=== PATIENT | female | born 1950 | race Caucasian/White ===

== ENCOUNTER 2023-12-05 10:00 | Outpatient (CLI) | payer MEDICARE, SELFPAY ==
--- NOTE | ~2023-12-05 | CT_ITS ---
CT cervical spine wo/w con Ordering provider: Charity Steven History: . CERVICAL STENOSIS OF SPINE . Comparison: None. Technique: CT of the cervical spine was performed with and without contrast. Sagittal and coronal re formatted images were also obtained and reviewed. Automated exposure control and iterative reconstru ction technique were employed. The dose-length product was 207.71 mGy-cm. 100 mL Omnipaque 350 was gi rosa IV. FINDINGS: VERTEBRAE: No subluxation or acute fracture. The occipital condyles are intact. Postoperative change s seen posteriorly. DISC SPACES: Narrowing of the disc spaces C2-C3, C3-C4, C4-C5, and C5-C6. PARASPINOUS SOFT TISSUES: Soft tissue collection with air is seen posterior to the surgical bed which measures 3.7 x 2.3 x 11 cm extending from the C4 down to T3. IMPRESSION: Collection is seen posteriorly in the surgical bed with air seen in the subcutaneous tissues and the collection. The collection measures 3.7 x 2.3 x 11 cm.. Further evaluation advised. Reviewed, dictated and finalized at location A. IMPRESSION: Collection is seen posteriorly in the surgical bed with air seen in the subcuta neous tissues and the collection. The collection measures 3.7 x 2.3 x 11 cm.. Génesis sanches evaluation advised.
[2023-12-05 10:43] LABS: Estimated Glomerular Filt Rate > 60
== END 2023-12-05 10:01 | disposition home or self-care (01) ==
LOC: CHSIMG 10:04
PROVIDERS: PCP Family Medicine
DX: M48.02 Spinal stenosis, cervical region (principal)
CPT/HCPCS: 72127; Q9967

== ENCOUNTER 2023-12-09 13:43 | Outpatient (CLI) | payer MEDICARE, SELFPAY ==
[2023-12-09 14:33] LABS: Anion Gap 5 mmol/L (4-12); Blood Urea Nitrogen 8 mg/dL (7-18); Calcium 9.3 mg/dL (8.5-10.1); Carbon Dioxide 32 mmol/L (21-32); Chloride 98 mmol/L (98-108); Estimated Glomerular Filt Rate > 60; Glucose 105 mg/dL (70-99); Osmolality Calculated 278 mOsm/kg (285-295); Potassium 3.8 mmol/L (3.5-5.1); Sodium 135 mmol/L (136-145)
== END 2023-12-09 13:44 | disposition home or self-care (01) ==
LOC: CHSLAB 13:46
PROVIDERS: PCP Family Medicine; Visit Provider Family Medicine
DX: E87.5 Hyperkalemia (principal)
CPT/HCPCS: 36415; 80048

== ENCOUNTER 2024-01-15 13:35 | Emergency (ER) | payer MEDICARE, MEDICAID, SELFPAY ==
[2024-01-15 13:39] VITALS: BP 138/74; PULSE 87; RESP 22; TEMP 36.4; O2SAT 98
--- NOTE | 2024-01-15 13:45 | ED.SKABFB ---
HPI - Skin/Abscess/Foreign Bdy General Chief complaint: Skin/Abscess/Foreign Body Stated complaint: RASH Time Seen by Provider: 01/15/24 13:37 Source: patient Mode of arrival: ambulatory Limitations: no limitations History of Present Illness HPI narrative: patient is a 73-year-old female from the nursing facility with generalized rash for the past 5-6 weeks. He has seen a minute clerk in other primary specialists without success of the rash. This rash is distressing due to itching and pain from time to time. MD complaint: rash Onset (ago): week(s) (5-6) Tetanus up to date: unsure Location: generalized Severity: moderate Severity scale (1-10): 5 Quality: sharp and pruritic Pain Consistency: intermittent Relieving factors: none Exacerbating factors: none Context: none Associated symptoms: denies other symptoms Treatments prior to arrival: other ( Multiple treatments from minute clerk and primary doctor unknown at this time.) Related Data Allergies Allergy/AdvReac Type Severity Reaction Status Date / Time potassium Allergy Unknown Verified 01/15/24 13:51 ragweed pollen Allergy Unknown Verified 01/15/24 13:51 Review of Systems Review of Systems: All systems reviewed & are unremarkable except as noted in HPI and below Constitutional: Constitutional: Reports no additional constitutional complaints Eyes: Eyes: Reports no additional eye complaints ENT: Reports system reviewed and no additional complaints, except as documented Cardiovascular: Cardiovascular: Reports no additional cardiovascular complaints Respiratory: Respiratory: Reports no additional respiratory complaints Gastrointestinal: Gastrointestinal: Reports no additional gastrointestinal complaints Genitourinary: Genitourinary: Reports no additional female genitourinary complaints Musculoskeletal: Musculoskeletal: Reports no additional musculoskeletal complaints Integumentary/Breasts: Skin/Breast: Reports system reviewed and no additional complaints, except as docu Neurologic: Reports system reviewed and no additional complaints, except as documented Psychiatric: Psychiatric: Reports no additional psychiatric complaints Endocrine: Endocrine: Reports no additional endocrine complaints Hematologic/Lymphatic: Hematologic/Lymphatic: Reports no additional hematologic/lymphatic complaints Allergic/Immunologic: Allergic/Immunologic: Reports no additional allergic/immunologic complaints Exam Const: General: healthy appearing Nutritional Appearance: well nourished Orientation/consciousness: patient oriented x3 HENMT: Head: normal to inspection Ears: external ears normal Face/Nose/Sinus: Normal external nose present Eyes: Conjunctivae: conjunctivae normal Pupils: Equal, round and reactive pupils present EOM: EOMs intact bilaterally Neck: Neck: normal visual inspection Chest: Chest palpation & inspection: normal inspection of the chest Resp: Effort & Inspection: normal respiratory effort and not labored Auscultation: clear to auscultation bilaterally and no crackles Cardio: Rate: regular rate Rhythm: regular rhythm Heart sounds: no murmurs GI: Inspection: non-distended Auscultation: normal bowel sounds : General: Yes bladder normal to palpation Back/Spine/Pelvis: Back: no CVA tenderness Skin: General skin exam: normal color Rashes: rash noted Wounds: no wounds Other: generalized macular papular rash with erythema on the chest abdomen and legs mostly; areas of excoriation; these may represent an infestation type rash Neuro: General: patient oriented x3, moves all extremities and no meningeal signs Extrem: General: normal to inspection, no clubbing, cyanosis or edema and no pedal edema Psych: Mental Status: mental status grossly normal Affect: normal affect Attitude: cooperative Course Vital Signs Vital signs: Vital Signs Temperature 36.4 C L 01/15/24 13:39 Pulse Rate 87 01/15/24 13:39 Respiratory Rate 22 H
[2024-01-15] MEDS: methylPREDNISolone SOD SUCC 125 MG VIAL IM (14:41)
[2024-01-15 14:57] VITALS: BP 140/70; PULSE 77; RESP 18; TEMP 36.6; O2SAT 100
== END 2024-01-15 15:07 | disposition home or self-care (01) ==
PROVIDERS: Emergency Provider Emergency Medicine; PCP Family Medicine
DX: S20.369A Insect bite (nonvenomous) of unspecified front wall of thorax, initial encounter (principal); S30.861A Insect bite (nonvenomous) of abdominal wall, initial encounter; S80.862A Insect bite (nonvenomous), left lower leg, initial encounter; S80.861A Insect bite (nonvenomous), right lower leg, initial encounter; W57.XXXA Bitten or stung by nonvenomous insect and other nonvenomous arthropods, initial encounter
CPT/HCPCS: 96372; 99283; J2919

== ENCOUNTER 2024-04-06 10:08 | Outpatient (CLI) | payer MEDICARE, MEDICAID, SELFPAY ==
[2024-04-06 11:11] LABS: Hematocrit 34.4 % (35.0-42.0); Hemoglobin 10.8 g/dL (11.7-13.8); Mean Corpuscular HGB Conc 31.4 g/dL (32-36); Mean Corpuscular Hemoglobin 26.3 pg (27.0-31.0); Mean Corpuscular Volume 83.9 fL (78.0-102.0); Mean Platelet Volume 10.1 fl (9.2-11.8); Platelet Count Result 385 K/mm3 (150-420); Red Cell Distribution Width 14.2 % (11.6-14.4); White Blood Count 8.8 K/mm3 (4.8-10.8)
[2024-04-06 11:21] LABS: Hemoglobin A1C 6.7 % (<5.7)
[2024-04-06 12:10] LABS: Alanine Aminotransferase 7 U/L (14-59); Albumin Level 3.1 g/dL (3.4-5.0); Alkaline Phosphatase 126 U/L (46-116); Anion Gap 7 mmol/L (4-12); Aspartate Amino Transferase 12 U/L (15-37); Bilirubin Direct 0.1 mg/dL (0-0.2); Bilirubin,Total 0.3 mg/dL (0.00-1.00); Blood Urea Nitrogen 13 mg/dL (7-18); Calcium 9.7 mg/dL (8.5-10.1); Carbon Dioxide 30 mmol/L (21-32); Chloride 100 mmol/L (98-108); Cholesterol 139 mg/dL (0-200); Estimated Glomerular Filt Rate 60; Glucose 108 mg/dL (70-99); HDL Direct 44 mg/dL (40-60); LDL Cholesterol Calculated 74 mg/dL (<130); Osmolality Calculated 285 mOsm/kg (285-295); Potassium 4.1 mmol/L (3.5-5.1); Sodium 137 mmol/L (136-145); Thyroid Stimulating Hormone 0.74 uIU/mL (0.36-3.74); Total Protein 8.8 g/dL (6.4-8.2); Triglycerides 105 mg/dL (0-150)
[2024-04-12 15:13] LABS: Vitamin D 1,25 (OH)2 Total 65 pg/mL (18-72); Vitamin D2 1,25 (OH)2 10 pg/mL; Vitamin D3 1,25 (OH)2 55 pg/mL
== END 2024-04-06 10:09 | disposition home or self-care (01) ==
PROVIDERS: PCP Family Medicine; Visit Provider Family Medicine
DX: E46 Unspecified protein-calorie malnutrition (principal); M96.1 Postlaminectomy syndrome, not elsewhere classified; D64.9 Anemia, unspecified; E78.5 Hyperlipidemia, unspecified; E11.9 Type 2 diabetes mellitus without complications; Z85.3 Personal history of malignant neoplasm of breast; E55.9 Vitamin D deficiency, unspecified
CPT/HCPCS: 36415; 80053; 80061; 82248; 82652; 83036; 84443; 85027

== ENCOUNTER 2024-04-07 06:51 | Outpatient (NON) | payer MEDICARE, SELFPAY | END 2024-04-07 06:52 | disposition home or self-care (01) | LOC: CHSLAB 06:53 | PROVIDERS: PCP Family Medicine; Visit Provider Family Medicine | DX: L08.9 Local infection of the skin and subcutaneous tissue, unspecified (principal) | CPT/HCPCS: 87070; 87075; 87181; 87205 ==

== ENCOUNTER 2024-05-07 07:15 | Outpatient (NON) | payer MEDICARE, SELFPAY | END 2024-05-07 07:16 | disposition home or self-care (01) | LOC: CHSLAB 07:17 | PROVIDERS: PCP Family Medicine; Visit Provider Family Medicine | DX: A49.02 Methicillin resistant Staphylococcus aureus infection, unspecified site (principal) | CPT/HCPCS: 87070; 87205 ==

== ENCOUNTER 2024-08-06 12:06 | Emergency (ER) | payer OTHER, SELFPAY ==
--- NOTE | ~2024-08-06 | CT_ITS ---
CT cervical spine wo con Ordering provider: Wali Barnett MD History: . osteomylitis? NKI, ?confusion, chronic neck pain, surg X 2yr . Comparison: December 05, 2023 Technique: CT of the cervical spine was performed without contrast. Sagittal and coronal reformatted images were also obtained and reviewed. Automated exposure control and iterative reconstruction benedict hnique were employed. The dose-length product was 108.92 mGy-cm. FINDINGS: VERTEBRAE: Postoperative changes seen posteriorly. Reversal of lordosis. No subluxation or acute frac ture. The occipital condyles are intact. Degenerative changes of the spine. DISC SPACES: Narrowing of the disc C3-C4, C4-C5, C5-C6 and C6-C7 is noted. Narrowing of the intervert ebral foramina at multiple levels PARASPINOUS SOFT TISSUES: Normal. IMPRESSION: No acute osseous abnormality cervical spine. Postoperative changes. Reviewed, dictated and finalized at location A.
[2024-08-06 12:08] VITALS: BP 186/86; PULSE 64; RESP 18; TEMP 36.7; O2SAT 100
[2024-08-06 12:37] LABS: Add Urine Microscopic? NO; Appearance Urine Clear (Clear); Bilirubin Urine Negative (Negative); Blood Urine Negative (Negative); Color Urine Light Yellow (Yellow); Glucose Urine UA Negative (Negative); Ketones Urine Negative (Negative); Leukocyte Esterase Ur Negative LEU/UL (Negative); Nitrate Urine Negative (Negative); Protein Urine Negative (Negative); Urobilinogen Urine 0.2 mg/dL (0.2-1.0)
[2024-08-06 12:51] VITALS: BP 148/66; PULSE 62; RESP 16; O2SAT 100
--- NOTE | 2024-08-06 13:16 | ED_ITS ---
HPI - Wound/Laceration General Chief Complaint: Altered Mental Status Stated Complaint: Neck wound Time Seen by Provider: 08/06/24 12:11 Source: patient Mode of arrival: ambulatory Limitations: no limitations History of Present Illness HPI narrative: Patient is a 74-year-old female with a significant past medical history that presents today for a wound on her neck. She states that the wound has been on her neck for 2 years now however she is a little bit altered and she is A&O x3 but she seems to forget things and tell little bit of a different Stories that did not really match up. But she does have about a 1 cm more alert on her neck that apparently she says she does see wound care for. Is a small 1 cm wound but does have some purulent drainage and does look like it could go pretty deep possibly to the bone. Need to rule out osteomyelitis. Onset (ago): year(s) Location: neck Body four view annotation: 2 1. 1 cm wound/purulent drainage Patient tetanus UTD: Yes Context: other ( does not know how the wound started) Associated symptoms: none Related Data Allergies Allergy/AdvReac Type Severity Reaction Status Date / Time cephalexin (From Keflex) Allergy Unknown Unknown Verified 08/06/24 12:11 potassium Allergy Unknown Verified 08/06/24 12:11 ragweed pollen Allergy Unknown Verified 08/06/24 12:11 Review of Systems 2 Review of Systems: All systems reviewed & are unremarkable except as noted in HPI and below Constitutional: Constitutional: Reports as per HPI Eyes: Eyes: Reports no additional eye complaints ENT: Reports system reviewed and no additional complaints, except as documented Cardiovascular: Cardiovascular: Reports no additional cardiovascular complaints Respiratory: Respiratory: Reports no additional respiratory complaints Gastrointestinal: Gastrointestinal: Reports no additional gastrointestinal complaints Genitourinary: Genitourinary: Reports no additional female genitourinary complaints Musculoskeletal: Musculoskeletal: Reports no additional musculoskeletal complaints Integumentary/Breasts: Skin/Breast: Reports as per HPI and Reports skin ulcer ( 1 cm wound/ ulcer has unable to tell how deep) Neurologic: Reports system reviewed and no additional complaints, except as documented Psychiatric: Psychiatric: Reports as per HPI Endocrine: Endocrine: Reports no additional endocrine complaints Hematologic/Lymphatic: Hematologic/Lymphatic: Reports no additional hematologic/lymphatic complaints Allergic/Immunologic: Allergic/Immunologic: Reports no additional allergic/immunologic complaints Exam 2 Const: General: healthy appearing Nutritional Appearance: well nourished Orientation/consciousness: patient oriented x3 HENMT: Head: normal to inspection Ears: external ears normal F ryan/Nose/Sinus: Normal external nose present Face and sinus: normal facial exam Mouth: Yes Normal oral and palatal mucosa present Eyes: Conjunctivae: conjunctivae normal Pupils: Equal, round and reactive pupils present EOM: EOMs intact bilaterally Direct Ophthalmoscopy: no photophobia Neck: Other: 1 cm wound/ ulcer on her back of her neck unable to tell how deep but looks like it goes a few cm CPAP possibly to the bone Chest: Chest palpation & inspection: normal inspection of the chest Resp: Effort & Inspection: normal respiratory effort Auscultation: clear to auscultation bilaterally Cardio: Rate: regular rate Rhythm: regular rhythm GI: GI Palp: Yes Soft to palpation Auscultation: normal bowel sounds Back/Spine/Pelvis: Back: no CVA tenderness Skin: General skin exam: normal color Rashes: no rashes Wounds: no wounds Neuro: General: patient oriented x3 Cranial nerves: Yes Nystagmus not present Speech: normal speech Gait exam (Neuro): Normal gait present Extrem: General: normal to inspection Psych: Mental Status: mental status grossly normal Affect: normal affect Attitude: cooperative Course Vital Signs Vital signs: Vital Signs Temperature 98.1 F 08/06/24 12:08 Pulse Rate 64 08/06/24 12:08 Respiratory Rate 18 08/06/24 12:08 Blood Pressure 186/86 H 08/06/24 12:08 Pulse Oximetry 100 08/06/24 12:08 Oxygen Delivery Room Air 08/06/24 12:08 Temperature 98.1 F 08/06/24 12:08 Pulse Rate 62 08/06/24 12:51 Respiratory Rate 16 08/06/24 12:51 Blood Pressure 148/66 H 08/06/24 12:51 Pulse Oximetry 100 08/06/24 12:51 Oxygen Delivery Room Air 08/06/24 12:08 MDM - Wound/Laceration MDM Narrative Medical decision making narrative: patient is a 1 cm wound/ulceration to the back of her neck. She says has been there for couple years in her chart it says has been there for about 6 months. Apparently she has been getting antibiotics on and off but she is not on antibiotics right now. She does not know which doctor gives her antibiotics. She apparently says that she does see wound care for it though. Right now she saw him care doctor today with her she is nonadherent gauze on there no other cream or substance has been but on the wound. It is slightly draining a little bit of purulent discharge. Differential Diagnosis Differential diagnosis: Likely other (wound/ulcer) Medical Records Attestation: I reviewed the patient's medical records. Lab Data Labs: Lab Results 08/06/24 Range/Units 12:13 Urine Color Light yellow (Yellow) Urine Appearance Clear (Clear) Urine pH 6.0 (5.0-8.0) Ur Specific [place] 1.020 (1.010-1.020) Urine Protein Negative (Negative) Urine Glucose (UA) Negative (Negative) Urine Ketones Negative (Negative) Ur Blood (Man) Negative (Negative) Urine Nitrate Negative (Negative) Urine Bilirubin Negative (Negative) Urine Urobilinogen 0.2 (0.2-1.0) mg/dL Leukocyte Esterase Rfl Negative (Negative) RADHA/UL Imaging Data Attestation: I personally reviewed and interpreted this imaging study as follows: Discharge Plan Discharge Clinical Impression: Open neck wound Patient Disposition: Home, Self-Care Condition: Stable Instructions: Antibiotic Form, Puncture Wound (ED) Additional Instructions: take doxycycline twice daily for 10 days. Continues see field identification specialist. CT scan did not show any signs of osteomyelitis so doxycycline should suffice for antibiotic her. But continuing wound care to try to take care of this and get this cleared up. Patient Language: Bangladeshi Prescriptions: New doxycycline hyclate 100 mg tablet 100 mg PO BID Qty: 20 0RF No Action permethrin 5 % cream 1 applic topical ONCE Qty: 60 1RF Rx Instructions: leave cream on for 12 hours then shower off; repeat in 1 week if still present rash prednisone 20 mg tablet 40 mg PO DAILY 2 Days Qty: 4 0RF Rx Instructions: start 01-16-24 Follow-up/Referrals: Amanuel Buitrago MD [Primary Care Provider] - Time of Disposition: 13:30
[2024-08-06] MEDS: DOXYCYCLINE HYCLATE 100 MG TABLET PO (13:22)
--- NOTE | 2024-08-06 13:24 | PC.NURSE ---
Report given to Anat at [facility] and rehab, they will send staff member to take patient back to facility.
[2024-08-06 13:35] VITALS: BP 134/74; PULSE 60; RESP 16; TEMP 36.8; O2SAT 100
--- OUTSIDE RECORDS SUMMARY | 2024-08-06 13:57 | XMS_ITS | Clinical Summary ---
Author Organization [facility] Address [address] [place] [address] Care Team Providers Care Alteration Inspector Name Role Phone Vania Lew MD Primary Care Provider Allergies No known active allergies Medications vitamin C 500 MG tablet Take 500 mg by mouth daily. Active aspirin EC (ASPIRIN EC) 81 MG tablet Take 81 mg by mouth daily. Active carbidopa-levodop a 25-100 MG tablet Take 2 tablets by mouth 3 (three) times daily. Active cholecalciferol (VITAMIN D3) 125 MCG (5000 UT) Tab Take 5,000 Units by mouth daily. Active ferrous sulfate, 65 mg elemental, 325 (65 FE) MG tablet Take 325 mg by mouth daily with breakfast. Active fluticasone propionate 50 MCG/ACT nasal spray 2 sprays by Each Nostril route daily. Active GABAPENTIN, ONCE-DAILY, OR Take 300 mg by mouth 3 (three) times daily. Active Glucosamine Sulfate 500 MG Tab Take 1 tablet by mouth 3 (three) times daily. Active lansoprazole 30 MG capsule Take 30 mg by mouth daily. Active Multiple Vitamins-Minerals (WOMENS MULTIVITAMIN PLUS OR) Take 1 tablet by mouth daily. Active simvastatin 20 MG tablet Take 20 mg by mouth nightly at bedtime. Active TURMERIC OR Take 2 capsules by mouth daily. Active Social History Tobacco Use Types Packs/Day Years Used Date Smoking Tobacco: Never Smokeless Tobacco: Never Comments Unknown Sex and Gender Information Value Date Recorded Sex Assigned at Not on file Legal Sex Female 8:00 PM CDT Gender Identity Not on file Sexual Orientation Not on file Plan of Treatment Health Maintenance Due Date Last Done Comments Colorectal Cancer Screening Colonoscopy (10 Years) 1949 Hepatitis C 1968 Annual Medicare Wellness Visit 2014 Pneumococcal Vaccine: 65+ Years (2 of 2 - PPSV23 or PCV20) 02/29/2016 02/28/2015 COVID-19 Vaccine ( - season) 2024 03/02/2022, 08/20/2020, 07/15/2020 Influenza Adult (#1) 2024 02/27/2020, 02/14/2020, 03/05/2019, Additional history exists RSV Immunization or 60+ Years (1 - 1-dose 75+ series) 2024 DTaP, Tdap and Td Vaccines (4 - Td or Tdap) 12/12/2031 12/11/2021, 02/07/2019, 01/20/2017 Dexa Scan (General) Completed 06/11/2019 Zoster Vaccines Completed 04/30/2020, 02/27/2020 Meningococcal B Vaccine Aged Out No l onger eligible based on patient's age to complete this topic Meningococcal Vaccine Aged Out No kenney roxane eligible based on patient's age to complete this topic RSV Immunizations Under 20 Months Aged Out No longer eligible based on patient's age to complete this topic Insurance MEDICAID DEPT OF HUMAN [address] [facility] MEDICAID Care Teams Alteration Inspector Relationship Specialty Start Date End Date Vania Lew MD PCP - General 10/08/10
--- OUTSIDE RECORDS SUMMARY | 2024-08-06 13:58 | XMS_ITS | Clinical Summary ---
Author Organization [employer] [facility] Address [address] [place] [address] Phone Care Team Providers Care Infusion Therapy Nurse Name Role Phone Unavailable Primary Care Provider Unavailabl e Allergies No known active allergies Medications lubiprostone (AMITIZA) 24 mcg Capsule Take 24 mcg by mouth 2 times daily with meals. Active aspirin (ECOTRIN EC) 81 mg Tablet, Delayed Release (E.C.) Take 81 mg by mouth daily. Active CALCIUM CARBONATE/VITAM IN D3 (CALCIUM 500 + D, D3, ORAL) Take by mouth. Activ e carbidopa-levod opa (SINEMET) 25-100 mg tablet Take 1 Tablet by mouth 3 times daily. Active carbidopa-levod opa (SINEMET CR) 50-200 mg Controlled Release tablet Take 1 Tablet by mouth 4 times daily. Active coenzyme Q10 Capsule Take 10 mg by mouth daily. Active cyanocobalamin 1,000 mcg Tablet Take 1,000 mcg by mouth daily. Active DULoxetine (CYMBALTA) 30 mg Capsule, Delayed Release(E.C.) Take 60 mg by mouth daily. Active 0mega-3 fatty acids-vitamin E (FISH OIL) 1,000 mg Capsule Take 1,000 mg by mouth. Active FLUTICASONE PROPIONATE (FLUTICASONE BOTH NOSTRIL) Administer in each nostril. Active mirtazapine (REMERON) 15 mg tablet Take 15 mg by mouth daily at bedtime. Active omeprazole (PRILOSEC) 20 mg Capsule, Delayed Release(E.C.) Take 20 mg by mouth daily. Active olopatadine (PATADAY) 0.2 % solution 1 Drop daily. Active simvastatin (ZOCOR) 10 mg tablet Take 10 mg by mouth Daily LATE. Active traMADol (ULTRAM) 50 mg tablet Take 100 mg by mouth every 6 hours as needed for Pain. Active ascorbic acid (VITAMIN C) 1,000 mg Tablet Take 1,000 mg by mouth daily. Active CA COMB NO.1/D3/B-6/FA/ B12/AV (VITAMIN D-3 WITH ALOE ORAL) Take by mouth. Activ e Wheat Germ Oil Oil Take by mouth. Activ e Active Problems Problem Noted Date Diagnosed Date Cyst of thyroid determined by ultrasound 015 Family History Medical History Relation Name Comments Diabetes Brother Eczema Daughter Thyroid Disease Daughter Eczema Father Stroke Mother Cancer Sister Relation Name Status Comments Brother Daughter Father Mother Sister Social History Tobacco Use Types Packs/Day Years Used Date Smoking Tobacco: Never Alcohol Use Standard Drinks/Week Comments Yes 0 (1 standard drink = 0.6 oz pur e alcohol) seldom Comments Unknown Sex and Gender Information Value Date Recorded Sex Assigned at Not on file Legal Sex Female 1:50 PM INTERLOCKING PAVEMENT INSTALLER Gender Identity Not on file Sexual Orientation Not on file Last Filed Vital Signs Vital Sign Reading Time Taken Comments Blood Pressure 120/68 05/06/2015 3:33 PM INTERLOCKING PAVEMENT INSTALLER Pulse 80 05/06/2015 3:33 PM INTERLOCKING PAVEMENT INSTALLER Temperature - - Respiratory Rate - - Oxygen Saturation 97% 05/06/2015 3:33 PM INTERLOCKING PAVEMENT INSTALLER Inhaled Oxygen Concentration - - Weight 63 kg (139 lb) 05/06/2015 3:33 PM INTERLOCKING PAVEMENT INSTALLER Height 170.2 cm (5' 7 ) 05/06/2015 3:33 PM INTERLOCKING PAVEMENT INSTALLER Body Mass Index 21.77 05/06/2015 3:33 PM INTERLOCKING PAVEMENT INSTALLER Plan of Treatment Health Maintenance Due Date Last Done Comments DTAP/TDAP/TD VACCINES (1 - Tdap) 1968 FIT-DNA Q 3 years 1994 FIT/FOBT Q 1 year 1994 Flex Sig/CT Colonography Q 5 years 1994 PNEUMOCOCCAL VACCINE 50+ YEA RS (1 of 1 - PCV) 1999 ZOSTER VACCINE (1 of 2) 1999 INFLUENZA VACCINE (#1) 2023 RSV VACCINE (60+ or ) (1 - 1-dose 75+ series) 2024 COLORECTAL SCREENING 08/25/2027 08/24/2017 Colorectal Cancer Screening 08/25/2027 OSTEOPOROSIS SCREENING Completed 11/05/2015, 2013 Insurance MEDICARE PART A AND B [place] [id number]
--- OUTSIDE RECORDS SUMMARY | 2024-08-06 13:58 | XMS_ITS ---
Author Organization [facility] Address [address] [place] [id number] Care Team Providers Care Beef Ribber Name Role Phone João Stewart MD Unavailable [phone] Marcell David MD Primary Care Provider [phone] Active Problems Problem Noted Date Diagnosed Date Open displaced fracture of f irst cervical vertebra with delayed healing, unspecified fracture morphology, subsequent encounter 11/04/2023 Weakness of both hands 11/03/2023 Open displaced fracture of f irst cervical vertebra with delayed healing 10/19/2023 Constipation 08/10/2023 Falls frequently 08/10/2023 Overview (08/10/2023): Last Assessment & Plan: Discussed the importance of always using her walker when ambulating inside her apartment. Pt will usually try to go without and then will fall. Will have her check with her facility about her therapy referral to help improve her gait and strength. Osteoarthritis 08/10/2023 Bilateral impacted cerumen 03/11/2023 Vitamin D deficiency, unspecified 11/26/2022 Unspecified psychosis not du e to a substance or known physiological condition 08/30/2022 Difficulty in walking, not elsewhere classified 08/20/2022 Major depressive disorder, single episode, moder ate 07/05/2022 Mild cognitive impairment of uncertain or unknow n etiology 07/05/2022 Closed nondisplaced fracture of first cervical vertebra with routine healing 05/20/2022 Neuropathy 05/13/2022 Colostomy status 05/13/2022 Polyneuropathy, unspecified 05/13/2022 Type 2 diabetes mellitus without complications 1 Diabetes 05/11/2022 Multiple closed fractures of ribs of right side 05/11/2022 Allergic rhinitis 12/31/2021 Overview (08/10/2023): Last Assessment & Plan: flonase ordered for pt. Generalized weakness 12/11/2021 Overview (08/10/2023): Last Assessment & Plan: Pt's condition supports the need for a PMD/Scooter. Meets with supplier on Tuesday for an evaluation. We will place order thereafter. Chronic midline low back pain without sciatica 0 10/13/2021 Fatigue 09/02/2021 Prediabetes 09/02/2021 Vision changes 09/02/2021 Unspecified visual disturbance 09/02/2021 GERD (gastroesophageal reflux disease) Overview (08/10/2023): GERD- chronic, stable. Cont with pepcid Colostomy present 05/12/2021 Adult failure to thrive 01/15/2021 Bilateral sacroiliitis 06/25/2020 Overview (08/10/2023): Added automatically from request for surgery [id number] Sacroiliitis, not elsewhere classified 1 Age-related osteoporosis wit hout current pathological fracture 06/28/2019 Spinal stenosis in cervical region 06/11/2019 Overview (06/11/2019): Added automatically from request for surgery [id number] Cervical stenosis of spine 04/27/2019 Asymmetric SNHL (sensorineural hearing loss) 01/2019 Overview (08/10/2023): Last Assessment & Plan: MRI IACs unremarkable hearing aid medical clearance for right ear given She will go to [place] for insurance assistance Will obtain updated audiological evaluation Insomnia due to other mental disorder 12/08/2018 Numbness of hand 08/28/2018 Fibromyalgia 07/19/2018 B-cell lymphoma 02/28/2018 Carotid artery stenosis 07/18/2017 Hyperlipidemia 12/09/2016 Overview (08/10/2023): Hyperlipidemia- chronic, stable. Cont with statin. Last Assessment & Plan: Chronic, stable. Cont with statin Other mixed anxiety disorders 12/09/2016 Overview (08/10/2023): Last Assessment & Plan: Continue Duloxetine Major depression, recurrent, chronic 12/09/2016 Overview (08/10/2023): Depression- chronic, stable. Cont with antidepressant. Last Assessment & Plan: Chronic, stable. Cont with antidepressant. 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 Past Treatment and Therapy Plans No past plan information found. Lifetime Dose Tracking * Chemical Lifetime Dose Automatic Entry Manual Entr y Fluoro Time 0.91 minutes 0.91 minutes 0 minutes Air kerma at the reference point (Ka,r) 29.51 mGy 2 9.51 mGy 0 mGy DLP 3,282 mGycm 3,282 mGycm 0 mGycm
--- OUTSIDE RECORDS SUMMARY | 2024-08-06 13:58 | XMS_ITS | Clinical Summary ---
Author Organization [facility] Address [address] [place] [id number] Care Team Providers Care Management Tech Name Role Phone João Stewart MD Unavailable [phone] Marcell David MD Primary Care Provider [phone] Allergies Active Allergy Reactions Criticality Noted Date Comments Potassium Itching,Other (See comments) Reaction: ITCHING, Reaction: itching, Ragweed Pollen Unknown 02/21/2023 Medications cholecalciferol (VITAMIN D-3) 25 mcg (1,000 unit) tabletIndication s:Osteoporosis,V itamin D Deficiency Take 1 tablet (1,000 Units total) by mouth every morning Active carbidopa-levodo pa (SINEMET) 25-100 mg per tabletIndication s:Parkinsonism Take 2 tablets by mouth 3 (three) times a day. 540 tablet 11 8 Active FLUTICASONE FUROATE NASLIndications: for allergies Administer 1 spray into affected nostril(s) every morning May repeat in the evening as needed Active ferrous sulfate (iron) 325 mg (65 mg of elemental iron) tabletIndication s:Iron Deficiency Anemia Take 1 tablet (325 mg total) by mouth every other day Even days Active alendronate (FOSAMAX) 70 mg tabletIndication s:Post-Menopausa l Osteoporosis Take 1 tablet (70 mg total) by mouth once a week Fridays Active amantadine HCL 100 mg tabletIndication s:Parkinsonism Take 100 mg by mouth every morning 3 Active lidocaine (ASPERCREME) 4 % adhesive patch,medicatedI ndications:Pain Apply 1 patch topically daily as needed (pain) 2 Active melatonin tabletIndication s:sleep Take 5 mg by mouth nightly as needed for sleep Active metFORMIN (GLUCOPHAGE) 500 mg tabletIndication s:type 2 diabetes mellitus Take 2 tablets (1,000 mg total) by mouth daily with breakfast 3 Active Myrbetriq 25 mg tablet extended release 24 hrIndications:In creased Urinary Frequency,Urinar y Urge Incontinence Take 0.5 tablets (12.5 mg total) by mouth every morning 3 Active ondansetron (ZOFRAN) 4 mg tabletIndication s:n/v Take 1 tablet (4 mg total) by mouth every 6 (six) hours as needed for nausea or vomiting 3 Active rosuvastatin (CRESTOR) 10 mg tabletIndication s:hyperlipidemia Take 1 tablet (10 mg total) by mouth nightly [address] (CYMBALTA) 60 mg capsule Take 1 capsule (60 mg total) by mouth 2 (two) times a day 4 Active cyanocobalamin (Vitamin B-12) 500 mcg tabletIndication s:Prevention of Vitamin B12 Deficiency Take 1 tablet (500 mcg total) by mouth every morning Active ergocalciferol (VITAMIN D) 50,000 unit capsuleIndicatio ns:Osteoporosis, Vitamin D Deficiency Take 1 capsule (50,000 Units total) by mouth every 30 (thirty) days Active senna-docusate (PERICOLACE) 8.6-50 mgIndications:co nstipation Take 1 tablet by mouth daily as needed for constipation Active polyethylene glycol (MIRALAX) 17 gram packetIndication s:constipation Take 1 packet (17 g total) by mouth 2 (two) times a day Active lidocaine (ASPERCREME) 4 % adhesive patch,medicated Place 1 patch on the skin daily 2 Active traMADoL (ULTRAM) 50 mg tabletIndication s:Fibromyalgia,N europathic Pain Take 1 tablet (50 mg total) by mouth every 8 (eight) hours as needed for pain 42 tablet 4 Active oxyCODONE (ROXICODONE) 5 mg immediate release tabletIndication s:Pain Take 0.5 tablets (2.5 mg total) by mouth every 4 (four) hours as needed for pain 42 tablet 4 Active acetaminophen 500 mg capsule Take 2 capsules (1,000 mg total) by mouth every 6 (six) hours 4 Active aspirin 81 mg enteric coated tabletIndication s:prevention of thrombosis RESTART TAKING THIS MEDICATION ON 11/19/23. Take 1 tablet (81 mg total) by mouth every morning 4 Active baclofen (LIORESAL) 5 mg tablet Take 1 tablet (5 mg total) by mouth every 8 (eight) hours 4 Active enoxaparin (LOVENOX) 30 mg/0.3 mL syringeIndicatio ns:Deep Vein Thrombosis Prevention Inject 0.3 mL (30 mg total) under the skin every 12 (twelve) hours Until discontinued by the facility provider or PCP. 4 Active thiamine (VITAMIN B1) 100 mg tablet Take 1 tablet (100 mg total) by mouth daily 4 025 Active triamcinolone (KENALOG) 0.1 % cream Apply topically 4 (four) times a day 4 Active polyvinyl alcohol-povidone (REFRESH CLASSIC) 1.4-0.6 % dropperette Administer 1 drop into both eyes 3 (three) times a day 4 Active cephalexin (KEFLEX) 500 mg capsule 4 Active fluticasone propionate (FLONASE) 50 mcg/actuation nasal spray 4 Active doxycycline 100 mg tablet 4 Active fluconazole (DIFLUCAN) 100 mg tablet 4 Active permethrin (ELIMITE) 5 % cream 4 Active Active Problems Problem Noted Date Diagnosed Date [...] (08/10/2023): Added automatically from request for surgery [id number] Sacroiliitis, not elsewhere classified 1 Age-related osteoporosis wit hout current pathological fracture 06/28/2019 Spinal stenosis in cervical region 06/11/2019 Overview (06/11/2019): Added automatically from request for surgery [id number] Cervical stenosis of spine 04/27/2019 Asymmetric SNHL (sensorineural hearing loss) 01/2019 Overview (08/10/2023): Last Assessment & Plan: MRI IACs unremarkable hearing aid medical clearance for right ear given She will go to [place] for insurance assistance Will obtain updated audiological [...] 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 Parkinson disease 09/21/2016 Encounters Date Type Department Care Team Description 06/05/2024 Telephone [facility] Scheduling [address] [place] [address] Jade Sheppard from Last 3 Months Immunizations Immunization Administration Dates Next Due Influenza LAIV (Nasal) 02/27/2020 Influenza, Quadrivalent, Spl it, Intramuscular 03/16/2016,02/19/2015 Influenza, Trivalent, High D ose, Split, Preservative Free, Intramuscular 02/23/2019,03/13/2018,01/20/2017 Influenza, Trivalent, IM (MDV) 02/14/2020 Influenza, Trivalent, Preser vative Free, Intramuscular 03/01/2014 Influenza, Unspecified 03/05/2019 PPD TEST 03/28/2023 Pneumococcal Conjugate PCV 13 02/28/2015 Pneumococcal Polysaccharide PPV23 06/13/2023 Pneumococcal, Unspecified 03/16/2016,02/24/2012 Td, Unspecified 12/11/2020 Tdap 12/11/2021,02/07/2019,01/20/2017 ZOSTER Recombinant 04/30/2020,02/27/2020 Surgical History Surgery Date Site/Laterality Comments DILATION AND CURETTAGE OF UTERUS Medical History Medical History Date Comments Cancer (HCC) last [id number] Anxiety Depression Type 2 diabetes mellitus (HCC) Gastric reflux Family History Medical History Relation Name Comments Coronary artery disease Father Fami ly history of coronary artery disease - (Added by TW Conv) Relation Name Status Comments Father Social History Tobacco Use Types Packs/Day Years Used Date Smoking Tobacco: Never Passive Smoke Exposure: Past Smokeless Tobacco: Never Tobacco Cessation:Counseling Given: No Alcohol Use Standard Drinks/Week Comments Not Currently 0 (1 standard drink = 0.6 oz pur e alcohol) AUDIT-C Answer Date Recorded Q1: How often do you have a drink containing alcohol? Never 12/07/2023 Q2: How many drinks containi ng alcohol do you have on a typical day when you are drinking? Patient does not drink Q3: How often do you have si x or more drinks on one occasion? Never 12/07/2023 Personal Safety Answer Date Recorded Have you ever been in or are you currently in a harmful physical or emotional relationship or is someone making you feel afraid or unsafe? Denies 11/04/2023 Comments Unknown Sex and Gender Information Value Date Recorded Sex Assigned at Not on file Legal Sex Female 8:24 AM ASSOCIATE CHEMIST Gender Identity Not on file Sexual Orientation Not on file Obstetrics History Last Filed Vital Signs Vital Sign Reading Time Taken Comments Blood Pressure 91/77 11/14/2023 11:05 AM CDT Pulse 70 11/14/2023 11:00 AM CDT Temperature 36.4 C (97.5 F) 11/14/2023 11:00 AM CDT Respiratory Rate 16 11/14/2023 11:00 AM CDT Oxygen Saturation 100% 11/14/2023 11:00 AM CDT Inhaled Oxygen Concentration - - Weight 86.2 kg (190 lb) 11/23/2023 3:25 PM CDT Height 170.2 cm (5' 7 ) 11/03/2023 2:20 PM CDT Body Mass Index 29.76 11/03/2023 2:20 PM CDT Plan of Treatment Health Maintenance Due Date Last Done Comments Albumin Creatinine Ratio, Urine 1950 Colon Cancer Screening-Colonoscopy 1950 Depression Screening 1950 Dilated Eye Exam 1950 Foot Exam 1950 Lipid Panel 1950 Hepatitis B Screening 1967 Well Visit 65+ 2014 Covid-19 Vaccine (2023-2 5 season) 2024 03/02/2022, 08/20/2020, 07/15/2020 Influenza Vaccine (#1) 2024 , 02/14/2020, 03/05/2019, Additional history exists Hemoglobin A1C 05/02/2024 11/01/2023 eGFR 11/12/2024 11/13/2023, 10/15, 11/09/2023, Additional history exists Fall Risk Assessment 11/13/2024 11/14/2023 Osteoporosis Screening-Bone Density Scan 09/06/2025 09/07/2023 DTaP/Tdap/Td Vaccine (5 - Td or Tdap) 12/12/2031 12/11/2021, 12/11/2020, 02/07/2019, Additional history exists Hepatitis C Screening Completed 07/10/2019 Zoster Vaccine Completed 04/30/2020, 02/27/2020 Pneumococcal vaccine 65+ Completed 024, 03/16/2016, 02/28/2015, Additional history exists Medical Devices Implanted Type Area Hydrotherapist Device Identifier Shelf Expiration Date Model / Serial / Lot Norwalk Spine Allograft Gel Graft 5cc Bone Demineralized Bone Matrix [id number] - [id number] Implanted:Qty: 1 on 11/04/2023 by Kenny Flores MD at [facility] N/A: Spine Cervical [employer] Spine [id number] 03/30/2026 [id number] / / [id number] Nuvasive Inc Screw Spine Reline C Lock Open Non-Sterile Latex Free [id number] - [id number] Implanted:Qty: 11 on 11/04/2023 by Kenny Flores MD at [facility] N/A: Spine Cervical Nuvasive Inc [id number] / / Nuvasive Inc Navneet Spinal Posterior Cervical Prebent Reline 3.5x250/100mm Titanium [id number] - [id number] Implanted:Qty: 2 on 11/04/2023 by Kenny Flores MD at [facility] N/A: Spine Cervical Nuvasive Inc [id number] / / Nuvasive Inc Plate Spine Posterior Cervical Occipital Adjustable Small Reline [id number] - [id number] Implanted:Qty: 1 on 11/04/2023 by Kenny Flores MD at [facility] N/A: Spine Cervical Nuvasive Inc [id number] / / Nuvasive Inc Connector Spinal Posterior Cervical Rotating Top Side Reline 3.5-4/3.5-4mm [id number] - [id number] Implanted:Qty: 4 on 11/04/2023 by Kenny Flores MD at [facility] N/A: Spine Cervical Nuvasive Inc [id number] / / [place] Spine Graft Bone Filler Gel Bio Dbm 10cc [id number] - [id number] Implanted:Qty: 1 on 11/04/2023 by Kenny Flores MD at [facility] N/A: Spine Cervical [place] Spine [id number] 04/13/2026 [id number] / / [id number] New Age Medical Graft Bone Magnetos 10cc 1-2mm Granules In Moldable Putty 703-038-[id number] - [id number] Implanted:Qty: 1 on 11/04/2023 by Kenny Flores MD at [facility] N/A: Spine Cervical [employer] [id number] 10/15/2027 [id number] / / [id number] Medtronic Inc Infuse 20ga 2x1in Vial Absorbable Syringe Needle Medium Graft 5.6 [id number] - [id number] Implanted:Qty: 1 on 11/04/2023 by Kenny Flores MD at [facility] N/A: Spine Cervical Medtronic Inc [id number] / / Allosource Crushed Chip Frozen Graft 30ml Bone Cancellous [id number] - [id number] Implanted:Qty: 1 on 11/04/2023 by Kenny Flores MD at [facility] N/A: Spine Cervical Allosource 11/07/2027 [id number] / / [id number] Allosource Canpac Allograft Frozen Nonpurge Graft 10cc Bone Cancellous [id number] - [id number] Implanted:Qty: 1 on 11/04/2023 by Kenny Flores MD at [facility] N/A: Spine Cervical Allosource 09/13/2028 [id number] / / [id number] Nuvasive Inc Reline C Screw 4.5x10mm Occipital [id number] - [id number] Implanted:Qty: 2 on 11/04/2023 by Kenny Flores MD at [facility] N/A: Spine Cervical Nuvasive Inc [id number] / / Nuvasive Inc Reline C Screw 4.5x12mm Occipital [id number] - [id number] Implanted:Qty: 2 on 11/04/2023 by Kenny Flores MD at [facility] N/A: Spine Cervical Nuvasive Inc [id number] / / Nuvasive Inc Reline C Screw 4.0x24mm Reduction Fa [id number] - [id number] Implanted:Qty: 1 on 11/04/2023 by Kenny Flores MD at [facility] N/A: Spine Cervical Nuv[employer] Inc [id number] / / Procedures Procedure Name Priority Date/Time Associated Diagnosis Comments EGFR Routine 11/13/2023 8:30 PM CDT POCT HEMOGLOBIN A1C Routine 11/01/2023 4:36 PM CDT DEXA AXIAL SKELETON BONE DENSITY 1 OR MORE SITES Schedule Routine, Read Routine (OP Routine) 09/07/2023 9:16 AM CDT 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 73 m2 Comment: Interpretive Data Reference Interval Normal >/= 90 mL/min/1.73m2 Mildly decreased* 60 - 89 mL/min/1.73m2 Mildly to moderately decreased 45 - 59 mL/min/1.73m2 Moderately to severely decreased 30 - 44 mL/min/1.73m2 Severely decreased 15 - 29 mL/min/1.73m2 Kidney Failure < 15 mL/min/1.73m2 *Relative to young adult level Estimated glomerular filtration rate is determined by the 2020 CKD-EPI equation recommended by the National Kidney Foundation (A Unifying Approach to GFR Estimation: Recommendations of the NKF-ASK Task Force on Reassessing the Inclusion of Race in Diagnosing Kidney Disease, JASN 2020). The CKD-EPI equation should not be used for patients with unstable renal function and has not been validated in children and those over 70. Current interpretive data was last reviewed 2021. Blood 11/13/2023 8:30 PM CDT 11/14/2023 12:01 AM CDT Kenny Flores MD LAB BLOOD ORDERABLES Final Resu lt Performing Organization Address [facility] de Phone Number [facility] [place] [address] * (ABNORMAL) POCT hemoglobin A1c (11/01/2023 4:36 PM CDT) Hgb A1C, POC 6.1(H) 4.0 - 5.6 % Est Average Gluc POC 128 mg/dL [facility] Comment: The ADA recommends reporting an estimated Average Glucose (eAG) with all Hemoglobin A1c results using the equation derived from a study of 507 normal and diabetic adults. Minority populations were underrepresented and children were not included. (Diabetes Care 31:7562-6290, 2008). The eAG is not equivalent to a fasting glucose. Blood 11/01/2023 4:36 PM CDT 11/01/2023 4:36 PM CDT Kenny Flores MD POINT OF CARE TEST ORDERABLES F inal Result Performing Organization Address [facility] de Phone Number [facility] [place] [address] * DEXA Axial Skeleton Bone Density Multi Site (09/07/2023 9:16 AM CDT) Anatomical Region Laterality Modality Body N/A Radiographic Kika ging Narrative 09/08/2023 9:57 AM CDT Patient Name: sE Wolff Date of : 1950 Date of scan: 09/07/2023 Bone mineral density was performed on a [facility] Discovery Densitometer. Based on machine cross-calibration and precision studies the least significant changes of this densitometer is 0.024 g/cm2 at the spine, 0.020 g/cm2 at the total proximal femur, and 0.014g/cm2 at the forearm. HISTORY: This is a 73 y.o. postmenopausal female with a history of osteoporosis. She reports that she has never smoked. She has never used smokeless tobacco. Currently on treatment with calcium, vitamin D, and alendronate (Fosamax). INDICATIONS: Menopause status, treatment monitoring, history of prior vertebral fracture, and history of osteoporosis. FINDINGS: BONE MINERAL DENSITY OF THE LUMBAR SPINE Bone Mineral Density (BMD) of the lumbar spine was measured from L1 and L2 and the average density was calculated to be 0.892 gm/cm2. This corresponds to a T-score (standard deviations from the mean of young adults) of -0.8. There is no previous study available for comparison. BONE MINERAL DENSITY OF THE PROXIMAL FEMUR Bone Mineral Density (BMD) of the left hip total was found to be 0.654 gm/cm2. This corresponds to a T-score standard deviations from the mean of young adults of -2.4. Femoral neck is 0.563 gm/cm2 with a T-score (standard deviations from the mean of young adults) of -2.6. There is no previous study available for comparison. BONE MINERAL DENSITY OF THE FOREARM Bone Mineral density (BMD) of the right proximal 1/3 of the radius measures 0.574 gm/cm2. This corresponds to a T-score (standard deviations from the mean of young adults) of -2.0. There is no previous study available for comparison. A forearm bone density study was performed in addition to the routine study because of history of spinal surgery. SUMMARY: Bone mineral density shows evidence of osteoporosis and marked increase risk of fracture. L3 & L4 excluded from bone mineral density analysis of the lumbar spine because of the presence of surgical hardware. ADDITIONAL COMMENTS: Postmenopausal Women and Men Over 50: Diagnostic criteria: Osteoporosis: BMD at or below -2.5 T-score; Osteopenia (low bone mass): BMD between -1.0 and -2.5 T-score. If the patient has a history of a fragility fracture, a fracture that occurred with trauma equivalent to a fall from a standing position or less, then the diagnosis is osteoporosis regardless of bone density. The history and data sections of the bone mineral density scan were prepared by Pat Paulino (R)([facility]) who is accredited by the International Society of Clinical Densitometry. The overall patient assessment and scan interpretation were performed by Brenda Lazo M.D. who is certified by the International Society of Clinical Densitometry. [id number] us Remy MCKEON IMG DXA PROCEDURES Final Result * Hepatitis panel, acute (07/10/2019 2:18 PM ASSOCIATE CHEMIST) Hep A IgM Nonreactive Nonreactive [facility] Comment: Interpretive Data If test is reported as GRAYZONE, new sample should be drawn in two weeks for testing. Current interpretive data was last revised on 2016. Hep B core IgM Nonreactive Nonreactive [facility] Comment: Interpretive Data If test is reported as GRAYZONE, new sample should be drawn for testing. Current interpretive data was last revised on 2016. Hep C Ab Nonreactive Nonreactive [facility] Comment: Interpretive Data Positive results should be confirmed by a molecular method. If positive, a second separately collected sample should be submitted for Hepatitis C Virus (HCV) RNA Detection and Quantitation by Real-Time Reverse Molder Labels-PCR (RT-PCR). Current interpretive data was last revised on 2016. HepBsAg Nonreactive Nonreactive [facility] Blood specimen (specimen) 07/10/2019 2:18 PM ASSOCIATE CHEMIST 07/10/2019 5:19 PM ASSOCIATE CHEMIST us Yassine lPatt MD LAB MICROBIOLOGY - [place] ORDERABLES Final Result [facility] [place] [address] from Last 3 Months or Most Recently Relevant to Health [place] [id number] [facility] MEDICARE ADVANTAGE [facility] Address: [address] [address] [place] [id number] [employer] [place] [address] Advance Directives For more information, please contact: [phone] Documents on File Type Date Recorded Patient Classics Professor Expl anation ADVANCE DIRECTIVE 11/16/2023 10:49 PM POWER OF TAIL BOARD MAN-MEDICAL ADVANCE DIRECTIVE 11/07/2023 11:02 AM LEA R OF TAIL BOARD MAN-MEDICAL ADVANCE DIRECTIVE 11/04/2023 2:20 PM Power of Profile Saw Operator-Medical Advance Directives and Living Will 11/04/2023 8:45 AM * Full Code (Latest Code Status on File) Date Activated Date Inactivated Comments 11/04/2023 10:15 PM 11/14/2023 9:14 PM * Full Code Date Activated Date Inactivated Comments 11/03/2023 3:49 PM 11/04/2023 10:15 PM Healthcare Agents on File Name Relationship Healthcare Agent Relationship Communication Gio [facility] Care Agent tri Wolff [facility] Health Care Agent Care Teams Management Tech Relationship Specialty Start Date End Date Marcell David MD [address] [place] [address] PCP - General Internal Medicine 10/28/23 João Stewart MD [address] [address] Neurosurgery 02/28/23
--- OUTSIDE RECORDS SUMMARY | 2024-08-06 13:58 | XMS_ITS | Referral Summary ---
Author Organization [facility] Address [address] [place] [address] Care Team Providers Care Seo Engineer Name Role Phone João Stewart MD Unavailable Marcell David MD Primary Care Provider [phone] Encounters Date Type Department Care Team Description 06/05/2024 Telephone [facility] Scheduling [address] [place] [address] Jade Sheppard from Last 3 Months Allergies Active Allergy Reactions Criticality Noted Date [...] (08/10/2023): Added automatically from request for surgery [id number] Sacroiliitis, not elsewhere classified 1 Age-related osteoporosis wit hout current pathological fracture 06/28/2019 Spinal stenosis in cervical region 06/11/2019 Overview (06/11/2019): Added automatically from request for surgery [id number] Cervical stenosis of spine 04/27/2019 Asymmetric SNHL (sensorineural hearing loss) 01/2019 Overview (08/10/2023): Last Assessment & Plan: MRI IACs unremarkable hearing aid medical clearance for right ear given She will go to [employer] for insurance assistance Will obtain updated audiological [...] 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 Parkinson disease 09/21/2016 Immunizations Immunization Administration Dates Next Due Influenza [...] Unspecified 12/11/2020 Tdap 12/11/2021,02/07/2019,01/20/2017 ZOSTER Recombinant 04/30/2020,02/27/2020 Social History Tobacco Use Types Packs/Day Years [...] on file Legal Sex Female 8:24 AM PASSENGER SERVICE REPRESENTATIVE Gender Identity Not on file Sexual Orientation [...] 11/03/2023 2:20 PM CDT Plan of Treatment Not on file Medical Devices Implanted Type Area Repairing Calibrator Device Identifier Shelf Expiration Date Model / Serial / Lot Bonny Spine Allograft Gel Graft 5cc Bone Demineralized Bone Matrix [id number] - [id number] Implanted:Qty: 1 on 11/04/2023 by Kenny Flores MD at [facility] N/A: Spine Cervical Bonny Spine [id number] 03/30/2026 [id number] / / [id number] Nuvasive Inc Screw Spine Reline C Lock Open Non-Sterile Latex Free [id number] - [id number] Implanted:Qty: 11 on 11/04/2023 by Kenny Flores MD at [facility] N/A: Spine Cervical Nuvasive Inc [id number] / / Nuvasive Inc Navneet Spinal Posterior Cervical Prebent Reline 3.5x250/100mm Titanium [id number] - [id number] Implanted:Qty: 2 on 11/04/2023 by Kenny Flores MD at [facility] N/A: Spine Cervical Nuvasive Inc [id number] / / Nuvasive Inc Plate Spine Posterior Cervical Occipital Adjustable Small Reline [id number] - [id number] Implanted:Qty: 1 on 11/04/2023 by Kenny Flores MD at [facility] N/A: Spine Cervical Nuvasive Inc [id number] / / Nuvasive Inc Connector Spinal Posterior Cervical Rotating Top Side Reline 3.5-4/3.5-4mm [id number] - [id number] Implanted:Qty: 4 on 11/04/2023 by Kenny Flores MD at [facility] N/A: Spine Cervical Nuvasive Inc [id number] / / Bonny Spine Graft Bone Filler Gel Bio Dbm 10cc [id number] - [id number] Implanted:Qty: 1 on 11/04/2023 by Kenny Flores MD at [facility] N/A: Spine Cervical [place] Spine [id number] 04/13/2026 [id number] / / [id number] New Age Medical Graft Bone Magnetos 10cc 1-2mm Granules In Moldable Putty 703-038-Us - [id number] Implanted:Qty: 1 on 11/04/2023 by Kenny Flores MD at [facility] N/A: Spine Cervical [employer] [id number] 10/15/2027 [id number] / / [id number] Medtronic Inc Infuse 20ga 2x1in Vial Absorbable Syringe Needle Medium Graft 5.6 [id number] - [id number] Implanted:Qty: 1 on 11/04/2023 by Kenny Flores MD at [facility] N/A: Spine Cervical Medtronic Inc [id number] / / Allosource Crushed Chip Frozen Graft 30ml Bone Cancellous [id number] - [id number] Implanted:Qty: 1 on 11/04/2023 by Kenny Flores MD at [facility] N/A: Spine Cervical Allosource 11/07/2027 [id number] / / [id number] Allosource Canpac Allograft Frozen Nonpurge Graft 10cc Bone Cancellous [id number] - [id number] Implanted:Qty: 1 on 11/04/2023 by Kenny Flores MD at [facility] N/A: Spine Cervical Allosource 09/13/2028 [id number] / / [id number] Nuvasive Inc Reline C Screw 4.5x10mm Occipital [id number] - [id number] Implanted:Qty: 2 on 11/04/2023 by Kenny Flores MD at [facility] N/A: Spine Cervical Nuvasive Inc [id number] / / Nuvasive Inc Reline C Screw 4.5x12mm Occipital [id number] - [id number] Implanted:Qty: 2 on 11/04/2023 by Kenny Flores MD at [facility] N/A: Spine Cervical Nuvasive Inc [id number] / / Nuvasive Inc Reline C Screw 4.0x24mm Reduction Fa [id number] - [id number] Implanted:Qty: 1 on 11/04/2023 by Kenny Flores MD at [facility] N/A: Spine Cervical Nuvasive Inc [id number] / / Procedures Procedure Name Priority Date/Time [...] HEPATITIS PANEL, ACUTE Routine 07/10/2019 2:18 PM PASSENGER SERVICE REPRESENTATIVE Spinal stenosis in cervical region from Last [...] ORDERABLES Final Resu lt Performing Organization Address [facility] de Phone Number [facility] [place] [address] * (ABNORMAL) POCT hemoglobin A1c (11/01/2023 4:36 PM CDT) Hgb A1C, POC 6.1(H) 4.0 - 5.6 % Est Average Gluc POC 128 mg/dL [facility] Comment: The ADA recommends reporting an estimated Average Glucose (eAG) with all Hemoglobin A1c results using the equation derived from a study of 507 normal and diabetic adults. Minority populations were underrepresented and children were not included. (Diabetes Care 31:8525-9288, 2008). The eAG is not equivalent to a fasting glucose. Blood 11/01/2023 4:36 PM CDT 11/01/2023 4:36 PM CDT Kenny Flores MD POINT OF CARE TEST ORDERABLES F inal Result Performing Organization Address [facility] Co de Phone Number [facility] [place] [address] * DEXA Axial Skeleton Bone Density Multi Site (09/07/2023 9:16 AM CDT) Anatomical Region Laterality Modality Body N/A Radiographic Kika ging Narrative 09/08/2023 9:57 AM CDT Patient Name: Es Wolff Date of : 1950 Date of scan: 09/07/2023 Bone mineral density was performed on a [employer] Discovery Densitometer. Based on machine cross-calibration and [...] mineral density scan were prepared by Pat Mantilla)(CBDT) who is accredited by the International Society of Clinical Densitometry. The overall patient assessment and scan interpretation were performed by Brenda Lazo M.D. who is certified by the International Society of Clinical Densitometry. [id number] us Remy MCKEON IMG DXA PROCEDURES Final Result * Hepatitis panel, acute (07/10/2019 2:18 PM PASSENGER SERVICE REPRESENTATIVE) Hep A IgM Nonreactive Nonreactive [facility] Comment: Interpretive Data If test is reported as GRAYZONE, new sample should be drawn in two weeks for testing. Current interpretive data was last revised on 2016. Hep B core IgM Nonreactive Nonreactive [facility] Comment: Interpretive Data If test is reported as GRAYZONE, new sample should be drawn for testing. Current interpretive data was last revised on 2016. Hep C Ab Nonreactive Nonreactive [facility] Comment: Interpretive Data Positive results should be confirmed by a molecular method. If positive, a second separately collected sample should be submitted for Hepatitis C Virus (HCV) RNA Detection and Quantitation by Real-Time Reverse Syruper-PCR (RT-PCR). Current interpretive data was last revised on 2016. HepBsAg Nonreactive Nonreactive [facility] Blood specimen (specimen) 07/10/2019 2:18 PM PASSENGER SERVICE REPRESENTATIVE 07/10/2019 5:19 PM PASSENGER SERVICE REPRESENTATIVE Yassine Platt MD LAB MICROBIOLOGY - GENER AL ORDERABLES Final Result [facility] Department [place] [address] from Last 3 Months or Most Recently Relevant to Health Maintenance Insurance IDPA MEDICARE [facility] Address: [address] [address] [place] [address] Advance Directives For more information, please contact: [phone] Documents on File Type Date Recorded Patient Cardiac Exercise Specialist Expl anation ADVANCE DIRECTIVE 11/16/2023 10:49 PM POWER OF HEAD INSULATION BOARD SAW OPERATOR-MEDICAL ADVANCE DIRECTIVE 11/07/2023 11:02 AM LEA R OF HEAD INSULATION BOARD SAW OPERATOR-MEDICAL ADVANCE DIRECTIVE 11/04/2023 2:20 PM Power of Certified Nursing Attendant-Medical Advance Directives and Living Will 11/04/2023 8:45 AM * Full Code (Latest Code Status on File) Date Activated Date Inactivated Comments 11/04/2023 10:15 PM 11/14/2023 9:14 PM * Full Code Date Activated Date Inactivated Comments 11/03/2023 3:49 PM 11/04/2023 10:15 PM Healthcare Agents on File Name Relationship Healthcare Agent Relationship Communication Gio Wolff [facility] Care Agent tri Wolff [facility] Health Care Agent Care Teams Seo Engineer Relationship Specialty Start Date End Date Marcell David MD [address] [place] [address] PCP - General Internal Medicine 10/28/23 João Stewart MD [address] [address] Neurosurgery 02/28/23
--- OUTSIDE RECORDS SUMMARY | 2024-08-06 13:58 | XMS_ITS | Continuity of Care Document ---
Author Organization [facility] Address [address] [place] [address] Phone Care Team Providers Care Assistant Men'S Lacrosse Coach Name Role Phone eCly Shields APRN Unavailable Unavailable Medications Medication Instructions [...] Date Provider Providers Copied on Encounter [facility], [address], [id number], [place] tel:[phone] [facility] No Information 0 6 Aden Ta. [address] [facility], [facility] [address], [place], [place], [id number] , [place]. tel: [phone] [facility], [address], [id number], [place] tel:[phone] [facility] No Information [address] Yoana Little. [address] [facility], [place] [address], [place], [place], [id number] , [place]. tel: [phone] [facility], [address], [id number], [place] tel:[phone] [facility] No Information 6 Yoana Little. [address] [facility], [address], [place], [place], [id number] , [place]. tel: [phone] [facility], [address], [id number], [place] tel:[phone] [facility] Spinal stenosis, lumbar region 6 Yoana Sidney. [address] [facility], [place] [address], [place], [place], [id number] , [place]. tel: [phone] [facility], [address], [id number], [place] tel:[phone] [facility] No Information 6 Yoana Little. [address] [facility], [place] [address], [place], [place], [id number] , [place]. tel:[phone] Office/outpa tient visit,est, mod [facility], [address], [id number], [place] tel:[phone] [facility] lumbar spine (chief complaint) Spinal stenosis, lumbar regionSpondylolis thesis of cervical regionLumbago 6 Abeln Cely. [address] [facility], [address], [id number] , [place]. tel:[phone] Family History Family Member Type Diagnosis Age [...] Provider Payers Payer name Insurance type Covered libertarian ID Izzy zaldivar(s) No Information Social History [...]
--- OUTSIDE RECORDS SUMMARY | 2024-08-06 13:58 | XMS_ITS | Continuity of Care Document ---
Author Organization [facility] Address [address] [place] [address] Phone Care Team Providers Care Dietetics Teacher Name Role Phone Luis Barbosa PA-C Unavailable Unavailable Allergies, Adverse Reactions, Alerts Substance Reaction Status Criticality No Known Allergies Active No Inform ation Medications Medication Instructions Dosage Effective Dates (start - stop) Status Comments ZANAFLEX (unknown strength) take 1 capsule by oral route every 6 - 8 hours as needed not to exceed 3 doses in 24 hours Not Available - Active IBUPROFEN (unknown strength) take 1 capsule by oral route every 6 hours as needed Not Available - Active gabapentin 400 mg capsule take 1 capsule by oral route 2 times every day 400 MG - Active simvastatin 20 mg tablet take 1 tablet by oral route every day in the evening 20 MG - Active Vitamin C 500 mg capsule,extended release - Active turmeric 400 mg capsule - Active multivitamin tablet - Active Vitamin D3 125 mcg (5,000 unit) tablet - Active lansoprazole 30 mg capsule,delayed release take 1 capsule by oral route every day before a meal 30 MG - Active Co Q-10 10 mg capsule - Active Drizalma Sprinkle 30 mg capsule,delayed release take 2 capsule by oral route every day 60 MG - Active aspirin 81 mg tablet,delayed release take 1 tablet by oral route every day 81 MG - Active carbidopa 25 mg-levodopa 100 mg tablet take 1 tablet by oral route 3 times every day 1.00 tablet - Active Glucosamine 500 mg tablet - Active amantadine HCl 100 mg capsule take 1 capsule by oral route 2 times every day 100 MG - Active Procedures Procedure Date Knee Xray 1 Or 2 Views Postop followup visit Knee Xray 1 Or 2 Views Postop followup visit Office/outpatient visit,est, mod 2021 Postop followup visit Knee Patella FX Trtmt W/o Manip KO, Immobilizer,canvas Longitudinal, Pre fabricated Hand Xray Min 3 Views Postop followup visit Office/outpatient visit,est, mod 2021 Fracture Care To Be Charged Knee Patella FX Trtmt W/o Manip KO, Immobilizer,canvas Longitudinal, Pre fabricated Office/outpatient visit,est, mod 2021 Hand Metacarpal Fx Single,Trtmt W/o Jonas p WHFO, W/O Joint(s), Prefabricated Hand Xray Min 3 Views Postop followup visit Office/outpatient visit,new, mod 2020 Hand Metacarpal Fx Single,Trtmt W/o Jonas p Advance Directives Directive Yes / No Effective Date File Name No Information Encounters Encounter Description Practice Location Reason(s) For Visit Diagnoses Date Provider Providers Copied on Encounter [facility], [address] [place] [address], [id number], tel:[phone] [facility] knee (chief complaint) Pain in right kneeOth fracture of right patella, subs for clos fx w routn heal Sep- Familia Smith. [address] [place] [address], [id number] , [place]. tel:[phone] Referring Provider: Luis Aguirre, [address] [place] [address], [address] . tel:[phone] [facility], [address] [place] [address], [id number], tel:[phone] [facility] knee (chief complaint) Pain in right kneeOther closed fracture of right patella with routine healing, subsequent encounter 2 Familia Smith. [address] [place] [address], [id number] , . [phone] Referring Provider: Luis Aguirre, [address] [place] [address], [address] . tel:[phone] Office/outpa tient visit,est, mod [facility], [address] [place] [address], [id number], tel:[phone] [facility] rt knee (chief complaint) Closed nondisplaced transverse fracture of right patella, initial encounter 2 Parth Vega. [address] [place] [address], [id number] , . [phone] Referring Provider: Stuart Casillas, [address] [place], [address] . tel:[phone] [facility], [address] [place] [address], [id number], tel:[phone] [facility] No Information 2 Parth Vega. [address] [place] [address], [id number] , . tel:[phone] Referring Provider: Gary Alba, [address] [place] [address], [address] . tel:[phone] [facility], [address] [place] [address], [id number], tel:[phone] [facility] hand (chief complaint) Pain in right handDisp fx of shaft of 4th MC bone, l hand, 7thD 2 [place] Luis. [address] [place] [address], [id number] , . tel:[phone] Referring Provider: Stuart Casillas, [address] [place], [address] . tel:[phone] Office/outpa tient visit,est, mod [facility], [address] [place] [address], [id number], tel:[phone] [facility] knee (chief complaint) Other closed fracture of left patella, initial encounter 2 Familia Smith. [address] [place] [address], [id number] , . tel:[phone] Referring Provider: Rosamaria Carrillo S, [address], [place], [address] . tel:[phone] [facility], [address] [place] [address], [id number], tel:[phone] [facility] No Information 2 Familia Smith. [address] [place] [address], [id number] , [place]. tel:[phone] Referring Provider: Luis Aguirre, [address] [place] [address], [address] . tel:[phone] Office/outpa tient visit,est, mod [facility], [address] [place] [address], [id number], tel:[phone] [facility] Closed displaced fracture of shaft of fourth metacarpal bone of right hand, initial encounter 2 Shankar Smith. [address] [place] [address], [id number] , [place]. tel:[phone] Referring Provider: Stuart Casillas, [address] [place], [address] . tel:[phone] [facility], [address] [place] [address], [id number], [place] tel:[phone] [facility] No Information 2 Shankar Smith. [address] [place] [address], [id number] , . tel:[phone] Referring Provider: Luis Clements, [address] [place] [address], [address] . tel:[phone] [facility], [address] [place] [address], [id number], tel:[phone] [facility] left hand (chief complaint) Pain in left handDisplaced fracture of shaft of fourth metacarpal bone, left hand, subsequent encounter for fracture with routine healingDisplaced fracture of shaft of third metacarpal bone, left hand, subsequent encounter for fracture with routine healing 1 Familia Smith. [address] [place], [place], [id number] , . tel:[phone] Referring Provider: Jj Nicole, [address] [place] [address], [id number]. tel:[phone] Office/outpa tient visit,[facility], [address] [place], [place], [id number], tel:[phone] [facility] LEFT HAND (chief complaint) Closed displaced fracture of shaft of third metacarpal bone of left hand, initial encounterClosed displaced fracture of shaft of fourth metacarpal bone of left hand, initial encounter 1 Familia Smith. [address] [place], [place], [id number] , . tel:[phone] Referring Provider: Jj Nicole, [address] [place] [address], [id number]. tel:[phone] Family History Family Member Type Diagnosis Age At Onset Problem Family history of Diabetes m ellitus Problem Family history of stroke Problem Family history o f malignant neoplasm of breast in first degree relative Problem Family history of Cardiovasc ular disease Problem Family history of cancer of colon Payers Payer name Insurance type Covered democrat ID Authoriza tiyaquelin(s) [employer] Medicare MB [id number] [facility] [id number] Social History Type Description Quantity Date Captured Comments Alcohol Use Details Unknown Caffeine Use Details Unknown Tobacco Use Status Current non-smoker Smoking Status Never smoker Non-Smoking Tobacco Use Details : No Details Available : No Details Available Sex Female Chief Complaint And Reason For Visit From encounter dated '02/02/2022 14:10'. knee (chief complaint) Reason For Referral Reason For Referral No Information Plan Of Treatment Date Type Action Status Goal Tobacco cessation counseling completed Future Order: Radiology Order Kn ee Xray 1 Or 2 Views ([id number]), Ordered on: Ordered Future Order: Radiology Order Kn ee Xray 1 Or 2 Views ([id number]), Ordered on: Ordered Future Order: Radiology Order Sellers nd Xray Min 3 Views ([id number]), Ordered on: Ordered Future Order: Radiology Order Sellers nd Xray Min 3 Views ([id number]), Ordered on: Ordered History Of Present Illness Encounter Date Complaint History Of Prese nt Illness knee knee rt knee hand knee left hand LEFT HAND Functional Status Date Functional Assessmen t No Information Instructions Date Instruction Additional Infor mation No Information Assessments Type Assessment Date assessment Pain in right knee assessment Oth fracture of right patella, s ubs for clos fx w routn heal Patient Care Teams Name Effective Dates (start - stop) Status Members No Information
--- OUTSIDE RECORDS SUMMARY | 2024-08-06 14:15 | XMS_ITS | Continuity of Care Document ---
Author Organization [facility] Address [address] [place] [address] Phone Care Team Providers Care Physician/Allergy/Immunology Name Role Phone Luis Barbosa PA-C Unavailable [...] Diagnoses Date Provider Providers Copied on Encounter [facility], [address] [place] [address], [id number], tel:[phone] [facility] knee (chief complaint) Pain in right kneeOth fracture of right patella, subs for clos fx w routn heal Sep- Familia Smith. [address] [place] [address], [id number] , [place]. tel:[phone] Referring Provider: Luis Aguirre, [address] [place] [address], [address] . tel:[phone] [facility], [address] [place] [address], [id number], tel:[phone] [facility] knee (chief complaint) Pain in right kneeOther closed fracture of right patella with routine healing, subsequent encounter 2 Familia Smith. [address] [place] [address], [id number] , . [phone] Referring Provider: Luis Aguirre, [address] [place] [address], [address] . tel:[phone] Office/outpa tient visit,est, mod [facility], [address] [place] [address], [id number], tel:[phone] [facility] rt knee (chief complaint) Closed nondisplaced transverse fracture of right patella, initial encounter 2 Parth Vega. [address] [place] [address], [id number] , . [phone] Referring Provider: Stuart Casillas, [address] [place], [address] . tel:[phone] [facility], [address] [place] [address], [id number], tel:[phone] [facility] No Information 2 Parth Vega. [address] [place] [address], [id number] , . tel:[phone] Referring Provider: Gary Alba, [address] [place] [address], [address] . tel:[phone] [facility], [address] [place] [address], [id number], tel:[phone] [facility] hand (chief complaint) Pain in right handDisp fx of shaft of 4th MC bone, l hand, 7thD 2 Sealevel Luis. [address] [place] [address], [id number] , . tel:[phone] Referring Provider: Stuart Casillas, [address] [place], [address] . tel:[phone] Office/outpa tient visit,est, mod [facility], [address] [place] [address], [id number], tel:[phone] [facility] knee (chief complaint) Other closed fracture of left patella, initial encounter 2 Familia Smith. [address] [place] [address], [id number] , . tel:[phone] Referring Provider: Rosamaria Carrillo S, [address], [place], [address] . tel:[phone] [facility], [address] [place] [address], [id number], tel:[phone] [facility] No Information 2 Familia Smith. [address] [place] [address], [id number] , [place]. tel:[phone] Referring Provider: Luis Aguirre, [address] [place] [address], [address] . tel:[phone] Office/outpa tient visit,est, mod [facility], [address] [place] [address], [id number], tel:[phone] [facility] Closed displaced fracture of shaft of fourth metacarpal bone of right hand, initial encounter 2 Shankar Smith. [address] [place] [address], [id number] , [place]. tel:[phone] Referring Provider: Stuart Casillas, [address] [place], [address] . tel:[phone] [facility], [address] [place] [address], [id number], [place] tel:[phone] [facility] No Information 2 Shankar Smith. [address] [place] [address], [id number] , . tel:[phone] Referring Provider: Luis Clements, [address] [place] [address], [address] . tel:[phone] [facility], [address] [place] [address], [id number], tel:[phone] [facility] left hand (chief complaint) Pain in left handDisplaced fracture of shaft of fourth metacarpal bone, left hand, subsequent encounter for fracture with routine healingDisplaced fracture of shaft of third metacarpal bone, left hand, subsequent encounter for fracture with routine healing 1 Familia Smith. [address] [place], [place], [id number] , . tel:[phone] Referring Provider: Jj Nicole, [address] [place] [address], [id number]. tel:[phone] Office/outpa tient visit,[facility], [address] [place], [place], [id number], tel:[phone] [facility] LEFT HAND (chief complaint) Closed displaced fracture of shaft of third metacarpal bone of left hand, initial encounterClosed displaced fracture of shaft of fourth metacarpal bone of left hand, initial encounter 1 Familia Smith. [address] [place], [place], [id number] , . tel:[phone] Referring Provider: Jj Nicole, [address] [place] [address], [id number]. tel:[phone] Family History Family Member Type Diagnosis Age At Onset Problem Family history of Diabetes m ellitus Problem Family history of stroke Problem Family history o f malignant neoplasm of breast in first degree relative Problem Family history of Cardiovasc ular disease Problem Family history of cancer of colon Payers Payer name Insurance type Covered alliance party ID Authoriza tiyaquelin(s) [employer] Medicare [place] [id number] [facility] [id number] Social History Type Description Quantity Date Captured [...] Kn ee Xray 1 Or 2 Views (58523), Ordered on: Ordered Future Order: Radiology Order Kn ee Xray 1 Or 2 Views ([id number]), Ordered on: Ordered Future Order: Radiology Order Sellers nd Xray Min 3 Views ([id number]), Ordered on: Ordered Future Order: Radiology Order Sellers nd Xray Min 3 Views ([id number]), Ordered on: Ordered History Of Present Illness [...]
--- OUTSIDE RECORDS SUMMARY | 2024-08-06 14:15 | XMS_ITS | Continuity of Care Document ---
Author Organization [facility] Address [address] [place] [address] Phone Care Team Providers Care Roof Service Technician Name Role Phone Cely Shields APRN Unavailable [...] Date Provider Providers Copied on Encounter [facility], [address], [id number], [place] tel:[phone] [facility] No Information 0 6 Aden Ta. [address] [facility], [facility] [address], [place], [place], [id number] , [place]. tel: [phone] [facility], [address], [id number], [place] tel:[phone] [facility] No Information 3201 6 Yoana Little. [address] [facility], [place] [address], [place], [place], [id number] , [place]. tel: [phone] [facility], [address], [id number], [place] tel:[phone] [facility] No Information 6 Yoana Little. [address] [facility], [address], [place], [place], [id number] , [place]. tel: [phone] [facility], [address], [id number], [place] tel:[phone] [facility] Spinal stenosis, lumbar region 6 Yoana Sidney. [address] [facility], [place] [address], [place], [place], [id number] , [place]. tel: [phone] [facility], [address], [id number], [place] tel:[phone] [facility] No Information 6 Yoana Little. [address] [facility], [place] [address], [place], [place], [id number] , [place]. tel:[phone] Office/outpa tient visit,est, mod [facility], [address], [id number], [place] tel:[phone] [facility] lumbar spine (chief complaint) Spinal stenosis, lumbar regionSpondylolis thesis of cervical regionLumbago 6 Abeln Cely. [address] [facility], [address], [id number] , [place]. tel:[phone] Family History Family Member Type Diagnosis Age [...] Provider Payers Payer name Insurance type Covered republican ID Izzy zaldivar(s) No Information Social History [...]
== END 2024-08-06 13:35 | disposition home or self-care (01) ==
PROVIDERS: Emergency Provider Family Medicine; PCP Family Medicine
DX: S11.90XD Unspecified open wound of unspecified part of neck, subsequent encounter (principal); X58.XXXD Exposure to other specified factors, subsequent encounter
CPT/HCPCS: 72125; 81003; 99284; A9270

== ENCOUNTER 2024-08-16 09:45 | Outpatient (CLI) | payer OTHER, SELFPAY ==
[2024-08-16 09:58] LABS: Hematocrit 37.6 % (35.0-42.0); Hemoglobin 11.1 g/dL (11.7-13.8); Mean Corpuscular HGB Conc 29.5 g/dL (32-36); Mean Corpuscular Hemoglobin 26.1 pg (27.0-31.0); Mean Corpuscular Volume 88.5 fL (78.0-102.0); Mean Platelet Volume 10.4 fl (9.2-11.8); Platelet Count Result 316 K/mm3 (150-420); Red Blood Count 4.25 M/mm3 (4.20-5.40); Red Cell Distribution Width 15.8 % (11.6-14.4); White Blood Count 7.6 K/mm3 (4.8-10.8)
--- OUTSIDE RECORDS SUMMARY | 2024-08-16 10:18 | XMS_ITS | Clinical Summary ---
Author Organization [employer] [facility] Address [address] [facility] [place] [address] Phone Care Team Providers Care Clerical Administrator Name Role Phone Unavailable Primary Care Provider [...] on file Legal Sex Female 1:50 PM TRAINING PROJECT MANAGER Gender Identity Not on file Sexual Orientation Not on file Last Filed Vital Signs Vital Sign Reading Time Taken Comments Blood Pressure 120/68 05/06/2015 3:33 PM TRAINING PROJECT MANAGER Pulse 80 05/06/2015 3:33 PM TRAINING PROJECT MANAGER Temperature - - Respiratory Rate - - Oxygen Saturation 97% 05/06/2015 3:33 PM TRAINING PROJECT MANAGER Inhaled Oxygen Concentration - - Weight 63 kg (139 lb) 05/06/2015 3:33 PM TRAINING PROJECT MANAGER Height 170.2 cm (5' 7 ) 05/06/2015 3:33 PM TRAINING PROJECT MANAGER Body Mass Index 21.77 05/06/2015 3:33 PM TRAINING PROJECT MANAGER Plan of Treatment Health Maintenance Due Date [...] 2013 Insurance MEDICARE PART A AND B [place] [id number]
--- OUTSIDE RECORDS SUMMARY | 2024-08-16 10:18 | XMS_ITS ---
Author Organization [facility] Address [address] [place] [address] Care Team Providers Care Biazzi Nitrator Operator Name Role Phone João Stewart MD Unavailable [phone] Marcell David MD Primary Care Provider [phone] Active Problems Problem Noted Date Diagnosed Date [...] (08/10/2023): Added automatically from request for surgery [id number] Sacroiliitis, not elsewhere classified 1 Age-related osteoporosis wit hout current pathological fracture 06/28/2019 Spinal stenosis in cervical region 06/11/2019 Overview (06/11/2019): Added automatically from request for surgery [id number] Cervical stenosis of spine 04/27/2019 Asymmetric SNHL (sensorineural hearing loss) 01/2019 Overview (08/10/2023): Last Assessment & Plan: MRI IACs unremarkable hearing aid medical clearance for right ear given She will go to [place] for insurance assistance Will obtain updated audiological [...]
--- OUTSIDE RECORDS SUMMARY | 2024-08-16 10:18 | XMS_ITS | Clinical Summary ---
Author Organization [facility] Address [address] [place] [address] Care Team Providers Care Cold Roll Packer Sheet Iron Name Role Phone Vania Lew MD Primary Care Provider [phone] Allergies No known active allergies Medications vitamin [...] this topic Insurance MEDICAID [employer] [address] [facility] MEDICAID Care Teams Cold Roll Packer Sheet Iron Relationship Specialty Start Date End Date Vania Lew MD PCP - General 10/08/10
--- OUTSIDE RECORDS SUMMARY | 2024-08-16 10:19 | XMS_ITS | Continuity of Care Document ---
Author Organization [facility] Address [address] [place] [address] Phone Care Team Providers Care Forming Department Supervisor Name Role Phone Cely Shields APRN Unavailable [...] Date Provider Providers Copied on Encounter [facility], [address], [id number], [place] tel:[phone] [facility] No Information 0 6 Aden Ta. [address] [facility], [facility] [address], [place], [place], [id number] , [place]. tel: [phone] [facility], [address], [id number], [place] tel:[phone] [facility] No Information 3 6 Yoana Little. [address] [facility], [place] [address], [place], [place], [id number] , [place]. tel: [phone] [facility], [address], [id number], [place] tel:[phone] [facility] No Information 6 Yoana Little. [address] [facility], [address], [place], [place], [id number] , [place]. tel: [phone] [facility], [address], [id number], [place] tel:[phone] [facility] Spinal stenosis, lumbar region 6 Yoana Sidney. [address] [facility], [place] [address], [place], [place], [id number] , [place]. tel: [phone] [facility], [address], [id number], [place] tel:[phone] [facility] No Information 6 Yoana Little. [address] [facility], [place] [address], [place], [place], [id number] , [place]. tel:[phone] Office/outpa tient visit,est, mod [facility], [address], [id number], [place] tel:[phone] [facility] lumbar spine (chief complaint) Spinal stenosis, lumbar regionSpondylolis thesis of cervical regionLumbago 6 Abeln Cely. [address] [facility], [address], [id number] , [place]. tel:[phone] Family History Family Member Type Diagnosis Age [...] Provider Payers Payer name Insurance type Covered green party ID Izzy zaldivar(s) No Information Social [...]
--- OUTSIDE RECORDS SUMMARY | 2024-08-16 10:19 | XMS_ITS | Continuity of Care Document ---
Author Organization [facility] Address [address] [place] [address] Phone Care Team Providers Care Opal Miner Name Role Phone Luis Barbosa PA-C Unavailable [...] Diagnoses Date Provider Providers Copied on Encounter [facility], [address] [place] [address], [id number], tel:[phone] [facility] knee (chief complaint) Pain in right kneeOth fracture of right patella, subs for clos fx w routn heal Sep- Familia Smith. [address] [place] [address], [id number] , [place]. tel:[phone] Referring Provider: Luis Aguirre, [address] [place] [address], [address] . tel:[phone] [facility], [address] [place] [address], [id number], tel:[phone] [facility] knee (chief complaint) Pain in right kneeOther closed fracture of right patella with routine healing, subsequent encounter 2 Familia Smith. [address] [place] [address], [id number] , . [phone] Referring Provider: Luis Aguirre, [address] [place] [address], [address] . tel:[phone] Office/outpa tient visit,est, mod [facility], [address] [place] [address], [id number], tel:[phone] [facility] rt knee (chief complaint) Closed nondisplaced transverse fracture of right patella, initial encounter 2 Parth Vega. [address] [place] [address], [id number] , . [phone] Referring Provider: Stuart Casillas, [address] [place], [address] . tel:[phone] [facility], [address] [place] [address], [id number], tel:[phone] [facility] No Information 2 Parth Vega. [address] [place] [address], [id number] , . tel:[phone] Referring Provider: Gary Alba, [address] [place] [address], [address] . tel:[phone] [facility], [address] [place] [address], [id number], tel:[phone] [facility] hand (chief complaint) Pain in right handDisp fx of shaft of 4th MC bone, l hand, 7thD 2 [place] Luis. [address] [place] [address], [id number] , . tel:[phone] Referring Provider: Stuart Casillas, [address] [place], [address] . tel:[phone] Office/outpa tient visit,est, mod [facility], [address] [place] [address], [id number], tel:[phone] [facility] knee (chief complaint) Other closed fracture of left patella, initial encounter 2 Familia Smith. [address] [place] [address], [id number] , . tel:[phone] Referring Provider: Rosamaria Carrillo S, [address], [place], [address] . tel:[phone] [facility], [address] [place] [address], [id number], tel:[phone] [facility] No Information 2 Familia Smith. [address] [place] [address], [id number] , [place]. tel:[phone] Referring Provider: Luis Aguirre, [address] [place] [address], [address] . tel:[phone] Office/outpa tient visit,est, mod [facility], [address] [place] [address], [id number], tel:[phone] [facility] Closed displaced fracture of shaft of fourth metacarpal bone of right hand, initial encounter 2 Shankar Smith. [address] [place] [address], [id number] , [place]. tel:[phone] Referring Provider: Stuart Casillas, [address] [place], [address] . tel:[phone] [facility], [address] [place] [address], [id number], [place] tel:[phone] [facility] No Information 2 Shankar Smith. [address] [place] [address], [id number] , . tel:[phone] Referring Provider: Luis Clements, [address] [place] [address], [address] . tel:[phone] [facility], [address] [place] [address], [id number], tel:[phone] [facility] left hand (chief complaint) Pain in left handDisplaced fracture of shaft of fourth metacarpal bone, left hand, subsequent encounter for fracture with routine healingDisplaced fracture of shaft of third metacarpal bone, left hand, subsequent encounter for fracture with routine healing 1 Familia Smith. [address] [place], [place], [id number] , . tel:[phone] Referring Provider: Jj Nicole, [address] [place] [address], [address]. tel:[phone] Office/outpa tient visit,[facility], [address] [place], [place], [id number], tel:[phone] [facility] LEFT HAND (chief complaint) Closed displaced fracture of shaft of third metacarpal bone of left hand, initial encounterClosed displaced fracture of shaft of fourth metacarpal bone of left hand, initial encounter 1 Familia Smith. [address] [place], [place], [id number] , . tel:[phone] Referring Provider: Jj Nicole, [address] [place] [address], [address]. tel:[phone] Family History Family Member Type Diagnosis Age At Onset Problem Family history of Diabetes m ellitus Problem Family history of stroke Problem Family history o f malignant neoplasm of breast in first degree relative Problem Family history of Cardiovasc ular disease Problem Family history of cancer of colon Payers Payer name Insurance type Covered democrat ID Authoriza tiyaquelin(s) [employer] Medicare MB [id number] [facility] [id number] Social History Type Description Quantity Date Captured [...] Kn ee Xray 1 Or 2 Views ([id number]), Ordered on: Ordered Future Order: Radiology Order Kn ee Xray 1 Or 2 Views ([id number]), Ordered on: Ordered Future Order: Radiology Order Sellers nd Xray Min 3 Views ([id number]), Ordered on: Ordered Future Order: Radiology Order Sellers nd Xray Min 3 Views ([id number]), Ordered on: Ordered History Of Present Illness [...]
--- OUTSIDE RECORDS SUMMARY | 2024-08-16 10:19 | XMS_ITS | Clinical Summary ---
Author Organization [facility] Address [address] [place] [id number] Care Team Providers Care Electrical Electronics Engineers Name Role Phone João Stewart MD Unavailable [phone] Marcell David MD Primary Care Provider [phone] Allergies Active Allergy Reactions Criticality Noted Date [...] (08/10/2023): Added automatically from request for surgery [id number] Sacroiliitis, not elsewhere classified 1 Age-related osteoporosis wit hout current pathological fracture 06/28/2019 Spinal stenosis in cervical region 06/11/2019 Overview (06/11/2019): Added automatically from request for surgery [id number] Cervical stenosis of spine 04/27/2019 Asymmetric SNHL (sensorineural hearing loss) 01/2019 Overview (08/10/2023): Last Assessment & Plan: MRI IACs unremarkable hearing aid medical clearance for right ear given She will go to [place] for insurance assistance Will obtain updated audiological [...] Type Department Care Team Description 06/05/2024 Telephone [facility] Scheduling [address] [place] [address] Jade Sheppard from Last 3 Months Immunizations [...] on file Legal Sex Female 8:24 AM HEALTH PHYSICIST Gender Identity Not on file Sexual Orientation [...] (2023-2 5 season) 2024 03/02/2022, 08/20/2020, 07/15/2020 Hemoglobin A1C 05/02/2024 11/01/2023 eGFR 11/12/2024 11/13/2023, 10/15, 11/09/2023, Additional history exists Fall Risk Assessment 11/13/2024 11/14/2023 Influenza Vaccine (Season Ended) 2025 02/27/2020, 02/14/2020, 03/05/2019, Additional history exists Osteoporosis Screening-Bone Density Scan 09/06/2025 09/07/2023 DTaP/Tdap/Td Vaccine (5 - Td or Tdap) 12/12/2031 12/11/2021, 12/11/2020, 02/07/2019, Additional history exists Hepatitis C Screening Completed 07/10/2019 Zoster Vaccine Completed 04/30/2020, 02/27/2020 Pneumococcal vaccine 65+ Completed 024, 03/16/2016, 02/28/2015, Additional history exists Medical Devices Implanted Type Area Cash Applications Manager Device Identifier Shelf Expiration Date Model / Serial / Lot Lincoln Spine Allograft Gel Graft 5cc Bone Demineralized Bone Matrix [id number] - [id number] Implanted:Qty: 1 on 11/04/2023 by Kenny Flores MD at [facility] N/A: Spine Cervical Lincoln Spine [id number] 03/30/2026 [id number] / / [id number] Nuvasive Inc Screw Spine Reline C Lock Open Non-Sterile Latex Free [id number] - [id number] Implanted:Qty: 11 on 11/04/2023 by Kenny Flores MD at [facility] N/A: Spine Cervical Nuvasive Inc [id number] / / Nuvasive Inc Navneet Spinal Posterior Cervical Prebent Reline 3.5x250/100mm Titanium [id number] - [id number] Implanted:Qty: 2 on 11/04/2023 by Kenny Flores MD at [facility] N/A: Spine Cervical Nuvasive Inc [id number] / / Nuvasive Inc Plate Spine Posterior Cervical Occipital Adjustable Small Reline 2314077 - [id number] Implanted:Qty: 1 on 11/04/2023 by Kenny Flores MD at [facility] N/A: Spine Cervical Nuvasive Inc [id number] / / Nuvasive Inc Connector Spinal Posterior Cervical Rotating Top Side Reline 3.5-4/3.5-4mm 2173127 - [id number] Implanted:Qty: 4 on 11/04/2023 by Kenny Flores MD at [facility] N/A: Spine Cervical Nuvasive Inc [id number] / / Lincoln Spine Graft Bone Filler Gel Bio Dbm 10cc [id number] - [id number] Implanted:Qty: 1 on 11/04/2023 by Kenny Flores MD at [facility] N/A: Spine Cervical [place] Spine [id number] 04/13/2026 [id number] / / [id number] New Age Medical Graft Bone Magnetos 10cc 1-2mm Granules In Moldable Putty 703-038-Us - [id number] Implanted:Qty: 1 on 11/04/2023 by Kenny Flores MD at [facility] N/A: Spine Cervical New Age Medical [id number] 10/15/2027 703-038-US / / [id number] Medtronic Inc Infuse 20ga 2x1in Vial Absorbable Syringe Needle Medium Graft 5.6 [id number] - [id number] Implanted:Qty: 1 on 11/04/2023 by Kenny Flores MD at [facility] N/A: Spine Cervical Medtronic Inc [id number] / / Allosource Crushed Chip Frozen Graft 30ml Bone Cancellous [id number] - [id number] Implanted:Qty: 1 on 11/04/2023 by Kenny Flores MD at [facility] N/A: Spine Cervical Allosource 11/07/2027 [id number] / / [id number] Allosource Canpac Allograft Frozen Nonpurge Graft 10cc Bone Cancellous [id number] - [id number] Implanted:Qty: 1 on 11/04/2023 by Kenny Flores MD at [facility] N/A: Spine Cervical Allosource 09/13/2028 [id number] / / [id number] Nuvasive Inc Reline C Screw 4.5x10mm Occipital 1034993 - [id number] Implanted:Qty: 2 on 11/04/2023 by Kenny Flores MD at [facility] N/A: Spine Cervical Nuvasive Inc [id number] / / Nuvasive Inc Reline C Screw 4.5x12mm Occipital 4017172 - [id number] Implanted:Qty: 2 on 11/04/2023 by Kenny Flores MD at [facility] N/A: Spine Cervical Nuvasive Inc [id number] / / Nuvasive Inc Reline C Screw 4.0x24mm Reduction Fa 1616019 - [id number] Implanted:Qty: 1 on 11/04/2023 by Kenny Flores MD at [facility] N/A: Spine Cervical Nuvasive Inc [id number] / / Procedures Procedure Name Priority Date/Time [...] HEPATITIS PANEL, ACUTE Routine 07/10/2019 2:18 PM HEALTH PHYSICIST Spinal stenosis in cervical region from Last [...] ORDERABLES Final Resu lt Performing Organization Address [facility] de Phone Number [facility] Department [place] [address] * (ABNORMAL) POCT hemoglobin A1c (11/01/2023 4:36 PM CDT) Hgb A1C, POC 6.1(H) 4.0 - 5.6 % Est Average Gluc POC 128 mg/dL [facility] Comment: The ADA recommends reporting an estimated Average Glucose (eAG) with all Hemoglobin A1c results using the equation derived from a study of 507 normal and diabetic adults. Minority populations were underrepresented and children were not included. (Diabetes Care 31:0137-4155, 2008). The eAG is not equivalent to a fasting glucose. Blood 11/01/2023 4:36 PM CDT 11/01/2023 4:36 PM CDT Kenny Flores MD POINT OF CARE TEST ORDERABLES F inal Result Performing Organization Address [facility] de Phone Number [facility] Department [place] [address] * DEXA Axial Skeleton Bone Density Multi Site (09/07/2023 9:16 AM CDT) Anatomical Region Laterality Modality Body N/A Radiographic Kika ging Narrative 09/08/2023 9:57 AM CDT Patient Name: Es Wolff Date of : 1950 Date of scan: 09/07/2023 Bone mineral density was performed on a HoloSeedrs Discovery Densitometer. Based on machine cross-calibration and [...] density scan were prepared by Pat Paulino (R)(CBDT) who is accredited by the International Society of Clinical Densitometry. The overall patient assessment and scan interpretation were performed by Brenda Lazo M.D. who is certified by the International Society of Clinical Densitometry. [id number] us Remy MCKEON IMG DXA PROCEDURES Final Result * Hepatitis panel, acute (07/10/2019 2:18 PM HEALTH PHYSICIST) Hep A IgM Nonreactive Nonreactive [facility] Comment: Interpretive Data If test is reported as GRAYZONE, new sample should be drawn in two weeks for testing. Current interpretive data was last revised on 2016. Hep B core IgM Nonreactive Nonreactive [facility] Comment: Interpretive Data If test is reported as GRAYZONE, new sample should be drawn for testing. Current interpretive data was last revised on 2016. Hep C Ab Nonreactive Nonreactive [facility] Comment: Interpretive Data Positive results should be confirmed by a molecular method. If positive, a second separately collected sample should be submitted for Hepatitis C Virus (HCV) RNA Detection and Quantitation by Real-Time Reverse Shuttlecock Assembler-PCR (RT-PCR). Current interpretive data was last revised on 2016. HepBsAg Nonreactive Nonreactive [facility] Blood specimen (specimen) 07/10/2019 2:18 PM HEALTH PHYSICIST 07/10/2019 5:19 PM HEALTH PHYSICIST Yassine Platt MD LAB MICROBIOLOGY - GENER AL ORDERABLES Final Result [facility] Department [place] [address] from Last 3 Months or Most Recently Relevant to Health Maintenance Insurance [facility] [place] [id number] MEDICARE Advance Directives For more information, please contact: [phone] Documents on File Type Date Recorded Patient Shell Grader Expl anation ADVANCE DIRECTIVE 11/16/2023 10:49 PM POWER OF SOLUTIONS SALES EXECUTIVE-MEDICAL ADVANCE DIRECTIVE 11/07/2023 11:02 AM LEA R OF SOLUTIONS SALES EXECUTIVE-MEDICAL ADVANCE DIRECTIVE 11/04/2023 2:20 PM Power of Regional Education Coordinator-Medical Advance Directives and Living Will 11/04/2023 8:45 AM * Full Code (Latest Code Status on File) Date Activated Date Inactivated Comments 11/04/2023 10:15 PM 11/14/2023 9:14 PM * Full Code Date Activated Date Inactivated Comments 11/03/2023 3:49 PM 11/04/2023 10:15 PM Healthcare Agents on File Name Relationship Healthcare Agent Relationship Communication [facility] Care Agent tri Wolff [facility] Health Care Agent Care Teams Electrical Electronics Engineers Relationship Specialty Start Date End Date Marcell David MD [address] [place] [address] PCP - General Internal Medicine 10/28/23 João Stewart MD [address] [address] Neurosurgery 02/28/23
--- OUTSIDE RECORDS SUMMARY | 2024-08-16 10:19 | XMS_ITS | Referral Summary ---
Author Organization [facility] Address [address] [place] [address] Care Team Providers Care Drapery Maker Name Role Phone João Stewart MD Unavailable [phone] Marcell David MD Primary Care Provider [phone] Encounters Date Type Department Care Team Description 06/05/2024 Telephone [facility] Scheduling [address] [place] [address] Jade Sheppard from Last 3 [...] (08/10/2023): Added automatically from request for surgery [id number] Sacroiliitis, not elsewhere classified 1 Age-related osteoporosis wit hout current pathological fracture 06/28/2019 Spinal stenosis in cervical region 06/11/2019 Overview (06/11/2019): Added automatically from request for surgery [id number] Cervical stenosis of spine 04/27/2019 Asymmetric SNHL (sensorineural hearing loss) 01/2019 Overview (08/10/2023): Last Assessment & Plan: MRI IACs unremarkable hearing aid medical clearance for right ear given She will go to [place] for insurance assistance Will obtain updated audiological [...] on file Legal Sex Female 8:24 AM FLAT SURFACER Gender Identity Not on file Sexual Orientation [...] on file Medical Devices Implanted Type Area Fabric Pattern Grader Device Identifier Shelf Expiration Date Model / Serial / Lot [place] Spine Allograft Gel Graft 5cc Bone Demineralized Bone Matrix [id number] - [id number] Implanted:Qty: 1 on 11/04/2023 by Kenny Flores MD at [facility] N/A: Spine Cervical [place] Spine [id number] 03/30/2026 [id number] / / [id number] Nuvasive Inc Screw Spine Reline C Lock Open Non-Sterile Latex Free 0237544 - [id number] Implanted:Qty: 11 on 11/04/2023 by Kenny Flores MD at [facility] N/A: Spine Cervical Nuvasive Inc [id number] / / Nuvasive Inc Navneet Spinal Posterior Cervical Prebent Reline 3.5x250/100mm Titanium [id number] - [id number] Implanted:Qty: 2 on 11/04/2023 by Kenny Flores MD at [facility] N/A: Spine Cervical Nuvasive Inc [id number] / / Nuvasive Inc Plate Spine Posterior Cervical Occipital Adjustable Small Reline 1101699 - [id number] Implanted:Qty: 1 on 11/04/2023 by Kenny Flores MD at [facility] N/A: Spine Cervical Nuvasive Inc [id number] / / Nuvasive Inc Connector Spinal Posterior Cervical Rotating Top Side Reline 3.5-4/3.5-4mm 1212437 - [id number] Implanted:Qty: 4 on 11/04/2023 by Kenny Flores MD at [facility] N/A: Spine Cervical Nuvasive Inc [id number] / / [place] Spine Graft Bone Filler Gel Bio Dbm 10cc 2727333 - [id number] Implanted:Qty: 1 on 11/04/2023 by Kenny Flores MD at [facility] N/A: Spine Cervical Bonny Spine [id number] 04/13/2026 [id number] / / [id number] New Age Medical Graft Bone Magnetos 10cc 1-2mm Granules In Moldable Putty 703-038-Us - [id number] Implanted:Qty: 1 on 11/04/2023 by Kenny Flores MD at [facility] N/A: Spine Cervical New Age Medical [id number] 10/15/2027 703-038-US / / [id number] Medtronic Inc Infuse 20ga 2x1in Vial Absorbable Syringe Needle Medium Graft 5.6 1069441 - [id number] Implanted:Qty: 1 on 11/04/2023 by Kenny Flores MD at [facility] N/A: Spine Cervical Medtronic Inc [id number] / / Allosource Crushed Chip Frozen Graft 30ml Bone Cancellous [id number] - [id number] Implanted:Qty: 1 on 11/04/2023 by Kenny Flores MD at [facility] N/A: Spine Cervical Allosource 11/07/2027 [id number] / / [id number] Allosource Canpac Allograft Frozen Nonpurge Graft 10cc Bone Cancellous [id number] - [id number] Implanted:Qty: 1 on 11/04/2023 by Kenny Flores MD at [facility] N/A: Spine Cervical Allosource 09/13/2028 [id number] / / [id number] Nuvasive Inc Reline C Screw 4.5x10mm Occipital 0586815 - [id number] Implanted:Qty: 2 on 11/04/2023 by Kenny Flores MD at [facility] N/A: Spine Cervical Nuvasive Inc [id number] / / Nuvasive Inc Reline C Screw 4.5x12mm Occipital 0418731 - [id number] Implanted:Qty: 2 on 11/04/2023 by Kenny Flores MD at [facility] N/A: Spine Cervical Nuvasive Inc [id number] / / Nuvasive Inc Reline C Screw 4.0x24mm Reduction Fa [id number] - [id number] Implanted:Qty: 1 on 11/04/2023 by Kenny Flores MD at [facility] N/A: Spine Cervical Nuvasive Inc [id number] / / Procedures Procedure Name Priority Date/Time [...] HEPATITIS PANEL, ACUTE Routine 07/10/2019 2:18 PM FLAT SURFACER Spinal stenosis in cervical region from Last [...] ORDERABLES Final Resu lt Performing Organization Address [facility] de Phone Number [facility] [place] [address] * (ABNORMAL) POCT hemoglobin A1c (11/01/2023 4:36 PM CDT) Hgb A1C, POC 6.1(H) 4.0 - 5.6 % Est Average Gluc POC 128 mg/dL [facility] Comment: The ADA recommends reporting an estimated Average Glucose (eAG) with all Hemoglobin A1c results using the equation derived from a study of 507 normal and diabetic adults. Minority populations were underrepresented and children were not included. (Diabetes Care 31:7987-5936, 2008). The eAG is not equivalent to a fasting glucose. Blood 11/01/2023 4:36 PM CDT 11/01/2023 4:36 PM CDT Kenny Flores MD POINT OF CARE TEST ORDERABLES F inal Result Performing Organization Address [facility] Co de Phone Number [facility] [employer] [place] [address] * DEXA Axial Skeleton Bone Density Multi Site (09/07/2023 9:16 AM CDT) Anatomical Region Laterality Modality Body N/A Radiographic Kika ging Narrative 09/08/2023 9:57 AM CDT Patient Name: Es Wolff Date of : 1950 Date of scan: 09/07/2023 Bone mineral density was performed on a [employer] Discovery Densitometer. Based on machine cross-calibration and [...] by the International Society of Clinical Densitometry. [id number] us Remy MCKEON IMG DXA PROCEDURES Final Result * Hepatitis panel, acute (07/10/2019 2:18 PM FLAT SURFACER) Hep A IgM Nonreactive Nonreactive [facility] Comment: Interpretive Data If test is reported as GRAYZONE, new sample should be drawn in two weeks for testing. Current interpretive data was last revised on 2016. Hep B core IgM Nonreactive Nonreactive [facility] Comment: Interpretive Data If test is reported as GRAYZONE, new sample should be drawn for testing. Current interpretive data was last revised on 2016. Hep C Ab Nonreactive Nonreactive [facility] Comment: Interpretive Data Positive results should be confirmed by a molecular method. If positive, a second separately collected sample should be submitted for Hepatitis C Virus (HCV) RNA Detection and Quantitation by Real-Time Reverse Building Inspector-PCR (RT-PCR). Current interpretive data was last revised on 2016. HepBsAg Nonreactive Nonreactive [facility] Blood specimen (specimen) 07/10/2019 2:18 PM FLAT SURFACER 07/10/2019 5:19 PM FLAT SURFACER Yassine Platt MD LAB MICROBIOLOGY - GENER AL ORDERABLES Final Result [facility] Department [place] [address] from Last 3 Months or Most Recently Relevant to Health Maintenance Insurance [facility] UHC MEDICARE ADVANTAGE Member Subscriber Plan / Payer (Ef fective 2019-Present) Name:Es Wolff Relation to Subscriber:Self Name:Es Wolff Payer ID:[id number] (NAIC) Type:[facility] MEDIC[facility] Address: [place] [id number] UHC MEDICARE ADVANTAGE IDPA MEDICARE Advance Directives For more information, please contact: [phone] Documents on File Type Date Recorded Patient Beaver Trapper Expl anation ADVANCE DIRECTIVE 11/16/2023 10:49 PM POWER OF TAPE MACHINE TAILER-MEDICAL ADVANCE DIRECTIVE 11/07/2023 11:02 AM LEA R OF TAPE MACHINE TAILER-MEDICAL ADVANCE DIRECTIVE 11/04/2023 2:20 PM Power of Senior Director Creative Services-Medical Advance Directives and Living Will 11/04/2023 8:45 AM * Full Code (Latest Code Status on File) Date Activated Date Inactivated Comments 11/04/2023 10:15 PM 11/14/2023 9:14 PM * Full Code Date Activated Date Inactivated Comments 11/03/2023 3:49 PM 11/04/2023 10:15 PM Healthcare Agents on File Name Relationship Healthcare Agent Relationship Communication Gio Wolff [facility] Health Care Agent tri Cruz [facility] Health Care Agent Care Teams Drapery Maker Relationship Specialty Start Date End Date Marcell David MD [address] [id number] PCP - General Internal Medicine 10/28/23 João Stewart MD [address] [place] [address] [facility] 02/28/23
[2024-08-16 12:31] LABS: Alanine Aminotransferase 8 U/L (14-59); Albumin Level 3.3 g/dL (3.4-5.0); Alkaline Phosphatase 133 U/L (46-116); Anion Gap 8 mmol/L (4-12); Aspartate Amino Transferase 10 U/L (15-37); Bilirubin,Total 0.4 mg/dL (0.00-1.00); Blood Urea Nitrogen 16 mg/dL (7-18); Calcium 9.7 mg/dL (8.5-10.1); Carbon Dioxide 30 mmol/L (21-32); Chloride 99 mmol/L (98-108); Estimated Glomerular Filt Rate > 60; Glucose 153 mg/dL (70-99); Osmolality Calculated 288 mOsm/kg (285-295); Potassium 4.3 mmol/L (3.5-5.1); Sodium 137 mmol/L (136-145)
[2024-08-22 15:50] LABS: Ferritin 55 ng/mL (8-252); Iron 34 ug/dL (50-170); Percent Iron Saturation 12 % (12-57)
[2024-08-24 03:33] LABS: Protein, Total 8.6 g/dL (6.1-8.1)
== END 2024-08-16 09:46 | disposition home or self-care (01) ==
PROVIDERS: PCP Family Medicine; Visit Provider Family Medicine
DX: G72.89 Other specified myopathies (principal); E11.9 Type 2 diabetes mellitus without complications
CPT/HCPCS: 36415; 80053; 82728; 83540; 83550; 84155; 84165; 85027

== ENCOUNTER 2024-10-10 09:45 | Outpatient (CLI) | payer OTHER, SELFPAY ==
--- OUTSIDE RECORDS SUMMARY | 2024-10-10 09:51 | XMS_ITS | Referral Summary ---
Author Organization [facility] Address [address] [place] [address] Care Team Providers Care Material Distributor Name Role Phone João Stewart MD Unavailable [phone] Amanuel Buitrago MD Primary Care Provide r Self, Elsa Ruiz MD Unavailable Stuatr Donahue MD Unavailable [phone] Encounters Date Type Department Care Team Description 09/28/2024 Orders Only [facility] Scanning, Provider 09/25/2024 Orders Only [facility] Scanning, Provider 09/19/2024 Orders Only [facility] [address] [place] [address] [address] [place] [phone] Kenny Flores MD Cervical stenosis of spine (Primary Dx) 09/19/2024 Telephone [facility] [address] [place] [address] Office [facility] [address] [place] [phone] Kenny Flores MD 08/31/2024 12:27 PM CDT - 09/17/2024 5:17 PM CDT Hospital Encounter [facility] [address] [place] [address] Kenny Flores MD Wound dehiscence (Primary Dx) Discharge Disposition: Discharge to SNF 09/13/2024 Orders Only [facility] Marrow Transplant [address] [facility] Floor [address] [place] [address] Stuart Bell MD MGUS (monoclonal gammopathy of unknown significance) (Primary Dx) 09/11/2024 Orders Only [facility] Neuro Interventional Radiology [address] [place] [address] Elsy Machado RN 09/04/2024 Documentation [facility] Diseases [address] [facility] [address] [place] [phone] Kylee Noel NP 09/03/2024 Telephone [facility] [address] [place] [address] [place] [phone] River Costa MD Hospital Follow Up 08/31/2024 2:44 PM CDT Anesthesia Event [facility] Operating Room [address] [place] [phone] Idalia Mike MD PhD Jose Silva MD 08/31/2024 2:21 PM CDT - 08/31/2024 6:[address] [facility] Operating Room [address] [place] [phone] Kenny Flores MD IRRIGATION AND DEBRIDEMENT BACK 08/31/2024 Telephone [facility] [address] [place] [address] Medical Office Building 4 [address] [place] [phone] Kenny Flores MD 08/31/2024 9:45 AM CDT - 08/31/2024 11:59 PM CDT Hospital Encounter [id number] [address] [place] [address] [address] [place] [phone] Cervical stenosis of spine; Open displaced fracture of first cervical vertebra with delayed healing, unspecified fracture morphology, subsequent encounter; 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; Collapsed vertebra, not elsewhere classified, cervical region, initial encounter for fracture (HCC) Discharge Disposition: Discharge to home or self care 08/31/2024 10:15 AM CDT Office Visit [facility] [address] [place] [address] Medical Office Building 4 [address] [place] [phone] Remy Brush PA Cervical stenosis of spine (Primary Dx); Open displaced fracture of first cervical vertebra with delayed healing, unspecified fracture morphology, subsequent encounter; 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 540 tablet 11 05/12/20 18 Active FLUTICASONE FUROATE NASLIndications: for allergies Administer [...] Take 100 mg by mouth every morning 03/30/20 23 Active metFORMIN (GLUCOPHAGE) 500 mg tabletIndication s:type 2 diabetes mellitus Take 2 tablets (1,000 mg total) by mouth daily with breakfast 03/30/20 23 Active Myrbetriq 25 mg tablet extended release 24 hrIndications:In creased Urinary Frequency,Urinar y Urge Incontinence Take 0.5 tablets (12.5 mg total) by mouth every morning 03/30/20 23 Active ondansetron (ZOFRAN) 4 mg tabletIndication s:n/v Take 1 tablet (4 mg total) by mouth every 6 (six) hours as needed for nausea or vomiting 07/11/19 23 Active rosuvastatin (CRESTOR) 10 mg tabletIndication s:hyperlipidemia Take 1 tablet (10 mg total) by mouth nightly 03/30/[address] (CYMBALTA) 60 mg capsule Take 1 capsule (60 mg total) by mouth 2 (two) times a day 10/25/19 24 Active cyanocobalamin (Vitamin B-12) 500 mcg tabletIndication s:Prevention of Vitamin B12 Deficiency Take 1 tablet (500 mcg total) by mouth every morning Active ergocalciferol (VITAMIN D) 50,000 unit capsuleIndicatio ns:Osteoporosis, Vitamin D Deficiency Take 1 capsule (50,000 Units total) by mouth every 30 (thirty) days Active polyethylene glycol (MIRALAX) 17 gram packetIndication s:constipation Take 1 packet (17 g total) by mouth 2 (two) times a day Active acetaminophen 500 mg capsule Take 2 capsules (1,000 mg total) by mouth every 6 (six) hours 11/14/19 24 Active aspirin 81 mg enteric coated tabletIndication s:prevention of thrombosis RESTART TAKING THIS MEDICATION ON 11/19/23. Take 1 tablet (81 mg total) by mouth every morning 11/14/19 24 Active baclofen (LIORESAL) 5 mg tablet Take 1 tablet (5 mg total) by mouth every 8 (eight) hours 11/14/19 24 Active thiamine (VITAMIN B1) 100 mg tablet Take 1 tablet (100 mg total) by mouth daily 11/15/19 24 025 Active triamcinolone (KENALOG) 0.1 % cream Apply topically 4 (four) times a day 11/14/19 24 Active polyvinyl alcohol-povidone (REFRESH CLASSIC) 1.4-0.6 % dropperette Administer 1 drop into both eyes 3 (three) times a day 11/14/19 24 Active doxycycline 100 mg tablet 11/24/19 24 Active permethrin (ELIMITE) 5 % cream 12/07/19 24 Active oxyCODONE (ROXICODONE) 5 mg immediate release tabletIndication s:Pain Take 1 tablet (5 mg total) by mouth every 4 (four) hours as needed for pain 42 tablet 09/18/19 25 Active enoxaparin (LOVENOX) 30 mg/0.3 mL syringeIndicatio ns:VTE Prophylaxis Inject 0.3 mL (30 mg total) under the skin daily Until discontinued at the facility provider's disretion 09/18/19 25 Active lidocaine (LIDODERM) 5 %Indications:Eladio n Place 1 patch on the skin daily as needed (pain) for 12 hours Remove & discard patch within 12 hours or as directed by . 09/18/19 25 025 Active senna (SENOKOT) 8.6 mg tabletIndication s:constipation Take 1 tablet by mouth 2 (two) times a day 09/18/19 25 026 Active doxycycline (MONODOX) 100 mg capsuleIndicatio ns:Bone/Joint Infection Take 1 capsule (100 mg total) by mouth 2 (two) times a day Duration: lifetime medication 09/18/19 25 Active white petrolatum-sock lining examiner al oil (REFRESH PM) ointment Apply 1 Application to both eyes nightly as needed (dry eyes) 09/18/19 25 Active lidocaine (ASPERCREME) 4 % adhesive patch,medicatedI ndications:Pain Apply 1 patch topically daily as needed (pain) 10/24/19 025 Discontin ued(Stop Taking at Discharge ) melatonin tabletIndication s:sleep Take 5 mg by mouth nightly as needed for sleep Discontin ued(Stop Taking at Discharge ) senna-docusate (PERICOLACE) 8.6-50 mgIndications:co nstipation Take 1 tablet by mouth daily as needed for constipation 025 Discontin ued(Stop Taking at Discharge ) lidocaine (ASPERCREME) 4 % adhesive patch,medicated Place 1 patch on the skin daily 05/14/20 025 Discontin ued(Stop Taking at Discharge ) traMADoL (ULTRAM) 50 mg tabletIndication s:Fibromyalgia,N europathic Pain Take 1 tablet (50 mg total) by mouth every 8 (eight) hours as needed for pain 42 tablet 11/14/19 24 025 Discontin ued(Stop Taking at Discharge ) oxyCODONE (ROXICODONE) 5 mg immediate release tabletIndication s:Pain Take 0.5 tablets (2.5 mg total) by mouth every 4 (four) hours as needed for pain 42 tablet 11/14/19 24 025 Discontin ued(Stop Taking at Discharge ) enoxaparin (LOVENOX) 30 mg/0.3 mL syringeIndicatio ns:Deep Vein Thrombosis Prevention Inject 0.3 mL (30 mg total) under the skin every 12 (twelve) hours Until discontinued by the facility provider or PCP. 11/14/19 24 025 Discontin ued(Stop Taking at Discharge ) cephalexin (KEFLEX) 500 mg capsule 11/22/19 24 025 Discontin ued(Stop Taking at Discharge ) fluticasone propionate (FLONASE) 50 mcg/actuation nasal spray 11/15/19 24 025 Discontin ued(Stop Taking at Discharge ) fluconazole (DIFLUCAN) 100 mg tablet 12/07/19 24 025 Discontin ued(Stop Taking at Discharge ) Active Problems Problem Noted Date Diagnosed Date Ovarian cyst 09/12/2024 Assessment & Plan (09/12/2024 4:35 PM CDT): --diagnosed on pelvic ultrasound --discussed with AUTOGRAPHER, not a consult --message left for PCP with instructions to repeat pelvic ultrasound in 6 months Moderate malnutrition 09/11/2024 Assessment & Plan (09/13/2024 4:36 PM CDT): --Nutrition consulted --Encouraged PO intake --Have goals of care discussion with patient and POA regarding whether a feeding tube may be needed to help nutritional intake Delirium 09/09/2024 Assessment & Plan (09/14/2024 1:54 PM CDT): Extensive risk factors with age, recent surgery, sedating meds, and IV drains/catheters all superimposed on her underlying Parkinson's disease -This morning she is A&Ox2, but remembered that she also missed the date yesterday. CBC and BMP without metabolic derangements -No fever, chills, or leukocytosis to suggest worsening infection -Vishal catheter moved and now on PO antibiotics per ID -Discontinue continuous IV fluids to allow her to be unhooked from IV pole -Schedule Ramelteon nightly -Ensure glasses are on when reading and speak loudly so she can hear -Delirium precautions with minimizing overnight checks to maximize sleep, keeping window blinds open during the day and lights now. Frequent orientation Assessment & Plan (09/13/2024 4:54 PM CDT): Extensive risk factors with age, recent surgery, sedating meds, and IV drains/catheters all superimposed on her underlying Parkinson's disease -This morning she is A&Ox2 and has waxing and waning mental status that fits with delirium. CBC and BMP without metabolic derangements -No fever, chills, or leukocytosis to suggest worsening infection -Now that ID has recommended oral antibiotic regimen, recommend to remove Vishal -Discontinue continuous IV fluids to allow her to be unhooked from IV pole -Schedule Ramelteon nightly -Ensure glasses are on when reading and speak loudly so she can hear -Delirium precautions with minimizing overnight checks to maximize sleep, keeping window blinds open during the day and lights now. Frequent orientation -Discontinue mittens once Vishal is removed Assessment & Plan (09/17/2024 1:47 PM CDT): --Mittens applied 09/06 due to patient pulling out central line --Mittens discontinued 09/09 and reapplied --Delirium precautions --VPO initiated 09/10 --Mittens removed the morning of 09/11 --VPO d/c'd morning of 09/13 --Medicine consulted for assistance with delirium and weaning VPO. Rec'd scheduled ramelteon, removing CVC, and minimizing interruptions overnight. --Extensive risk factors with age, recent surgery, sedating meds, and IV drains/catheters all superimposed on her underlying Parkinson's disease -No fever, chills, or leukocytosis to suggest worsening infection -Vishal catheter moved and now on PO antibiotics per ID -Discontinue continuous IV fluids to allow her to be unhooked from IV pole -Ensure glasses are on when reading and speak loudly so she can hear -Delirium precautions with minimizing overnight checks to maximize sleep, keeping window blinds open during the day and lights now. 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 Recovery c/b delayed wound healing then 2 subsequent draining sinuses developing. No clear causal organisms known. Pt had I&D and closure on 08/31/24 with sinus tracts extending to plate at skull base, no hardware removed. OR cultures positive for MSSA and Staph Epidermidis. BCx ordered and 1/2 MRSE, unclear significance (no clinical change or sx to suggest true bacteremia). Repeat blood cultures NGF. She was started on vanc/cefepime postoperatively, changed to daptomycin on 09/04. Originally recommended treating cervical spine and skull base hardware associated infection with 6 weeks (08/31/24-10/12/24) of IV daptomycin to be followed with PO suppression long-term given infected retained hardware, however patient had delirium, self-removed vishal and unable to be discharged safely on IV antibiotics. Therefore, recommending to discontinue daptomycin today and start doxycycline. Plan to treat indefinitely with doxycyline given this will also be the suppression plan. Patient's insurance is not contracted with [facility] ID. Spine Surgery is arranging outside ID follow up. Recommendations: - Discontinue daptomycin and start doxycycline 100mg PO BID (done) - Of note, patient's insurance is not contracted with ID clinic. Spine CLEAN ROOM ASSEMBLER team aware and setting up outside ID follow up. - ID is formally signed off but will continue to monitor patient peripherally while inpatient. Please see updated sign off note from 09/13/24 for complete recommendations. 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 Recovery c/b delayed wound healing then 2 subsequent draining sinuses developing. No clear causal organisms known. Pt had I&D and closure on 09/01/24, OR cultures NGTD, per OR report sinus tracts extended to plate at skull base, no hardware removed. Started empirically on Vanc/Cefepime 09/01- Recommendations: -Continue vancomycin at 1250mg IV q12h, cefepime at 1g IV q8h -Check cbc, cmp daily while inpatient on IV antibiotics. -Check vanco trough prior to 4th dose (ordered) adjust to goal of 10-20 -Awaiting OR culture results. 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 Recovery c/b delayed wound healing then 2 subsequent draining sinuses developing. No clear causal organisms known. Pt had I&D and closure on 09/01/24 with sinus tracts extending to plate at skull base, no hardware removed. Started empirically on Vanc/Cefepime 09/01. 09/03 - OR cultures with MSSA and Staph epi with susc pending. BCx ordered and 1/2 MRSE, unclear significance (no clinical change or sx to suggest true bacteremia). Discussed OR plate w/micro - Staph epi on multiple plates. Recommendations: - Continue vancomycin 1.25gm IV q12hr (Check vanc trough before this afternoon's dose with goal of 10-20)- ordered - F/up St Epi susceptibilities - Monitor for antimicrobial toxicity and for renal/hepatic function that may impact dosing with at least weekly CBC w diff, BMP, Vanc Tr - Of note, patient's insurance is not contracted with [facility]. Spine CLEAN ROOM ASSEMBLER team aware and setting up outside ID follow up. - ID will continue to follow. Final recommendations pending Staph Epi susceptibility results. 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 Recovery c/b delayed wound healing then 2 subsequent draining sinuses developing. No clear causal organisms known. Pt had I&D and closure on 09/01/24 with sinus tracts extending to plate at skull base, no hardware removed. Started empirically on Vanc/Cefepime 09/01. 09/03 - OR cultures with MSSA and Staph epi with susc pending. BCx ordered and 1/2 MRSE, unclear significance (no clinical change or sx to suggest true bacteremia). Discussed OR plate w/micro - Staph epi on multiple plates. Recommendations: - can stop cefepime - continue vancomycin (tr goal 10-20) - f/up SA and St Epi susceptibilities - monitor for antimicrobial toxicity and for renal/hepatic function that may impact dosing with at least weekly CBC w diff, BMP, Vanc Tr Of note, patient's insurance is not contracted with [facility]. Assessment & Plan (09/17/2024 1:22 PM CDT): --s/p posterior cervical wound washout with PRS closure on 08/31, ROSELINE x 1, [employer]CI wound vac --PT/OT recs SNF --OR cultures positive for MSSA --Blood cultures positive for stap epi; awaiting repeat cultures --Empirically treated with Vancomycin/cefepime starting 08/31; stopped 09/04 --Infectious Diseases Consulted --Susceptibilities resulted; rec daptomycin 8mg/kg q 24 hours x6 weeks followed by doxy suppression --D/c'd Dapto and changed to PO Doxy 100 mg BID per ID --Outpatient ID appt set up with Dr Sadler with [facility] on 12/05 --PICC placed in IR on 09/05, self dc'd by patient on 09/05 --PICC placed in IR on 09/06, dc'd 09/13 --mitten restraints placed 09/06 --Mittens removed 09/09 and replaced --VPO sitter initiated 09/10, mittens removed the morning of 09/11 --VPO sitter dc'd the morning of 09/12, within 90 minutes patient was pulling at CVC, VPO sitter reordered. --VPO sitter d/c'd morning of 09/13 Open displaced fracture of f irst cervical [...] cerumen 03/11/2023 Vitamin D deficiency, unspecified 11/26/2022 Assessment & Plan (09/11/2024 2:20 PM CDT): --Vitamin D supplemented --recommend follow up with PCP in 12 weeks Unspecified psychosis not du e to a [...] visual disturbance 09/02/2021 GERD (gastroesophageal reflux disease) 2 Overview (08/10/2023): GERD- chronic, stable. Cont with pepcid Colostomy present 05/12/2021 Assessment & Plan (09/13/2024 4:32 PM CDT): --Aggressive bowel regimen of senna, colace and miralax -- + flatus and stool Adult failure to thrive 01/15/2021 Bilateral sacroiliitis 06/25/2020 Overview (08/10/2023): Added automatically from request for surgery [id number] Sacroiliitis, not elsewhere classified 1 Age-related osteoporosis wit hout current pathological fracture 06/28/2019 Spinal stenosis in cervical region 06/11/2019 Overview (06/11/2019): Added automatically from request for surgery [id number] Cervical stenosis of spine 04/27/2019 Asymmetric SNHL (sensorineural hearing loss) 01/2019 Overview (08/10/2023): Last Assessment & Plan: MRI IACs unremarkable hearing aid medical clearance for right ear given She will go to [place] for insurance assistance Will obtain updated audiological [...] & Plan: Chronic, stable. Cont with antidepressant. 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 Overview (08/10/2023): Last Assessment & Plan: Not on any medications Assessment & Plan (09/14/2024 2:15 PM CDT): --History of B cell lymphoma, work up for myeloma --PCP noticed large protein gap and ordered a SPEP which showed a monoclonal peak of 2.9 g without any immuno typing --Hematology consulted 09/07: ordered SPEP with immuno typing, serum free light chain assay, LDH, uric acid, beta 2 microglobulin, 24 hour urine for total protein, urine protein electrophoresis (UPEP) and urine immunofixation electrophoresis --PET/CT performed 09/10 --BMBx performed 09/11- negative for B-cell lymphoma --Hematology will follow up with patient outpatient - their office will reach out for scheduling Malignant tumor of breast 11/26/2016 Overview (08/10/2023): dcis left side with LN removal dcis left side with LN removal 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 No 09/03/2024 Social Connection and Isolation Panel [NHANES] A nswer Date Recorded In a typical week, how many times do you talk on the phone with family, friends, or neighbors? Three times a week 09/04/19 How often do you get togethe r with friends or relatives? Three times a week 09/03/2024 How often do you attend chur or alevism services? 1 to 4 times per year 09/03/2024 Do you belong to any clubs o r organizations such as orthodox groups, unions, fraternal or athletic groups, or school groups? No 09/03/2024 How often do you attend meet ings of the clubs or organizations you belong to? Never 09/03/2024 Are you , , di vorced, , never , or living with a partner? 09/03/2024 AUDIT-C Answer Date Recorded Q1: How often do you have a drink containing alcohol? Never 12/07/2023 Q2: How many drinks containi ng alcohol do you have on a typical day when you are drinking? Patient does not drink Q3: How often do you have si x or more drinks on one occasion? Never 12/07/2023 Overall Financial Resource Strain (CARDIA) Answe r Date Recorded How hard is it for you to pa y for the very basics like food, housing, medical care, and heating? Not hard at all 09/03/2024 Hunger Vital Sign Answer Date Recorded Within the past 12 months, y ou worried that your food would run out before you got the money to buy more. Never true 09/04/19 25 Within the past 12 months, t he food you bought just didn't last and you didn't have money to get more. Never true 09/03/2024 PRAPARE - Transportation Answer Date Re corded In the past 12 months, has l ack of transportation kept you from medical appointments or from getting medications? No 08/15 In the past 12 months, has l ack of transportation kept you from meetings, work, or from getting things needed for daily living? No 09/03/2024 Housing Stability Vital Sign Answer Aleksandr e Recorded In the last 12 months, was t here a time when you were not able to pay the mortgage or rent on time? No 09/03/2024 In the past 12 months, how m any times have you moved where you were living? 0 09/03/2024 At any time in the past 12 m [facility], were you homeless or living in a retirement (including now)? No 09/03/2024 Personal Safety Answer Date Recorded Have you ever been in or are you currently in a harmful physical or emotional relationship or is someone making you feel afraid or unsafe? Denies 09/15/2024 Comments Unknown Sex and Gender Information Value Date Recorded Sex Assigned at Not on file Legal Sex Female 8:24 AM OPERATIONS INTERN Gender Identity Not on file Sexual Orientation Not on file Last Filed Vital Signs Vital Sign Reading Time Taken Comments Blood Pressure 152/67 09/17/2024 4:13 PM CDT Pulse 75 09/17/2024 4:13 PM CDT Temperature 36.7 C (98.1 F) 09/17/2024 4:13 PM CDT Respiratory Rate 16 09/17/2024 4:13 PM CDT Oxygen Saturation 100% 09/17/2024 4:13 PM CDT Inhaled Oxygen Concentration - - Weight 61.7 kg (136 lb 0.4 oz) 09/15/2024 12:19 AM CDT Height 170.2 cm (5' 7.01) 09/15/2024 12:19 AM C DT Body Mass Index 21.3 09/15/2024 12:19 AM CDT Plan of Treatment Not on file Medical Devices Implanted Type Area Furniture Inspector Device Identifier Shelf Expiration Date Model / Serial / Lot [place] Spine Allograft Gel Graft 5cc Bone Demineralized Bone Matrix [id number] - [id number] Implanted:Qty: 1 on 11/04/2023 by Kenny Flores MD at [facility] N/A: Spine Cervical Bonny Spine [id number] 03/30/2026 [id number] / / [id number] Nuv[employer] Inc Screw Spine Reline C Lock Open Non-Sterile Latex Free [id number] - [id number] Implanted:Qty: 11 on 11/04/2023 by Kenny Flores MD at [facility] N/A: Spine Cervical [employer]uv[employer] Inc [id number] / / Nuv[employer] Inc Navneet Spinal Posterior Cervical Prebent Reline 3.5x250/100mm Titanium [id number] - [id number] Implanted:Qty: 2 on 11/04/2023 by Kenny Flores MD at [facility] N/A: Spine Cervical Nuv[employer] Inc [id number] / / Nuv[employer] Inc Plate Spine Posterior Cervical Occipital Adjustable Small Reline [id number] - [id number] Implanted:Qty: 1 on 11/04/2023 by Kenny Flores MD at [facility] N/A: Spine Cervical Nuv[employer] Inc [id number] / / Nuv[employer] Inc Connector Spinal Posterior Cervical Rotating Top Side Reline 3.5-4/3.5-4mm [id number] - [id number] Implanted:Qty: 4 on 11/04/2023 by Kenny Florse MD at [facility] N/A: Spine Cervical Nuv[employer] Inc [id number] / / Bonny Spine Graft Bone Filler Gel Bio Dbm 10cc [id number] - [id number] Implanted:Qty: 1 on 11/04/2023 by Kenny Flores MD at [facility] N/A: Spine Cervical Bonny Spine [id number] 04/13/2026 [id number] / / [id number] [employer] Graft Bone Magnetos 10cc 1-2mm Granules In Moldable Putty 703-038-[id number] - [id number] Implanted:Qty: 1 on 11/04/2023 by Kenny Flores MD at [facility] N/A: Spine Cervical [employer] [id number] 10/15/2027 [id number] / / [id number] Medtronic Inc Infuse 20ga 2x1in Vial Absorbable Syringe Needle Medium Graft 5.6 [id number] - [id number] Implanted:Qty: 1 on 11/04/2023 by Kenny Flores MD at [facility] N/A: Spine Cervical Medtronic Inc [id number] / / Allosource Crushed Chip Frozen Graft 30ml Bone Cancellous [id number] - [id number] Implanted:Qty: 1 on 11/04/2023 by Kenny Flores MD at [facility] N/A: Spine Cervical Allosource 11/07/2027 [id number] / / [id number] Allosource Canpac Allograft Frozen Nonpurge Graft 10cc Bone Cancellous [id number] - [id number] Implanted:Qty: 1 on 11/04/2023 by Kenny Flores MD at [facility] N/A: Spine Cervical Allosource 09/13/2028 [id number] / / [id number] Nuvasive Inc Reline C Screw 4.5x10mm Occipital [id number] - [id number] Implanted:Qty: 2 on 11/04/2023 by Kenny Flores MD at [facility] N/A: Spine Cervical Nuv[employer] Inc [id number] / / Nuv[employer] Inc Reline C Screw 4.5x12mm Occipital [id number] - [id number] Implanted:Qty: 2 on 11/04/2023 by Kenny Flores MD at [facility] N/A: Spine Cervical Nuv[employer] Inc [id number] / / Nuv[employer] Inc Reline C Screw 4.0x24mm Reduction Fa [id number] - [id number] Implanted:Qty: 1 on 11/04/2023 by Kenny Flores MD at [facility] N/A: Spine Cervical [employer] Inc [id number] / / Procedures Procedure Name Priority Date/Time Associated Diagnosis Comments SCAN - OTHER ORDERS 09/28/2024 SCAN - PATHOLOGY 09/25/2024 3:44 PM CDT EGFR Timed 09/15/2024 9:05 PM CDT PHOSPHORUS Timed 09/15/2024 9:05 PM CDT MAGNESIUM Timed 09/15/2024 9:05 PM CDT COMPREHENSIVE METABOLIC PANEL Timed 09/15/2024 9:05 PM CDT CBC WITHOUT DIFFERENTIAL Routine 09/15/2024 9:05 PM CDT CBC WITHOUT DIFFERENTIAL Routine 09/15/2024 9:05 PM CDT CBC WITHOUT DIFFERENTIAL Routine 09/15/2024 9:05 PM CDT POCT GLUCOSE DEVICE Routine 09/13/2024 4:43 PM CDT CREATINE KINASE (CK), TOTAL Timed 09/13/2024 3:42 PM CDT POCT GLUCOSE DEVICE Routine 09/13/2024 11:45 AM CDT POCT GLUCOSE DEVICE Routine 09/13/2024 7:25 AM CDT EGFR Routine 09/12/2024 10:39 PM CDT BASIC METABOLIC PANEL Routine 09/12/2024 10:39 PM CDT CBC WITHOUT DIFFERENTIAL Routine 09/12/2024 10:39 PM CDT US PELVIS COMPLETE IP Routine 09/12/2024 11:53 AM CDT EGFR Routine 09/11/2024 11:52 PM CDT BASIC METABOLIC PANEL Routine 09/11/2024 11:52 PM CDT CBC WITHOUT DIFFERENTIAL Routine 09/11/2024 11:52 PM CDT IR BONE MARROW BIOPSY AND ASPIRATION IP Routine 09/11/2024 12:42 PM CDT SURGICAL PATHOLOGY Routine 09/11/2024 12:35 PM CDT Wound dehiscence FLOW LEUKEMIA/LYMPHOMA Routine 12:35 PM CDT CYTOGENETICS TRACKING ORDER Routine 09/11/2024 12:35 PM CDT CLONOSEQ Routine 09/11/2024 11:50 AM CDT CYTOGENETICS Routine 09/11/2024 11:50 AM CDT EGFR Routine 09/10/2024 9:39 PM CDT BASIC METABOLIC PANEL Routine 09/10/2024 9:39 PM CDT CBC WITHOUT DIFFERENTIAL Routine 09/10/2024 9:39 PM CDT CREATINE KINASE (CK), TOTAL Timed 09/10/2024 1:50 PM CDT PET/CT FDG SKULL TO THIGH IP Routine 09/10/2024 11:40 AM CDT DIFFERENTIAL AUTO Routine 09/09/2024 10:22 PM CDT EGFR Routine 09/09/2024 10:22 PM CDT BASIC METABOLIC PANEL Routine 09/09/2024 10:22 PM CDT CBC WITHOUT DIFFERENTIAL Routine 09/09/2024 10:22 PM CDT VOLUME AND PERIOD, URINE, 24 HOUR Timed 09/09/2024 5:12 PM CDT IMMUNOFIXATION, URINE Timed 09/09/2024 5:11 PM CDT PROTEIN ELECTROPHORESIS, URINE, 24 HOUR RESULT Timed 09/09/2024 5:11 PM CDT PROTEIN ELECTROPHORESIS, URINE, 24 HOUR WITH IMMUNOFIXATION Timed 09/09/2024 5:11 PM CDT EGFR Timed 09/08/2024 10:18 PM CDT PHOSPHORUS Timed 09/08/2024 10:18 PM CDT MAGNESIUM Timed 09/08/2024 10:18 PM CDT COMPREHENSIVE METABOLIC PANEL Timed 09/08/2024 10:18 PM CDT CBC WITHOUT DIFFERENTIAL Routine 09/08/2024 10:18 PM CDT BETA 2 MICROGLOBULIN SERUM Routine 09/08/2024 2:55 AM CDT BASIC METABOLIC PANEL Routine 09/08/2024 2:55 AM CDT EGFR Routine 09/08/2024 2:55 AM CDT IMMUNOGLOBULIN FREE LIGHT CHAINS Routine 09/08/2024 2:55 AM CDT URIC ACID Routine 09/08/2024 2:55 AM CDT LACTATE DEHYDROGENASE Routine 09/08/2024 2:55 AM CDT URINALYSIS, MICROSCOPIC ONLY Routine 09/07/2024 3:29 PM CDT URINALYSIS AND REFLEX TO MICROSCOPIC Routine 09/07/2024 3:29 PM CDT ZINC Routine 09/07/2024 1:38 PM CDT COPPER, SERUM Routine 09/07/2024 1:38 PM CDT FOLATE Routine 09/07/2024 1:38 PM CDT VITAMIN B12 Routine 09/07/2024 1:38 PM CDT FERRITIN Routine 09/07/2024 1:38 PM CDT IRON PROFILE W/ IBC Routine 09/07/2024 1:38 PM CDT LACTATE DEHYDROGENASE Routine 09/07/2024 1:38 PM CDT RETICULOCYTES Routine 09/07/2024 1:38 PM CDT IMMUNOGLOBULIN PROFILE Routine 1:38 PM CDT IMMUNOGLOBULIN FREE LIGHT CHAINS Routine 09/07/2024 1:38 PM CDT IMMUNOTYPING Routine 09/07/2024 1:38 PM CDT PROTEIN ELECTROPHORESIS, WITH REFLEX, SERUM Routine 09/07/2024 1:38 PM CDT CREATINE KINASE (CK), TOTAL Timed 09/07/2024 1:38 PM CDT HEPATIC FUNCTION PANEL Routine 10:04 PM CDT EGFR Routine 09/06/2024 10:04 PM CDT BASIC METABOLIC PANEL Routine 09/06/2024 10:04 PM CDT CBC WITHOUT DIFFERENTIAL Routine 09/06/2024 10:04 PM CDT EGFR Routine 09/06/2024 11:49 AM CDT BASIC METABOLIC PANEL Routine 09/06/2024 11:49 AM CDT CBC WITHOUT DIFFERENTIAL Routine 09/06/2024 11:49 AM CDT CENTRAL LINE PLACEMENT > 5 YEARS ED Urgent/IP Urgent 09/06/2024 11:04 AM CDT XR CHEST 1 VIEW ED Urgent/IP Urgent 09/05/2024 6:21 PM CDT CENTRAL LINE PLACEMENT > 5 YEARS IP Routine 09/05/2024 3:08 PM CDT BASIC METABOLIC PANEL Timed 09/04/2024 11:01 PM CDT EGFR Timed 09/04/2024 11:01 PM CDT CREATINE KINASE (CK), TOTAL Timed 09/04/2024 11:01 PM CDT CBC WITHOUT DIFFERENTIAL Routine 09/04/2024 11:01 PM CDT DIFFERENTIAL AUTO Routine 09/03/2024 9:27 PM CDT EGFR Routine 09/03/2024 9:27 PM CDT BASIC METABOLIC PANEL Routine 09/03/2024 9:27 PM CDT CBC WITHOUT DIFFERENTIAL Routine 09/03/2024 9:27 PM CDT BLOOD CULTURE Routine 09/03/2024 12:02 PM CDT BLOOD CULTURE STAT 09/02/2024 4:05 AM CDT BLOOD CULTURE STAT 09/02/2024 4:05 AM CDT EGFR Timed 09/02/2024 3:09 AM CDT VANCOMYCIN LEVEL TROUGH Timed 09/02/2024 3:09 AM CDT PHOSPHORUS Timed 09/02/2024 3:09 AM CDT MAGNESIUM Timed 09/02/2024 3:09 AM CDT COMPREHENSIVE METABOLIC PANEL Timed 09/02/2024 3:09 AM CDT CBC WITHOUT DIFFERENTIAL Routine 09/02/2024 3:09 AM CDT LIPID PANEL STAT 08/31/2024 7:10 PM CDT EGFR STAT 08/31/2024 7:10 PM CDT CRP (ACUTE PHASE) STAT 08/31/2024 7:10 PM CDT ERYTHROCYTE SEDIMENTATION RATE STAT 08/31/2024 7:10 PM CDT PROTIME-INR STAT 08/31/2024 7:10 PM CDT APTT STAT 08/31/2024 7:10 PM CDT CBC WITHOUT DIFFERENTIAL STAT 08/31/2024 7:10 PM CDT PHOSPHORUS STAT 08/31/2024 7:10 PM CDT MAGNESIUM STAT 08/31/2024 7:10 PM CDT COMPREHENSIVE METABOLIC PANEL STAT 08/31/2024 7:10 PM CDT MYCOBACTERIOLOGY AFB CULTURE AND ACID-FAST STAIN Routine 08/31/2024 4:59 PM CDT MYCOLOGY (FUNGAL) CULTURE AND STAIN Routine 08/31/2024 4:59 PM CDT TISSUE AEROBIC AND ANAEROBIC CULTURE AND GRAM STAIN Routine 08/31/2024 4:59 PM CDT AEROBIC AND ANAEROBIC CULTURE AND GRAM STAIN Routine 08/31/2024 4:02 PM CDT MYCOBACTERIOLOGY AFB CULTURE AND ACID-FAST STAIN Routine 08/31/2024 4:02 PM CDT MYCOLOGY (FUNGAL) CULTURE AND STAIN Routine 08/31/2024 4:02 PM CDT NJ AN PROCEDURE PLACEHOLDER Routine 08/31/2024 3:33 PM CDT NJ AN PROCEDURE PLACEHOLDER Routine 08/31/2024 3:33 PM CDT MISLABLED TEST Routine 08/31/2024 3:31 PM CDT NJ AN PROCEDURE PLACEHOLDER Routine 08/31/2024 3:11 PM CDT NJ AN ELECTIVE ENDOTRACHEAL AIRWAY Routine 08/31/2024 3:11 PM CDT POC BLOOD GAS AND CHEMISTRIES, VENOUS Routine 08/31/2024 3:03 PM CDT EGFR Timed 08/31/2024 3:00 PM CDT PHOSPHORUS Timed 08/31/2024 3:00 PM CDT MAGNESIUM Timed 08/31/2024 3:00 PM CDT COMPREHENSIVE METABOLIC PANEL Timed 08/31/2024 3:00 PM CDT CBC WITHOUT DIFFERENTIAL Routine 08/31/2024 3:00 PM CDT CLOSURE WOUND 08/31/2024 2:43 PM CDT Wound dehiscence IRRIGATION AND DEBRIDEMENT BACK 08/31/2024 2:43 PM CDT Wound dehiscence XR CHEST 1 VIEW IP Routine 08/31/2024 2:19 PM CDT XR SCOLIOSIS 6 OR MORE VIEWS Schedule Routine, Read Routine (OP Routine) 08/31/2024 10:40 AM CDT Cervical stenosis of spine Open displaced fracture of first cervical vertebra with delayed healing, unspecified fracture morphology, subsequent encounter 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 Collapsed vertebra, not elsewhere classified, cervical region, initial encounter for fracture (HCC) POCT HEMOGLOBIN A1C Routine 11/01/2023 4:36 PM CDT DEXA AXIAL SKELETON BONE DENSITY 1 OR MORE SITES Schedule Routine, Read Routine (OP Routine) 09/07/2023 9:16 AM CDT 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 73 m2 Comment: [...] interpretive data was last reviewed 2021. Blood 09/15/2024 9:05 PM CDT 09/15/2024 9:24 PM CDT us Kenny Flores MD LAB BLOOD ORDERABLES Final Resu lt [facility] Department [place] [address] * (ABNORMAL) CBC without differential (09/15/2024 9:05 PM CDT) [facility] WBC 7.63 3.80 - 9.90 K/cumm Hgb 7.9(L) 11.9 - 15.5 g/dL [facility] Hct 25.9(L) 35.6 - 45.5 % [facility] Plt 384 150 - 400 K/cumm [facility] MPV 10.4 9.1 - 12.3 fL [facility] RBC 2.91(L) 3.90 - 5.20 M/cumm [facility] MCV 89.0 81.3 - 96.4 fL [facility] MCH 27.1 27.1 - 33.3 pg [facility] MCHC 30.5(L) 32.3 - 35.7 g/dL [facility] RDW CV 18.1(H) 11.1 - 14.9 % [facility] RDW SD 57.8(H) 35.7 - 48.1 fL [facility] NRBC abs 0.00 0.00 - 0.01 K/cumm [facility] Blood 09/15/2024 9:05 PM CDT 09/15/2024 9:25 PM CDT us Kenny Flores MD LAB BLOOD ORDERABLES Final Resu lt [facility] Department [place] [address] * (ABNORMAL) CBC without differential (09/15/2024 9:05 PM CDT) WBC 7.59 3.80 - 9.90 K/cumm Hgb 7.6(L) 11.9 - 15.5 g/dL [facility] Hct 25.4(L) 35.6 - 45.5 % [facility] Plt 379 150 - 400 K/cumm [facility] MPV 10.4 9.1 - 12.3 fL [facility] RBC 2.85(L) 3.90 - 5.20 M/cumm [facility] MCV 89.1 81.3 - 96.4 fL [facility] MCH 26.7(L) 27.1 - 33.3 pg [facility] MCHC 29.9(L) 32.3 - 35.7 g/dL [facility] RDW CV 17.7(H) 11.1 - 14.9 % [facility] RDW SD 57.3(H) 35.7 - 48.1 fL [facility] NRBC abs 0.00 0.00 - 0.01 K/cumm [facility] Blood 09/15/2024 9:05 PM CDT 09/15/2024 9:25 PM CDT Kenny Flores MD LAB BLOOD ORDERABLES Final Resu lt [facility] Department [place] [address] * (ABNORMAL) CBC without differential (09/15/2024 9:05 PM CDT) WBC 7.75 3.80 - 9.90 K/cumm Hgb 7.7(L) 11.9 - 15.5 g/dL [facility] Hct 25.3(L) 35.6 - 45.5 % [facility] Plt 385 150 - 400 K/cumm [facility] MPV 10.5 9.1 - 12.3 fL [facility] RBC 2.84(L) 3.90 - 5.20 M/cumm [facility] MCV 89.1 81.3 - 96.4 fL [facility] MCH 27.1 27.1 - 33.3 pg [facility] MCHC 30.4(L) 32.3 - 35.7 g/dL [facility] RDW CV 17.6(H) 11.1 - 14.9 % [facility] RDW SD 57.2(H) 35.7 - 48.1 fL [facility] NRBC abs 0.00 0.00 - 0.01 K/cumm [facility] Blood 09/15/2024 9:05 PM CDT 09/15/2024 9:25 PM CDT Kenny Flores MD LAB BLOOD ORDERABLES Final Resu lt [facility] Department [place] [address] * (ABNORMAL) Phosphorus (09/15/2024 9:05 PM CDT) Phosphorus, pl 5.1(H) 2.3 - 4.5 mg/dL Blood 09/15/2024 9:05 PM CDT 09/15/2024 9:24 PM CDT Kenny Flores MD LAB BLOOD ORDERABLES Final Resu lt [facility] [place] [address] * Magnesium (09/15/2024 9:05 PM CDT) Pathologist [facility] Magnesium 1.8 1.4 - 2.5 mg/dL Blood 09/15/2024 9:05 PM CDT 09/15/2024 9:24 PM CDT Kenny Flores MD LAB BLOOD ORDERABLES Final Resu lt Performing Organization Address [facility] Co de Phone Number [facility] [place] [address] * (ABNORMAL) Comprehensive metabolic panel (09/15/2024 9:05 PM CDT) Pathologist [facility] Sodium 141 135 - 145 mmol/L Potassium, pl 4.4 3.3 - 4.9 mmol/L [facility] Chloride 103 97 - 110 mmol/L [facility] CO2 27 22 - 32 mmol/L [facility] Anion gap 9 2 - 15 mmol/L [facility] BUN 23 6 - 25 mg/dL [facility] Creatinine 0.66 0.60 - 1.10 mg/dL [facility] Glucose 177 70 - 199 mg/dL [facility] Comment: Interpretive Data Fasting glucose >/= 126 mg/dl is diagnostic for diabetes. Fasting is defined as no caloric intake for at least 8 hours. Fasting glucose between 100 mg/dl to 125 mg/dl is diagnostic of prediabetes. In a patient with classic symptoms of hyperglycemia or hyperglycemic crisis, a random glucose >/= 200 mg/dl is diagnostic for diabetes. In the absence of unequivocal hyperglycemia, results should be confirmed by repeat testing. The classification and Diagnosis of Diabetes Diabetes Care 2021; 46: S19-S40. Current interpretive data was last revised 2022. Calcium 9.7 8.5 - 10.3 mg/dL [facility] Bilirubin, total <0.2 0.1 - 1.2 mg/dL [facility] Comment:Reviewed Protein, pl 8.0 6.5 - 8.5 g/dL [facility] Albumin 3.4(L) 3.5 - 5.0 g/dL [facility] Alk phos 98 40 - 130 Units/L [facility] ALT 9 7 - 45 Units/L [facility] AST 25 10 - 45 Units/L [facility] Blood 09/15/2024 9:05 PM CDT 09/15/2024 9:24 PM CDT Kenny Flores MD LAB BLOOD ORDERABLES Final Resu lt Performing Organization Address [facility]/ZIP Co de Phone Number [facility] Department [place] [address] * POCT glucose (09/13/2024 4:43 PM CDT) Glucose, POC 148 70 - 199 mg/dL Blood 09/13/2024 4:43 PM CDT 09/13/2024 4:43 PM CDT Kenny Flores MD LAB POCT ORDERABLES - DEVICE Fi nal Result Performing Organization Address [facility]/ZIP Co de Phone Number [facility] Department [place] [address] * Creatine kinase (CK), total (09/13/2024 3:42 PM CDT) CK 60 30 - 200 Units/L Blood 09/13/2024 3:42 PM CDT 09/13/2024 3:58 PM CDT Kylee Noel NP LAB BLOOD ORDERABLES Final Result Performing Organization Address [facility]/ZIP Co de Phone Number [facility] Department [place] [address] * POCT glucose (09/13/2024 11:45 AM CDT) Glucose, POC 105 70 - 199 mg/dL Blood 09/13/2024 11:4 5 AM CDT 09/13/2024 11:45 AM CDT Kenny Flores MD LAB POCT ORDERABLES - DEVICE Fi nal Result [facility] [place] [address] * POCT glucose (09/13/2024 7:25 AM CDT) Glucose, POC 108 70 - 199 mg/dL Blood 09/13/2024 7:25 AM CDT 09/13/2024 7:25 AM CDT Kenny Flores MD LAB POCT ORDERABLES - DEVICE Fi nal Result Performing Organization Address City/[facility] Co de Phone Number [facility] [place] [address] * eGFR (09/12/2024 10:39 PM CDT) eGFR >90 >=60 mL/min/1. 73 [...] interpretive data was last reviewed 2021. Blood 09/12/2024 10:3 9 PM CDT 09/12/2024 10:55 PM CDT Kenny Flores MD LAB BLOOD ORDERABLES Final Resu lt Performing Organization Address City/[facility]/ZIP Co de Phone Number [facility] Department [place] [address] * (ABNORMAL) CBC without differential (09/12/2024 10:39 PM CDT) WBC 7.88 3.80 - 9.90 K/cumm Hgb 8.1(L) 11.9 - 15.5 g/dL [facility] Hct 26.2(L) 35.6 - 45.5 % [facility] Plt 361 150 - 400 K/cumm [facility] MPV 9.9 9.1 - 12.3 fL [facility] RBC 2.96(L) 3.90 - 5.20 M/cumm [facility] MCV 88.5 81.3 - 96.4 fL [facility] MCH 27.4 27.1 - 33.3 pg [facility] MCHC 30.9(L) 32.3 - 35.7 g/dL [facility] RDW CV 17.3(H) 11.1 - 14.9 % [facility] RDW SD 54.9(H) 35.7 - 48.1 fL [facility] NRBC abs 0.00 0.00 - 0.01 K/cumm [facility] Blood 09/12/2024 10:3 9 PM CDT 09/12/2024 10:50 PM CDT Kenny Flores MD LAB BLOOD ORDERABLES Final Resu lt Performing Organization Address City/[facility]/ZIP Co de Phone Number [facility] Department [place] [address] * (ABNORMAL) Basic metabolic panel (09/12/2024 10:39 PM CDT) Sodium 141 135 - 145 mmol/L Potassium, pl 3.9 3.3 - 4.9 mmol/L [facility] Chloride 105 97 - 110 mmol/L [facility] CO2 32 22 - 32 mmol/L [facility] Anion gap 4 2 - 15 mmol/L [facility] BUN 9 6 - 25 mg/dL [facility] Creatinine 0.46(L) 0.60 - 1.10 mg/dL [facility] Glucose 122 70 - 199 mg/dL [facility] Comment: Interpretive Data Fasting glucose >/= 126 mg/dl is diagnostic for diabetes. Fasting is defined as no caloric intake for at least 8 hours. Fasting glucose between 100 mg/dl to 125 mg/dl is diagnostic of prediabetes. In a patient with classic symptoms of hyperglycemia or hyperglycemic crisis, a random glucose >/= 200 mg/dl is diagnostic for diabetes. In the absence of unequivocal hyperglycemia, results should be confirmed by repeat testing. The classification and Diagnosis of Diabetes Diabetes Care 2021; 46: S19-S40. Current interpretive data was last revised 2022. Calcium 9.2 8.5 - 10.3 mg/dL [facility] Blood 09/12/2024 10:3 9 PM CDT 09/12/2024 10:55 PM CDT us Kenny Flores MD LAB BLOOD ORDERABLES Final Resu lt [facility] Department [place] [address] * US Pelvis Complete (09/12/2024 11:53 AM CDT) Anatomical Region Laterality Modality Pelvis N/A Ultrasound 09/12/2024 1:07 PM CDT Impressions 09/12/2024 1:34 PM CDT 1. Normal endometrial canal. 2. Simple cyst within the left ovary measuring up to 2.5 cm. Dictated by: Samuel Smith MD The radiology attending physician has personally reviewed this study, and had reviewed and/or edited this written report and agrees with it. Electronically signed by: Yessenia Kwong M.D. Narrative 09/12/2024 1:34 PM CDT EXAMINATION: TRANSABDOMINAL PELVIC ULTRASOUND HISTORY: Concern for fluid within the endometrial cavity and endometrial thickening on prior CT COMPARISON: PET/CT 09/02/2024 FINDINGS: TRANSABDOMINAL SONOGRAM: Uterus: The uterus is anteverted and has a length of 5.3 cm, AP dimension of 2.4 cm, and transverse dimension of 4.1 cm. The endometrium measures 4 mm in thickness. There are no uterine fibroids. There is fluid seen within the cervical canal, normal finding. Right ovary: The right ovary measures is not well seen on ultrasound, however, when compared to prior PET/CT this is well visualized (series 4, image 199 through 207) and is normal. Left ovary: The left ovary is well visualized and appears unremarkable. There is a simple cyst within the left ovary measuring approximately 2.5 x 1.6 x 1.4 cm. Other: No free fluid or fluid collections are seen in the pelvis. Procedure Note Yessenia Kwong MD - 09/12/2024 EXAMINATION: TRANSABDOMINAL PELVIC ULTRASOUND HISTORY: Concern for fluid within the endometrial cavity and endometrial thickening on prior CT COMPARISON: PET/CT 09/02/2024 FINDINGS: TRANSABDOMINAL SONOGRAM: Uterus: The uterus is anteverted and has a length of 5.3 cm, AP dimension of 2.4 cm, and transverse dimension of 4.1 cm. The endometrium measures 4 mm in thickness. There are no uterine fibroids. There is fluid seen within the cervical canal, normal finding. Right ovary: The right ovary measures is not well seen on ultrasound, however, when compared to prior PET/CT this is well visualized (series 4, image 199 through 207) and is normal. Left ovary: The left ovary is well visualized and appears unremarkable. There is a simple cyst within the left ovary measuring approximately 2.5 x 1.6 x 1.4 cm. Other: No free fluid or fluid collections are seen in the pelvis. IMPRESSION: 1. Normal endometrial canal. 2. Simple cyst within the left ovary measuring up to 2.5 cm. Dictated by: Samuel Smith MD The radiology attending physician has personally reviewed this study, and had reviewed and/or edited this written report and agrees with it. Electronically signed by: Yessenia Kwong M.D. us Marii Bell CLE[employer] ROOM [employer]SEMBLER IMG US PROCEDURES Final Result * eGFR (09/11/2024 11:52 PM CDT) eGFR >90 >=60 mL/min/1. 73 [...] interpretive data was last reviewed 2021. Blood 09/11/2024 11:5 2 PM CDT 09/12/2024 12:07 AM CDT us Kenny Flores MD LAB BLOOD ORDERABLES Final Resu lt [facility] [place] [address] * (ABNORMAL) CBC without differential (09/11/2024 11:52 PM CDT) WBC 7.35 3.80 - 9.90 K/cumm Hgb 8.0(L) 11.9 - 15.5 g/dL [facility] Hct 26.2(L) 35.6 - 45.5 % [facility] Plt 381 150 - 400 K/cumm [facility] MPV 10.3 9.1 - 12.3 fL [facility] RBC 2.95(L) 3.90 - 5.20 M/cumm [facility] MCV 88.8 81.3 - 96.4 fL [facility] MCH 27.1 27.1 - 33.3 pg [facility] MCHC 30.5(L) 32.3 - 35.7 g/dL [facility] RDW CV 17.3(H) 11.1 - 14.9 % [facility] RDW SD 55.8(H) 35.7 - 48.1 fL [facility] NRBC abs 0.00 0.00 - 0.01 K/cumm [facility] Blood 09/11/2024 11:5 2 PM CDT 09/12/2024 12:07 AM CDT us Kenny Flores MD LAB BLOOD ORDERABLES Final Resu lt [facility] Department [place] [address] * (ABNORMAL) Basic metabolic panel (09/11/2024 11:52 PM CDT) Sodium 138 135 - 145 mmol/L Potassium, pl 3.8 3.3 - 4.9 mmol/L [facility] Chloride 101 97 - 110 mmol/L [facility] CO2 31 22 - 32 mmol/L [facility] Anion gap 6 2 - 15 mmol/L [facility] BUN 6 6 - 25 mg/dL [facility] [facility] Creatinine 0.58(L) 0.60 - 1.10 mg/dL [facility] Glucose 96 70 - 199 mg/dL [facility] Comment: Interpretive Data Fasting glucose >/= 126 mg/dl is diagnostic for diabetes. Fasting is defined as no caloric intake for at least 8 hours. Fasting glucose between 100 mg/dl to 125 mg/dl is diagnostic of prediabetes. In a patient with classic symptoms of hyperglycemia or hyperglycemic crisis, a random glucose >/= 200 mg/dl is diagnostic for diabetes. In the absence of unequivocal hyperglycemia, results should be confirmed by repeat testing. The classification and Diagnosis of Diabetes Diabetes Care 2021; 46: S19-S40. Current interpretive data was last revised 2022. Calcium 9.4 8.5 - 10.3 mg/dL [facility] Blood 09/11/2024 11:5 2 PM CDT 09/12/2024 12:07 AM CDT us Kenny Flores MD LAB BLOOD ORDERABLES Final Resu lt [facility] Department [place] [address] * IR Bone marrow biopsy and aspiration (09/11/2024 12:42 PM CDT) Anatomical Region Laterality Modality Body Radio Fluoroscop y 09/11/2024 12:5 1 PM CDT Impressions 09/11/2024 12:53 PM CDT 1. Left iliac bone marrow biopsy and aspiration under fluoroscopic guidance. The bone marrow aspirate was submitted to hematopathology, and the bone marrow core biopsy sample to surgical pathology. Dictated by: Nithya Alfaro PA-C The radiology attending physician has personally reviewed this study, and had reviewed and/or edited this written report and agrees with it. Electronically signed by: Beau Perez M.D. Narrative 09/11/2024 12:53 PM CDT EXAMINATION: Left iliac bone marrow biopsy and aspiration under fluoroscopic guidance HISTORY: 74 year old woman with abnormal serum total protein and monoclonal peak on outside SPEP. Bone marrow biopsy requested due to concern for multiple myeloma vs MGUS. ATTENDING PRESENCE: Dr. Beau Perez M.D., the attending radiologist, was present from the beginning to the end of the procedure. Dr. Marvin Garcia (residential mortgage manager) and Dr Gaetano Plascencia were present and participated in the procedure. SEDATION: Conscious sedation was administered under the attending physician's direction and continuous monitoring by a trained nurse specialist who was independent from those actually performing the procedure. Total monitored sedation time was 15 minutes. During the course of the procedure, the patient received Fentanyl 100 mcg and Versed 3 mg IV. TECHNIQUE: The risks, benefits and alternatives were discussed and informed consent was obtained. Prior to beginning the procedure, [facility] Protocol was performed to confirm the patient's identity and the planned procedure. Sterile barriers used during the procedure included cap, mask, hand hygiene, sterile gloves, sterile gown, and sterile drape. Chloraprep was used for cutaneous antisepsis. The patient was placed prone on the fluoroscopy table. The Left posterior iliac was localized with fluoroscopy. 6 mL of a 1:1 mixture of 0.25% bupivacaine and 1% lidocaine was injected for subcutaneous and periosteal anesthesia. An 11 gauge OnControl needle was inserted into posterior iliac utilizing fluoroscopic guidance. Appropriate needle position was confirmed with fluoroscopy. 2 mL in each of 5 tubes of bone marrow aspirate was obtained for hematopathology. An additional 3-4 mL tube of blood clot was also obtained. A bone marrow core specimen of 3 cm in length was obtained. The needle was removed. Dermabond was placed at the needle entry. Complication: none Type: n/a ESTIMATED BLOOD LOSS: <30 mL CONDITION: Stable condition. DISCHARGED TO: previous inpatient division FINDINGS: Fluoroscopic images demonstrate appropriate needle position in the left iliac bone. Procedure Note Beau Perez MD - 09/11/2024 EXAMINATION: Left iliac bone marrow biopsy and aspiration under fluoroscopic guidance HISTORY: 74 year old woman with abnormal serum total protein and monoclonal peak on outside SPEP. Bone marrow biopsy requested due to concern for multiple myeloma vs MGUS. ATTENDING PRESENCE: Dr. Beau Perez M.D., the attending radiologist, was present from the beginning to the end of the procedure. Dr. Marvin Garcia (residential mortgage manager) and Dr Gaetano Plascencia were present and participated in the procedure. SEDATION: Conscious sedation was administered under the attending physician's direction and continuous monitoring by a trained nurse specialist who was independent from those actually performing the procedure. Total monitored sedation time was 15 minutes. During the course of the procedure, the patient received Fentanyl 100 mcg and Versed 3 mg IV. TECHNIQUE: The risks, benefits and alternatives were discussed and informed consent was obtained. Prior to beginning the procedure, [facility] Protocol was performed to confirm the patient's identity and the planned procedure. Sterile barriers used during the procedure included cap, mask, hand hygiene, sterile gloves, sterile gown, and sterile drape. Chloraprep was used for cutaneous antisepsis. The patient was placed prone on the fluoroscopy table. The Left posterior iliac was localized with fluoroscopy. 6 mL of a 1:1 mixture of 0.25% bupivacaine and 1% lidocaine was injected for subcutaneous and periosteal anesthesia. An 11 gauge OnControl needle was inserted into posterior iliac utilizing fluoroscopic guidance. Appropriate needle position was confirmed with fluoroscopy. 2 mL in each of 5 tubes of bone marrow aspirate was obtained for hematopathology. An additional 3-4 mL tube of blood clot was also obtained. A bone marrow core specimen of 3 cm in length was obtained. The needle was removed. Dermabond was placed at the needle entry. Complication: none Type: n/a ESTIMATED BLOOD LOSS: <30 mL CONDITION: Stable condition. DISCHARGED TO: previous inpatient division FINDINGS: Fluoroscopic images demonstrate appropriate needle position in the left iliac bone. IMPRESSION: 1. Left iliac bone marrow biopsy and aspiration under fluoroscopic guidance. The bone marrow aspirate was submitted to hematopathology, and the bone marrow core biopsy sample to surgical pathology. Dictated by: Nithya Alfaro PA-C The radiology attending physician has personally reviewed this study, and had reviewed and/or edited this written report and agrees with it. Electronically signed by: Beau Perez M.D. Kenny Flores MD [facility] IR PROCEDURES Final Result * Cytogenetics Specimen Tracking Bone marrow (09/11/2024 12:35 PM CDT) Pathologist [facility] Cytotenetics Tracking Order Received Bone marrow 09/11/2024 12:3 5 PM CDT 09/11/2024 1:55 PM CDT Narrative AMARILIS REED - 09/20/2024 2:45 PM CDT Please read the Cytogenetics Epic requisition for specimen collection requirements. Kenny Flores MD LAB BODY FLUIDS AND STOOLS JIMMY TAVERA Final Result [facility] Department [place] [address] * Flow Leukemia/Lymphoma Bone marrow (09/11/2024 12:35 PM CDT) Pool Stain Test Completed Leukemia/Lymp nicky Result See separate Surgical Pathology report. [facility] Bone marrow 09/11/2024 12:3 5 PM CDT 09/11/2024 3:01 PM CDT us Kenny Flores MD LAB PATHOLOGY ORDERABLES Final Result [facility] Department [place] [address] * Surgical pathology (09/11/2024 12:35 PM CDT) Tissue (Bone marrow) 09/11/2024 12:35 PM CDT Comment:Left Iliac Bone Amy ow Biopsy Narrative PATHOLOGY [facility] - 09/13/2024 6:30 PM CDT EPIC results best viewed via link to PDF [facility] [place] [address] Note to Patients: This report may contain a detailed description of human tissue sent by a health care provider to the laboratory for pathologic evaluation. The content of this report is essential for diagnosis and may provide important critical findings. This information may be unfamiliar to patients to review without a medical professional present. It is advised that the patient review this report in the presence of a health care provider who can answer questions and explain the details. SURGICAL PATHOLOGY REPORT FINAL WITH ADDENDUM Patient Name: ES WOLFF Gender: F : 1950 (Age: 74) Address: [address] [place] [address] Hospital #: [id number] Taken:09/11/2024 Received:09/11/2024 Reported: 09/13/2024 Patient Type: [facility] Inpatient Service: Neurosurgery Location: [facility] 0174 Physician(s): Beau Perez M.D. 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 Brian Blackwell M.D. Report Electronically Reviewed and Signed Out By Brian Blackwell M.D. 09/13/2024 18:30:11 Diagnosis Comment There are two neoplastic processes evident in the bone marrow, a lambda- restricted plasma cell population comprising 30% of the bone marrow cellularity and a kappa-restricted CD5/CD10/CD103 negative B-cell population. These findings are similar to a 2017 outside pathology report. We note that Cyclin D1 expression is positive in the marrow, however, it is difficult to determine if CyclinD1 is expressed in plasma cells or B-cells. Correlation with pending CD138 enriched plasma cell FISH studies is suggested. For details on the peripheral blood smear (if submitted), bone marrow aspirate, and core biopsy, please see the attached synoptic report. If applicable, correlation with concurrent flow cytometry (Addenda/Procedures below), cytogenetics/FISH, and molecular studies is suggested for full evaluation. Microscopic Description and Comment: Immunohistochemistry and in situ hybridization studies (with appropriate controls) are performed for further evaluation in tissue context. Immunostain for CD138 highlights a plasma cell population comprising roughly 30% of bone marrow cellularity. Immunostain for CD20 highlights scattered B-cells with a few B-cell aggregates comprising roughly 30% of bone marrow cellularity which are positive for PAX5. Distribution of immunostain for cyclin D1 is difficult to assign to B-cell or plasma cell population with certainty, though staining of the plasma cell population is favored. BRAF V600E immunostain is negative. Kayla Zhou M.D., P.h.D. History: The patient is a 74-year-old woman with a history of B-cell lymphoma, unspecified type (diagnosed 2018) who now has abnormal serum total protein and monoclonal peak on SPEP concerning for multiple myeloma. Operative procedure: bone marrow biopsy. Specimen(s) Received: A: Bone marrow biopsy, left posterior iliac crest B: Bone Marrow Clot - BJ C: Bone marrow, left aspirate for flow cytometry Gross Description: Received in two formalin jars labeled with the patient's identifiers. A. Labeled left iliac bone marrow biopsy, is a red-pink bone core (2.0 cm in length x 0.2 cm in diameter) with scant hemorrhagic tissue. The bone core is entirely submitted in cassette A1 after EDTA decalcification. Jar 0. B. Labeled left iliac bone marrow clot, is a cylindrical red brown blood clot (3.4 cm in length x 1.2 cm in diameter). The blood clot is serially sectioned with customer success representative sections submitted in cassette B1. Jar 1. chanceu/09/11/2024 15:40 PA(s): Maria Medrano MS, PA(ASCP)CM CBC: Date: 09/11/24 WBCs: 7.35x10^3/mcl Hemoglobin: 8.0g/dl Hematocrit: 26.2% Platelets: 381x10^3/mcl Mean corpuscular volume (MCV): 88.8fl Red cell distribution width (RDW-CV): 17.3% Peripheral blood smear (Pool-Giemsa): The peripheral blood morphology reflects the CBC values. Bone marrow aspirate smear (Pool-Giemsa stain): Quality: Adequate Spicules: Present Marrow cellularity: Increased Myeloid maturation: Normal Erythroid maturation: Normal Myeloid/Erythroid Ratio: Within normal limits Megakaryocyte number: Within normal limits Megakaryocytic maturation: Normal Lymphocytes: Increased Plasma cells: Increased Iron: Gale Score 0-2 (Decreased). Gale score is a grading method for interpretation of bone marrow iron stain and provides an assessment of total bone marrow iron stores. Differential count: Total # of Cells Counted:200 Blasts: 1 Promyelocytes: 1 Myelocytes+Metamyelocytes:9 Bands+Neutrophils:19 Eosinophils: 9 Basophils: 0 Plasma cells: 13 Lymphocytes: 15 Monocytes: 0 Erythroids: 33 Bone marrow core biopsy (decalcified, H&E and Leder stains): Left, iliac crest Quality: Adequate, Fragmented Cellularity: 40% Myeloid maturation: Normal Erythroid maturation: Normal The Leder stain shows that the Myeloid/Erythroid Ratio is: Within normal limits Megakaryocyte number: Within normal limits Megakaryocytic maturation: Normal The Leder stain is used to assess for lymphoid aggregates: None Plasma cells: Increased Reticulin and Trichrome stains show: No significant fibrosis (MF-0) CLOT SECTION: The bone marrow clot section including Leder and H&E stains are: Consist of clotted blood with minimal evaluable marrow By this signature, I attest that the above diagnosis is based upon my personal examination of the slides(and/or other material). Addenda/Procedures Flow Cytometry Ordered:09/11/2024Status:Signed OutFlow Cytometry Complete:09/13/2024y:Brian Blackwell M.D.Flow Cytometry Signed Out: 09/13/2024 Diagnosis Bone marrow, left aspirate for flow cytometry: - Lambda-restricted monoclonal plasma cell population detected (7% of total events) - Monoclonal B-cell population detected (5% of total events) Comment Specimen quality: Adequate Flow cytometry identifies an abnormal CD138+ plasma cell population. Antigens expressed: CD45(dim), CD38, CD138, Lambda Antigens not expressed: [place] Flow cytometry identifies a clonal, kappa-restricted B-cell population comprising 5% of total cellular events consistent with patient's history of B-cell lymphoma. Antigens expressed are: CD19, CD20, [place] Antigens not expressed are: CD5, CD10, CD34, CD38 (dim), CD200, Lambda CD3+ T-lymphocytes show no walker T cell antigen aberrancies and have a CD4 to CD8 ratio within normal limits. Natural killer cells are not increased. CD34+ blasts are not increased. A Pool-Giemsa stained cytospin from the flow cytometry specimen was examined for internal director of quality control purposes. Correlation with morphology (if submitted), clinical, laboratory, and genetic data is recommended for final diagnosis. Flow cytometry was performed using antibodies to the following cellular antigens: CD45, CD19, CD20, [place], Lambda, CD38, CD138, CD56. Total antigens analyzed: 8 Flow cytometry was performed using antibodies to the following cellular antigens: CD45, CD34, CD19, CD20, [place], Lambda, CD10, CD5, CD200, CD38, CD2, CD3, CD4, CD7, CD8, CD56, TCR-GD, CD16, CD13, CD14, CD64, HLA-DR, CD11b, CD15, CD123, CD117, CD33. Total antigens analyzed: 27 Additional flow cytometry was performed to further characterize B-lymphocytes using antibodies to the following cellular antigens: CD45, CD19, CD20, CD103, CD11C, CD25. Total antigens analyzed: 6 Flow cytometry was performed using antibodies to the following cellular antigens: CD45, CD34, CD19, CD20, [place], Lambda, CD10, CD5, CD200, CD38, CD22, CD123. Total antigens analyzed: 12 By this signature, I attest that the above diagnosis is based upon my personal examination of the slides(and/or other material indicated in the diagnosis). Brian Blackwell M.D.Report Electronically Reviewed and Signed Out By Brian Blackwell M.D. 09/13/2024 18:25:39Kayla Zhou M.D., P.h.D. The performance characteristics of some immunohistochemical stains, fluorescence in-situ hybridization tests and immunophenotyping by flow cytometry cited in this report (if any) were determined by the Surgical Pathology and Flow Cytometry Departments at [facility] as part of an ongoing quality assurance representative program and in compliance with federally mandated regulations drawn from the Clinical Laboratory Improvement Act of 1988 (CLIA '88). Some of these tests rely on the use of analyte specific reagents and are subject to specific labeling requirements by the US Food and Drug Administration. Such diagnostic tests may only be performed in a facility that is certified by the Department of Health and Human Services as a high complexity laboratory under CLIA '88. The FDA has determined that such clearance or approval is not necessary. This test is used for clinical purposes. It should not be regarded as investigational or for research. Nevertheless, federal rules concerning the medical use of analyte specific reagents require that the following disclaimer be attached to the report: This test was developed and its performance characteristics determined by the Surgical Pathology and Flow Cytometry Departments of [facility]. It has not been cleared or approved by the U. S. Food and Drug Administration. IMAGES AND SCANNED DOCUMENTS, IF INCLUDED, ONLY VIEWABLE IN PDF VERSION OF REPORT us Gail Ahuja MD LAB PATHOLOGY ORDER ANSHUL Final Result PATHOLOGY [facility] 3rd Floor [place], [place] [phone] * ClonoSeq (09/11/2024 11:50 AM CDT) ClonoSeq See attached scanned report for results. Bone marrow 09/11/2024 11:5 0 AM CDT 09/11/2024 2:58 PM CDT Narrative [facility] - 10/01/2024 10:31 AM CDT ClonoSeq still needs to be placed in adaptive portal. This is NOT an interfaced test. us Kenny Flores MD LAB PATHOLOGY ORDERABLES Final Result [facility]ILIS [facility] Department [place] [address] * Cytogenetics Bone marrow (09/11/2024 11:50 AM CDT) Bone marrow (Bone Marrow Biopsy) 09/11/2024 11:50 AM CDT 09/11/2024 11:50 AM CDT Narrative [facility] - CYTOGENETICS - 09/13/2024 5:25 PM CDT EPIC results best viewed via link to PDF [facility] Department of Pathol [address] [place] [id number] Patient Information Name: ES WOLFF Gender: F : 1950 (Age: 74) Tissue: Bone Marrow w/ FISH Visit Information Hospital #: [id number] Facility: [facility] Service: [facility] [place] Location: [place] [address] Patient Type: [facility] Inpatient Specimen Information: Culture #: [id number] Date Collected: 09/11/2024 Date Accessioned: 09/11/2024 Date Ordered: 09/11/2024 Physician(s): Kenny Flores M.D. Processing: CD138+ sorted plasma cells Indication: Multiple Myeloma and immunoproliferative neoplasms Specimen Quality: Adequate: FISH: MM panel Low cell count: Insufficient for chromosome analysis CLINICAL REPORT FLUORESCENCE IN-SITU HYBRIDIZATION [FISH] Karyotype: nuc elham (XCBI1t3,IGHx3)[129/200],(QCME4a5,IGHx3)(CCND1 con IGH)x2[164/200],(G70I362,LAMP1)x1[178/200], (IGHx3,MAFx2)[148/200],(CDKN2C,CKS1B)x2[200],(TP53)x2[200] Diagnosis: ABNORMAL FISH FINDINGS: ATYPICAL CCND1::IGH REARRANGEMENT (EXTRA CCND1 SIGNAL) - 82% REARRANGEMENT/TRISOMY OF IGH (14q) - 69.25% MONOSOMY 13 (W29K100/LAMP1) - 89% NO EVIDENCE OF GAIN/AMPLIFICATION OF CKS1B (1q) NO EVIDENCE OF DELETION/MONOSOMY OF CDKN2C (1p) OR TP53 (17p) NO EVIDENCE OF IGH::FGFR3 OR IGH::MAF REARRANGEMENT CHROMOSOME ANALYSIS: INSUFFICIENT CELL COUNT FOR CHROMOSOME STUDIES INTERPRETATION: FISH analysis was performed with a panel of [employer] probes for MM and is interpreted as ABNORMAL for the CCND1::IGH and H70H844/LAMP1 probes. 1) FISH evaluation for an IGH::FGFR3 rearrangement was performed on nuclei with the LSI IGH::FGFR3 Dual Color, Dual Fusion Translocation Probe ([employer] for FGFR3 at 4p16 and IGH at 14q32 and is interpreted as ABNORMAL, although an IGH::FGFR3 rearrangement was not detected. An abnormal hybridization pattern consisting of two FGFR3 hybridization signals and three IGH hybridization signals was observed in 129/200 nuclei, indicative of rearrangement of IGH with another partner in this study. This value exceeds the normal range (up to 1%) established for this probe in the Clinical Genomics Laboratory at [facility]. 2) FISH evaluation for an IGH::CCND1 rearrangement was performed on nuclei with the LSI IGH::CCND1 Dual Color, Dual Fusion Translocation Probe ([employer] for CCND1 at 11q13 and IGH at 14q32 and is interpreted as ABNORMAL. An atypical rearrangement pattern with an extra copy of CCND1 was observed in 164/200 nuclei, which exceeds the normal range (up to 1%) established for this probe in the Clinical Genomics Laboratory at [facility]. 3) FISH evaluation for a 13q deletion was performed on nuclei with the LSI [id number] Probe ([employer] at 13q14.3 and LAMP1 at 13q34 and is interpreted as ABNORMAL. One [id number] hybridization signal and one LAMP1 hybridization signal were observed in 178/200 nuclei, which exceeds the normal range (up to 2.3%) established for this probe in the Clinical Genomics Laboratory at [facility]. 4) FISH evaluation for an IGH::MAF rearrangement was performed on nuclei with the LSI IGH::MAF Dual Color, Dual Fusion Translocation Probe ([employer] for IGH at 14q32 and MAF at 16q23 and is interpreted as ABNORMAL, although an IGH::MAF rearrangement was not observed. An abnormal hybridization pattern consisting of three IGH hybridization signals and two MAF hybridization signals was observed in 148/200 nuclei, indicative of rearrangement of IGH with another partner in this study. This value exceeds the normal range (up to 1%) established for this probe in the Clinical Genomics Laboratory at [facility]. 5) FISH evaluation for a CDKN2C deletion and 1q gain/amplification was performed on nuclei with the CKS1B/CDKN2C (P18) Amplification/Deletion Probe ([employer] for CDKN2C (P18) at 1p32.3 and CKS1B at 1q21 and is interpreted as NORMAL. Two CDKN2C hybridization signals and two CKS1B hybridization signals were observed in 198/200 nuclei, which is within the normal range (up to 1.5% and 1%, respectively) established for this probe in the Clinical Genomics Laboratory at [facility]. A normal CDKN2C/CKS1B FISH finding can result from the absence of a CDKN2C deletion/CKS1B amplification, from a CDKN2C deletion/CKS1B amplification that does not involve the region to which this probe hybridizes or from an insufficient number of neoplastic cells in the specimen. 6) FISH evaluation for a TP53 deletion was performed on nuclei with the LSI TP53 Dual Color Probe ([employer] for TP53 at 17p13.1 and the control D17Z1 at 17p11.1-q11.1 and is interpreted as NORMAL. Two TP53 hybridization signals and two D17Z1 control hybridization signals were observed in 195/200 nuclei, which is within the normal range established for this probe in the Clinical Genomics Laboratory at [facility]. Up to 2.7% of cells in normal samples can show an apparent TP53 deletion using this probe. A normal TP53 FISH finding can result from the absence of a TP53 deletion, from a TP53 deletion that does not involve the region to which this probe hybridizes or from an insufficient number of neoplastic cells in the specimen. The FISH findings must be interpreted within the context of the pathologic and clinical findings. Follow-up evaluation is recommended. Due to a low white blood cell count, an extraction of CD138+ plasma cells was performed using the entire specimen per [facility] Clinical Genomics Laboratory protocol. Priority is assigned to the multiple myeloma FISH analysis. Therefore, karyotype analysis cannot be performed. This test was developed and its performance characteristics determined by [facility]. It has not been cleared or approved by the FDA. The laboratory is regulated under CLIA as qualified to perform high-complexity testing. This test is used for clinical purposes. It should not be regarded as investigational or for research. Chromosome analysis and Fluorescence In Situ Hybridization (FISH) analysis are performed using the [employer] Imaging System. Report Electronically Reviewed and Signed Out By Zonia Gracia, PhD, FACMGDate Reported: 09/13/2024ssistant Professor, Division of Genomic & Molecular Pathology us Kenny Flores MD LAB GENETIC TESTING Final Resul t [facility] - CYTOGENETICS [address] [place] [address] * eGFR (09/10/2024 9:39 PM CDT) eGFR >90 >=60 mL/min/1. 73 [...] interpretive data was last reviewed 2021. Blood 09/10/2024 9:39 PM CDT 09/10/2024 9:50 PM CDT Kenny Flores MD LAB BLOOD ORDERABLES Final Resu lt Performing Organization Address [facility] Co de Phone Number [facility] [place] [address] * (ABNORMAL) CBC without differential (09/10/2024 9:39 PM CDT) WBC 6.56 3.80 - 9.90 K/cumm Hgb 7.9(L) 11.9 - 15.5 g/dL [facility] Hct 25.8(L) 35.6 - 45.5 % [facility] Plt 360 150 - 400 K/cumm [facility] MPV 10.0 9.1 - 12.3 fL [facility] RBC 2.94(L) 3.90 - 5.20 M/cumm [facility] MCV 87.8 81.3 - 96.4 fL [facility] MCH 26.9(L) 27.1 - 33.3 pg [facility] MCHC 30.6(L) 32.3 - 35.7 g/dL [facility] RDW CV 17.3(H) 11.1 - 14.9 % [facility] RDW SD 54.4(H) 35.7 - 48.1 fL [facility] NRBC abs 0.00 0.00 - 0.01 K/cumm [facility] Blood 09/10/2024 9:39 PM CDT 09/10/2024 9:50 PM CDT Kenny Flores MD LAB BLOOD ORDERABLES Final Resu lt Performing Organization Address [facility] Co de Phone Number [facility] [place] [address] * (ABNORMAL) Basic metabolic panel (09/10/2024 9:39 PM CDT) Sodium 141 135 - 145 mmol/L Potassium, pl 3.5 3.3 - 4.9 mmol/L [facility] Chloride 104 97 - 110 mmol/L [facility] CO2 33(H) 22 - 32 mmol/L [facility] Anion gap 4 2 - 15 mmol/L [facility] BUN 6 6 - 25 mg/dL [facility] Creatinine 0.45(L) 0.60 - 1.10 mg/dL [facility] Glucose 138 70 - 199 mg/dL [facility] Comment: Interpretive Data Fasting glucose >/= 126 mg/dl is diagnostic for diabetes. Fasting is defined as no caloric intake for at least 8 hours. Fasting glucose between 100 mg/dl to 125 mg/dl is diagnostic of prediabetes. In a patient with classic symptoms of hyperglycemia or hyperglycemic crisis, a random glucose >/= 200 mg/dl is diagnostic for diabetes. In the absence of unequivocal hyperglycemia, results should be confirmed by repeat testing. The classification and Diagnosis of Diabetes Diabetes Care 202; 46: S19-S40. Current interpretive data was last revised 2022. Calcium 9.3 8.5 - 10.3 mg/dL [facility] Blood 09/10/2024 9:39 PM CDT 09/10/2024 9:50 PM CDT us Kenny Flores MD LAB BLOOD ORDERABLES Final Resu lt [facility] Department [place] [address] * Creatine kinase (CK), total (09/10/2024 1:50 PM CDT) Pathologist [facility] CK 71 30 - 200 Units/L Blood 09/10/2024 1:50 PM CDT 09/10/2024 2:03 PM CDT us Kylee Noel NP LAB BLOOD ORDERABLES Final Result [facility] Department [place] [address] * PET/CT FDG Skull to Thigh (09/10/2024 11:40 AM CDT) Anatomical Region Laterality Modality N/A Positron Emissio n Tomography (PET) 09/10/2024 1:59 PM CDT Impressions 09/10/2024 2:13 PM CDT 1. No definite evidence of hypermetabolic malignancy, including the queried multiple myeloma 2. Instrumented posterior spinal fusion from the occiput-T3 with associated hypermetabolic activity in keeping with expected postsurgical changes. 3. Hypermetabolic cervical lymph nodes which may be reactive in the setting of recent surgery. 4. Fluid in endometrial canal without FGD uptake is indeterminate; recommend further characterization with dedicated ultrasound. Dictated by: Salty Talbert M.D. The radiology attending physician has personally reviewed this study, and had reviewed and/or edited this written report and agrees with it. Electronically signed by: Mary Beth Eason MD, Ph.D Narrative 09/10/2024 2:13 PM CDT EXAMINATION: TUMOR FDG-PET/CT IMAGING DATE OF STUDY: 09/10/2024 SCANNER: [facility] My Single Point (NV1). This is a high-resolution scanner, which can result in higher SUVs (and even detection of previously unrecognized small lesions) compared to older scanners. RADIOPHARMACEUTICAL: 15.6 mCi F-18 Fluorodeoxyglucose (FDG) i.v. 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 Recent labs demonstrated increased protein gap and patient is currently undergoing further workup. The study is requested for diagnosis. Initial treatment strategy. TECHNIQUE: The patient's fasting blood glucose level, measured by glucometer before injection of FDG, was 121 mg/dL. After intravenous administration of FDG, noncontrast CT images were obtained for attenuation correction and for fusion with emission PET images to allow for anatomical localization of PET findings. Emission PET images were then obtained. The study was interpreted on the [employer] workstation. The mean liver SUV (reported for director of quality control purposes) is 3.4. The total scanned area was skull base to proximal thighs. Images of the body were obtained starting 57 minutes after injection of tracer. All reported SUVs are maximum SUVs, unless otherwise specified. COMPARISON: None available DESCRIPTORS OF LESION FDG AVIDITY: Minimal: <= blood pool Mild: > blood pool and <= liver Moderate: > liver and <= 2x SUVmax liver Moderate to marked: >2x SUVmax liver and <= 3x SUVmax liver Marked: > 3x SUVmax liver FINDINGS: Postsurgical changes of occiput-T3 posterior spinal fusion with increased tracer uptake within the posterior paraspinal tissues, which likely secondary to recent operative changes. Within the bilateral 5 cervical stations, there are lymph nodes demonstrating mild-moderate FDG uptake. For instance, there is a 1.0 cm left level 5 lymph node with max SUV 4.9 (image 48). Intense FDG uptake within the left lower quadrant near the colostomy site. Additional CT findings: Dental restorations. Left carotid artery, secretions. Right internal jugular approach port catheter with tip terminating in the right atrium. Multivessel coronary artery calcified patient's. Aortic atherosclerosis. Surgical clips within the left axilla left basilar atelectasis. Fluid is present within the endometrial canal without tracer uptake. Instrumented posterior L3-L5 fusion. Procedure Note Mary Beth Magdaleno MD PhD - 09/10/2024 EXAMINATION: TUMOR FDG-PET/CT IMAGING DATE OF STUDY: 09/10/2024 SCANNER: [facility] Vision (NV1). This is a high-resolution scanner, which can result in higher SUVs (and even detection of previously unrecognized small lesions) compared to older scanners. RADIOPHARMACEUTICAL: 15.6 mCi F-18 Fluorodeoxyglucose (FDG) i.v. 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 Recent labs demonstrated increased protein gap and patient is currently undergoing further workup. The study is requested for diagnosis. Initial treatment strategy. TECHNIQUE: The patient's fasting blood glucose level, measured by glucometer before injection of FDG, was 121 mg/dL. After intravenous administration of FDG, noncontrast CT images were obtained for attenuation correction and for fusion with emission PET images to allow for anatomical localization of PET findings. Emission PET images were then obtained. The study was interpreted on the [employer] workstation. The mean liver SUV (reported for director of quality control purposes) is 3.4. The total scanned area was skull base to proximal thighs. Images of the body were obtained starting 57 minutes after injection of tracer. All reported SUVs are maximum SUVs, unless otherwise specified. COMPARISON: None available DESCRIPTORS OF LESION FDG AVIDITY: Minimal: <= blood pool Mild: > blood pool and <= liver Moderate: > liver and <= 2x SUVmax liver Moderate to marked: >2x SUVmax liver and <= 3x SUVmax liver Marked: > 3x SUVmax liver FINDINGS: Postsurgical changes of occiput-T3 posterior spinal fusion with increased tracer uptake within the posterior paraspinal tissues, which likely secondary to recent operative changes. Within the bilateral 5 cervical stations, there are lymph nodes demonstrating mild-moderate FDG uptake. For instance, there is a 1.0 cm left level 5 lymph node with max SUV 4.9 (image 48). Intense FDG uptake within the left lower quadrant near the colostomy site. Additional CT findings: Dental restorations. Left carotid artery, secretions. Right internal jugular approach port catheter with tip terminating in the right atrium. Multivessel coronary artery calcified patient's. Aortic atherosclerosis. Surgical clips within the left axilla left basilar atelectasis. Fluid is present within the endometrial canal without tracer uptake. Instrumented posterior L3-L5 fusion. IMPRESSION: 1. No definite evidence of hypermetabolic malignancy, including the queried multiple myeloma 2. Instrumented posterior spinal fusion from the occiput-T3 with associated hypermetabolic activity in keeping with expected postsurgical changes. 3. Hypermetabolic cervical lymph nodes which may be reactive in the setting of recent surgery. 4. Fluid in endometrial canal without FGD uptake is indeterminate; recommend further characterization with dedicated ultrasound. Dictated by: Salty Talbert M.D. The radiology attending physician has personally reviewed this study, and had reviewed and/or edited this written report and agrees with it. Electronically signed by: Mary Beth Eason MD, Ph.D Kenny Flores MD IMG PET PROCEDURES Final Result * eGFR (09/09/2024 10:22 PM CDT) [facility] eGFR >90 >=60 mL/min/1. 73 m2 Comment: [...] interpretive data was last reviewed 2021. Blood 09/09/2024 10:2 2 PM CDT 09/09/2024 10:37 PM CDT us Kenny Flores MD LAB BLOOD ORDERABLES Final Resu lt [facility] Department [place] [address] * Differential, auto (09/09/2024 10:22 PM CDT) [facility] Neutrophil abs 4.34 1.50 - 6.50 K/cumm Imm gran abs 0.02 0.00 - 0.10 K/cumm [facility] Lymphocyte abs 2.41 0.80 - 3.30 K/cumm [facility] Monocyte abs 0.66 0.20 - 0.80 K/cumm [facility] Eosinophil abs 0.29 0.00 - 0.50 K/cumm [facility] Basophil abs 0.05 0.00 - 0.10 K/cumm [facility] Neutrophil pct 55.9 % [facility] Comment: Interpretive Data Percent cell count reference ranges are not reported, since discordance with absolute values may lead to misinterpretation of CBC data. Current Interpretive Data was last revised on 2017. Imm gran pct 0.3 % [facility] Comment: Interpretive Data Percent cell count reference ranges are not reported, since discordance with absolute values may lead to misinterpretation of CBC data. Current Interpretive Data was last revised on 2017. Lymphocyte pct 31.0 % [facility] Comment: Interpretive Data Percent cell count reference ranges are not reported, since discordance with absolute values may lead to misinterpretation of CBC data. Current Interpretive Data was last revised on 2017. Monocyte pct 8.5 % [facility] Comment: Interpretive Data Percent cell count reference ranges are not reported, since discordance with absolute values may lead to misinterpretation of CBC data. Current Interpretive Data was last revised on 2017. Eosinophil pct 3.7 % [facility] Comment: Interpretive Data Percent cell count reference ranges are not reported, since discordance with absolute values may lead to misinterpretation of CBC data. Current Interpretive Data was last revised on 2017. Basophil pct 0.6 % [facility] Comment: Interpretive Data Percent cell count reference ranges are not reported, since discordance with absolute values may lead to misinterpretation of CBC data. Current Interpretive Data was last revised on 2017. Blood 09/09/2024 10:2 2 PM CDT 09/09/2024 10:41 PM CDT us Kenny Flores MD LAB BLOOD ORDERABLES Final Resu lt [facility] Department [place] [address] * (ABNORMAL) CBC without differential (09/09/2024 10:22 PM CDT) WBC 7.44 3.80 - 9.90 K/cumm Hgb 7.6(L) 11.9 - 15.5 g/dL [facility] Hct 24.7(L) 35.6 - 45.5 % [facility] Plt 356 150 - 400 K/cumm [facility] MPV 10.2 9.1 - 12.3 fL [facility] RBC 2.79(L) 3.90 - 5.20 M/cumm [facility] MCV 88.5 81.3 - 96.4 fL [facility] MCH 27.2 27.1 - 33.3 pg [facility] MCHC 30.8(L) 32.3 - 35.7 g/dL [facility] RDW CV 17.2(H) 11.1 - 14.9 % [facility] RDW SD 54.7(H) 35.7 - 48.1 fL [facility] NRBC abs 0.00 0.00 - 0.01 K/cumm [facility] Blood 09/09/2024 10:2 2 PM CDT 09/09/2024 10:36 PM CDT us Kenny Flores MD LAB BLOOD ORDERABLES Final Resu lt [facility] Department [place] [address] * (ABNORMAL) Basic metabolic panel (09/09/2024 10:22 PM CDT) Sodium 138 135 - 145 mmol/L Potassium, pl 3.6 3.3 - 4.9 mmol/L [facility] Chloride 102 97 - 110 mmol/L [facility] CO2 32 22 - 32 mmol/L [facility] Anion gap 4 2 - 15 mmol/L [facility] BUN 9 6 - 25 mg/dL [facility] Creatinine 0.51(L) 0.60 - 1.10 mg/dL [facility] Glucose 110 70 - 199 mg/dL [facility] Comment: Interpretive Data Fasting glucose >/= 126 mg/dl is diagnostic for diabetes. Fasting is defined as no caloric intake for at least 8 hours. Fasting glucose between 100 mg/dl to 125 mg/dl is diagnostic of prediabetes. In a patient with classic symptoms of hyperglycemia or hyperglycemic crisis, a random glucose >/= 200 mg/dl is diagnostic for diabetes. In the absence of unequivocal hyperglycemia, results should be confirmed by repeat testing. The classification and Diagnosis of Diabetes Diabetes Care 2021; 46: S19-S40. Current interpretive data was last revised 2022. Calcium 9.3 8.5 - 10.3 mg/dL [facility] Blood 09/09/2024 10:2 2 PM CDT 09/09/2024 10:37 PM CDT Kenny Flores MD LAB BLOOD ORDERABLES Final Resu lt Performing Organization Address City/[facility]/ZIP Co de Phone Number [facility] Department [place] [address] * Volume and period, urine, 24 hour (09/09/2024 5:12 PM CDT) Volume, ur 1,900 mL Period, Urine Collection 1,440 min [facility] Urine 09/09/2024 5:12 PM CDT 09/09/2024 7:30 PM CDT Kenny Flores MD LAB URINE ORDERABLES Final Resu lt Performing Organization Address [facility] Co de Phone Number [facility] Department [place] [address] * (ABNORMAL) Protein electrophoresis, urine, 24 hour (09/09/2024 5:11 PM CDT) Protein, ur, quant 8.1 mg/dL Comment:No reference range e stablished. Albumin, Ur No Protein Visible % [facility] Comment:No reference range e stablished. Alpha-1 globulin, Ur No Protein Visible % [facility] Comment:No reference range e stablished. Alpha-2 globulin, Ur No Protein Visible % [facility] Comment:No reference range e stablished. Beta globulin, Ur No Protein Visible % [facility] Comment:No reference range e stablished. Gamma globulin, Ur No Protein Visible % [facility] Comment:No reference range e stablished. UPEP interp Please see comment [facility] Comment: No apparent monoclonal peak No protein visible See immunofixation for further information Urine concentrated Reviewed and signed by Marcell Campos MD 09/10/2024 Protein, 24 hr, ur 154(H) 1 - 150 mg/24H [facility] Urine 09/09/2024 5:11 PM CDT 09/09/2024 5:12 PM CDT Kenny Flores MD LAB URINE ORDERABLES Final Resu lt Performing Organization Address [facility] Co de Phone Number [facility] Department [place] [address] * Immunofixation, urine with interpretation (09/09/2024 5:11 PM CDT) Immunofixation, Ur Please see comment Comment: NO PARAPROTEIN DETECTED Reviewed and signed by Marcell Campos MD 09/10/2024 Urine 09/09/2024 5:11 PM CDT 09/09/2024 7:30 PM CDT us Kenny Flores MD LAB URINE ORDERABLES Final Resu lt Performing Organization Address [facility] de Phone Number [facility] Department [place] [address] * eGFR (09/08/2024 10:18 PM CDT) eGFR >90 >=60 mL/min/1. 73 [...] interpretive data was last reviewed 2021. Blood 09/08/2024 10:1 8 PM CDT 09/08/2024 10:30 PM CDT us Kenny Flores MD LAB BLOOD ORDERABLES Final Resu lt [facility] Department [place] [address] * (ABNORMAL) CBC without differential (09/08/2024 10:18 PM CDT) WBC 7.67 3.80 - 9.90 K/cumm Hgb 7.5(L) 11.9 - 15.5 g/dL [facility] Hct 24.7(L) 35.6 - 45.5 % [facility] Plt 345 150 - 400 K/cumm [facility] MPV 10.2 9.1 - 12.3 fL [facility] RBC 2.83(L) 3.90 - 5.20 M/cumm [facility] MCV 87.3 81.3 - 96.4 fL [facility] MCH 26.5(L) 27.1 - 33.3 pg [facility] MCHC 30.4(L) 32.3 - 35.7 g/dL [facility] RDW CV 17.3(H) 11.1 - 14.9 % [facility] RDW SD 53.7(H) 35.7 - 48.1 fL [facility] NRBC abs 0.00 0.00 - 0.01 K/cumm [facility] Blood 09/08/2024 10:1 8 PM CDT 09/08/2024 10:30 PM CDT us Kenny Flores MD LAB BLOOD ORDERABLES Final Resu lt Performing Organization Address [facility]/ZIP Co de Phone Number [facility] [place] [address] * Phosphorus (09/08/2024 10:18 PM CDT) Pathologist [facility] Phosphorus, pl 3.0 2.3 - 4.5 mg/dL Blood 09/08/2024 10:1 8 PM CDT 09/08/2024 10:30 PM CDT Kenny Flores MD LAB BLOOD ORDERABLES Final Resu lt Performing Organization Address [facility] Co de Phone Number [facility] [place] [address] * Magnesium (09/08/2024 10:18 PM CDT) [facility] Magnesium 1.7 1.4 - 2.5 mg/dL Blood 09/08/2024 10:1 8 PM CDT 09/08/2024 10:30 PM CDT Kenny Flores MD LAB BLOOD ORDERABLES Final Resu lt Performing Organization Address [facility] Co de Phone Number [facility] [place] [address] * (ABNORMAL) Comprehensive metabolic panel (09/08/2024 10:18 PM CDT) [facility] Sodium 141 135 - 145 mmol/L Potassium, pl 3.5 3.3 - 4.9 mmol/L [facility] Chloride 106 97 - 110 mmol/L [facility] CO2 32 22 - 32 mmol/L [facility] Anion gap 3 2 - 15 mmol/L [facility] BUN 7 6 - 25 mg/dL [facility] Creatinine 0.36(L) 0.60 - 1.10 mg/dL [facility] Glucose 104 70 - 199 mg/dL [facility] Comment: Interpretive Data Fasting glucose >/= 126 mg/dl is diagnostic for diabetes. Fasting is defined as no caloric intake for at least 8 hours. Fasting glucose between 100 mg/dl to 125 mg/dl is diagnostic of prediabetes. In a patient with classic symptoms of hyperglycemia or hyperglycemic crisis, a random glucose >/= 200 mg/dl is diagnostic for diabetes. In the absence of unequivocal hyperglycemia, results should be confirmed by repeat testing. The classification and Diagnosis of Diabetes Diabetes Care 202; 46: S19-S40. Current interpretive data was last revised 2022. Calcium 9.5 8.5 - 10.3 mg/dL [facility] Bilirubin, total 0.2 0.1 - 1.2 mg/dL [facility] Protein, pl 7.4 6.5 - 8.5 g/dL [facility] Albumin 3.2(L) 3.5 - 5.0 g/dL [facility] Alk phos 79 40 - 130 Units/L [facility] ALT 5(L) 7 - 45 Units/L [facility] AST 20 10 - 45 Units/L [facility] Blood 09/08/2024 10:1 8 PM CDT 09/08/2024 10:30 PM CDT us Kenny Flores MD LAB BLOOD ORDERABLES Final Resu lt [facility] Department [place] [address] * eGFR (09/08/2024 2:55 AM CDT) eGFR >90 >=60 mL/min/1. 73 m2 [...] interpretive data was last reviewed 2021. Blood 09/08/2024 2:55 AM CDT 09/08/2024 3:09 AM CDT Kenny Flores MD LAB BLOOD ORDERABLES Final Resu lt [facility] Department [place] [address] * (ABNORMAL) Immunoglobulin free light chains (09/08/2024 2:55 AM CDT) [place]/Lambda ratio [facility] 0.10(L) 0.26 - 1.65 Comment: Interpretive Data The Binding Site FreeLite assay procedure was used. Results from different manufacturers or methods may not be comparable. Serial testing should be performed using the same methods and instrumentation. Current Interpretive Data was last revised on 2023. [place] free light chain [facility] 1.53 0.33 - 1.94 mg/dL [facility] Comment: Interpretive Data The Binding Site FreeLite assay procedure was used. Results from different manufacturers or methods may not be comparable. Serial testing should be performed using the same methods and instrumentation. Current Interpretive Data was last revised on 2023. Lambda free light chain [facility] 15.19(H) 0.57 - 2.63 mg/dL [facility] Comment: Interpretive Data The Binding Site FreeLite assay procedure was used. Results from different manufacturers or methods may not be comparable. Serial testing should be performed using the same methods and instrumentation. Current Interpretive Data was last revised on 2023. Blood 09/08/2024 2:55 AM CDT 09/08/2024 3:03 AM CDT Kenny Flores MD LAB BLOOD ORDERABLES Final Resu lt Performing Organization Address [facility] Co de Phone Number [facility] [place] [address] * Uric acid (09/08/2024 2:55 AM CDT) Uric acid 4.8 2.5 - 7.0 mg/dL Blood 09/08/2024 2:55 AM CDT 09/08/2024 3:03 AM CDT Result [facility] Kenny Flores MD LAB BLOOD ORDERABLES Final Resu lt Performing Organization Address [facility] Co de Phone Number [facility] [place] [address] * Lactate dehydrogenase (LD) (09/08/2024 2:55 AM CDT) Lactate dehydrogenase (LDH) 184 100 - 250 Units/L Blood 09/08/2024 2:55 AM CDT 09/08/2024 3:03 AM CDT Result [facility] [facility] Kenny Flores MD LAB BLOOD ORDERABLES Final Resu lt Performing Organization Address [facility] Co de Phone Number [facility] [place] [address] * (ABNORMAL) Beta 2 microglobulin, serum (09/08/2024 2:55 AM CDT) Beta 2 Microglobulin, Serum 2.60(H) 1.00 - 2.50 mg/L Comment: Interpretive Data The Urban Beta-2 microglobulin assay procedure was used. Results from different manufacturers or methods may not be comparable. Serial testing should be performed using the same method. Blood 09/08/2024 2:55 AM CDT 09/08/2024 3:03 AM CDT Result [facility] Kenny Flores MD LAB BLOOD ORDERABLES Final Resu lt [facility] Department [place] [address] * Basic metabolic panel (09/08/2024 2:55 AM CDT) Sodium 142 135 - 145 mmol/L Potassium, pl 3.7 3.3 - 4.9 mmol/L [facility] Chloride 106 97 - 110 mmol/L [facility] CO2 29 22 - 32 mmol/L [facility] Anion gap 7 2 - 15 mmol/L [facility] BUN 13 6 - 25 mg/dL [facility] Creatinine 0.60 0.60 - 1.10 mg/dL [facility] Glucose 112 70 - 199 mg/dL [facility] Comment: Interpretive Data Fasting glucose >/= 126 mg/dl is diagnostic for diabetes. Fasting is defined as no caloric intake for at least 8 hours. Fasting glucose between 100 mg/dl to 125 mg/dl is diagnostic of prediabetes. In a patient with classic symptoms of hyperglycemia or hyperglycemic crisis, a random glucose >/= 200 mg/dl is diagnostic for diabetes. In the absence of unequivocal hyperglycemia, results should be confirmed by repeat testing. The classification and Diagnosis of Diabetes Diabetes Care 202; 46: S19-S40. Current interpretive data was last revised 2022. Calcium 9.3 8.5 - 10.3 mg/dL [facility] Blood 09/08/2024 2:55 AM CDT 09/08/2024 3:03 AM CDT Kenny Flores MD LAB BLOOD ORDERABLES Final Resu lt Performing Organization Address City/[facility]/ZIP Co de Phone Number [facility] Department [place] [address] * (ABNORMAL) Urinalysis reflex to microscopic (09/07/2024 3:29 PM CDT) Color, ur Yellow Yellow Clarity, ur Cloudy(A) Clear [facility] Specific gravity, ur 1.024 1.003 - 1.030 [facility] pH, urine 6.5 [facility] Comment: Interpretive Data U rine pH is affected by diet, medications, systemic acid-base disturbances, and renal tubular function. pH may affect urinary stone formation. For example, urine pH below 6.0 may help reduce the tendency for calcium phosphate stones and pH greater than 6.0 may reduce the tendency for uric acid stone formation. Source: [facility] Current Interpretive Data was last revised on 2017 Protein, ur ql 1+(A) Negative [facility] Glucose, ur ql Negative Negative [facility] Ketones, ur Negative Negative [facility] Bilirubin, ur Negative Negative [facility] Blood, ur Negative Negative [facility] Urobilinogen, ur <2.0 <2.0 mg/dL [facility] Nitrite, ur Negative Negative [facility] Leukocyte esterase, ur Negative Negative [facility] UA reflex comment Reflex to microscopic UA will be performed. [facility] Urine 09/07/2024 3:29 PM CDT 09/07/2024 3:35 PM CDT Kenny Flores MD LAB URINE ORDERABLES Final Resu lt Performing Organization Address City/[facility] Co de Phone Number [facility] Department [place] [address] * (ABNORMAL) Urinalysis, microscopic only (09/07/2024 3:29 PM CDT) WBC, ur 0-5 0 - 5 /HPF RBC, ur 0-2 0 - 2 /HPF [facility] Epithelial cells, squamous, ur 1-5 0 - 5 /HPF [facility] Bacteria, ur 2+(A) [facility] Amorphous crystals, ur 4+(A) [facility] Urine 09/07/2024 3:29 PM CDT 09/07/2024 3:35 PM CDT Kenny Flores MD LAB URINE ORDERABLES Final Resu lt Performing Organization Address City/[facility] Co de Phone Number [facility] Department [place] [address] * Immunotyping, serum with interpretation (09/07/2024 1:38 PM CDT) [facility] Immunosubtraction Please see comment Comment: IGG LAMBDA PARAPROTEIN Reviewed and signed by Marcell Campos MD 09/10/2024 Blood 09/07/2024 1:38 PM CDT 09/07/2024 1:59 PM CDT Kenny Flores MD LAB BLOOD ORDERABLES Final Resu lt Performing Organization Address [facility] Co de Phone Number [facility] [place] [address] * (ABNORMAL) Immunoglobulin profile (09/07/2024 1:38 PM CDT) [facility] Immunoglobulin G 2,690(H) 700 - 1,600 mg/dL Immunoglobulin A <50(L) 70 - 400 mg/dL [facility] Immunoglobulin M 27(L) 40 - 230 mg/dL [facility] Blood 09/07/2024 1:38 PM CDT 09/07/2024 1:58 PM CDT Kenny Flores MD LAB BLOOD ORDERABLES Final Resu lt Performing Organization Address [facility] Co de Phone Number [facility] Department [place] [address] * (ABNORMAL) Immunoglobulin free light chains (09/07/2024 1:38 PM CDT) [facility] [place]/Lambda ratio [facility] 0.10(L) 0.26 - 1.65 Comment: Interpretive Data The Binding Site FreeLite assay procedure was used. Results from different manufacturers or methods may not be comparable. Serial testing should be performed using the same methods and instrumentation. Current Interpretive Data was last revised on 2023. [place] free light chain [facility] 1.30 0.33 - 1.94 mg/dL [facility] Comment: Interpretive Data The Binding Site FreeLite assay procedure was used. Results from different manufacturers or methods may not be comparable. Serial testing should be performed using the same methods and instrumentation. Current Interpretive Data was last revised on 2023. Lambda free light chain [facility] 12.66(H) 0.57 - 2.63 mg/dL [facility] Comment: Interpretive Data The Binding Site FreeLite assay procedure was used. Results from different manufacturers or methods may not be comparable. Serial testing should be performed using the same methods and instrumentation. Current Interpretive Data was last revised on 2023. Blood 09/07/2024 1:38 PM CDT 09/07/2024 1:59 PM CDT Kenny Flores MD LAB BLOOD ORDERABLES Final Resu lt Performing Organization Address [facility] Co de Phone Number [facility] [place] [address] * (ABNORMAL) Iron profile w/ IBC (09/07/2024 1:38 PM CDT) Pathologist [facility] Iron 98 35 - 145 mcg/dL TIBC 240(L) 250 - 400 mcg/dL [facility] Transferrin saturation 41 20 - 50 % [facility] Blood 09/07/2024 1:38 PM CDT 09/07/2024 1:59 PM CDT Kenny Flores MD LAB BLOOD ORDERABLES Final Resu lt [facility] [place] [address] * Copper, serum (09/07/2024 1:38 PM CDT) Copper 117 77 - 206 mcg/dL [facility] Comment: ADDITIONAL INFORMATION This test was developed and its performance characteristics determined by [facility] in a manner consistent with CLIA requirements. This test has not been cleared or approved by the U.S. Food and Drug Administration. Test Performed by: [place] [address] Military Lawyer: Nathalie Thurston Ph.D.; CLIA# [id number] Blood 09/07/2024 1:38 PM CDT 09/07/2024 2:50 PM CDT Kenny Flores MD LAB BLOOD ORDERABLES Final Resu lt Performing Organization Address [facility] de Phone Number AM[facility]ILIS [facility] [place] [address] [facility] * (ABNORMAL) Zinc (09/07/2024 1:38 PM CDT) [facility] Zinc 56(L) 60 - 106 mcg/dL [facility] Comment: ADDITIONAL INFORMATION This test was developed and its performance characteristics determined by [facility] in a manner consistent with CLIA requirements. This test has not been cleared or approved by the U.S. Food and Drug Administration. Test Performed by: [facility] [place] [address] Military Lawyer: Nathalie Thurston Ph.D.; CLIA# [id number] Blood 09/07/2024 1:38 PM CDT 09/07/2024 2:50 PM CDT Kenny Flores MD LAB BLOOD ORDERABLES Final Resu Performing Organization Address [facility] Co de Phone Number [facility] [place] [address] [facility] * (ABNORMAL) Reticulocyte Count (09/07/2024 1:38 PM CDT) Pathologist [facility] Retics, absolute 62 20 - 87 K/cumm Retics 2.1 0.4 - 2.9 % [facility] Reticulocyte Hgb 27.1(L) 30.5 - 38.0 pg [facility] Blood 09/07/2024 1:38 PM CDT 09/07/2024 1:59 PM CDT Kenny Flores MD LAB BLOOD ORDERABLES Final Resu lt [facility] Department [place] [address] * (ABNORMAL) Protein electrophoresis with reflex, serum with interpretation (09/07/2024 1:38 PM CDT) [facility] Protein, sr 7.0 6.2 - 8.2 g/dL Albumin 2.9(L) 3.2 - 5.0 g/dL [facility] Alpha-1 globulin 0.4 0.2 - 0.4 g/dL [facility] Alpha-2 globulin 0.9 0.5 - 1.0 g/dL [facility] Beta-1 globulin 0.4 0.3 - 0.6 g/dL [facility] Beta-2 globulin 0.3 0.2 - 0.6 g/dL [facility] Gamma globulin 2.1(H) 0.5 - 1.7 g/dL [facility] Rstr Pk Gamma 1.8(H) 0.0 - 0.0 g/dL [facility] SPEP interp Please see comment [facility] Comment: Abnormal restricted peak in Gamma region *See immunotyping for further information Reviewed and signed by Marcell Campos MD 09/10/2024 Blood 09/07/2024 1:38 PM CDT 09/07/2024 1:59 PM CDT Kenny Flores MD LAB [place]OD [place] [address] * Lactate dehydrogenase (LD) (09/07/2024 1:38 PM CDT) [facility] Lactate dehydrogenase (LDH) 194 100 - 250 Units/L Blood 09/07/2024 1:38 PM CDT 09/07/2024 1:59 PM CDT Kenny Flores MD LAB BLOOD ORDERABLES Final Resu lt Performing Organization Address [facility] [place] [address] * Folate (09/07/2024 1:38 PM CDT) [facility] Folic acid 10.3 >=5.0 ng/mL Blood 09/07/2024 1:38 PM CDT 09/07/2024 1:59 PM CDT Kenny Flores MD LAB BLOOD ORDERABLES Final Resu lt Performing Organization Address [facility] Co de Phone Number [facility] [place] [address] * (ABNORMAL) Ferritin (09/07/2024 1:38 PM CDT) [facility] Ferritin 172(H) 13 - 150 ng/mL Blood 09/07/2024 1:38 PM CDT 09/07/2024 1:59 PM CDT us Kenny Flores MD LAB BLOOD ORDERABLES Final Resu lt Performing Organization Address [facility] Co de Phone Number [facility] [place] [address] * Vitamin B12 (09/07/2024 1:38 PM CDT) Vitamin B12 617 230 - 1,250 pg/mL Blood 09/07/2024 1:38 PM CDT 09/07/2024 1:59 PM CDT us Kenny Flores MD LAB BLOOD ORDERABLES Final Resu lt Performing Organization Address City/[facility]/ZIP Co de Phone Number [facility] [place] [address] * Creatine kinase (CK), total (09/07/2024 1:38 PM CDT) Pathologist [facility] CK 98 30 - 200 Units/L Blood 09/07/2024 1:38 PM CDT 09/07/2024 1:59 PM CDT Kylee Noel NP LAB BLOOD ORDERABLES Final Result Performing Organization Address [facility] Co de Phone Number [facility] [place] [address] * eGFR (09/06/2024 10:04 PM CDT) Pathologist [facility] eGFR >90 >=60 mL/min/1. 73 m2 Comment: [...] interpretive data was last reviewed 2021. Blood 09/06/2024 10:0 4 PM CDT 09/06/2024 10:23 PM CDT Kenny Flores MD LAB BLOOD ORDERABLES Final Resu lt Performing Organization Address [facility]/ZIP Co de Phone Number [facility] Department [place] [address] * (ABNORMAL) CBC without differential (09/06/2024 10:04 PM CDT) Pathologist [facility] WBC 7.20 3.80 - 9.90 K/cumm Hgb 8.3(L) 11.9 - 15.5 g/dL [facility] Hct 27.0(L) 35.6 - 45.5 % [facility] Plt 344 150 - 400 K/cumm [facility] MPV 10.4 9.1 - 12.3 fL [facility] RBC 3.09(L) 3.90 - 5.20 M/cumm [facility] MCV 87.4 81.3 - 96.4 fL [facility] MCH 26.9(L) 27.1 - 33.3 pg [facility] MCHC 30.7(L) 32.3 - 35.7 g/dL [facility] RDW CV 17.2(H) 11.1 - 14.9 % [facility] RDW SD 52.3(H) 35.7 - 48.1 fL [facility] NRBC abs 0.00 0.00 - 0.01 K/cumm [facility] Blood 09/06/2024 10:0 4 PM CDT 09/06/2024 10:23 PM CDT Kenny Flores MD LAB BLOOD ORDERABLES Final Resu lt [facility] Department [place] [address] * (ABNORMAL) Hepatic function panel (09/06/2024 10:04 PM CDT) Bilirubin, total <0.2 0.1 - 1.2 mg/dL Comment:Reviewed Bilirubin, direct <0.2 0.1 - 0.3 mg/dL [facility] Protein, pl 7.6 6.5 - 8.5 g/dL [facility] Albumin 3.2(L) 3.5 - 5.0 g/dL [facility] Alk phos 85 40 - 130 Units/L [facility] ALT 6(L) 7 - 45 Units/L [facility] Comment:Reviewed AST 23 10 - 45 Units/L [facility] Blood 09/06/2024 10:0 4 PM CDT 09/06/2024 10:23 PM CDT us Kenny Flores MD LAB BLOOD ORDERABLES Final Resu lt [facility] Department [place] [address] * (ABNORMAL) Basic metabolic panel (09/06/2024 10:04 PM CDT) [facility] Sodium 143 135 - 145 mmol/L Potassium, pl 3.7 3.3 - 4.9 mmol/L [facility] Chloride 105 97 - 110 mmol/L [facility] CO2 29 22 - 32 mmol/L [facility] Anion gap 9 2 - 15 mmol/L [facility] BUN 10 6 - 25 mg/dL [facility] Creatinine 0.53(L) 0.60 - 1.10 mg/dL [facility] Glucose 100 70 - 199 mg/dL [facility] Comment: Interpretive Data Fasting glucose >/= 126 mg/dl is diagnostic for diabetes. Fasting is defined as no caloric intake for at least 8 hours. Fasting glucose between 100 mg/dl to 125 mg/dl is diagnostic of prediabetes. In a patient with classic symptoms of hyperglycemia or hyperglycemic crisis, a random glucose >/= 200 mg/dl is diagnostic for diabetes. In the absence of unequivocal hyperglycemia, results should be confirmed by repeat testing. The classification and Diagnosis of Diabetes Diabetes Care 202; 46: S19-S40. Current interpretive data was last revised 2022. Calcium 9.3 8.5 - 10.3 mg/dL [facility] Blood 09/06/2024 10:0 4 PM CDT 09/06/2024 10:23 PM CDT Kenny Flores MD LAB BLOOD ORDERABLES Final Resu lt Performing Organization Address City/[facility]/ZIP Co de Phone Number [facility] Department [place] [address] * eGFR (09/06/2024 11:49 AM CDT) eGFR >90 >=60 mL/min/1. 73 m2 [...] of Race in Diagnosing Kidney Disease, JASN 202). The CKD-EPI equation should not be used for patients with unstable renal function and has not been validated in children and those over 70. Current interpretive data was last reviewed 2021. Blood 09/06/2024 11:4 9 AM CDT 09/06/2024 12:34 PM CDT Kenny Flores MD LAB BLOOD ORDERABLES Final Resu lt Performing Organization Address [facility]/ZIP Co de Phone Number [facility] [place] [address] * (ABNORMAL) CBC without differential (09/06/2024 11:49 AM CDT) [facility] WBC 7.26 3.80 - 9.90 K/cumm Hgb 9.0(L) 11.9 - 15.5 g/dL [facility] Hct 29.0(L) 35.6 - 45.5 % [facility] Plt 371 150 - 400 K/cumm [facility] MPV 10.4 9.1 - 12.3 fL [facility] RBC 3.33(L) 3.90 - 5.20 M/cumm [facility] MCV 87.1 81.3 - 96.4 fL [facility] MCH 27.0(L) 27.1 - 33.3 pg [facility] MCHC 31.0(L) 32.3 - 35.7 g/dL [facility] RDW CV 17.1(H) 11.1 - 14.9 % [facility] RDW SD 52.5(H) 35.7 - 48.1 fL [facility] NRBC abs 0.00 0.00 - 0.01 K/cumm [facility] Blood 09/06/2024 11:4 9 AM CDT 09/06/2024 12:34 PM CDT us Kenny Flores MD LAB BLOOD ORDERABLES Final Resu lt [facility] Department [place] [address] * (ABNORMAL) Basic metabolic panel (09/06/2024 11:49 AM CDT) [facility] Sodium 145 135 - 145 mmol/L Potassium, pl 3.6 3.3 - 4.9 mmol/L [facility] Chloride 107 97 - 110 mmol/L [facility] CO2 29 22 - 32 mmol/L [facility] Anion gap 9 2 - 15 mmol/L [facility] BUN 6 6 - 25 mg/dL [facility] Creatinine 0.45(L) 0.60 - 1.10 mg/dL [facility] Glucose 99 70 - 199 mg/dL [facility] Comment: Interpretive Data Fasting glucose >/= 126 mg/dl is diagnostic for diabetes. Fasting is defined as no caloric intake for at least 8 hours. Fasting glucose between 100 mg/dl to 125 mg/dl is diagnostic of prediabetes. In a patient with classic symptoms of hyperglycemia or hyperglycemic crisis, a random glucose >/= 200 mg/dl is diagnostic for diabetes. In the absence of unequivocal hyperglycemia, results should be confirmed by repeat testing. The classification and Diagnosis of Diabetes Diabetes Care 2021; 46: S19-S40. Current interpretive data was last revised 2022. Calcium 9.3 8.5 - 10.3 mg/dL [facility] Blood 09/06/2024 11:4 9 AM CDT 09/06/2024 12:34 PM CDT us Kenny Flores MD LAB BLOOD ORDERABLES Final Resu lt [facility] [place] [address] * IR Central Line Placement > 5 Years (09/06/2024 11:04 AM CDT) Anatomical Region Laterality Modality Body N/A X-Ray Angiograph y 09/06/2024 9:16 PM CDT Impressions 09/07/2024 11:47 AM CDT Successful non-tunneled catheter placement. PLAN: The catheter is ready for immediate use. When treatment is completed, this catheter can be removed at the bedside according to standard hospital protocol. Dictated by: Simone Cortez M.D. The radiology attending physician has personally reviewed this study, and had reviewed and/or edited this written report and agrees with it. Electronically signed by: Beau Garza M.D. Narrative 09/07/2024 11:47 AM CDT EXAMINATION: Non-tunneled central venous catheter placement. HISTORY/INDICATION: 74 year old female with cervical spine fusion hardware with infection requiring senior living antibiotics. ATTENDING PRESENCE: Beau Garza M.D., the attending interventional radiologist was present from the beginning to the end of the procedure. SEDATION: The patient did not require conscious sedation for the procedure. TECHNIQUE: The risks, benefits and alternatives were discussed and informed consent was obtained. Prior to beginning the procedure, [facility] Protocol was performed to confirm the patient's identity and the planned procedure. For procedures that utilize fluoroscopy, the fluoroscopy time has been recorded in the electronic medical record. Maximum sterile barriers including cap, mask, hand hygiene, sterile gloves, sterile gown, large sterile drape and 2% chlorhexidine for cutaneous antisepsis were used. The skin over the right neck was sterilely prepped, draped and infiltrated with 1% lidocaine. Prior to the procedure, the right internal jugular vein was evaluated by ultrasound, an image of the patent vessel recorded, and this image placed in the patient's chart. After sterile prep, this vessel was accessed using realtime ultrasound guidance. A guidewire and catheter were then passed centrally using fluoroscopic guidance. The intravascular length from the access site to the right atrium was assessed. After dilating the tract, a 5 American double lumen non-tunneled central venous catheter (Vishal) trimmed to the appropriate intravascular length was inserted over the guidewire. The catheter was flushed with 100 U/ml heparin and secured in place. A sterile dressing was applied. ESTIMATED BLOOD LOSS: Minimal. COMPLICATIONS: None. CONDITION: Stable. DISCHARGED TO: Patient care division. FINDINGS: The final fluoroscopic image demonstrates the catheter with its tip in the right atrium. Procedure Note Beau Garza MD - 09/07/2024 EXAMINATION: Non-tunneled central venous catheter placement. HISTORY/INDICATION: 74 year old female with cervical spine fusion hardware with infection requiring convex grinder antibiotics. ATTENDING PRESENCE: Beau Garza M.D., the attending interventional radiologist was present from the beginning to the end of the procedure. SEDATION: The patient did not require conscious sedation for the procedure. TECHNIQUE: The risks, benefits and alternatives were discussed and informed consent was obtained. Prior to beginning the procedure, [facility] Protocol was performed to confirm the patient's identity and the planned procedure. For procedures that utilize fluoroscopy, the fluoroscopy time has been recorded in the electronic medical record. Maximum sterile barriers including cap, mask, hand hygiene, sterile gloves, sterile gown, large sterile drape and 2% chlorhexidine for cutaneous antisepsis were used. The skin over the right neck was sterilely prepped, draped and infiltrated with 1% lidocaine. Prior to the procedure, the right internal jugular vein was evaluated by ultrasound, an image of the patent vessel recorded, and this image placed in the patient's chart. After sterile prep, this vessel was accessed using realtime ultrasound guidance. A guidewire and catheter were then passed centrally using fluoroscopic guidance. The intravascular length from the access site to the right atrium was assessed. After dilating the tract, a 5 American double lumen non-tunneled central venous catheter (Vishal) trimmed to the appropriate intravascular length was inserted over the guidewire. The catheter was flushed with 100 U/ml heparin and secured in place. A sterile dressing was applied. ESTIMATED BLOOD LOSS: Minimal. COMPLICATIONS: None. CONDITION: Stable. DISCHARGED TO: Patient care division. FINDINGS: The final fluoroscopic image demonstrates the catheter with its tip in the right atrium. IMPRESSION: Successful non-tunneled catheter placement. PLAN: The catheter is ready for immediate use. When treatment is completed, this catheter can be removed at the bedside according to standard hospital protocol. Dictated by: Simone Cortez M.D. The radiology attending physician has personally reviewed this study, and had reviewed and/or edited this written report and agrees with it. Electronically signed by: Beau Garza M.D. Marii Bell NP IMG IR PROCEDURES Final Result * XR Chest 1 View (09/05/2024 6:21 PM CDT) Anatomical Region Laterality Modality Body, Chest N/A Computed Radiogr aphy 09/06/2024 8:02 AM CDT Impressions 09/06/2024 8:02 AM CDT The current study is compared with the prior radiograph dated 08/31/2024. Cervical spine fixation rods are in place. Surgical clips overlie left axilla. There are very prominent right skin folds but no pneumothorax no mass or lymphadenopathy no pleural effusions. The heart and mediastinal contours are normal.. Electronically signed by: Nancy Jessica M.D. Narrative 09/06/2024 8:02 AM CDT EXAMINATION: 1 view chest radiograph Procedure Note Nancy Jessica MD - 09/06/2024 EXAMINATION: 1 view chest radiograph IMPRESSION: The current study is compared with the prior radiograph dated 08/31/2024. Cervical spine fixation rods are in place. Surgical clips overlie left axilla. There are very prominent right skin folds but no pneumothorax no mass or lymphadenopathy no pleural effusions. The heart and mediastinal contours are normal.. Electronically signed by: Nancy Jessica M.D. Marii Bell CLEAN ROOM ASSEMBLER IMG XR PROCEDURES Final Result * IR Central Line Placement > 5 Years (09/05/2024 3:08 PM CDT) Anatomical Region Laterality Modality Body N/A X-Ray Angiograph y 09/05/2024 3:13 PM CDT Impressions 09/05/2024 3:50 PM CDT Successful nontunneled catheter placement. PLAN: The catheter is ready for immediate use. When treatment is completed, this catheter can be removed at the bedside according to standard hospital protocol. Dictated by: Vin Gray M.D. The radiology attending physician has personally reviewed this study, and had reviewed and/or edited this written report and agrees with it. Electronically signed by: Bertram Dubose M.D. Narrative 09/05/2024 3:50 PM CDT EXAMINATION: NONTUNNELED CENTRAL VENOUS CATHETER PLACEMENT (STD) HISTORY: 74-year-old woman with cervical spinal fusion hardware infection post washout on 08/31/2024. Consultation for nontunneled central venous catheter placement for IV antibiotic therapy. No suitable vein for PICC line per vascular access team. ATTENDING PRESENCE: Bertram Dubose M.D., the attending radiologist was present from the beginning to the end of the procedure. SEDATION: Local TECHNIQUE: The risks, benefits and alternatives were discussed and informed consent was obtained. Prior to beginning the procedure, [facility] Protocol was used to confirm the patient's identity and planned procedure. Fluoroscopy time has been recorded in the electronic medical record. Maximum sterile barriers including cap, mask, hand hygiene, sterile gloves, sterile gown, large sterile drape and 2% chlorhexidine for cutaneous antisepsis were used. The skin over the right internal jugular vein was sterilely prepped, draped and infiltrated with 1% buffered lidocaine. Prior to the procedure, the target vessel was evaluated by ultrasound, an image of the patent vessel recorded, and this image placed in the patient's chart. After sterile prep, this vessel was accessed using realtime ultrasound guidance. A guidewire and catheter were then passed centrally using fluoroscopic guidance. The intravascular length from the access site to the right atrium was assessed. After dilating the tract, a dual lumen vishal trimmed to the appropriate intravascular length was inserted over the guidewire. The catheter was flushed with 100U/ml heparin and secured in place. A sterile dressing was applied. ESTIMATED BLOOD LOSS: Minimal. CONDITION: Stable DISCHARGED TO: patient care division. FINDINGS: The final fluoroscopic image demonstrates the catheter with its tip superior cavoatrial junction. No complications are seen. Procedure Note Bertram Dubose MD - 09/05/2024 EXAMINATION: NONTUNNELED CENTRAL VENOUS CATHETER PLACEMENT (STD) HISTORY: 74-year-old woman with cervical spinal fusion hardware infection post washout on 08/31/2024. Consultation for nontunneled central venous catheter placement for IV antibiotic therapy. No suitable vein for PICC line per vascular access team. ATTENDING PRESENCE: Bertram Dubose M.D., the attending radiologist was present from the beginning to the end of the procedure. SEDATION: Local TECHNIQUE: The risks, benefits and alternatives were discussed and informed consent was obtained. Prior to beginning the procedure, [facility] Protocol was used to confirm the patient's identity and planned procedure. Fluoroscopy time has been recorded in the electronic medical record. Maximum sterile barriers including cap, mask, hand hygiene, sterile gloves, sterile gown, large sterile drape and 2% chlorhexidine for cutaneous antisepsis were used. The skin over the right internal jugular vein was sterilely prepped, draped and infiltrated with 1% buffered lidocaine. Prior to the procedure, the target vessel was evaluated by ultrasound, an image of the patent vessel recorded, and this image placed in the patient's chart. After sterile prep, this vessel was accessed using realtime ultrasound guidance. A guidewire and catheter were then passed centrally using fluoroscopic guidance. The intravascular length from the access site to the right atrium was assessed. After dilating the tract, a dual lumen vishal trimmed to the appropriate intravascular length was inserted over the guidewire. The catheter was flushed with 100U/ml heparin and secured in place. A sterile dressing was applied. ESTIMATED BLOOD LOSS: Minimal. CONDITION: Stable DISCHARGED TO: patient care division. FINDINGS: The final fluoroscopic image demonstrates the catheter with its tip superior cavoatrial junction. No complications are seen. IMPRESSION: Successful nontunneled catheter placement. PLAN: The catheter is ready for immediate use. When treatment is completed, this catheter can be removed at the bedside according to standard hospital protocol. Dictated by: Vin Gray M.D. The radiology attending physician has personally reviewed this study, and had reviewed and/or edited this written report and agrees with it. Electronically signed by: Bertram Dubose M.D. us Adalid Cowan CLE[employer] ROOM ASSEMBLER IMG IR PROCEDURES Final Resu lt * eGFR (09/04/2024 11:01 PM CDT) eGFR >90 >=60 mL/min/1. 73 [...] of Race in Diagnosing Kidney Disease, JASN 202). The CKD-EPI equation should not be used for patients with unstable renal function and has not been validated in children and those over 70. Current interpretive data was last reviewed 2021. Blood 09/04/2024 11:0 1 PM CDT 09/05/2024 1:10 AM CDT us Kenny Flores MD LAB BLOOD ORDERABLES Final Resu lt Performing Organization Address City/[facility] Co de Phone Number [facility] [place] [address] * (ABNORMAL) CBC without differential (09/04/2024 11:01 PM CDT) WBC 8.44 3.80 - 9.90 K/cumm Hgb 8.0(L) 11.9 - 15.5 g/dL [facility] Hct 26.0(L) 35.6 - 45.5 % [facility] Plt 323 150 - 400 K/cumm [facility] MPV 11.0 9.1 - 12.3 fL [facility] RBC 3.00(L) 3.90 - 5.20 M/cumm [facility] MCV 86.7 81.3 - 96.4 fL [facility] MCH 26.7(L) 27.1 - 33.3 pg [facility] MCHC 30.8(L) 32.3 - 35.7 g/dL [facility] RDW CV 16.3(H) 11.1 - 14.9 % [facility] RDW SD 51.1(H) 35.7 - 48.1 fL [facility] NRBC abs 0.00 0.00 - 0.01 K/cumm [facility] Blood 09/04/2024 11:0 1 PM CDT 09/05/2024 1:13 AM CDT Kenny Flores MD LAB BLOOD ORDERABLES Final Resu lt [facility] [place] [address] * (ABNORMAL) Creatine kinase (CK), total (09/04/2024 11:01 PM CDT) CK 209(H) 30 - 200 Units/L Blood 09/04/2024 11:0 1 PM CDT 09/05/2024 1:10 AM CDT us Kylee Noel NP LAB BLOOD ORDERABLES Final Result [facility] Department [place] [address] * (ABNORMAL) Basic metabolic panel (09/04/2024 11:01 PM CDT) Pathologist [facility] Sodium 139 135 - 145 mmol/L Potassium, pl 3.5 3.3 - 4.9 mmol/L [facility] Chloride 106 97 - 110 mmol/L [facility] CO2 27 22 - 32 mmol/L [facility] Anion gap 6 2 - 15 mmol/L [facility] BUN 6 6 - 25 mg/dL [facility] Creatinine 0.37(L) 0.60 - 1.10 mg/dL [facility] Glucose 137 70 - 199 mg/dL [facility] Comment: Interpretive Data Fasting glucose >/= 126 mg/dl is diagnostic for diabetes. Fasting is defined as no caloric intake for at least 8 hours. Fasting glucose between 100 mg/dl to 125 mg/dl is diagnostic of prediabetes. In a patient with classic symptoms of hyperglycemia or hyperglycemic crisis, a random glucose >/= 200 mg/dl is diagnostic for diabetes. In the absence of unequivocal hyperglycemia, results should be confirmed by repeat testing. The classification and Diagnosis of Diabetes Diabetes Care 202; 46: S19-S40. Current interpretive data was last revised 2022. Calcium 9.4 8.5 - 10.3 mg/dL [facility] Blood 09/04/2024 11:0 1 PM CDT 09/05/2024 1:10 AM CDT us Kenny Flores MD LAB BLOOD ORDERABLES Final Resu lt [facility] Department [place] [address] * eGFR (09/03/2024 9:27 PM CDT) [facility] eGFR >90 >=60 mL/min/1. 73 m2 Comment: [...] interpretive data was last reviewed 2021. Blood 09/03/2024 9:27 PM CDT 09/03/2024 9:55 PM CDT us Kenny Flores MD LAB BLOOD ORDERABLES Final Resu lt [facility] Department [place] [address] * Differential, auto (09/03/2024 9:27 PM CDT) Neutrophil abs 3.94 1.50 - 6.50 K/cumm Imm gran abs 0.03 0.00 - 0.10 K/cumm [facility] Lymphocyte abs 2.14 0.80 - 3.30 K/cumm [facility] Monocyte abs 0.55 0.20 - 0.80 K/cumm [facility] Eosinophil abs 0.22 0.00 - 0.50 K/cumm [facility] Basophil abs 0.03 0.00 - 0.10 K/cumm [facility] Neutrophil pct 57.0 % [facility] Comment: Interpretive Data Percent cell count reference ranges are not reported, since discordance with absolute values may lead to misinterpretation of CBC data. Current Interpretive Data was last revised on 2017. Imm gran pct 0.4 % [facility] Comment: Interpretive Data Percent cell count reference ranges are not reported, since discordance with absolute values may lead to misinterpretation of CBC data. Current Interpretive Data was last revised on 2017. Lymphocyte pct 31.0 % [facility] Comment: Interpretive Data Percent cell count reference ranges are not reported, since discordance with absolute values may lead to misinterpretation of CBC data. Current Interpretive Data was last revised on 2017. Monocyte pct 8.0 % [facility] Comment: Interpretive Data Percent cell count reference ranges are not reported, since discordance with absolute values may lead to misinterpretation of CBC data. Current Interpretive Data was last revised on 2017. Eosinophil pct 3.2 % [facility] Comment: Interpretive Data Percent cell count reference ranges are not reported, since discordance with absolute values may lead to misinterpretation of CBC data. Current Interpretive Data was last revised on 2017. Basophil pct 0.4 % [facility] Comment: Interpretive Data Percent cell count reference ranges are not reported, since discordance with absolute values may lead to misinterpretation of CBC data. Current Interpretive Data was last revised on 2017. Blood 09/03/2024 9:27 PM CDT 09/03/2024 9:58 PM CDT us Kenny Flores MD LAB BLOOD ORDERABLES Final Resu lt [facility] Department [place] [address] * (ABNORMAL) CBC without differential (09/03/2024 9:27 PM CDT) WBC 6.90 3.80 - 9.90 K/cumm Hgb 7.1(L) 11.9 - 15.5 g/dL [facility] Hct 22.4(L) 35.6 - 45.5 % [facility] Plt 259 150 - 400 K/cumm [facility] MPV 10.6 9.1 - 12.3 fL [facility] RBC 2.63(L) 3.90 - 5.20 M/cumm [facility] MCV 85.2 81.3 - 96.4 fL [facility] MCH 27.0(L) 27.1 - 33.3 pg [facility] MCHC 31.7(L) 32.3 - 35.7 g/dL [facility] RDW CV 16.0(H) 11.1 - 14.9 % [facility] RDW SD 49.7(H) 35.7 - 48.1 fL [facility] NRBC abs 0.00 0.00 - 0.01 K/cumm [facility] Blood 09/03/2024 9:27 PM CDT 09/03/2024 9:55 PM CDT us Kenny Flores MD LAB BLOOD ORDERABLES Final Resu lt [facility] Department [place] [address] * (ABNORMAL) Basic metabolic panel (09/03/2024 9:27 PM CDT) Sodium 141 135 - 145 mmol/L Potassium, pl 2.9(L) 3.3 - 4.9 mmol/L [facility] Chloride 108 97 - 110 mmol/L [facility] CO2 26 22 - 32 mmol/L [facility] Anion gap 7 2 - 15 mmol/L [facility] BUN 6 6 - 25 mg/dL [facility] Creatinine 0.56(L) 0.60 - 1.10 mg/dL [facility] Glucose 123 70 - 199 mg/dL [facility] Comment: Interpretive Data Fasting glucose >/= 126 mg/dl is diagnostic for diabetes. Fasting is defined as no caloric intake for at least 8 hours. Fasting glucose between 100 mg/dl to 125 mg/dl is diagnostic of prediabetes. In a patient with classic symptoms of hyperglycemia or hyperglycemic crisis, a random glucose >/= 200 mg/dl is diagnostic for diabetes. In the absence of unequivocal hyperglycemia, results should be confirmed by repeat testing. The classification and Diagnosis of Diabetes Diabetes Care 2022; 46: S19-S40. Current interpretive data was last revised 2022. Calcium 8.2(L) 8.5 - 10.3 mg/dL [facility] Blood 09/03/2024 9:27 PM CDT 09/03/2024 9:55 PM CDT Kenny Flores MD LAB BLOOD ORDERABLES Final Resu lt [facility] Department [place] [address] * Blood culture Blood Arm, left (09/03/2024 12:02 PM CDT) Report Final Report: No growth Blood (Arm, left) 09/03/2024 12:02 PM CDT 09/03/2024 12:21 PM CDT Narrative [facility] - 09/07/2024 4:00 PM CDT Collection->Peripheral 1. Blood cultures are incubated for 4 days on a continuously monitored blood culture system. The first report of a negative culture is issued within 24 hours of receipt of the specimen in the laboratory. 2. Positive culture results are reported as soon as they are detected. 3. The most important factor for detection of microbes in the setting of bloodstream infection is the volume of blood submitted for culture. Failure to collect an optimal blood volume can result in false negative blood cultures. 4. For pediatric patients, the recommended blood volume to collect follows a weight based strategy. See the electronic test catalog for collection instructions. 5. For positive blood cultures, a rapid molecular test may be performed for organism identification using the bruno ePlex blood culture identification panel for gram positive (BCID-GP) and gram negative (BCID-GN) organisms. This nucleic acid amplification test detects microbial DNA in positive blood culture broth. This assay has been cleared by the [place] Food and Drug Administration and its performance characteristics have been verified by the [facility]. For questions about this culture, contact the Microbiology Laboratory at [phone]. Interpretive data was last revised on 24. Casimiro Gutierrez NP LAB MICROBIOLOGY - GENE RAL ORDERABLES Final Result [facility] Department [place] [address] * Blood culture Blood (09/02/2024 4:05 AM CDT) Report Final Report: No growth Blood 09/02/2024 4:05 AM CDT 09/02/2024 6:45 AM CDT Narrative [facility] - 09/06/2024 7:00 AM CDT Collection->Peripheral 1. Blood cultures are incubated for 4 days on a continuously monitored blood culture system. The first report of a negative culture is issued within 24 hours of receipt of the specimen in the laboratory. 2. Positive culture results are reported as soon as they are detected. 3. The most important factor for detection of microbes in the setting of bloodstream infection is the volume of blood submitted for culture. Failure to collect an optimal blood volume can result in false negative blood cultures. 4. For pediatric patients, the recommended blood volume to collect follows a weight based strategy. See the electronic test catalog for collection instructions. 5. For positive blood cultures, a rapid molecular test may be performed for organism identification using the bruno ePlex blood culture identification panel for gram positive (BCID-GP) and gram negative (BCID-GN) organisms. This nucleic acid amplification test detects microbial DNA in positive blood culture broth. This assay has been cleared by the [place] Food and Drug Administration and its performance characteristics have been verified by the [facility]. For questions about this culture, contact the Microbiology Laboratory at [phone]. Interpretive data was last revised on 24. us Kenny Flores MD LAB MICROBIOLOGY - GENERAL JIMMY TAVERA Final Result [facility] Department [place] [address] * (ABNORMAL) Blood culture Blood (09/02/2024 4:05 AM CDT) Direct Specimen Exam Molecular Analysis: Staphylococcus epidermidis (methicillin-resis tant) detected by bruno ePlex BCID-GP panel. Single positive culture may represent contamination. This test does not exclude the possibility of a mixed bacterial infection. Notification of: Staphylococcus epidermidis (methicillin-resis tant) called to and read back by: Simone White MD on 09/03/2024 02:27:02 by: Adelina Zhou MT Direct Specimen Exam Stain: Gram Positive Cocci in clusters Time to culture positivity (aerobic media): 15.6 hours Notification of: Gram Positive Cocci in Clusters called to and read back by: Simone Graham [phone] on 09/02/2024 23:13:53 by: Idalia Resendez.[facility] Report Final Report: Staphylococcus epidermidis Single blood culture positive for this microorganism. Isolate is a possible contaminant. If a similar isolate is recovered from a second blood culture collected within 3 days of this culture, both will be evaluated and, if determined to be the same species, antimicrobial susceptibility testing will be performed. (.) [facility] Organism STAPHYLOCOCCUS EPIDERMIDIS [facility] Blood 09/02/2024 4:05 AM CDT 09/02/2024 6:45 AM CDT Narrative [facility] - 09/07/2024 12:44 PM CDT Collection->Peripheral 1. Blood cultures are incubated for 4 days on a continuously monitored blood culture system. The first report of a negative culture is issued within 24 hours of receipt of the specimen in the laboratory. 2. Positive culture results are reported as soon as they are detected. 3. The most important factor for detection of microbes in the setting of bloodstream infection is the volume of blood submitted for culture. Failure to collect an optimal blood volume can result in false negative blood cultures. 4. For pediatric patients, the recommended blood volume to collect follows a weight based strategy. See the electronic test catalog for collection instructions. 5. For positive blood cultures, a rapid molecular test may be performed for organism identification using the bruno ePlex blood culture identification panel for gram positive (BCID-GP) and gram negative (BCID-GN) organisms. This nucleic acid amplification test detects microbial DNA in positive blood culture broth. This assay has been cleared by the [place] Food and Drug Administration and its performance characteristics have been verified by the [facility]. For questions about this culture, contact the Microbiology Laboratory at [phone]. Interpretive data was last revised on 24. Kenny Flores MD LAB MICROBIOLOGY - GENERAL ORDE RABLES Final Result Performing Organization Address [facility]/ZIP Co de Phone Number [facility] Department [place] [address] * eGFR (09/02/2024 3:09 AM CDT) eGFR >90 >=60 mL/min/1. 73 m2 [...] interpretive data was last reviewed 2021. Blood 09/02/2024 3:09 AM CDT 09/02/2024 3:22 AM CDT Kenny Flores MD LAB BLOOD ORDERABLES Final Resu lt Performing Organization Address City/[facility]/ZIP Co de Phone Number [facility] Department [place] [address] * (ABNORMAL) CBC without differential (09/02/2024 3:09 AM CDT) WBC 10.01(H) 3.80 - 9.90 K/cumm Hgb 7.7(L) 11.9 - 15.5 g/dL [facility] Hct 24.5(L) 35.6 - 45.5 % [facility] Plt 246 150 - 400 K/cumm [facility] MPV 10.5 9.1 - 12.3 fL [facility] RBC 2.86(L) 3.90 - 5.20 M/cumm [facility] MCV 85.7 81.3 - 96.4 fL [facility] MCH 26.9(L) 27.1 - 33.3 pg [facility] MCHC 31.4(L) 32.3 - 35.7 g/dL [facility] RDW CV 15.8(H) 11.1 - 14.9 % [facility] RDW SD 49.2(H) 35.7 - 48.1 fL [facility] NRBC abs 0.00 0.00 - 0.01 K/cumm [facility] Blood 09/02/2024 3:09 AM CDT 09/02/2024 3:22 AM CDT Kenny Flores MD LAB BLOOD ORDERABLES Final Resu lt Performing Organization Address City/[facility]/ZIP Co de Phone Number [facility] [place] [address] * Phosphorus (09/02/2024 3:09 AM CDT) Pathologist [facility] Phosphorus, pl 2.3 2.3 - 4.5 mg/dL Blood 09/02/2024 3:09 AM CDT 09/02/2024 3:22 AM CDT Kenny Flores MD LAB BLOOD ORDERABLES Final Resu lt Performing Organization Address City/[facility]/ZIP Co de Phone Number [facility] [place] [address] * Magnesium (09/02/2024 3:09 AM CDT) [facility] Magnesium 1.4 1.4 - 2.5 mg/dL Blood 09/02/2024 3:09 AM CDT 09/02/2024 3:22 AM CDT Kenny Flores MD LAB BLOOD ORDERABLES Final Resu lt Performing Organization Address City/[facility]/ZIP Co de Phone Number [facility] Department [place] [address] * Vancomycin level trough Please draw 30 minutes prior to vancomycin infusion. (09/02/2024 3:09 AM CDT) [facility] Vancomycin trough 11.6 10.0 - 20.0 mcg/mL Blood 09/02/2024 3:09 AM CDT 09/02/2024 3:22 AM CDT Narrative [facility] - 09/02/2024 3:52 AM CDT Please draw 30 minutes prior to vancomycin infusion. Vin Cohen MD LAB BLOOD ORDERABLES Final Resul t Performing Organization Address [facility]/ZIP Co de Phone Number [facility] [place] [address] * (ABNORMAL) Comprehensive metabolic panel (09/02/2024 3:09 AM CDT) [facility] Sodium 137 135 - 145 mmol/L Potassium, pl 3.7 3.3 - 4.9 mmol/L [facility] Chloride 102 97 - 110 mmol/L [facility] CO2 27 22 - 32 mmol/L [facility] Anion gap 8 2 - 15 mmol/L [facility] BUN 6 6 - 25 mg/dL [facility] Creatinine 0.49(L) 0.60 - 1.10 mg/dL [facility] Glucose 101 70 - 199 mg/dL [facility] Comment: Interpretive Data Fasting glucose >/= 126 mg/dl is diagnostic for diabetes. Fasting is defined as no caloric intake for at least 8 hours. Fasting glucose between 100 mg/dl to 125 mg/dl is diagnostic of prediabetes. In a patient with classic symptoms of hyperglycemia or hyperglycemic crisis, a random glucose >/= 200 mg/dl is diagnostic for diabetes. In the absence of unequivocal hyperglycemia, results should be confirmed by repeat testing. The classification and Diagnosis of Diabetes Diabetes Care 202; 46: S19-S40. Current interpretive data was last revised 2022. Calcium 8.8 8.5 - 10.3 mg/dL [facility] Bilirubin, total 0.2 0.1 - 1.2 mg/dL [facility] Protein, pl 7.4 6.5 - 8.5 g/dL [facility] Albumin 2.9(L) 3.5 - 5.0 g/dL [facility] Alk phos 73 40 - 130 Units/L [facility] ALT <5(L) 7 - 45 Units/L [facility] Comment:Repeated and Verifie d AST 22 10 - 45 Units/L [facility] Blood 09/02/2024 3:09 AM CDT 09/02/2024 3:22 AM CDT us Kenny Flores MD LAB BLOOD ORDERABLES Final Resu lt [facility] [facility] Department [place] [address] * eGFR (08/31/2024 7:10 PM CDT) eGFR >90 >=60 mL/min/1. 73 [...] interpretive data was last reviewed 2021. Blood 08/31/2024 7:10 PM CDT 08/31/2024 7:25 PM CDT Alejandro Daugherty CLEAN ROOM ASSEMBLER LAB BLOOD ORDERABLES Final Result Performing Organization Address [facility] de Phone Number [facility] Department [place] [address] * (ABNORMAL) aPTT (08/31/2024 7:10 PM CDT) aPTT 17(L) 28 - 38 sec Comment: No clot detected in sample - [id number] - 08/31/24, 7:38 PM Interpretive Data Heparin therapeutic range: 66.0 - 100.0 seconds. Range based on correlation with therapeutic heparin activity range of 0.3 - 0.7 Units/mL. Current interpretive data was last revised on 2023. Blood 08/31/2024 7:10 PM CDT 08/31/2024 7:22 PM CDT Alejandro Daugherty CLEAN ROOM ASSEMBLER LAB BLOOD ORDERABLES Final Result Performing Organization Address [facility] de Phone Number [facility] Department [place] [address] * (ABNORMAL) Erythrocyte sedimentation rate (08/31/2024 7:10 PM CDT) Erythrocyte sedimentation rate 62(H) 1 - 30 mm/hr Blood 08/31/2024 7:10 PM CDT 08/31/2024 7:25 PM CDT Alejandro Daugherty CLEAN ROOM ASSEMBLER LAB BLOOD ORDERABLES Final Result Performing Organization Address [facility] de Phone Number [facility] Department [place] [address] * Protime-INR (08/31/2024 7:10 PM CDT) [facility] PT 12.0 9.7 - 13.0 sec Comment:No clot detected in sample - [id number] - 08/31/24, 7:38 PM INR 1.11 0.90 - 1.20 [facility] Comment: No clot detected in sample - [id number] - 08/31/24, 7:38 PM Interpretive data Oral anticoagulant therapeutic ranges: Venous thromboembolism prophylaxis or treatment: 2.0-3.0 CARDIOLOGY Standard range: 2.0-3.0 High-intensity range: 2.5-3.5 Refer to indication-specific guidelines for appropriate target ranges for prosthetic heart valve replacement. Current interpretive data was last revised on 2019. Blood 08/31/2024 7:10 PM CDT 08/31/2024 7:22 PM CDT Alejandro Daugherty NP LAB BLOOD ORDERABLES Final Result [facility] Department [place] [address] * (ABNORMAL) CBC without differential (08/31/2024 7:10 PM CDT) [facility] WBC 10.63(H) 3.80 - 9.90 K/cumm Hgb 9.5(L) 11.9 - 15.5 g/dL [facility] Hct 30.8(L) 35.6 - 45.5 % [facility] Plt 311 150 - 400 K/cumm [facility] MPV 10.9 9.1 - 12.3 fL [facility] RBC 3.57(L) 3.90 - 5.20 M/cumm [facility] MCV 86.3 81.3 - 96.4 fL [facility] MCH 26.6(L) 27.1 - 33.3 pg [facility] MCHC 30.8(L) 32.3 - 35.7 g/dL [facility] RDW CV 16.3(H) 11.1 - 14.9 % [facility] RDW SD 50.9(H) 35.7 - 48.1 fL [facility] NRBC abs 0.00 0.00 - 0.01 K/cumm [facility] Blood 08/31/2024 7:10 PM CDT 08/31/2024 7:25 PM CDT Alejandro Daugherty CLEAN ROOM ASSEMBLER LAB BLOOD ORDERABLES Final Result Performing Organization Address City/State/[facility] Co de Phone Number [facility] [place] [address] * CRP (acute phase) (08/31/2024 7:10 PM CDT) Pathologist [facility] CRP 4.5 <=10.0 mg/L Blood 08/31/2024 7:10 PM CDT 08/31/2024 7:25 PM CDT Alejandro Daugherty CLEAN ROOM ASSEMBLER LAB BLOOD ORDERABLES Final Result Performing Organization Address City/[facility] de Phone Number [facility] [place] [address] * Phosphorus (08/31/2024 7:10 PM CDT) Pathologist [facility] Phosphorus, pl 3.6 2.3 - 4.5 mg/dL Blood 08/31/2024 7:10 PM CDT 08/31/2024 7:25 PM CDT Alejandro Daugherty CLEAN ROOM ASSEMBLER LAB BLOOD ORDERABLES Final Result Performing Organization Address City/[facility] [place] [address] * Magnesium (08/31/2024 7:10 PM CDT) Magnesium 1.5 1.4 - 2.5 mg/dL Blood 08/31/2024 7:10 PM CDT 08/31/2024 7:25 PM CDT Alejandro Matta Willow CHILDS LAB BLOOD ORDERABLES Final Result [facility] Department [place] [address] * (ABNORMAL) Lipid panel (08/31/2024 7:10 PM CDT) Cholesterol 116 30 - 199 mg/dL Comment: Interpretive Data Ages < or = 19 years Acceptable: <170 mg/dL Borderline high: 170-199 mg/dL High: >or= 200 mg/dL Ages > or = 20 years Desirable: <200 mg/dL Borderline high: 200-239 mg/dL High: >or= 240 mg/dL Literature References: 1. Expert Panel on Integrated Guidelines for Cardiovascular Health and Risk Reduction in Children and Adolescents. Pediatrics 2011;128:S213 2. NCEP Expert Panel. Circulation 2004;110:227 Current Interpretive Data was last revised on 2018. Triglycerides 104 <=149 mg/dL [facility] Comment: Interpretive Data Ages < or = 9 years Acceptable: <75 mg/dL Borderline high: 75-99 mg/dL High: >or= 100 mg/dL Ages 10 to 20 years Acceptable: <90 mg/dL Borderline high: 90-129 mg/dL High: >or= 130 mg/dL Ages > or = 20 years Desirable: <150 mg/dL Borderline high: 150-199 mg/dL High: 200-499 mg/dL Very high: >or= 499 mg/dL Literature References: 1. Expert Panel on Integrated Guidelines for Cardiovascular Health and Risk Reduction in Children and Adolescents. Pediatrics 2011;128:S213 2. NCEP Expert Panel. Circulation 2004;110:227 Current Interpretive Data was last revised on 2018. HDL 37(L) >=40 mg/dL [facility] Comment: Interpretive Data Ages < or = 19 years Acceptable: >45 mg/dL Borderline low: 40-45 mg/dL Low: <40 mg/dL Ages > or = 20 years Desirable: >or= 60 mg/dL Low: <40 mg/dL Literature References: 1. Expert Panel on Integrated Guidelines for Cardiovascular Health and Risk Reduction in Children and Adolescents. Pediatrics 2011;128:S213 2. NCEP Expert Panel. Circulation 2004;110:227 Current Interpretive Data was last revised on 2018. LDL, calculated 60 <=129 mg/dL [facility] Comment: Interpretive Data Ages < or = 19 years Acceptable: <110 mg/dL Borderline high: 110-129 mg/dL High: >or= 130 mg/dL Ages > or = 20 years Optimal: <100 mg/dL Near optimal: 100-129 mg/dL Borderline high: 130-159 mg/dL High: >160 mg/dL Calculated using the Cem LDL-C estimating equation. This equation was implemented on 2024. Prior to this date LDL-C was estimated using the Friedewald equation. Literature References: 1. Expert Panel on Integrated Guidelines for Cardiovascular Health and Risk Reduction in Children and Adolescents. Pediatrics 2011;128:S213 2. NCEP Expert Panel. Circulation 2004;110:227 3. Cem Rice et al. OLIVA Cardiol. 2020 September 13;5(5):540-548. doi: 10.1001/[email or web address].2020.0013 Current Interpretive Data was last revised on 2024. Non-HDL Cholesterol 79 mg/dL [facility] Comment: Interpretive Data Ages < or = 19 years Acceptable: <120 mg/dL Borderline high: 120-144 mg/dL High: >145 mg/dL Ages > or = 20 years When triglycerides are >200 mg/dL, Non-HDL cholesterol is a secondary target of therapy with treatment goals that are 30 mg/dL greater than the LDL cholesterol target. Literature References: 1. Expert Panel on Integrated Guidelines for Cardiovascular Health and Risk Reduction in Children and Adolescents. Pediatrics 2011;128:S213 2. NCEP Expert Panel. Circulation 2004;110:227 Current Interpretive Data was last revised on 2018. Chol/HDL ratio 3 [facility] Blood 08/31/2024 7:10 PM CDT 08/31/2024 7:25 PM CDT us Kenny Flores MD LAB BLOOD ORDERABLES Final Resu lt [facility] Department [place] [address] * (ABNORMAL) Comprehensive metabolic panel (08/31/2024 7:10 PM CDT) Sodium 137 135 - 145 mmol/L Potassium, pl 5.2(H) 3.3 - 4.9 mmol/L [facility] Comment:Hemolyzed; Potassium value may be falsely elevated by as much as 1.1-1.6 mmol/L. Suggest redraw and reanalysis. Chloride 104 97 - 110 mmol/L [facility] CO2 24 22 - 32 mmol/L [facility] Anion gap 9 2 - 15 mmol/L [facility] BUN 9 6 - 25 mg/dL [facility] Creatinine 0.46(L) 0.60 - 1.10 mg/dL [facility] Glucose 138 70 - 199 mg/dL [facility] Comment: Interpretive Data Fasting glucose >/= 126 mg/dl is diagnostic for diabetes. Fasting is defined as no caloric intake for at least 8 hours. Fasting glucose between 100 mg/dl to 125 mg/dl is diagnostic of prediabetes. In a patient with classic symptoms of hyperglycemia or hyperglycemic crisis, a random glucose >/= 200 mg/dl is diagnostic for diabetes. In the absence of unequivocal hyperglycemia, results should be confirmed by repeat testing. The classification and Diagnosis of Diabetes Diabetes Care 2021; 46: S19-S40. Current interpretive data was last revised 2022. Calcium 8.9 8.5 - 10.3 mg/dL [facility] Bilirubin, total 0.3 0.1 - 1.2 mg/dL [facility] Protein, pl 7.7 6.5 - 8.5 g/dL [facility] Albumin 3.0(L) 3.5 - 5.0 g/dL [facility] Alk phos 78 40 - 130 Units/L [facility] Comment:Hemolyzed; result danna quesada be falsely decreased ALT 5(L) 7 - 45 Units/L [facility] AST 33 10 - 45 Units/L [facility] Comment:Hemolyzed; result ma y be falsely elevated Blood 08/31/2024 7:10 PM CDT 08/31/2024 7:25 PM CDT Aeljandrocheco Matta Willow CHILDS LAB BLOOD ORDERABLES Final Result [facility] Department [place] [address] * (ABNORMAL) Tissue aerobic and anaerobic culture and gram stain Tissue Cervical (08/31/2024 4:59 PM CDT) Direct Specimen Exam Stain: No polymorphonuclear leukocytes seen. No organisms seen. Report Final Report: Rare Staphylococcus aureus Methicillin susceptible (MSSA) by penicillin binding protein 2a (PBP2a) testing. (.) [facility] Organism STAPHYLOCOCCUS AUREUS [facility] Tissue (Cervical) 08/31/2024 4:59 PM CDT 08/31/2024 6:59 PM CDT Narrative [facility] - 09/04/2024 2:42 PM CDT Cervical wound same site Specimen received on an ESwab. Specimen collected in the operating room. Testing performed by [facility] ([phone]) Specimens submitted from normally sterile body sites will have all bacterial morphotypes identified. Specimens that contain grossly mixed sammy and/or are from body sites that are not normally sterile will be examined for Staphylococcus aureus, Pseudomonas aeruginosa, beta-hemolytic strep, vancomycin-resistant Enterococcus, Bacteroides, Parabacteroides, Clostridium perfringens and fungus. If any of these are isolated, the organism will be reported. Current interpretive data was last revised on 2019. Organism Antibiotic Method Susceptibility Staphylococcus aureus Daptomycin (HASMUKH) (HASMUKH) INTERPRET ATION Susceptible Staphylococcus aureus Doxycycline (HASMUKH) INTERPRETATIO N Susceptible Staphylococcus aureus Linezolid (HASMUKH) INTERPRETATIO N Susceptible Staphylococcus aureus Trimethoprim with Sulfamethoxazole (HASMUKH) INTERPRETATION Susceptible Staphylococcus aureus Clindamycin (HASMUKH) INTERPRETATIO N Susceptible Staphylococcus aureus Erythromycin (HASMUKH) INTERPRETATIO N Susceptible Staphylococcus aureus Vancomycin (HASMUKH) INTERPRETATIO N Susceptible Staphylococcus aureus Oxacillin (HASMUKH) INTERPRETATIO N Susceptible Staphylococcus aureus Cefazolin (HASMUKH) INTERPRETATIO N Susceptible Staphylococcus aureus Ceftriaxone (HASMUKH) INTERPRETATIO N Susceptible Kenny Flores MD LAB MICROBIOLOGY - GENERAL ORDE RABLES Final Result Performing Organization Address City/[facility] Co de Phone Number [facility] [place] [address] * Mycology (fungal) culture and stain Tissue Cervical (08/31/2024 4:59 PM CDT) Direct Specimen Exam Stain: No Fungal elements seen. Report Final Report: No growth of fungus [facility] Tissue (Cervical) 08/31/2024 4:59 PM CDT 08/31/2024 6:59 PM CDT Narrative [facility] - 09/28/2024 9:15 AM CDT Cervical wound same site Specimen received on an ESwab. Specimen collected in the operating room. Testing performed by [facility] ([phone]). Kenny Flores MD LAB MICROBIOLOGY - GENERAL ORDE RABBOB Final Result Performing Organization Address [facility] Co de Phone Number [facility] [place] [address] * Mycology (fungal) culture and stain Wound Cervical (08/31/2024 4:02 PM CDT) Direct Specimen Exam Stain: No Fungal elements seen. Report Final Report: No growth of fungus [facility] Wound (Cervical) 08/31/2024 4:02 PM CDT 08/31/2024 6:54 PM CDT Narrative [facility] - 09/28/2024 9:15 AM CDT Posterior spine wound Specimen received on an ESwab. Specimen collected in the operating room. Testing performed by [facility] ([phone]). Kenny Flores MD LAB MICROBIOLOGY - GENERAL ORDE RABLES Final Result [facility] Department [place] [address] * (ABNORMAL) Aerobic and anaerobic culture and gram stain Wound Cervical (08/31/2024 4:02 PM CDT) Direct Specimen Exam Stain: Few polymorphonuclear leukocytes seen. No organisms seen. Report Final Report: Rare Staphylococcus epidermidis Rare Staphylococcus epidermidis #2 (.) [facility] Organism STAPHYLOCOCCUS EPIDERMIDIS [facility] Organism STAPHYLOCOCCUS EPIDERMIDIS [facility] Wound (Cervical) 08/31/2024 4:02 PM CDT 08/31/2024 6:51 PM CDT Narrative [facility] - 09/08/2024 2:43 PM CDT Posterior spine wound Specimen received on an ESwab. Specimen collected in the operating room. Testing performed by [facility] ([phone]) Specimens submitted from normally sterile body sites will have all bacterial morphotypes identified. Specimens that contain grossly mixed sammy and/or are from body sites that are not normally sterile will be examined for Staphylococcus aureus, Pseudomonas aeruginosa, beta-hemolytic strep, vancomycin-resistant Enterococcus, Bacteroides, Parabacteroides, Clostridium perfringens and fungus. If any of these are isolated, the organism will be reported. Current interpretive data was last revised on 2019. Organism Antibiotic Method Susceptibility Staphylococcus epidermidis Daptomycin (HASMUKH) (HASMUKH) INTERPRETATION Susceptible Staphylococcus epidermidis Doxycycline (HASMUKH) INTERPRETATION Susceptible Staphylococcus epidermidis Linezolid (HASMUKH) INTERPRETATION Susceptible Staphylococcus epidermidis Trimethoprim with Sulfamethoxazole (HASMUKH) INTERPRETATION Resistant Staphylococcus epidermidis Clindamycin (HASMUKH) INTERPRETATION Susceptible Staphylococcus epidermidis Erythromycin (HASMUKH) INTERPRETATION Resistant Staphylococcus epidermidis Vancomycin (HASMUKH) INTERPRETATION Susceptible Staphylococcus epidermidis Oxacillin (HASMUKH) INTERPRETATION Resistant Staphylococcus epidermidis Cefazolin (HASMUKH) INTERPRETATION Resistant Staphylococcus epidermidis Ceftriaxone (HASMUKH) INTERPRETATION Resistant Staphylococcus epidermidis Daptomycin (HASMUKH) (HASMUKH) INTERPRETATION Susceptible Staphylococcus epidermidis Doxycycline (HASMUKH) INTERPRETATION Susceptible Staphylococcus epidermidis Linezolid (HASMUKH) INTERPRETATION Susceptible Staphylococcus epidermidis Trimethoprim with Sulfamethoxazole (HASMUKH) INTERPRETATION Resistant Staphylococcus epidermidis Clindamycin (HASMUKH) INTERPRETATION Resistant Staphylococcus epidermidis Erythromycin (HASMUKH) INTERPRETATION Resistant Staphylococcus epidermidis Vancomycin (HASMUKH) INTERPRETATION Susceptible Staphylococcus epidermidis Oxacillin (HASMUKH) INTERPRETATION Resistant Staphylococcus epidermidis Cefazolin (HASMUKH) INTERPRETATION Resistant Staphylococcus epidermidis Ceftriaxone (HASMUKH) INTERPRETATION Resistant Kenny Flores MD LAB MICROBIOLOGY - GENERAL JIMMY TAVERA Final Result [facility] Department [place] [address] * [place] AN PROCEDURE PLACEHOLDER (08/31/2024 3:33 PM CDT) Ranjan Sow CRNA - 08/31/2024 3:33 PM CDT Ranjan Kearns CRNA 08/31/2024 3:34 PM Peripheral IV Catheter Patient location: OR Staff: Placed by: DOCUMENT IMAGE TECHNICIAN: Ranjan Kearns CRNA Preprocedure prep: Prep solution: chlorhexadine PPE: gloves and provider hat/mask PIV line: Laterality: right Site: forearm Catheter size: 20 g Technique: direct visualization Procedure details: good blood return and occlusive dressing applied Number of attempts: 1 Assessment: Events: patient tolerated procedure well with no complications Idalia Mike MD PhD ANESTHESIA ORDERABLES Final Result * [place] AN PROCEDURE PLACEHOLDER (08/31/2024 3:33 PM CDT) Ranjan Sow CRNA - 08/31/2024 3:33 PM CDT Ranjan Kearns CRNA 08/31/2024 3:33 PM Peripheral IV Catheter Patient location: OR Staff: Placed by: DOCUMENT IMAGE TECHNICIAN: Ranjan Kearns CRNA Preprocedure prep: Prep solution: chlorhexadine PPE: gloves and provider hat/mask PIV line: Laterality: right Site: forearm Catheter size: 18 g Technique: direct visualization and anatomical landmarks Procedure details: good blood return Number of attempts: 1 Assessment: Events: patient tolerated procedure well with no complications Idalia Mike MD PhD ANESTHESIA ORDERABLES Final Result * Mislabeled Test (08/31/2024 3:31 PM CDT) Location Other location Reason No Signature On Blood Bank Specimen [facility] Mislabel resolution Testing canceled [facility] Blood 08/31/2024 3:31 PM CDT 08/31/2024 3:50 PM CDT Result [facility] Kenny Flores MD LAB BLOOD ORDERABLES Final Resu lt [facility] Department [place] [address] * [place] AN ELECTIVE ENDOTRACHEAL AIRWAY, [place] AN PROCEDURE PLACEHOLDER (08/31/2024 3:11 PM CDT) Narrative Ranjan Kearns CRNA - 08/31/2024 3:11 PM CDT Ranjan Kearns CRNA 08/31/2024 3:12 PM Airway Patient location: OR Urgency: elective Indications for airway management: anesthesia Difficult airway: no Staff: Placed by: DOCUMENT IMAGE TECHNICIAN: Ranjan Kearns CRNA Emergent airway documentation: Risks and benefits discussed: yes Consent obtained: yes Consent given by: patient Airway prep: Preoxygenated: yes Patient position: sniffing Mask difficulty assessment: 0 - not attempted Spontaneous ventilation during airway: absent Sedation level during airway: GA Final airway details: Final airway type: endotracheal airway Tube type: ETT ETT size: 7.0 mm Cuffed: yes Technique used for successful ETT placement: video laryngoscopy Insertion site: oral Blade type: David Video blade type: Clark Blade size: 3 Cormack-Lehane (video): grade I - full view of glottis Cuff volume: 5 mL Cuff inflated with: air ETT to teeth: 22 cm Placement verified by: auscultation Airway secured with: silk tape and prone view tape Number of attempts: 1 Result [facility] Idalia Mike MD PhD ANESTHESIA ORDERABLES Final Result * (ABNORMAL) POC Blood Gas and Chemistries, Venous - (08/31/2024 3:03 PM CDT) [facility] Signature pH, Cristofer POC 7.40 7.32 - 7.43 pCO2, cristofer POC 52(H) 40 - 50 mmHg [facility] pO2, cristofer POC <20(C) mmHg [facility] Na, POC 140 135 - 145 mmol/L [facility] K POC 4.2 3.3 - 4.9 mmol/L [facility] Comment: Interpretive Data Not all point of care methods assess for hemolysis. Confirm with instrument and retest K+ if not consistent with clinical signs and symptoms. Current Interpretive Data was last revised on 2023. Cl, POC 105 97 - 110 mmol/L [facility] Ionized Ca, POC 5.18(H) 4.50 - 5.10 mg/dL [facility] Glucose, POC 100 70 - 199 mg/dL [facility] Lactate POC 1.6 0.7 - 2.0 mmol/L [facility] O2 Sat, Cristofer POC (Kathrine) 20 % [facility] Base excess, POC 6.1 mmol/L [facility] Hct, POC 36.0(L) 36.3 - 45.3 % [facility] Total Hb, POC 12.1 11.9 - 15.5 g/dL [facility] Blood 08/31/2024 3:03 PM CDT 08/31/2024 3:03 PM CDT us Kenny Flores MD LAB POCT ORDERABLES - DEVICE Fi nal Result [facility] Department [place] [address] * eGFR (08/31/2024 3:00 PM CDT) eGFR >90 >=60 mL/min/1. 73 [...] interpretive data was last reviewed 2021. Blood 08/31/2024 3:00 PM CDT 08/31/2024 3:30 PM CDT Alejandro Daugherty NP LAB BLOOD ORDERABLES Final Result Performing Organization Address [facility]/ZIP Co de Phone Number [facility] [place] [address] * (ABNORMAL) CBC without differential (08/31/2024 3:00 PM CDT) WBC 9.75 3.80 - 9.90 K/cumm Hgb 11.5(L) 11.9 - 15.5 g/dL [facility] Hct 37.3 35.6 - 45.5 % [facility] Plt 310 150 - 400 K/cumm [facility] MPV 10.6 9.1 - 12.3 fL [facility] RBC 4.36 3.90 - 5.20 M/cumm [facility] MCV 85.6 81.3 - 96.4 fL [facility] MCH 26.4(L) 27.1 - 33.3 pg [facility] MCHC 30.8(L) 32.3 - 35.7 g/dL [facility] RDW CV 15.9(H) 11.1 - 14.9 % [facility] RDW SD 49.7(H) 35.7 - 48.1 fL [facility] NRBC abs 0.00 0.00 - 0.01 K/cumm [facility] Blood 08/31/2024 3:00 PM CDT 08/31/2024 3:23 PM CDT us Kenny Flores MD LAB BLOOD ORDERABLES Final Resu lt Performing Organization Address City/[facility]/ZIP Co de Phone Number [facility] Department [place] [address] * Phosphorus (08/31/2024 3:00 PM CDT) Pathologist [facility] Phosphorus, pl 3.7 2.3 - 4.5 mg/dL Blood 08/31/2024 3:00 PM CDT 08/31/2024 3:23 PM CDT Kenny Flores MD LAB BLOOD ORDERABLES Final Resu lt Performing Organization Address City/[facility]/ZIP Co de Phone Number [facility] Department [place] [address] * Magnesium (08/31/2024 3:00 PM CDT) [facility] Magnesium 1.7 1.4 - 2.5 mg/dL Blood 08/31/2024 3:00 PM CDT 08/31/2024 3:23 PM CDT Kenny Flores MD LAB BLOOD ORDERABLES Final Resu lt Performing Organization Address City/[facility] de Phone Number [facility] Department [place] [address] * (ABNORMAL) Comprehensive metabolic panel (08/31/2024 3:00 PM CDT) [facility] Sodium 139 135 - 145 mmol/L Potassium, pl 4.1 3.3 - 4.9 mmol/L [facility] Chloride 101 97 - 110 mmol/L [facility] CO2 30 22 - 32 mmol/L [facility] Anion gap 8 2 - 15 mmol/L [facility] BUN 9 6 - 25 mg/dL [facility] Creatinine 0.52(L) 0.60 - 1.10 mg/dL [facility] Glucose 92 70 - 199 mg/dL [facility] Comment: Interpretive Data Fasting glucose >/= 126 mg/dl is diagnostic for diabetes. Fasting is defined as no caloric intake for at least 8 hours. Fasting glucose between 100 mg/dl to 125 mg/dl is diagnostic of prediabetes. In a patient with classic symptoms of hyperglycemia or hyperglycemic crisis, a random glucose >/= 200 mg/dl is diagnostic for diabetes. In the absence of unequivocal hyperglycemia, results should be confirmed by repeat testing. The classification and Diagnosis of Diabetes Diabetes Care 2021; 46: S19-S40. Current interpretive data was last revised 2022. Calcium 10.4(H) 8.5 - 10.3 mg/dL [facility] [facility] Bilirubin, total 0.2 0.1 - 1.2 mg/dL [facility] Protein, pl 9.5(H) 6.5 - 8.5 g/dL [facility] Albumin 4.2 3.5 - 5.0 g/dL [facility] Alk phos 105 40 - 130 Units/L [facility] ALT 5(L) 7 - 45 Units/L [facility] AST 20 10 - 45 Units/L [facility] Blood 08/31/2024 3:00 PM CDT 08/31/2024 3:23 PM CDT us Kenny Flores MD LAB BLOOD ORDERABLES Final Resu lt [facility] Department [place] [address] * XR chest 1 view (Portable) (08/31/2024 2:19 PM CDT) Anatomical Region Laterality Modality Body, Chest N/A Computed Radiogr aphy 08/31/2024 3:58 PM CDT Impressions 08/31/2024 4:14 PM CDT The current study is compared with the prior radiograph dated 11/03/2023. Partially imaged cervical fusion instrumentation. Left axillary clips. The left lung is mildly hypoinflated with basilar atelectasis. The right lung is clear. No pleural effusion or pneumothorax. Unchanged cardiomediastinal silhouette. Dictated by: Micky Montoya MD The radiology attending physician has personally reviewed this study, and had reviewed and/or edited this written report and agrees with it. Electronically signed by: Yosef Richmond M.D. Narrative 08/31/2024 4:14 PM CDT EXAMINATION: 1 view chest radiograph Procedure Note Yosef Richmond MD - 08/31/2024 EXAMINATION: 1 view chest radiograph IMPRESSION: The current study is compared with the prior radiograph dated 11/03/2023. Partially imaged cervical fusion instrumentation. Left axillary clips. The left lung is mildly hypoinflated with basilar atelectasis. The right lung is clear. No pleural effusion or pneumothorax. Unchanged cardiomediastinal silhouette. Dictated by: Micky Montoya MD The radiology attending physician has personally reviewed this study, and had reviewed and/or edited this written report and agrees with it. Electronically signed by: Yosef Richmond M.D. Alejandro Matta [facility] XR PROCEDURES Fi nal Result * XR Scoliosis 6 or More Views (08/31/2024 10:40 AM CDT) Anatomical Region Laterality Modality Spine N/A Computed Radiogr aphy 08/31/2024 1:48 PM CDT Impressions 08/31/2024 3:38 PM CDT 1. Unchanged posterior instrumented fusion of L3-L5 as well as posterior instrumented fusion of occiput to T2. 2. Multilevel degenerative disc disease greatest and severe at L2-L3. Dictated by: Maykel Calixto M.D. The radiology attending physician has personally reviewed this study, and had reviewed and/or edited this written report and agrees with it. Electronically signed by: Jamie Wilson D.O. Narrative 08/31/2024 3:38 PM CDT EXAMINATION: XR SCOLIOSIS 6 OR MORE VIEWS HISTORY: Spinal fusion. FINDINGS: Standing frontal and lateral radiographs of the entire spine and lower extremities were obtained using the EOS system. An additional 3 radiographs of the cervical spine and 2 radiographs of the lumbar spine are submitted for interpretation. Comparison is made with 01/26/2024. Posterior instrumented fusion of L3-L5. Posterior instrumented fusion of occiput to T2. The instrumentation appears intact. No periprosthetic osteolysis or fracture. No significant scoliosis. There is leftward coronal imbalance. No significant pelvic obliquity. Severe anterior sagittal imbalance. Exaggerated kyphosis of the thoracic spine. Straightening of the normal lumbar lordosis. No annular excursion with flexion or extension. The prevertebral soft tissues are normal. No significant translation of the lumbar spine or angular excursion with flexion or extension. Atherosclerosis of the abdominal aorta. Multilevel degenerative disc disease greatest and severe at L2-L3. Procedure Note Jamie Wilson, DO - 08/31/2024 EXAMINATION: XR SCOLIOSIS 6 OR MORE VIEWS HISTORY: Spinal fusion. FINDINGS: Standing frontal and lateral radiographs of the entire spine and lower extremities were obtained using the EOS system. An additional 3 radiographs of the cervical spine and 2 radiographs of the lumbar spine are submitted for interpretation. Comparison is made with 01/26/2024. Posterior instrumented fusion of L3-L5. Posterior instrumented fusion of occiput to T2. The instrumentation appears intact. No periprosthetic osteolysis or fracture. No significant scoliosis. There is leftward coronal imbalance. No significant pelvic obliquity. Severe anterior sagittal imbalance. Exaggerated kyphosis of the thoracic spine. Straightening of the normal lumbar lordosis. No annular excursion with flexion or extension. The prevertebral soft tissues are normal. No significant translation of the lumbar spine or angular excursion with flexion or extension. Atherosclerosis of the abdominal aorta. Multilevel degenerative disc disease greatest and severe at L2-L3. IMPRESSION: 1. Unchanged posterior instrumented fusion of L3-L5 as well as posterior instrumented fusion of occiput to T2. 2. Multilevel degenerative disc disease greatest and severe at L2-L3. Dictated by: Maykel Calixto M.D. The radiology attending physician has personally reviewed this study, and had reviewed and/or edited this written report and agrees with it. Electronically signed by: Jamie Wilson D.O. us Remy Raghavendra [facility] IMG XR PROCEDURES Final R esult * (ABNORMAL) POCT hemoglobin A1c (11/01/2023 4:36 PM CDT) Hgb A1C, POC 6.1(H) 4.0 - 5.6 % Est Average Gluc POC 128 mg/dL [facility] Comment: The ADA recommends reporting an estimated Average Glucose (eAG) with all Hemoglobin A1c results using the equation derived from a study of 507 normal and diabetic adults. Minority populations were underrepresented and children were not included. (Diabetes Care 31:4001-6236, 2008). The eAG is not equivalent to a fasting glucose. Blood 11/01/2023 4:36 PM CDT 11/01/2023 4:36 PM CDT us Kenny Flores MD POINT OF CARE TEST ORDERABLES F inal Result [facility] Department [place] [address] * DEXA Axial Skeleton Bone Density Multi Site (09/07/2023 9:16 AM CDT) Anatomical Region Laterality Modality Body N/A Radiographic Kika ging Narrative 09/08/2023 9:57 AM CDT Patient Name: Es Wolff Date of : 1950 Date of scan: 09/07/2023 Bone mineral density was performed on a [employer] Discovery Densitometer. Based on machine cross-calibration [...] by the International Society of Clinical Densitometry. [id number] Remy [facility] DXA PROCEDURES Final Result * Hepatitis panel, acute (07/10/2019 2:18 PM OPERATIONS INTERN) Hep A IgM Nonreactive Nonreactive [facility] Comment: Interpretive Data If test is reported as GRAYZONE, new sample should be drawn in two weeks for testing. Current interpretive data was last revised on 2016. Hep B core IgM Nonreactive Nonreactive [facility] Comment: Interpretive Data If test is reported as GRAYZONE, new sample should be drawn for testing. Current interpretive data was last revised on 2016. Hep C Ab Nonreactive Nonreactive [facility] Comment: Interpretive Data Positive results should be confirmed by a molecular method. If positive, a second separately collected sample should be submitted for Hepatitis C Virus (HCV) RNA Detection and Quantitation by Real-Time Reverse Financial Engineer-PCR (RT-PCR). Current interpretive data was last revised on 2016. HepBsAg Nonreactive Nonreactive [facility] Blood specimen (specimen) 07/10/2019 2:18 PM OPERATIONS INTERN 07/10/2019 5:19 PM OPERATIONS INTERN us Yassine Platt MD LAB MICROBIOLOGY - GENER AL ORDERABLES Final Result [facility] Department [place] [address] from Last 3 Months or Most Recently Relevant to Health Maintenance Insurance [facility] [place] [address] [place] [phone] [place] [address] [place] [address] Advance Directives For more information, please contact: [phone] Documents on File Type Date Recorded Patient Live Truck Operator Expl anation ADVANCE DIRECTIVE 11/16/2023 10:49 PM POWER OF SIGNAL CIRCUIT DESIGNER-MEDICAL ADVANCE DIRECTIVE 11/07/2023 11:02 AM LEA R OF SIGNAL CIRCUIT DESIGNER-MEDICAL ADVANCE DIRECTIVE 11/04/2023 2:20 PM Power of Truck Car And Bus Cleaner-Medical Advance Directives and Living Will 11/04/2023 8:45 AM * Full Code (Latest Code Status on File) Date Activated Date Inactivated Comments 08/31/2024 12:51 PM 09/17/2024 9:22 PM * Full Code Date Activated Date Inactivated Comments 11/04/2023 10:15 PM 11/14/2023 9:14 PM * Full Code Date Activated Date Inactivated Comments 11/03/2023 3:49 PM 11/04/2023 10:15 PM Healthcare Agents on File Name Relationship Healthcare Agent Relationship Communication Gio Wolff [facility] Health Care Agent tri Wolff [facility] Health Care Agent Care Teams Material Distributor Relationship Specialty Start Date End Date Amanuel Buitrago MD [address], [place] [id number] PCP - General Family Medicine 08/31/24 João Stewart MD [address] [place] [id number] Neurosurgery 02/28/23 Elsa Higgins MD [address] [place] [address] Referring Physician Internal Medicine 09/13/24 Stuart Donahue MD [address] [facility] [address] DIV IM [place] [address] Medical Oncologist/Hematologis t Hematology and Oncology 09/13/24
--- OUTSIDE RECORDS SUMMARY | 2024-10-10 09:51 | XMS_ITS | Data Portability ---
Author Organization [facility], [facility] Address [address] [place] [address] Care Team Providers Care Superintendent [employer] Name Role Phone REG VELOZ Primary Care Provider Unavailabl e Assessment No assessment recorded. Plan of Treatment Reminders Order Date Submit Date Provider Last Modified By Organization Details Last Modified Time Details Appointments None record ed. Lab None record ed. Referral None record ed. Procedures None record ed. Surgeries None record ed. Imaging None record ed. Medication Orders None record ed. Patient TargetsNo targets recorded. Patient InstructionsNo instructions recorded. Reason for Referral None Reported. Results Created Date Observation Date Name Description Value Unit Range Abnormal Flag Note LastModifiedBy Organization Detail LastModifiedTime 08/16/19 18 08/05/2017 , veronica coley id arter y No observ ation record ed. [email or web address] [facility] [address], [address], 08/15/2017 11:40:47 08/25/19 18 08/05/2017 , veronica coley id arter y No observ ation record ed. BARCODE [facility] [address], [address], 08/24/2017 09:56:43 08/16/1908/15/2018 , veronica coley id arter y No observ ation record ed. [email or web address] [facility] [address], [address], 08/15/2018 12:46:45 08/18/19 19 08/15/2018 US, mitulle x, carot id arter y No observ ation record ed. [email or web address] [facility] [address], [address], 08/25/2018 11:32:45 08/18/19 19 08/15/2018 US, duple x, carot id arter y No observ ation record ed. [email or web address] [facility] [address], [address], 08/25/2018 11:32:07 Result Notes None recorded. Problems Name Problem SNOMED Code Status Onset Date Resolution Date Notes Provider Name and Address Organization Details Recorded Time Hyperlipidemia 00327435 Active 2017 Vania vyas, [facility] 8 10:07:11 Parkinson's disease 53559864 Active 2017 Vania vyas, [facility] 8 10:07:24 Fibromyalgia 586974034 Active 2017 Vania vyas, [facility] 8 10:07:44 Carotid artery stenosis 65200406 Active 2017 Vania vyas, [facility] 8 11:06:17 Numbness of hand 777253261 Active 2018 Dawn Mayfield LPN null, [facility] 9 16:40:23 Notes:breast ca Problem Notes None recorded. Procedures Surgical History Date Name Laterality Status Provider Name and Address Organization Details Recorded Time Back Surgeries completed Vania Krishnan CMA [facility] 07/15/2017 10:09:38 Imaging Results None recorded. Procedure Notes None recorded. Medical Equipment None Reported. Allergies No known drug allergies Medications Name Sig Start Date Stop Date Status Note LastModified by Organization Details LastModified Time methocarbam ol 500 mg tablet active Not Available Not Available Not Available desonide 0.05 % topical cream active Not Available Not Available Not Available ranitidine 300 mg tablet active Not Available Not Available Not Available carbidopa ER 50 mg-levodopa 200 mg tablet,exte nded release for bedtime active Not Available Not Available No t Available simvastatin 10 mg tablet active Not Available Not Available Not Available metronidazo le 500 mg tablet 08/28 completed Not Available Not Available Not Available simvastatin 20 mg tablet active Not Available Not Available Not Available olopatadine 0.1 % eye drops active Not Available Not Available Not Available lansoprazol e 30 mg capsule,del ayed release active Not Available Not Available Not Available gabapentin 300 mg capsule active Not Available Not Available Not Available mupirocin 2 % topical ointment active Not Available Not Available Not Available levofloxaci n 750 mg tablet 08/28 completed Not Available Not Available Not Available Vitamin D2 1,250 mcg (50,000 unit) capsule active Not Available Not Available Not Available carbidopa 25 mg-levodopa 100 mg tablet for daytime with each meal active Not Available Not Available No t Available fluticasone propionate 50 mcg/actuati on nasal spray,suspe nsion active Not Available Not Available Not Available dicyclomine 10 mg capsule active Not Available Not Available Not Available duloxetine 30 mg capsule,del ayed release active Not Available Not Available Not Available lactulose 10 gram/15 mL oral solution TK 15 ML PO QD PRN 07/15 completed Not Available Not Available Not Available Boostrix Tdap 2.5 Lf unit-8 mcg-5 Lf/0.5 mL intramuscul ar syringe ADM 0.5ML IM UTD 07/15 completed Not Available Not Available Not Available Vitamin C active Not Available Not Kell ilable Not Available Natural Co-Q10 active Not Available Not Available Not Available Amitiza 24 mcg capsule 07/15 completed Not Available Not Available Not Available Suprep Bowel Prep Kit 17.5 gram-3.13 gram-1.6 gram oral solution 08/28 completed Not Available Not Available Not Available Linzess 145 mcg capsule active Not Available Not Available Not Available Trulance 3 mg tablet active Not Available Not Available No t Available Fluzone High-Dose (PF) 180 mcg/0.5 mL intramuscul ar syringe ADM 0.5ML IM UTD 07/15 completed Not Available Not Available Not Available Inbrija 42 mg capsule with inhalation device active Not Available Not Available Not Available Fluzone High-Dose (PF) 180 mcg/0.5 mL intramuscul ar syringe PHARMACIS T ADMINISTE RED IMMUNIZAT ION ADMINISTE RED AT TIME OF DISPENSIN G active Not Available Not Available No t Available Vitals Date Recorded Body weight Body mass index (BMI) Body height Oxygen saturation Oxygen saturation in Arterial blood by Pulse oximetry Heart rate Systolic blood pressure Diastolic blood pressure Provider Name and Address Organization Details Last Updated DateTime 8 17898.3 g 22.6 kg/m2 170.18 cm 98 % 98 % 65 /min 118 mm[Hg] 60 mm[Hg] Vania Krishnan CMA [facility] 8 10:12:58 Date Recorded Body weight Body mass index (BMI) Body height Heart rate Oxygen saturation Oxygen saturation in Arterial blood by Pulse oximetry Systolic blood pressure Diastolic blood pressure Provider Name and Address Organization Details Last Updated DateTime 9 91865.5 7 g 20.3 kg/m2 170.18 cm 67 /min 92 % 92 % 118 mm[Hg] 80 mm[Hg] Dawn Mayfield LPN [facility] 9 11:12:16 Social History Question Answer Notes LastModified by Organizat ion Details LastModified Time Tobacco Smoking Status Never Smoker Vania Krishnan CMA null, [facility] 07/15/2017 10:07:55 What Is Your Level Of Caffeine Consumption? Occasional [email or web address] Information not available 07/15/2017 What Type Of Diet Are You Following? VEGETARIAN [email or web address] Information not available 07/15/2017 What Was The Date Of Your Most Recent Tobacco Screening? 08/28/2018 Information n ot available 12/08/2018 General Stress Level Medium [email or web address] Information not available 07/15/2017 Sex: Unknown Functional Status Question Answer Note LastModified by Organization D etails LastModified Time What is your level of alcohol consumption? None [email or web address] Information not available 07/15/2017 Mental Status None recorded. Family History Nothing Reported. Medical History Condition Response CANCER: SPECIFY Y Hyperlipidemia Y HAVE YOU BEEN HOSPITALIZED OR SEEN IN [facility] IN THE PAST YEAR ? N Gynecological HistoryNo gynecological history recorded. Obstetrics History GPAL:G 0 P 0 0 0 0 Immunizations Vaccine Type Date Status Note Provider Nam e and Address Organization Details Recorded Time influenza, unspecified formulation 7 completed Vania vyas, [facility] 07/15/2017 10:06:44 Influenza, split virus, quadrivalent, preservative 8 completed AIDA Esteban, [facility] 08/28/2018 11:08:53 Past Encounters Encounter ID Performer Location Encounter Start Date Encounter Closed Date Diagnosis/Indication Diagnosis SNOMED-CT Code Diagnosis ICD10 Code Diagnosis Note [id number] [facility] [place] [address] 11/26/2016 11:59:06 11/26/2016 13:34:23 [id number] [facility] [place] [address] 12/01/2016 11:08:32 12/01/2016 12:26:13 [id number] [facility] [place] [address] 01/03/2017 15:51:03 01/04/2017 09:02:57 [id number] [facility] [place] [address] 01/21/2017 15:34:20 01/21/2017 16:27:25 [id number] [facility] [place] [address] 04/15/2017 10:12:34 04/15/2017 11:40:49 [id number] Cheri Noe [facility] [place] [address] 06/10/2017 15:02:01 06/10/2017 17:10:42 [id number] Susan Becerra MD [facility] [address] [place] [address] 07/01/2017 10:48:38 07/01/2017 11:42:35 [id number] Bob Swann MD [facility] [address] [facility],[address] [place] [address] 07/15/2017 09:52:14 07/15/2017 12:08:35 Carotid artery stenosis 89635207 I65.29 67 year old female who wishes to establish care in our practice for her vascular problems, presents with trivial asymptomat ic carotid stenosis. She is well adjusted for her risk factors, she tries to exercise periodical ly, eats well high in fruits and vegetables , she has minimized her saturate fat intake. Continue simvastati n, aspirin, and current dietary habits. Recheck carotid duplex, if stable then may switch to a duplex every 3 years. [id number] MD MALORIE Oshea [facility] [address] [place] [address] 09/28/2017 10:15:11 09/28/2017 11:11:26 [id number] MD MALORIE Mccann [facility] [address] [place] [address] 12/28/2017 09:56:38 12/28/2017 11:02:51 [id number] MD MALORIE Mccann [facility] [address] [place] [address] 01/25/2018 10:19:24 01/25/2018 11:26:12 [id number] MD MALORIE Mccann [facility] [address] [place] [address] 03/13/2018 14:55:33 03/13/2018 15:30:00 [id number] MD MALORIE Boudreaux [facility] [address] [place] [address] 05/19/2018 10:58:19 05/19/2018 11:44:00 [id number] MD MALROIE Boudreaux [facility] [place] [address] 07/05/2018 11:21:56 07/05/2018 13:41:00 [id number] Susan Becerra MD [facility] [address] [address] 07/10/2018 10:34:56 07/10/2018 12:34:07 [id number] Bob Swann MD [facility]GERY [address] [place] [address],[address] [place] [address] 08/28/2018 10:00:29 08/28/2018 12:12:06 Carotid artery stenosis 28313474 I65.29 67 year old female who wishes to establish care in our practice for her vascular problems, presents with trivial asymptomat ic carotid stenosis. Asymptomat ic. For now she is medically optimized, no further vascular testing required. For now will leave an open appointmen t, follow up with primary care physician. Chronic back pain 889956 002 G89.29 Referral to spinal surgeonChr onic pain.Bilat eral hand numbness, likely cervical radiculopa thy. [id number] Humza Wilde MD [facility] [address] [place] [address] [address] [place] [address] 09/20/2018 11:48:33 09/20/2018 13:08:37 [id number] Humza Wilde MD [facility] [address] [place] [address] [address] [place] [address] 11/10/2018 10:15:47 11/10/2018 12:16:08 [id number] Humza Wilde MD [facility] [address] [place] [address] [address] [place] [address] 12/06/2018 10:36:06 12/06/2018 11:05:28 [id number] Humza Wilde MD MMI[facility] [address] [place] [address], [address] [place] [address] 01/17/2019 09:29:15 01/17/2019 10:48:54 [id number] Kathy Jeong MD [facility] [address] [facility] [address] [place] [address] 07/23/2019 11:55:39 07/23/2019 13:03:09 Health Concerns Section Related Observation LastModified by Organization Detai ls LastModified Time None Recorded Concern Status LastModified by Organization Details LastModified Time None Recorded Advance Directives Directive None Recorded Payers Insurance Date Sequence Insurance Name Policy Number Policy Stanford Covered Member ID Stanford Member ID Guarantor Name 12/15/2018 2 [facility] (MEDICARE SUPPLEMENT) [id number] Speedyandry Wolff [id number] Tripp New 08/14/2019 1 [facility] (MEDICARE REPLACEMENT/A DVANTAGE - PPO) [id number] Duyenolivaandry Wolff [id number] Duyenolivaandry Wolff 12/15/2018 2 [facility] Speedyandry Wolff [id number] Tripp Wolff 12/15/2018 1 [facility] [id number] Tripp Wolff [id number] Duyenolivaandry Wolff 12/15/2018 3 [place] [facility] Es Mae New [id number] Duyenolivaandry Wolff 12/15/2018 1 [place] Tripp New [id number] Duyenolivaandry Wolff Notes Date Note Type Note Provider Name and Address Organization Details Recorded Time 07/15/2017 text/html Tripp is here for initial evaluation kindly referred by Dr Dupont. This is a 67 year old female patient with a strong family history of cardiovascular disease and early mortality due to CV events. She has a history of TIA for which she has no recollection nor does know what type of deficit she developed then. She denies claudication but suffers from severe spinal disease and walks using assistance with a walker. She denies being a smoker and takes care of her diet very strictly, avoids red meats and consumes a plenty of fruits and vegetables.She consumes medical marihuana periodically. Her past medical history includes chronic depression, spinal stenosis, Parkinson's disease, bilateral breat cancer SP bilateral mastectomies, tonsillectomy, smoldering myeloma, fibromyalgia, varicosities in the legs, constipation. Bob Swann MD [address] [facility] [address], [place], [address], [facility] 07/15/2017 11:12:50 08/28/2018 text/html Mrs Wolff is b ack in the office to review the results of her carotid duplex. She has not experienced any symptoms related to carotid stenosis. In fact her stenosis is trivial. She is controlled medically. She complains of back pain, bilateral hand numbness Bob Swann MD [address], [address], [facility] 08/28/2018 22:35:18 OBGyn Episode No OBEpisode recorded.
--- OUTSIDE RECORDS SUMMARY | 2024-10-10 09:51 | XMS_ITS | Data Portability ---
Author Organization [facility], [facility] Address [address] [facility] [place], [facility] [place] [address] Care Team Providers Care Technical Solutions Engineer Name Role Phone REG CHÁVEZ Primary Care Provider Unavailabl e Assessment Encounter Date Assessment Date Assessment LastModified by Organization Details LastModified Time 07/05/2018 07/05/2018 Pt is going to call Dr. Ferrara and try to see him for internal med. [email or web address] Not available 07/05/2018 13:52:38 07/10/2018 07/10/2018 tolerated ketorolac well it is recommended if pain persist she will need to follow up with David Whitmore for CT scan of her neck [email or web address] Not available 07/10/2018 17:31:04 Plan of Treatment Reminders Order Date Submit Date Provider Last Modified By Organization Details Last Modified Time Details Appointments None recorded. Lab None recorded. Referral physical therapist referral 2018 019 KENYA [facility], [address] [place], [address], 9 13:19:27 chiropract ic and massage referral 2018 019 [email or web address] Not available 9 07:52:35 internal medicine referral 2018 019 [email or web address] Katharina Bullock MD, [address] [place], [address], 9 09:29:23 Procedures None recorded. Surgeries None recorded. Imaging XR, cervical spine 2018 019 KENYA In-Office Order, Internal Use Only DO Not Attach Compendium DO Not Attach Compendium, Do Not Delete/merge, [id number] 9 19:09:39 Medication Orders carbamide peroxide 6.5 % ear drops 2018 019 INTERFACE [facility], [address] [place], [address], 9 11:34:47 ketorolac 15 mg/mL injection solution 2018 019 [email or web address] Not available 17:28:30 Flector 1.3 % transderma l 12 hour patch 2018 019 INTERFACE [facility], [address] [place], [address], 9 11:29:44 Linzess 72 mcg capsule 2018 019 [email or web address] [facility], [address] [place] [address], [address], [place], [place], [id number], 9 11:53:09 Flector 1.3 % transderma l 12 hour patch 2018 019 [email or web address] [facility], [address], [address], [place], [place], [id number], 9 11:53:09 Robaxin 500 mg tablet 2018 019 [email or web address] [facility], [address] [place], [address], 9 11:13:16 fluticason e propionate 50 mcg/actuat ion nasal spray,susp ension 2017 018 [email or web address] [facility], [address] [place] [address], [address], [place], [place], [id number], 9 11:12:45 Patient TargetsNo targets recorded. Patient Instructions Encounter Date Encounter Id Patient Instructions Last Modified By Organization Details Last Modified Time 05/19/2018 [id number] reviewed SB [email or web address] Not available 13:04:42 07/10/2018 [id number] patient instructed if symptoms persist she should follow up with her PCP for additional imaging [email or web address] Not available 07/10/2018 17:30:55 Reason for Referral Internal Medicine Referral f or Parkinson's disease transition of care Referring Physician: Reg Chávez [facility], Encounter Date: 05/19/2018 Chiropractic And Massage Ref erral for Chronic neck pain Referring Physician: David Whitmore [facility], Encounter Date: 07/05/2018 Physical Therapist Referral for Recurrent falls Referring Physician: David Whitmore [facility], Encounter Date: 07/05/2018 Results Created Date Observation Date Name Description Value Unit Range Abnormal Flag Note LastModifiedBy Organization Detail LastModifiedTime Result Notes None recorded. 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 Procedures Surgical History Date Name Laterality Status Provider Name and Address Organization Details Recorded Time 017 Medicare Wellness CPT Code, Catherine completed Lizbeth German [facility] 01/03/2017 15:54:26 [facility] 12:26:59 RUBY RAILS DEVELOPER Surgery completed [facility] 11/26/2016 12:27:50 Imaging Results None recorded. Procedure Notes None recorded. Medical Equipment None Reported. Allergies No known drug allergies Medications Name Sig Start Date Stop Date Status Note LastModified by Organization Details LastModified Time ketorolac 15 mg/mL injection solution Inject 30 mg every day by intramusc ular route. 2018 active Not Available Not Available Not Avai lable cyclobenzap rine 10 mg tablet Take 1 tablet 3 times a day by oral route as needed for 30 days. 06/10 completed Not Available Not Available Not Available methocarbam ol 500 mg tablet TAKE ONE TABLET BY MOUTH TWO TIMES A DAY 07/10 completed Not Available Not Available Not Available desonide 0.05 % topical cream APPLY SPARINGLY AND RUB GENTLY INTO THE AFFECTED AREA(S) BY TOPICAL ROUTE 2 TIMES PER DAY active Not Available Not Available No t Available fluticasone propionate 50 mcg/actuati on blister powder for inhalation Inhale 2 puff(s) twice a day by inhalatio n route. active Not Available Not Available No t Available Colace 100 mg capsule Take 1 capsule every day by oral route for 30 days. 07/01 completed Not Available Not Available Not Available ranitidine 300 mg tablet active Not Available Not Available Not Available carbidopa ER 50 mg-levodopa 200 mg tablet,exte nded release QHS active Not Available Not Available Not Available simvastatin 10 mg tablet Take 1 tablet every day by oral route. active Not Available Not Available No t Available metronidazo le 500 mg tablet 12/28 completed Not Available Not Available Not Available aspirin 81 mg tablet,anusha yed release Take 1 tablet every day by oral route. active Not Available Not Available No t Available simvastatin 20 mg tablet active Not Available Not Available Not Available olopatadine 0.1 % eye drops INSTILL 1 DROP INTO AFFECTED EYE(S) BY OPHTHALMI C ROUTE 2 TIMES PER DAY AT AN INTERVAL OF 6 TO 8 HOURS 04/15 completed Not Available Not Available Not Available lansoprazol e 30 mg capsule,del ayed release active Not Available Not Available Not Available carbamide peroxide 6.5 % ear drops Instill 5 drops twice a day by otic route for 5 days. 2018 active Not Available Not Available Not Avai lable mupirocin calcium 2 % topical cream APPLY A SMALL AMOUNT TO THE AFFECTED AREA BY TOPICAL ROUTE 3 TIMES PER DAY FOR 10 DAYS 06/10 completed Not Available Not Available Not Available gabapentin 300 mg capsule TAKE 2 TABLETS BY MOUTH ONCE DAILY active Not Available Not Available No t Available mupirocin 2 % topical ointment active Not Available Not Available Not Available gabapentin 100 mg capsule Take 1 capsule every day by oral route at bedtime. 07/01 completed Not Available Not Available Not Available levofloxaci n 750 mg tablet 12/28 completed Not Available Not Available Not Available Vitamin D2 1,250 mcg (50,000 unit) capsule 06/10 completed Not Available Not Available Not Available carbidopa 25 mg-levodopa 100 mg tablet active Not Available Not Available Not Available fluticasone propionate 50 mcg/actuati on nasal spray,suspe nsion Sigel 1 spray every day by intranasa l route. 2018 active Not Available Not Available Not Avai lable cholecalcif eufemia (vitamin D3) 125 mcg (5,000 unit) capsule Take 1 capsule every other day by oral route. active Not Available Not Available No t Available dicyclomine 10 mg capsule Take 10 mg 3 times a day by oral route. 2018 active Not Available Not Available Not Avai lable Co Q-10 100 mg capsule Take 1 capsule every day by oral route. active Not Available Not Available No t Available duloxetine 30 mg capsule,del ayed release active Not Available Not Available Not Available duloxetine 60 mg capsule,del ayed release Take 1 capsule every day by oral route. active Not Available Not Available No t Available carbidopa 25 mg-levodopa 100 mg disintegrat ing tablet Place 2 tablets 3 times a day by transling ual route. active Not Available Not Available No t Available lactulose 10 gram/15 mL oral solution TK 15 ML PO QD PRN 04/15 completed Not Available Not Available Not Available Boostrix Tdap 2.5 Lf unit-8 mcg-5 Lf/0.5 mL intramuscul ar syringe ADM 0.5ML IM UTD 04/15 completed Not Available Not Available Not Available Amitiza 24 mcg capsule 04/15 completed Not Available Not Available Not Available Flector 1.3 % transdermal 12 hour patch Apply 1 patch twice a day by transderm al route. 2018 active Not Available Not Available Not Avai lable Probiotic 1 tablet daily active Not Available Not Available No t Available Suprep Bowel Prep Kit 17.5 gram-3.13 gram-1.6 gram oral solution 09/28 completed Not Available Not Available Not Available Linzess 145 mcg capsule TAKE1 capsule by mouth every day 2018 active Not Available Not Available Not Avai lable Linzess 72 mcg capsule Take 1 capsule every day by oral route. 2018 active Not Available Not Available Not Avai lable Trulance 3 mg tablet Take one tablet daily 07/05 completed Not Available Not Available Not Available Fluzone High-Dose (PF) 180 mcg/0.5 mL intramuscul ar syringe ADM 0.5ML IM UTD 04/15 completed Not Available Not Available Not Available Inbrija 42 mg capsule with inhalation device active Not Available Not Available Not Available Fluzone High-Dose (PF) 180 mcg/0.5 mL intramuscul ar syringe PHARMACIS T ADMINISTE RED IMMUNIZAT ION ADMINISTE RED AT TIME OF DISPENSIN G active Not Available Not Available No t Available Vitals Date Recorded Body height Body mass index (BMI) Body weight Body temperature Heart rate Respiratory rate Systolic And Diastolic Provider Name and Address Organization Details Last Updated DateTime 9 170.18 cm 21.3 kg/m2 57045.5 6 g 97.7 [degF] 72 /min 20 /min 110/68 mm[Hg] Joanna Arnett [facility] 9 11:24:31 Date Recorded Body height Body mass index (BMI) Body weight Body temperature Heart rate Respiratory rate Systolic And Diastolic Provider Name and Address Organization Details Last Updated DateTime 9 170.18 cm 21 kg/m2 58460.3 8 g 98.8 [degF] 68 /min 18 /min 117/73 mm[Hg] Joanna Arnett [facility] 9 11:31:27 Date Recorded Body height Body mass index (BMI) Body weight Body temperature Heart rate Respiratory rate Oxygen saturation Oxygen saturation in Arterial blood by Pulse oximetry Systolic And Diastolic Provider Name and Address Organization Details Last Updated DateTime 9 170.18 cm 21.3 kg/m2 54449.5 6 g 97.1 [degF] 77 /min 16 /min 100 % 100 % 114/65 mm[Hg] Robert Singer LPN [facility] 9 11:10:54 Date Recorded Body height Body mass index (BMI) Body weight Body temperature Heart rate Respiratory rate Systolic And Diastolic Provider Name and Address Organization Details Last Updated DateTime 8 170.18 cm 20.5 kg/m2 72761.1 6 g 97.7 [degF] 68 /min 18 /min 100/62 mm[Hg] Joanna Arnett [facility] 8 10:37:12 Social History Question Answer Notes LastModified by Organizat ion Details LastModified Time Tobacco Smoking Status Never Smoker Lizbeth German [facility] 11/26/2016 12:25:50 What Is Your Level Of Caffeine Consumption? Occasional Information not available 11/26/2016 How Much Tobacco Do You Chew? None Information not available 11/26/2016 Which Illicit Or Recreational Drugs Have You Used? Marijuana-med ical [email or web address] Information not available 11/26/2016 Hard Of Hearing Or Deaf In One Or Both Ears? Yes R Ear Slight Loss Information not available 11/26/2016 What Was The Date Of Your Most Recent Tobacco Screening? 07/10/2018 Information not available 12/08/2018 Sex: Unknown Functional Status Question Answer Note LastModified by Organization D etails LastModified Time What is your level of alcohol consumption? None Information not available 11/26/2016 Mental Status None recorded. Family History Relationship Description Onset Age of this Age Resolved Age Notes LastModified by Organization Details LastModified Time Mother Pulmonary emphysema arthri tis, stroke , myocar dial infarc tion dinora dowell Not available 11/26/2016 12:24:56 Father Myocardial infarction choles terol dinora dowell Not available 11/26/2016 12:25:29 Medical History Condition Response Other #2 EYE PROBLEMS Y ARTHRITIS Y DEPRESSION Y BREAST PROBLEMS Y Other #1 Y BACK / NECK PROBLEMS Y HAVE YOU BEEN HOSPITALIZED OR SEEN IN [facility] IN THE PAST YEAR ? N Gynecological History Statement/Question Response Date of Last Pap 2016 Obstetrics History GPAL:G 0 P 0 0 0 0 Immunizations Vaccine Type Date Status Note Provider Nam e and Address Organization Details Recorded Time Influenza, split virus, quadrivalent, preservative 03/16/20 16 completed Lizbeth German [facility] lilliam, [facility] 11/26/2016 12:23:18 pneumococcal, unspecified formulation 03/16/20 16 completed Lizbeth German [facility] lilliam, [facility] 11/26/2016 12:23:43 Influenza, high-dose, trivalent, PF 03/13/20 18 completed Not Available [facility] 06/02/2019 02:40:46 Past Encounters Encounter ID Performer Location Encounter Start Date Encounter Closed Date Diagnosis/Indication Diagnosis SNOMED-CT Code Diagnosis ICD10 Code Diagnosis Note [id number] Melinda Dupont MD [facility] [address] [place] [address] 11/26/2016 11:59:06 11/26/2016 13:34:23 Constipation 07385591 K59.00 Will try lactulose. Cont. linzess Primary fi bromyalgia syndrome 37190904 M79.7 Offered trigger point injection. Vitamin D deficiency 347 41326 E55.9 Will checklevel s Paresthesia 78652016 R20 .2 Smoldering myeloma 94529 7002 C90.01 Monitor M spine, Ca and renal functions. F/u with hematologi st Right uppe r quadrant pain 375184278 R10.11 Will get US to r/o GB/liver pathology Pain of ri ght hip joint 9380403649 70092 M25.551 Likely osteoarthr itis. [id number] Melinda Dupont MD [facility] [place] [id number] 12/01/2016 11:08:32 12/01/2016 12:26:13 Primary fibromyalgia syndrome 11747552 M79.7 [id number] Melinda Dupont MD [facility] [place] [id number] 01/03/2017 15:51:03 01/04/2017 09:02:57 Adult health examination 454723941 Z00.00 Active or passive immunization 073841391 Z23 Prediabetes 872531222 R7 3.03 [id number] Melinda Dupont MD [facility] [place] [id number] 01/21/2017 15:34:20 01/21/2017 16:27:25 Gynecologic examination 00465307 Z01.411 She could not tolerate the insertion of forceps because of increased sensitivit y of vaginal mucosa. I did a pelvic exam which did not show a show any evidence of masses. There was some tenderness on touching the cervix. No abnormal discharge noticed. The patient had Pap smear in last 3 years that was normal. Patient has never had any abnormal Pap smears in the past. No family history of cervical cancer. She does not need Pap smear in the future. Status post bilateral mastectomy . She follows up with her oncologist for screening and surveillan ce. [id number] Melinda Dupont MD [facility] [place] [id number] 04/15/2017 10:12:34 04/15/2017 11:40:49 Slow transit constipation 02725692 K59.01 add colace to lizess Contact dermatitis 35347 004 L25.9 has been on desonide for a long time. Uses it intermitte ntly Peripheral neuropathic pain 232527689 M79.2 Increase the bedtime dose of gabapentin to 600 mg Nocturnal muscle spasm 14575590 R25.2 Carotid ar nav stenosis 42260123 I65.29 HAs been f/u with vascular sx in another city. Wants to get establishe d with our vasc sx at [facility]. [id number] Cehri Noe MD [facility] [address] [place] [address] 06/10/2017 15:02:01 06/10/2017 17:10:42 Peripheral nerve disease 968815943 G64 Will add on 100 mg of gabapentin at night to help with nighttime symptoms. Discussed with patient side effects of medication and increasing Gabapentin dose. After discussing her Gabapentin she stated that was all she needed and was ready to leave. Recommende d that patient follow up with internal Medicine. Patient didn't want to be referred to Internal Medicine at this time. Patient states she is comfortabl e continuing to follow here in the clinic. Upper resp iratory infection 55084642 J06.9 Patient was instructed to drink plenty of fluids if condition worsens to follow up in the clinic. Chronic constipation 236 828809 K59.09 Patient states she takes colace for this. She didn't want anything else for constipati on at this time. Parkinson's disease 4904 9000 G20 Continue following neuro. [id number] MD MALORIE Oshea [facility] [address] [place] [address] 07/01/2017 10:48:38 07/01/2017 11:42:35 Fibromyalgia 022552821 M79.7 Chronic pain 46812852 G8 9.29 Will send to pain management . Could consider topamax off label if pain management unable to help. Abdominal pain 31289128 R10.[address] for further evaluation , patient would ilke to see GI specialist first. Will refer to Dr. Levi. [id number] Bob Swann MD [facility] [address] [facility],[address] [place] [address] 07/15/2017 09:52:14 07/15/2017 12:08:35 [id number] [facility] [address] [place] [id number] 09/28/2017 10:15:11 09/28/2017 11:11:26 Parkinson's disease 28362238 G20 Continue following neuro. Will get records from neurologis t. She declines a PT referral for weakness/g ait training at this time. Fibromyalgia 810343629 M 79.7 Discussed her stress and anxiety is likely exacerbati ng her symptoms. She would like to see a rheumatolo gist. Discussed she is already on cymbalta. Will refer to Dr. Spence. Chronic pain 21124365 G8 9.29 Pt declined apt with pain management when they called to set up apt. Per pain management , pt stated she had started medical marijuana and felt better and didn't need their services. Today pt states she has not yet started the marijuana but plans to soon. [id number] Zonia Reyes MD [facility] [address] [place] [address] 12/28/2017 09:56:38 12/28/2017 11:02:51 Parkinson's disease 78852520 G20 Continue following neuro. Pt no longer sees Dr. Hankins, but has f/u with neuro at [place] next month. Impaired f asting glycemia 938602257 R73.01 Dr. Hankins's note from one year ago mentions increased sugar. Will check an a1c to evaluate. Hyperlipidemia 36005744 E78.5 Pt is not fasting but will go ahead and check a lipid while she is here. Currently on simvastati n 10 mg. Fatigue 93001226 R53.83 Will add on tsh, b12, and vit d to evaluate further. Likely component of her parkinson' s and mood. [id number] Zonia Reyes MD [facility] [address] [place] [address] 01/25/2018 10:19:24 01/25/2018 11:26:12 Parkinson's disease 69435269 G20 Continue following neuro. Pt no longer sees Dr. Hankins, but has f/u with neuro/ parkinson' s specialist at [place] next month. Allergic rhinitis 370048 04 J30.9 Will refill. Tinnitus 68080422 H93.11 Exam was normal, pt had normal hearing test in the past year. Has seen ENT previously . Discussed there's not much to do for ringing. Blurring o f visual image 721179938 H53.8 Seeing optometry, has been referred to another specialist . Advised close follow up with specialist s. [id number] Zonia Reyes MD [facility] [address] [place] [address] 03/13/2018 14:55:33 03/13/2018 15:30:00 Administration of influenza vaccine 45806846 Z23 [id number] Monica Beckham MD [facility] [address] [place] [address] 05/19/2018 10:58:19 05/19/2018 11:44:00 Strain of neck muscle 731323834 S16.1XXA Will try some low dose robaxin and see if that helps. Advised heat as well. F/u with worsening symptoms. Parkinson's disease 1688 8730 G20 Discussed with patient that since I am leaving the practice she will need to find a new provider. Discussed with her complicate d health history, she may benefit from an IM specialist . Will refer. Patient agrees to plan of care. [id number] Monica Beckham MD [facility] [address] [place] [address] 07/05/2018 11:21:56 07/05/2018 13:41:00 Chronic neck pain 0391327249 107 M54.2 Will try a flector patch, and will also refer for massage therapy. Pt given samples for the flector patch. Pt to contact office if she would like a script sent in. Recurrent falls 03708299 2 R29.6 Will refer to PT for balance and gait training. Constipation 11078229 K5 9.00 [id number] Susan Becerra MD [facility] [address] [place] [address] 07/10/2018 10:34:56 07/10/2018 12:34:07 Chronic neck pain 6169874024 107 M54.2 discussed with the patient will send in the patch that she received samples of Neck pain 23869311 M54.2 will give ketorolac and get a xray to rule out any acute findings. Impacted alexandru 7882799 6 H61.21 discussed with the patient she should use the ear wax removal drops and follow up for us to irrigate her ears. [id number] Bob Swann MD [facility] [address] [place] [address],[address] [place] [address] 08/28/2018 10:00:29 08/28/2018 12:12:06 [id number] Humza Wilde MD [facility] [address] [place] [address] [address] [place] [address] 09/20/2018 11:48:33 09/20/2018 13:08:37 [id number] Humza Wilde MD [facility] [address] [place] [address] [address] [place] [address] 11/10/2018 10:15:47 11/10/2018 12:16:08 [id number] Humza Wilde MD [facility] [address] [place] [address], [facility] [address] [place] [address] 12/06/2018 10:36:06 12/06/2018 11:05:28 [id number] Humza Wilde MD [facility] [address] [place] [address] [address] [place] [address] 01/17/2019 09:29:15 01/17/2019 10:48:54 [id number] Kathy Jeong MD [facility] [address] [place] [address] [address] [place] [address] 07/23/2019 11:55:39 07/23/2019 13:03:09 Health Concerns Section Related Observation LastModified by Organization Detai ls LastModified Time None Recorded Concern Status LastModified by Organization Details LastModified Time None Recorded Advance Directives Directive None Recorded Payers Insurance Date Sequence Insurance Name Policy Number Policy Stanford Covered Member ID Stanford Member ID Guarantor Name 12/15/2018 2 [facility] (MEDICARE SUPPLEMENT) [id number] Tripp Wolff [id number] Tripp Wolff 08/14/2019 1 [facility] (MEDICARE REPLACEMENT/A DVANTAGE - PPO) [id number] Tripp Wolff [id number] Tripp Wolff 12/15/2018 2 [facility] Tripp Wolff [id number] Tripp Wolff 12/15/2018 1 [facility] [id number] Tripp Wolff [id number] Tripp Wolff 12/15/2018 1 [place] Tripp Wolff [id number] C[address] Tripp Wolff 12/15/2018 3 [place]: [facility] PUBLIC A[facility] Es Wolff [id number] Tripp Wolff Notes Date Note Type Note Provider Name a ar Address Organization Details Recorded Time 01/25/2018 text/html Pt presents for follow up. She saw Dr. Guy who did a EGD and colonoscopy. Was found to have gastritis/GERD. Was prescribed zantac and bentyl. Pt states her symptoms have improved with zantac. Feels much better in that aspect. Her neurologist for her parkinsons is Dr. Nicolasa Stein at [facility]. She follows up in February 2018. Feels her parkinson's is getting worse as far as her memory. She has been more stressed out lately due to family stressors. Seeing psych. She has had more blurry vision the past month. Saw optometry 3 weeks ago who said they will monitor. They referred her to a specialist as well. Pt complains of a soft buzz in her right ear for the past few months. Feels pressured. Denies ear pain or hearing loss. Needs placard filled out. Pt doesn't drive. REG CHÁVEZ PA-C [address] [place], [id number], [facility] 01/25/2018 12:34:09 05/19/2018 text/html Patient presents for complaints of neck muscle soreness on the left side x 2 weeks. Denies injury. Has tingling down left shoulder. Has had numbness in fingertips karina. Neck hurts with movement. Had a massage which helped some. No chest pain or sob. Sees Dr. Mullen in a couple weeks. Mood has been better, sleeping better. Zonia Reyes MD [address] [place], [address], [facility] 06/02/2018 13:04:45 07/05/2018 text/html Pt presents for follow up labs. Pt had her labs done this morning, so we do not have results at this time. Pt states she has fallen twice recently. Pt states she slipped down to the floor, during the first fall. Pt states she walked into a cupboard. Pt states she is concerned that her Parkinsons is worse. Pt states she has pain and stiffness to her neck bilaterally. Pt is interested in an order for massage therapy. Pt states she did see internal med, but does not want to drive all the way to [facility]. Pt states she did have NCS on her left upper extremity, but not her right. She saw Dr. Guy who did a EGD and colonoscopy. Was found to have gastritis/GERD. Was prescribed zantac and bentyl. Pt states her symptoms have improved with zantac. Feels much better in that aspect. Pt is requesting samples of linzess. Her neurologist for her parkinsons is Dr. Nicolasa Stein at [facility]. She follows up in February 2018. Feels her parkinson's is getting worse as far as her memory. She has been more stressed out lately due to family stressors. Seeing psych. 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 She has chronic neck pain she states she fell this morning and hit her elbow. She denies direct blow to the neck. She states she feels like the muscles to her neck are tight. She rates her pain as 7/10. Lyudmila Tian NP [address] [place], [address], [facility] 07/10/2018 17:32:10 OBGyn Episode No OBEpisode recorded.
--- OUTSIDE RECORDS SUMMARY | 2024-10-10 09:51 | XMS_ITS ---
Author Organization [facility] Address [address] [place] [id number] Care Team Providers Care Table Setter Name Role Phone oJão Stewart MD Unavailable [phone] Amanuel Buitrago MD Primary Care Provide r Elsa Higgins MD Unavailable [phone] Stuart Donahue MD Unavailable [phone] Active Problems Problem Noted Date Diagnosed Date Ovarian cyst 09/12/2024 Assessment & Plan (09/12/2024 4:35 PM CDT): --diagnosed on pelvic ultrasound --discussed with SPIRAL GEAR GENERATOR, not a consult --message left for PCP [...] chills, or leukocytosis to suggest worsening infection -Sandhya catheter moved and now on PO antibiotics [...] recommended oral antibiotic regimen, recommend to remove Sandhya -Discontinue continuous IV fluids to allow her to be unhooked from IV pole -Schedule Ramelteon nightly -Ensure glasses are on when reading and speak loudly so she can hear -Delirium precautions with minimizing overnight checks to maximize sleep, keeping window blinds open during the day and lights now. Frequent orientation -Discontinue mittens once Sandhya is removed Assessment & Plan (09/17/2024 1:47 [...] chills, or leukocytosis to suggest worsening infection -Sandhya catheter moved and now on PO antibiotics [...] retained hardware, however patient had delirium, self-removed sandhya and unable to be discharged safely on IV antibiotics. Therefore, recommending to discontinue daptomycin today and start doxycycline. Plan to treat indefinitely with doxycyline given this will also be the suppression plan. Patient's insurance is not contracted with [facility] ID. Spine Surgery is arranging outside ID follow up. Recommendations: - Discontinue daptomycin and start doxycycline 100mg PO BID (done) - Of note, patient's insurance is not contracted with ID clinic. Spine GUM MAKER team aware and setting up outside ID follow up. - ID is formally signed off but will continue to monitor patient peripherally while inpatient. Please see updated sign off note from 09/13/24 for complete recommendations. Discussed plan with Spine Surgery GUM MAKER Team Assessment & Plan (09/04/2024 1:57 PM CDT): >>ASSESSMENT AND PLAN FOR WOUND DEHISCENCE WRITTEN ON 09/01/2024 1:52 PM BY ANGEL LUIS LOVE MD 74-year-old female with Parkinson's resident at [...] is currently unclear if patient will need assisted IV antibiotic therapy or not, would currently [...] note, patient's insurance is not contracted with [facility]. Spine GUM MAKER team aware and setting up outside ID [...] note, patient's insurance is not contracted with [facility]. Assessment & Plan (09/17/2024 1:22 PM CDT): [...] (08/10/2023): Added automatically from request for surgery [id number] Sacroiliitis, not elsewhere classified 1 Age-related osteoporosis wit hout current pathological fracture 06/28/2019 Spinal stenosis in cervical region 06/11/2019 Overview (06/11/2019): Added automatically from request for surgery [id number] Cervical stenosis of spine 04/27/2019 Asymmetric SNHL (sensorineural hearing loss) 01/2019 Overview (08/10/2023): Last Assessment & Plan: MRI IACs unremarkable hearing aid medical clearance for right ear given She will go to [place] for insurance assistance Will obtain updated audiological [...] history, home regimen of Carbidopa/Levodopa and amantidine Current Treatment and Therapy Plans No current plan information found. Past Treatment and Therapy Plans No past plan information found. Lifetime Dose Tracking * Chemical Lifetime Dose Automatic Entry Manual Entr y Fluoro Time 2.91 minutes 2.91 minutes 0 minutes Air kerma at the reference point (Ka,r) 32.46 mGy 3 2.46 mGy 0 mGy DLP 3,282 mGycm 3,282 mGycm 0 mGycm
--- OUTSIDE RECORDS SUMMARY | 2024-10-10 09:52 | XMS_ITS | Data Portability ---
Author Organization [facility], [address] IP Address [address] [place] [address] Care Team Providers Care Soda Jerker Name Role Phone WORKMANPAXTON Primary Care Provider Assessment Encounter Date Assessment Date Assessment LastModified by Organization Details LastModified Time 07/23/2019 07/23/2019 69-year-old yamileth gonzalez with past medical history of cervical stenosis status post C3-T2 posterior cervical fusion in 2010, history of chronic low back pain history of posterior spinal fusion 4 years ago, history of breast cancer status post bilateral mastectomy and history of radiation therapy, history of MGUS, Hyperlipidemia, GERD, severe Parkinson's disease with impaired functional capacity, degenerative joint disease, anxiety depression and neuropathy is establishing as a new patient and here for a preoperative cardiovascular risk stratification prior to a planned cervical spine surgery for chronic upper neck pain and cervical radiculopathy. She denies any history of prior CAD, CHF, prior heart surgeries or stents, CVA, diabetes mellitus or chronic kidney disease. She does report family history of coronary artery disease in several family members and history of congestive heart failure. She has poor functional capacity and mostly limited by parkinsonism and degenerative joint disease and chronic back pain. She walks with a walker. She states she can walk a few blocks at a very slow pace using a walker. She denies any limiting cardiovascular symptoms. she is dependent for her most activities of daily living on a nursing consultant Versus laundry, grocery, cleaning floors and making beds and washing dishes. EKG: Normal sinus Rhythm with heart rate 61 per minute. no acute ST-T abnormality. Plan of management: Lexiscan MPI and echocardiogram for risk stratification. If no high-risk features, can proceed with surgery. [email or web address] Not available 07/23/2019 13:09:45 Plan of Treatment Reminders Order Date Submit Date Provider Last Modified By Organization Details Last Modified Time Details Appointments None recorded. Lab None recorded. Referral None recorded. Procedures None recorded. Surgeries None recorded. Imaging electrocard iogram 2019 020 [email or web address] In-House Results, For Internal Use Only, Do Not Delete/merge, [id number] 0 13:10:39 Medication Orders None recorded. Patient TargetsNo targets recorded. Patient Instructions Encounter Date Encounter Id Patient Instructions Last Modified By Organization Details Last Modified Time 07/23/2019 [id number] high cholesterol : care instructions [email or web address] Not available 07/23/2019 13:10:39 Reason for Referral None Reported. Results Created Date Observation Date Name Description Value Unit Range Abnormal Flag Note LastModifiedBy Organization Detail LastModifiedTime 07/23/1907/23/2019 elect sandoval laragr am No observ ation record ed. BARCODE Not Available 2019 14:26:26 07/26/1907/26/2019 nm-my ocrd SPECT [facility] [address] [address] SEDRICK Stewart REPORT ____ NAME: ARELY PEREZ ROOM #: : 1949 ACCOUN T #: [id number] BED #: AGE: 69 Y PATIEN T TYPE: ORDER Date/T isa: 11:32: 26 SEX: F ORDER #: ACCESS ION #: EXAM DESCRI PTION: 100 [id number] NMCARR -E Dictat ed By: , Alpai skyler Physic cal: KATHY SOLIS ing Physic cal: Prime[facility] Care Physic cal: ____ Pharma ceutic al Myocar dial Perfus ion Imagin g Report Lisa farrell Name: JATIN PEREZ ID: [id number] : 1949 (69y 5m) Study Date: 2019 7:11:3 7 AM Gender : F Access ion #: [id number] BSA: Weight (Kg): Qualit y: Good Order Physic cal: DEL Goldsmith KATHY Accmarylu t #: [id number] Proced ures: Pharma cologi c SPECT Report .: Myocar dial perfus ion imagin g with Sestam ibi SPECT at rest and post regade noson (Ivanna can) infusi on. A myocar dial perfus ion imagin g was perfor med to evalua te the distri bution of region al blood flow to the myocar dium. An intrav enous inject of a radiop harmac eutica l was given follow ed by restin g gated SPECT images . The lisa t was admini stered with Regade noson (Ivanna can) immedi ately follow ed by the inject ion of a radiop harmac eutica l. Additi on stress gated SPECT images were acquir ed for assess ment of myocar dial perfus ion. Indica tions: Pre-Op Cleara nce. Conclu sions: No scinti graphi c myocar dial ischem ia. Small mild inferi or defect most likely consis tent with diaphr agmati c attenu ation. Global left ventri cular functi on is normal . Left ventri cular ejecti on fracti on is 75 %. No TID. No high-r isk featur es. Findin gs: Page 1 of 3 IMAGIN G REPORT ____ NAME: ARELY PEREZ ROOM #: : 1949 ACCMARYLU T #: [id number] BED #: AGE: 69 Y PATIEN T TYPE: ORDER Date/T isa: 11:32: 26 SEX: F ORDER #: ACCESS ION #: EXAM DESCRI PTION: [id number] NMCARR -E ____ Proced ure Data: One day rest/s tress protoc ol was used. .4mg of Lexisc an inject ed. Sestam ibi inject ed at rest was 10.2 millic uries. Sestam ibi inject ed at peak exerci se was 31.2 millic uries. TID: 1.10. LHR 0.40. Baseli ne HR: 66 bpm. Peak HR: 90 bpm. Predic shelley Mikaela l HR - 150. Percen t predic shelley max HR achiev ed - 60 %. Baseli ne BP: 132/75 . Peak BP: 116/65 . Rate-P ressur e Produc t: 27773. Reason for Termin ation: Lexisc an protoc ol comple te. Restin g ECG: Normal sinus rhythm . PACs. Post Pharm ECG: No diagno stic ST change s. Arrhyt hmia: Freque nt APCs. Cardia c Sympto ms With Stress : Sympto ms with stress were None. BP Respon se: Blood pressu re respon se is approp riate. Perfus ion: No scinti graphi c ischem ia. Small mild inferi or defect most likely consis tent with diaphr agmati c attenu ation. Perfus ion Defect 1: Small mild mid and basal predom inantl y fixed inferi or perfus ion defect is most likely consis tent with diaphr agmati c attenu ation. LV Functi on: Global left ventri cular functi on is normal . Left ventri cular ejecti on fracti on is 75 %. WallMo tion PostPh arm: No wall motion abnorm ality. Exam Interp reted: Hospit al outpat ient lab. Electr onical ly Signed By: Kathy goldsmith MD Page 2 of 3 SEDRICK Stewart REPORT ____ NAME: ARELY PEREZ ROOM #: : 1949 ACCOUN T #: [id number] BED #: AGE: 69 Y PATIEN T TYPE: ORDER Date/T isa: 11:32: 26 SEX: F ORDER #: ACCESS ION #: EXAM DESCRI PTION: 100 [id number] NMCARR -E ____ 07-25 11:43: 35 CDT Electr onical ly signed by on 2019 11:32: 26. Page 3 of 3 [facility] (Lab) [address] [place], [address], 07/27/2019 11:31:46 07/27/19 20 07/27/2019 , echoc [place] gram No observ ation record ed. [email or web address] [facility] [address], [address], 07/27/2019 14:46:28 07/30/19 20 07/27/2019 vira [email or web address] am No observ ation record ed. BARCODE In-House Results For Internal Use Only, Do Not Delete/merge, [id number] 07/30/2019 15:14:31 Result Notes None recorded. Problems Name Problem SNOMED Code Status Onset Date Resolution Date Notes Provider Name and Address Organization Details Recorded Time Parkinson 's disease 17071440 Active 020 Anthony vyas [facility] 07/23/2019 12:25:53 Problem Notes None recorded. Medical Equipment None Reported. Allergies Allergen ID Allergen Name Allergen Category Reaction Reaction Severity Criticality Documentation Date Start Date Code Code System Note Provider Name and Address Organization Details Recorded Time 671364 potassium medicatio n Not available Not available Not available 07/23/2019 8588 RxNorm Anthony vyas, [facility] 0 12:15:04 Medications Name Sig Start Date Stop Date Status Note LastModified by Organization Details LastModified Time methocarbam ol 500 mg tablet 07/22 completed Not Available Not Available Not Available desonide 0.05 % topical cream 07/22 completed Not Available Not Available Not Available ranitidine 300 mg tablet active Not Available Not Available Not Available carbidopa ER 50 mg-levodopa 200 mg tablet,exte nded release 07/22 completed Not Available Not Available Not Available simvastatin 10 mg tablet active Not Available Not Available Not Available metronidazo le 500 mg tablet 07/22 completed Not Available Not Available Not Available simvastatin 20 mg tablet 07/22 completed Not Available Not Available Not Available lansoprazol e 30 mg capsule,del ayed release 07/22 completed Not Available Not Available Not Available gabapentin 300 mg capsule three time daily active Not Available Not Available No t Available mupirocin 2 % topical ointment 07/22 completed Not Available Not Available Not Available levofloxaci n 750 mg tablet 07/22 completed Not Available Not Available Not Available carbidopa 25 mg-levodopa 100 mg tablet three times daily active Not Available Not Available No t Available fluticasone propionate 50 mcg/actuati on nasal spray,suspe nsion active Not Available Not Available Not Available dicyclomine 10 mg capsule 07/22 completed Not Available Not Available Not Available duloxetine 30 mg capsule,del ayed release active Not Available Not Available Not Available Suprep Bowel Prep Kit 17.5 gram-3.13 gram-1.6 gram oral solution 07/22 completed Not Available Not Available Not Available Linzess 145 mcg capsule 07/22 completed Not Available Not Available Not Available Trulance 3 mg tablet 07/22 completed Not Available Not Available Not Available Inbrija 42 mg capsule with inhalation device 07/22 completed Not Available Not Available Not Available Fluzone High-Dose 2019-20 (PF) 180 mcg/0.5 mL intramuscul ar syringe PHARMACIS T ADMINISTE RED IMMUNIZAT ION ADMINISTE RED AT TIME OF DISPENSIN G 07/22 completed Not Available Not Available Not Available Vitals Date Recorded Body weight Body mass index (BMI) Body height Heart rate Systolic blood pressure Diastolic blood pressure Provider Name and Address Organization Details Last Updated DateTime 0 94760.3 1 g 21.6 kg/m2 170.18 cm 73 /min 122 mm[Hg] 60 mm[Hg] Anthony dumont [facility] 0 12:14:41 Social History Question Answer Notes LastModified by Organizat ion Details LastModified Time In The 14 Days Before Symptom Onset, Have You Had Close Contact With A Laboratory-confirme d COVID-19 While That Case Was Ill? No Information not available 07/23/2019 If Patient Spent Time In [facility] - Does The Patient Live In [facility]? No Information not available 07/23/2019 In The 14 Days Before Symptom Onset, Have You Had Close Contact With A Person Who Is Under Investigation For COVID-19 While That Person Was Ill? No Information not available 07/23/2019 In The 14 Days Before Symptom Onset, Did The Patient Spend Time In [facility]? No Information not available 07/23/2019 Have You Been To An Area Known To Be High Risk For COVID-19? No Information not available 07/23/2019 Sex: Unknown Functional Status None recorded. Mental Status None recorded. Family History Nothing Reported Notes:mother and father Medical History Condition Response HAVE YOU BEEN HOSPITALIZED OR SEEN IN [facility] ER IN THE PAST YEAR ? N Gynecological HistoryNo gynecological history recorded. Obstetrics History GPAL:G 0 P 0 0 0 0 Past Encounters Encounter ID Performer Location Encounter Start Date Encounter Closed Date Diagnosis/Indication Diagnosis SNOMED-CT Code Diagnosis ICD10 Code Diagnosis Note [id number] Melinda Dupont MD [facility] [address] [place] [address] 11/26/2016 11:59:06 11/26/2016 13:34:23 [id number] Melinda Dupont MD [facility] [address] [place] [address] 12/01/2016 11:08:32 12/01/2016 12:26:13 [id number] Melinda Dupont MD [facility] [address] [place] [address] 01/03/2017 15:51:03 01/04/2017 09:02:57 [id number] Melinda Dupont MD [facility] [address] [place] [address] 01/21/2017 15:34:20 01/21/2017 16:27:25 [id number] Melinda Dupont MD [facility] [address] [place] [address] 04/15/2017 10:12:34 04/15/2017 11:40:49 [id number] Cheri Noe MD [facility] [address] [place] [address] 06/10/2017 15:02:01 06/10/2017 17:10:42 [id number] MD DIAMOND Oshea_[facility] [address] [place] [address] 07/01/2017 10:48:38 07/01/2017 11:42:35 [id number] Bob Swann MD [facility] [address] [facility],[address] [place] [address] 07/15/2017 09:52:14 07/15/2017 12:08:35 [id number] MD DIAMOND [facility] [address] [place] [address] 09/28/2017 10:15:11 09/28/2017 11:11:26 [id number] Zonia Reyes MD [facility] [address] [place] [address] 12/28/2017 09:56:38 12/28/2017 11:02:51 [id number] Zonia Reyes MD [facility] [address] [place] [address] 01/25/2018 10:19:24 01/25/2018 11:26:12 [id number] Zonia Reyes MD [facility] [address] [place] [address] 03/13/2018 14:55:33 03/13/2018 15:30:00 [id number] Monica Beckham MD [facility] [address] [place] [address] 05/19/2018 10:58:19 05/19/2018 11:44:00 [id number] Monica Beckham MD [facility] [address] [place] [address] 07/05/2018 11:21:56 07/05/2018 13:41:00 [id number] Susan Becerra MD [facility] [address] [facility] [place] [address] 07/10/2018 10:34:56 07/10/2018 12:34:07 [id number] Bob Swann MD [facility] [address] [place] [address],[address] [place] [address] 08/28/2018 10:00:29 08/28/2018 12:12:06 [id number] Humza Wilde MD [facility] [address] [facility], [address] [place] [address] 09/20/2018 11:48:33 09/20/2018 13:08:37 [id number] Humza Wilde MD [facility] [address] [facility], [address] [place] [address] 11/10/2018 10:15:47 11/10/2018 12:16:08 [id number] Humza Wilde MD [facility] [address] [place] [address], [address] [place] [address] 12/06/2018 10:36:06 12/06/2018 11:05:28 [id number] Humza Wilde MD [facility] [address] [place] [address], [facility] [[email or web address] [address] [place] [address] 01/17/2019 09:29:15 01/17/2019 10:48:54 [id number] Kathy Jeong MD [facility] [address] [place] [address] 07/23/2019 11:55:39 07/23/2019 13:03:09 Preoperative cardiovascular examination 198165718 Z01.810 Hyperlipidemia 16867012 E78.5 Cervical s pondylosis with radiculopathy 251719765 M47.22 Family his tory of ischemic heart disease 176761161 Z82.49 Health Concerns Section Related Observation LastModified by Organization Detai ls LastModified Time None Recorded Concern Status LastModified by Organization Details LastModified Time None Recorded Advance Directives Directive None Recorded Payers Insurance Date Sequence Insurance Name Policy Number Policy Stanford Covered Member ID Stanford Member ID Guarantor Name 12/15/2018 2 [facility] (MEDICARE SUPPLEMENT) [id number] Tripp Wolff [id number] Tripp Wolff 08/14/2019 1 [facility] (MEDICARE REPLACEMENT/A DVANTAGE - PPO) [id number] Tripp Wolff [id number] Tripp Wolff 12/15/2018 2 [facility] Tripp Wolff [id number] Tripp Wolff 12/15/2018 1 [facility] [id number] Tripp Wolff [id number] Tripp Wolff 12/15/2018 1 [place] Tripp Wolff [id number] Tripp Wolff 12/15/2018 3 [place] [facility] OF PUBLIC AID Es Wolff [id number] Tripp Wolff Notes Date Note Type Note Provider Name and Address Organization Details Recorded Time 07/23/2019 text/html 69-year-old yamileth gonzalez with past medical history of cervical stenosis status post C3-T2 posterior cervical fusion in 2010, history of chronic low back pain history of posterior spinal fusion 4 years ago, history of breast cancer status post bilateral mastectomy and history of radiation therapy, history of MGUS, Hyperlipidemia, GERD, severe Parkinson's disease with impaired functional capacity, degenerative joint disease, anxiety depression and neuropathy is establishing as a new patient and here for a preoperative cardiovascular risk stratification prior to a planned cervical spine surgery for chronic upper neck pain and cervical radiculopathy. She denies any history of prior CAD, CHF, prior heart surgeries or stents, CVA, diabetes mellitus or chronic kidney disease. She does report family history of coronary artery disease in several family members and history of congestive heart failure. She has poor functional capacity and mostly limited by parkinsonism and degenerative joint disease and chronic back pain. She walks with a walker. She states she can walk a few blocks at a very slow pace using a walker. She denies any limiting cardiovascular symptoms. she is dependent for her most activities of daily living on a nursing consultant Versus laundry, grocery, cleaning floors and making beds and washing dishes. EKG: Normal sinus Rhythm with heart rate 61 per minute. no acute ST-T abnormality. Plan of management: Lexiscan MPI and echocardiogram for risk stratification. If no high-risk features, can proceed with surgery. Kathy Jeong MD [address], [address], [facility] 07/23/2019 13:10:42 OBGyn Episode No OBEpisode recorded.
--- OUTSIDE RECORDS SUMMARY | 2024-10-10 09:52 | XMS_ITS | Clinical Summary ---
Author Organization [facility] Address [address] [place] [address] Care Team Providers Care Balance Sheet Analyst Name Role Phone Unavailable Primary Care Provider Unavailabl e Source Comments [facility],non-owned Affiliates and Associated Physician Practices is amultiple site organization consisting of ambulatory clinics and hospital sitesin [place], [place], [place] and [place]. This disclosure is being madepursuant to the Care Everywhere program and may not contain all information available regarding this patient. Last updated 18[employer] Allergies No known active allergies Medications * Be aware that medications may not be up to date on this document. Alwaysverify current medications with the patient. 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 [place] [address] Rocael Flores MD Hardware complicating wound infection, subsequent encounter (Primary Dx); Orthopedic hardware present; Dehiscence of surgical wound, subsequent encounter; Cervical myelopathy (HCC); MGUS (monoclonal gammopathy of unknown significance); Low grade B-cell lymphoma (HCC); Parkinson's disease without dyskinesia or fluctuating manifestations (HCC); Type 2 diabetes mellitus without complication, without long-term current use of insulin (HCC); Small bowel perforation (HCC); Routine health maintenance 09/20/2024 Travel 09/04/2024 Telephone [facility] Central[facility] Scheduling [address] [place] [address] None, Physician Establish Care from Last 3 Months Social History Tobacco Use Types Packs/Day Years Used Date Smoking Tobacco: Never Assessed Comments Unknown Sex and Gender Information Value Date Recorded Sex Assigned at Not on file Legal Sex 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 Gender Identity Female 04/04/2023 3:10 PM RADIATION OFFICER Sexual Orientation Not on file Last Filed Vital Signs Vital Sign Reading Time Taken Comments Blood Pressure 133/80 10/09/2024 1:29 PM CDT Pulse 73 10/09/2024 1:29 PM CDT Temperature 36.5 C (97.7 F) 10/09/2024 1:29 PM CDT Respiratory Rate 18 10/09/2024 1:29 PM CDT Oxygen Saturation 98% 10/09/2024 1:29 PM CDT Inhaled Oxygen Concentration - - Weight 56.7 kg (125 lb) 10/09/2024 1:29 PM CDT Height 170.2 cm (5' 7) 10/09/2024 1:29 PM CDT Body Mass Index 19.58 10/09/2024 1:29 PM CDT Plan of Treatment Upcoming Encounters Date Type Department Care Team (Late st Contact Info) Description 01/15/2025 1:00 PM CDT Office Visit [facility] - Infectious Disease [address] [place] [address], [facility] [place] [address] Rocael Flores MD [address] [place] [address] Health Maintenance Due Date Last Done Comments COLOGUARD (AGES 45-75) - COLON CA SCREENING 1949 COLON MONITORING 1949 COLONOSCOPY - COLON CA SCREENING 1949 CT COLONOGRAPHY - COLON CA SCREENING 1950 Colorectal Cancer Screening 1949 FIT - COLON CA SCREENING 1949 FLEX SIG - COLON CA SCREENING 1950 MAMMOGRAM 1950 HEPATITIS C SCREENING 03/05/1967 DTAP/TDAP/TD VACCINES (1 - Tdap) 1968 PNEUMOCOCCAL VACCINE 50+ (1 of 2 - PCV) 1968 DIABETES-STATIN 1989 ZOSTER VACCINE (1 of 2) 1999 COVID-19 VACCINE (4 - season) 2024 03/02/2022, 08/20/2020, 07/15/2020 Respiratory Syncytial Virus (RSV) Vaccine Pt: or over 60 yrs (1 - 1-dose 75+ series) 2024 DIABETES-SERUM CREATININE 03/22/20242022, 03/22/2023, 03/22/2023 DEPRESSION SCREENING 05/16/2024 DIABETES - URINE PROTEIN SCREENING 05/16/2024 DIABETES RETINOPATHY SCREENING 10/09/2024 DIABETES-FOOT EXAM WITH MONOFILAMENT 10/09/2024 DIABETES-HGB A1C 10/09/2024 11/01/2023, 03/10/2022 INFLUENZA VACCINE (Season Ended) 2025 02/27/2020, 02/14/2020, 03/05/2019, Additional history exists BONE DENSITY TESTING Completed 09/07/2023, 06/11/19 20 HEPATITIS B VACCINE Aged Out No longe r eligible based on patient's age to complete this topic HIB VACCINE Aged Out No longer eligi ble based on patient's age to complete this topic HPV VACCINE Aged Out No longer eligi ble based on patient's age to complete this topic MENINGOCOCCAL (Group B) VACCINE SHARED DECISION-MAKING Aged Out No longer eligible based on patient's age to complete this topic MENINGOCOCCAL GROUPS A/C/Y/W VACCINE Aged Out No longer eligible based on patient's age to complete this topic
--- OUTSIDE RECORDS SUMMARY | 2024-10-10 09:52 | XMS_ITS | Clinical Summary ---
Author Organization [facility] Address [address] [place] [id number] Care Team Providers Care Wireless Development Manager Name Role Phone João Stewart MD Unavailable Amanuel Buitrago MD Primary Care Provide r Self, Elsa Ruiz MD Unavailable [phone] Stuart Donahue MD Unavailable [phone] Allergies Active Allergy Reactions Criticality Noted Date [...] Duration: lifetime medication 09/18/19 25 Active white petrolatum-forensic examiner al oil (REFRESH PM) ointment Apply 1 Application to both eyes nightly as needed (dry eyes) 09/18/19 25 Active lidocaine (ASPERCREME) 4 % adhesive patch,medicatedI ndications:Pain Apply 1 patch topically daily as needed (pain) 10/24/19 22 025 Discontin ued(Stop Taking at Discharge ) melatonin tabletIndication s:sleep Take 5 mg by mouth nightly as needed for sleep 025 Discontin ued(Stop Taking at Discharge ) senna-docusate (PERICOLACE) 8.6-50 mgIndications:co nstipation Take 1 tablet by mouth daily as needed for constipation 025 Discontin ued(Stop Taking at Discharge ) lidocaine (ASPERCREME) 4 % adhesive patch,medicated Place 1 patch on the skin daily 05/14/20 22 025 Discontin ued(Stop Taking at Discharge ) [...] CDT): --diagnosed on pelvic ultrasound --discussed with CARD MOUNTER, not a consult --message left for PCP [...] plan. Patient's insurance is not contracted with [facility] ID. Spine Surgery is arranging outside ID follow up. Recommendations: - Discontinue daptomycin and start doxycycline 100mg PO BID (done) - Of note, patient's insurance is not contracted with ID clinic. Spine PRODUCTION QUALITY MANAGER team aware and setting up outside ID follow up. - ID is formally signed off but will continue to monitor patient peripherally while inpatient. Please see updated sign off note from 09/13/24 for complete recommendations. Discussed plan with Spine Surgery PRODUCTION QUALITY MANAGER Team Assessment & Plan (09/04/2024 1:57 PM CDT): >>ASSESSMENT AND PLAN FOR WOUND DEHISCENCE WRITTEN ON 09/01/2024 1:52 PM BY VNI COHEN MD 74-year-old female with Parkinson's resident [...] is currently unclear if patient will need watermelon inspector IV antibiotic therapy or not, would currently [...] is not contracted with ID clinic. Spine PRODUCTION QUALITY MANAGER team aware and setting up outside ID [...] insurance is not contracted with ID clinic. Assessment & Plan (09/17/2024 1:22 PM CDT): [...] (08/10/2023): Added automatically from request for surgery [id number] Sacroiliitis, not elsewhere classified 1 Age-related osteoporosis wit hout current pathological fracture 06/28/2019 Spinal stenosis in cervical region 06/11/2019 Overview (06/11/2019): Added automatically from request for surgery [id number] Cervical stenosis of spine 04/27/2019 Asymmetric SNHL (sensorineural hearing loss) 01/2019 Overview (08/10/2023): Last Assessment & Plan: MRI IACs unremarkable hearing aid medical clearance for right ear given She will go to [place] for insurance assistance Will obtain updated audiological [...] history, home regimen of Carbidopa/Levodopa and amantidine Encounters Date Type Department Care Team Description 09/28/2024 Orders Only [facility] Scanning, Provider 09/25/2024 Orders Only [facility] Scanning, Provider 09/19/2024 Orders Only [facility] Neurosurgery [address] [facility] Office Building [address] [place] [address] Kenny Flores MD Cervical stenosis of spine (Primary Dx) 09/19/2024 Telephone [facility] Neurosurgery [address] [facility] Office Building [address] [place] [phone] Kenny Flores MD 09/13/2024 Orders Only [facility] Bone Marrow Transplant [address] [facility] Floor 6 [place] [address] Stuart Donahue MD MGUS (monoclonal gammopathy of unknown significance) (Primary Dx) 09/11/2024 Orders Only [facility] Neuro Interventional Radiology 1 [place] [address] Elsy Machado RN 09/04/2024 Documentation [facility] Infectious Diseases [address] [facility] [address] [place] [phone] Kylee Noel NP 09/03/2024 Telephone [facility] [address] [facility] [address] [place] [address] River Costa MD Hospital Follow Up 08/31/2024 2:44 PM CDT Anesthesia Event [facility] Operating Room 1 [place] [id number] Idalia Mike MD PhD Jose Silva MD 08/31/2024 2:21 PM CDT - 08/31/2024 6:21 PM CDT Surgery [facility] Operating Room 1 [place] [address] Kenny Flores MD IRRIGATION AND DEBRIDEMENT BACK 08/31/2024 12:27 PM CDT - 09/17/2024 5:17 PM CDT Hospital Encounter 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; Collapsed vertebra, not elsewhere classified, cervical region, initial encounter for fracture (HCC) 08/31/2024 9:45 AM CDT - 08/31/2024 11:59 PM CDT Hospital Encounter [id number] [address] [facility] [address] [place] [address] Cervical stenosis of spine; Open displaced fracture of first cervical vertebra with delayed healing, unspecified fracture morphology, subsequent encounter; 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; Collapsed vertebra, not elsewhere classified, cervical region, initial encounter for fracture (HCC) Discharge Disposition: Discharge to home or self care 08/31/2024 Telephone [facility] Neurosurgery [address] [facility] Office [address] [place] [address] Kenny Flores MD from Last 3 Months Immunizations Immunization Administration [...] Site/Laterality Comments DILATION AND CURETTAGE OF UTERUS CENTRAL LINE PLACEMENT > 5 YEARS 09/05/2024 N/A CENTRAL LINE PLACEMENT > 5 YEARS 09/06/2024 N/A Medical History Medical History Date Comments Cancer (HCC) last radaiaation 2000 Anxiety Depression Type 2 diabetes mellitus (HCC) [...] drink = 0.6 oz pur e alcohol) [facility] Utilities Answer Date Recorded In the past 12 months has th e electric, gas, oil, or water company threatened to shut off services in your [...] 09/03/2024 How often do you attend chur ch or sabianism services? 1 to 4 times per year 09/03/2024 Do you belong to any clubs o r organizations such as taoist groups, unions, fraternal or athletic groups, or [...] any time in the past 12 [facility], were you homeless or living in a half-way (including now)? No 09/03/2024 Personal Safety Answer Date Recorded Have you ever been in or are you currently in a harmful physical or emotional relationship or is someone making you feel afraid or unsafe? Denies 09/15/2024 Comments Unknown Sex and Gender Information Value Date Recorded Sex Assigned at Not on file Legal Sex Female 8:24 AM JUVENILE PROBATION OFFICER Gender Identity Not on file Sexual Orientation [...] 09/15/2024 12:19 AM CDT Plan of Treatment Health Maintenance Due Date Last Done Comments Albumin Creatinine Ratio, Urine 1949 Colon Cancer Screening-Colonoscopy 1950 Depression Screening 1950 Dilated Eye Exam 1949 Foot Exam 1949 Hepatitis B Screening 1967 Well Visit 65+ 2014 Covid-19 Vaccine (2023-2 5 season) 2024 03/02/2022, 08/20/2020, 07/15/2020 Hemoglobin A1C 05/02/2024 11/01/2023 Influenza Vaccine (Season Ended) 2025 02/27/2020, 02/14/2020, 03/05/2019, Additional history exists Lipid Panel 08/31/2025 08/31/2024 Osteoporosis Screening-Bone Density Scan 09/06/2025 09/07/2023, 06/11/2019 eGFR 09/15/2025 09/15/2024, 08/16, 09/11/2024, Additional history exists Fall Risk Assessment 09/17/2025 09/17/2024 DTaP/Tdap/Td Vaccine (5 - Td or Tdap) 12/12/2031 12/11/2021, 12/11/2020, 02/07/2019, Additional history exists Hepatitis C Screening Completed 07/10/2019 Zoster Vaccine Completed 04/30/2020, 02/27/2020 Pneumococcal vaccine 65+ Completed 024, 03/16/2016, 02/28/2015, Additional history exists Medical Devices Implanted Type Area Hack Saw Operator Device Identifier Shelf Expiration Date Model / Serial / Lot Bonyn Spine Allograft Gel Graft 5cc Bone Demineralized Bone Matrix [id number] - [id number] Implanted:Qty: 1 on 11/04/2023 by Kenny Flores MD at [facility] N/A: Spine Cervical Bonny Spine [id number] 03/30/2026 [id number] / / [id number] Nuvasive Inc Screw Spine Reline C Lock Open Non-Sterile Latex Free [id number] - [id number] Implanted:Qty: 11 on 11/04/2023 by Kenny Flores MD at [facility] N/A: Spine Cervical Nuvasive Inc [id number] / / Nuvasive Inc Navneet Spinal Posterior Cervical Prebent Reline 3.5x250/100mm Titanium [id number] - [id number] Implanted:Qty: 2 on 11/04/2023 by Kenny Flores MD at [facility] N/A: Spine Cervical Nuvasive Inc [id number] / / Nuvasive Inc Plate Spine Posterior Cervical Occipital Adjustable Small Reline [id number] - [id number] Implanted:Qty: 1 on 11/04/2023 by Kenny Flores MD at [facility] N/A: Spine Cervical Nuvasive Inc [id number] / / Nuvasive Inc Connector Spinal Posterior Cervical Rotating Top Side Reline 3.5-4/3.5-4mm [id number] - [id number] Implanted:Qty: 4 on 11/04/2023 by Kenny Flores MD at [facility] N/A: Spine Cervical Nuv[employer] Inc [id number] / / Protem Spine Graft Bone Filler Gel Bio Dbm 10cc [id number] - [id number] Implanted:Qty: 1 on 11/04/2023 by Kenny Flores MD at [facility] N/A: Spine Cervical Bonny Spine [id number] 04/13/2026 [id number] / / [id number] New Age Medical Graft Bone Magnetos 10cc 1-2mm Granules In Moldable Putty 703-038-[id number] - [id number] Implanted:Qty: 1 on 11/04/2023 by Kenny Flores MD at [facility] N/A: Spine Cervical [employer] [id number] 10/15/2027 [id number] / / [id number] Medtronic Inc Infuse 20ga 2x1in Vial Absorbable Syringe Needle Medium Graft 5.6 [id number] - [id number] Implanted:Qty: 1 on 11/04/2023 by Kenny Flores MD at [facility] N/A: Spine Cervical Medtronic Inc [id number] / / Allosource Crushed Chip Frozen Graft 30ml Bone Cancellous [id number] - [id number] Implanted:Qty: 1 on 11/04/2023 by Kenny Flores MD at [facility] N/A: Spine Cervical Allosource 11/07/2027 [id number] / / [id number] Allosource Canpac Allograft Frozen Nonpurge Graft 10cc Bone Cancellous [id number] - [id number] Implanted:Qty: 1 on 11/04/2023 by Kenny Flores MD at [facility] N/A: Spine Cervical Allosource 09/13/2028 [id number] / / [id number] Nuvasive Inc Reline C Screw 4.5x10mm Occipital [id number] - [id number] Implanted:Qty: 2 on 11/04/2023 by Kenny Flores MD at [facility] N/A: Spine Cervical Nuvasive Inc [id number] / / Nuvasive Inc Reline C Screw 4.5x12mm Occipital [id number] - [id number] Implanted:Qty: 2 on 11/04/2023 by Kenny Flores MD at [facility] N/A: Spine Cervical Nuvasive Inc [id number] / / Nuvasive Inc Reline C Screw 4.0x24mm Reduction Fa [id number] - [id number] Implanted:Qty: 1 on 11/04/2023 by Kenny Flores MD at [facility] N/A: Spine Cervical Nuv[employer] Inc [id number] / / Procedures Procedure Name Priority Date/Time [...] AND STAIN Routine 08/31/2024 4:02 PM CDT LA AN PROCEDURE PLACEHOLDER Routine 08/31/2024 3:33 PM CDT LA AN PROCEDURE PLACEHOLDER Routine 08/31/2024 3:33 PM CDT MISLABLED TEST Routine 08/31/2024 3:31 PM CDT LA AN PROCEDURE PLACEHOLDER Routine 08/31/2024 3:11 PM CDT LA AN ELECTIVE ENDOTRACHEAL AIRWAY Routine 08/31/2024 3:11 [...] HEPATITIS PANEL, ACUTE Routine 0 2:18 PM JUVENILE PROBATION OFFICER Spinal stenosis in cervical region from Last 3 Months or Most Recently Relevant to Health Maintenance Results * SCAN - OTHER ORDERS (09/28/2024) us Provider Scanning Final Result * SCAN - PATHOLOGY (09/25/2024 3:44 PM CDT) us Provider Scanning Final Result * eGFR (09/15/2024 9:05 PM CDT) eGFR >90 >=60 mL/min/1. 73 [...] MD LAB BLOOD ORDERABLES Final Resu lt [facility] Department [place] [address] * (ABNORMAL) CBC without differential (09/15/2024 9:05 PM CDT) WBC 7.63 3.80 - 9.90 K/cumm Hgb 7.9(L) 11.9 - 15.5 g/dL [facility] Hct 25.9(L) 35.6 - 45.5 % [facility] Plt 384 150 - 400 K/cumm [facility] MPV 10.4 9.1 - 12.3 fL [facility] RBC 2.91(L) 3.90 - 5.20 M/cumm [facility] MCV 89.0 81.3 - 96.4 fL [facility] MCH 27.1 27.1 - 33.3 pg [facility] MCHC 30.5(L) 32.3 - 35.7 g/dL [facility] RDW CV 18.1(H) 11.1 - 14.9 % [facility] RDW SD 57.8(H) 35.7 - 48.1 fL [facility] NRBC abs 0.00 0.00 - 0.01 K/cumm [facility] Blood 09/15/2024 9:05 PM CDT 09/15/2024 9:25 PM CDT Kenny Flores MD LAB BLOOD ORDERABLES Final Resu lt Performing Organization Address City/[facility]/ZIP Co de Phone Number [facility] [place] [address] * (ABNORMAL) CBC without differential (09/15/2024 9:05 PM CDT) WBC 7.59 3.80 - 9.90 K/cumm Hgb 7.6(L) 11.9 - 15.5 g/dL [facility] Hct 25.4(L) 35.6 - 45.5 % [facility] Plt 379 150 - 400 K/cumm [facility] MPV 10.4 9.1 - 12.3 fL [facility] RBC 2.85(L) 3.90 - 5.20 M/cumm [facility] MCV 89.1 81.3 - 96.4 fL [facility] MCH 26.7(L) 27.1 - 33.3 pg [facility] MCHC 29.9(L) 32.3 - 35.7 g/dL [facility] RDW CV 17.7(H) 11.1 - 14.9 % [facility] RDW SD 57.3(H) 35.7 - 48.1 fL [facility] NRBC abs 0.00 0.00 - 0.01 K/cumm [facility] Blood 09/15/2024 9:05 PM CDT 09/15/2024 9:25 PM CDT Kenny Flores MD LAB BLOOD ORDERABLES Final Resu lt [facility] Department [place] [employer] [place] [address] * (ABNORMAL) CBC without differential (09/15/2024 9:05 PM CDT) [facility] WBC 7.75 3.80 - 9.90 K/cumm Hgb 7.7(L) 11.9 - 15.5 g/dL [facility] Hct 25.3(L) 35.6 - 45.5 % [facility] Plt 385 150 - 400 K/cumm [facility] MPV 10.5 9.1 - 12.3 fL [facility] RBC 2.84(L) 3.90 - 5.20 M/cumm [facility] MCV 89.1 81.3 - 96.4 fL [facility] MCH 27.1 27.1 - 33.3 pg [facility] MCHC 30.4(L) 32.3 - 35.7 g/dL [facility] RDW CV 17.6(H) 11.1 - 14.9 % [facility] RDW SD 57.2(H) 35.7 - 48.1 fL [facility] NRBC abs 0.00 0.00 - 0.01 K/cumm [facility] Blood 09/15/2024 9:05 PM CDT 09/15/2024 9:25 PM CDT Kenny Flores MD LAB BLOOD ORDERABLES Final Resu lt [facility] Department [place] [address] * (ABNORMAL) Phosphorus (09/15/2024 9:05 PM CDT) Pathologist [facility] Phosphorus, pl 5.1(H) 2.3 - 4.5 mg/dL Blood 09/15/2024 9:05 PM CDT 09/15/2024 9:24 PM CDT Kenny Flores MD LAB BLOOD ORDERABLES Final Resu lt [facility] Department [place] [address] * Magnesium (09/15/2024 9:05 PM CDT) Pathologist [facility] Magnesium 1.8 1.4 - 2.5 mg/dL Blood 09/15/2024 9:05 PM CDT 09/15/2024 9:24 PM CDT us Kenny Flores MD LAB BLOOD ORDERABLES Final Resu lt [facility] Department [place] [address] * (ABNORMAL) Comprehensive metabolic panel (09/15/2024 9:05 PM CDT) [facility] Sodium 141 135 - 145 mmol/L Potassium, pl 4.4 3.3 - 4.9 mmol/L [facility] Chloride 103 97 - 110 mmol/L [facility] CO2 27 22 - 32 mmol/L [facility] Anion gap 9 2 - 15 mmol/L [facility] BUN 23 6 - 25 mg/dL [facility] Creatinine 0.66 0.60 - 1.10 mg/dL [facility] Glucose 177 70 - 199 mg/dL [facility] Comment: Interpretive Data Fasting glucose >/= 126 [...] 2022. Calcium 9.7 8.5 - 10.3 mg/dL [facility] Bilirubin, total <0.2 0.1 - 1.2 mg/dL [facility] Comment:Reviewed Protein, pl 8.0 6.5 - 8.5 g/dL [facility] Albumin 3.4(L) 3.5 - 5.0 g/dL [facility] Alk phos 98 40 - 130 Units/L [facility] ALT 9 7 - 45 Units/L [facility] AST 25 10 - 45 Units/L [facility] Blood 09/15/2024 9:05 PM CDT 09/15/2024 9:24 PM CDT Kenny Flores MD LAB BLOOD ORDERABLES Final Resu lt [facility] [place] [address] * POCT glucose (09/13/2024 4:43 PM CDT) Glucose, POC 148 70 - 199 mg/dL Blood 09/13/2024 4:43 PM CDT 09/13/2024 4:43 PM CDT us Kenny Flores MD LAB POCT ORDERABLES - DEVICE Fi nal Result Performing Organization Address [facility] Co de Phone Number [facility] Department [place] [address] * Creatine kinase (CK), total (09/13/2024 3:42 PM CDT) CK 60 30 - 200 Units/L Blood 09/13/2024 3:42 PM CDT 09/13/2024 3:58 PM CDT us Kylee Noel NP LAB BLOOD ORDERABLES Final Result Performing Organization Address [facility] Co de Phone Number [facility] [place] [employer] [place] [address] * POCT glucose (09/13/2024 11:45 AM CDT) Glucose, POC 105 70 - 199 mg/dL Blood 09/13/2024 11:4 5 AM CDT 09/13/2024 11:45 AM CDT Kenny Flores MD LAB POCT ORDERABLES - DEVICE Fi nal Result Performing Organization Address City/State/[facility] Co de Phone Number [facility] [place] [address] * POCT glucose (09/13/2024 7:25 AM CDT) Glucose, POC 108 70 - 199 mg/dL Blood 09/13/2024 7:25 AM CDT 09/13/2024 7:25 AM CDT Kenny Flores MD LAB POCT ORDERABLES - DEVICE Fi nal Result Performing Organization Address City/[facility] de Phone Number [facility] Department [place] [address] * eGFR (09/12/2024 10:39 PM CDT) eGFR [...] ORDERABLES Final Resu lt Performing Organization Address [facility] Co de Phone Number [facility] Department [place] [address] * (ABNORMAL) CBC without differential (09/12/2024 10:39 PM CDT) WBC 7.88 3.80 - 9.90 K/cumm Hgb 8.1(L) 11.9 - 15.5 g/dL [facility] Hct 26.2(L) 35.6 - 45.5 % [facility] Plt 361 150 - 400 K/cumm [facility] MPV 9.9 9.1 - 12.3 fL [facility] RBC 2.96(L) 3.90 - 5.20 M/cumm [facility] MCV 88.5 81.3 - 96.4 fL [facility] MCH 27.4 27.1 - 33.3 pg [facility] MCHC 30.9(L) 32.3 - 35.7 g/dL [facility] RDW CV 17.3(H) 11.1 - 14.9 % [facility] RDW SD 54.9(H) 35.7 - 48.1 fL [facility] NRBC abs 0.00 0.00 - 0.01 K/cumm [facility] Blood 09/12/2024 10:3 9 PM CDT 09/12/2024 10:50 PM CDT Kenny Flores MD LAB BLOOD ORDERABLES Final Resu lt Performing Organization Address City/[facility]/ZIP Co de Phone Number [facility] Department [place] [place] [address] * (ABNORMAL) Basic metabolic panel (09/12/2024 10:39 PM CDT) Pathologist [facility] Sodium 141 135 - 145 mmol/L Potassium, pl 3.9 3.3 - 4.9 mmol/L [facility] Chloride 105 97 - 110 mmol/L [facility] CO2 32 22 - 32 mmol/L [facility] Anion gap 4 2 - 15 mmol/L [facility] BUN 9 6 - 25 mg/dL [facility] Creatinine 0.46(L) 0.60 - 1.10 mg/dL [facility] Glucose 122 70 - 199 mg/dL [facility] Comment: Interpretive Data Fasting glucose >/= 126 [...] 2022. Calcium 9.2 8.5 - 10.3 mg/dL [facility] Blood 09/12/2024 10:3 9 PM CDT 09/12/2024 10:55 PM CDT Kenny Flores MD LAB BLOOD ORDERABLES Final Resu lt [facility] Department [place] [address] * US Pelvis Complete (09/12/2024 11:53 AM [...] by: Yessenia Kwong M.D. us Marii Bell PRODUCTION QUALITY MANAGER IMG US PROCEDURES Final Result * eGFR (09/11/2024 11:52 PM CDT) Pathologist [facility] eGFR >90 >=60 mL/min/1. 73 m2 Comment: [...] MD LAB BLOOD ORDERABLES Final Resu lt [facility] Department [place] [address] * (ABNORMAL) CBC without differential (09/11/2024 11:52 PM CDT) Pathologist [facility] WBC 7.35 3.80 - 9.90 K/cumm Hgb 8.0(L) 11.9 - 15.5 g/dL [facility] Hct 26.2(L) 35.6 - 45.5 % [facility] Plt 381 150 - 400 K/cumm [facility] MPV 10.3 9.1 - 12.3 fL [facility] RBC 2.95(L) 3.90 - 5.20 M/cumm [facility] MCV 88.8 81.3 - 96.4 fL [facility] MCH 27.1 27.1 - 33.3 pg [facility] MCHC 30.5(L) 32.3 - 35.7 g/dL [facility] RDW CV 17.3(H) 11.1 - 14.9 % [facility] RDW SD 55.8(H) 35.7 - 48.1 fL [facility] NRBC abs 0.00 0.00 - 0.01 K/cumm [facility] Blood 09/11/2024 11:5 2 PM CDT 09/12/2024 12:07 AM CDT us Kenny Flores MD LAB BLOOD ORDERABLES Final Resu lt [facility] Department [place] [address] * (ABNORMAL) Basic metabolic panel (09/11/2024 11:52 PM CDT) Sodium 138 135 - 145 mmol/L Potassium, pl 3.8 3.3 - 4.9 mmol/L [facility] Chloride 101 97 - 110 mmol/L [facility] CO2 31 22 - 32 mmol/L [facility] Anion gap 6 2 - 15 mmol/L [facility] BUN 6 6 - 25 mg/dL [facility] Creatinine 0.58(L) 0.60 - 1.10 mg/dL [facility] Glucose 96 70 - 199 mg/dL [facility] Comment: Interpretive Data Fasting glucose >/= 126 [...] Calcium 9.4 8.5 - 10.3 mg/dL [facility] Blood 09/11/2024 11:5 2 PM CDT 09/12/2024 12:07 AM CDT us Kenny Flores MD LAB BLOOD ORDERABLES Final Resu lt [facility] Department [place] [address] * IR Bone marrow biopsy and aspiration [...] end of the procedure. Dr. Marvin Garcia (vice president for philanthropy) and Dr Gaetano Plascencia were present and [...] was obtained. Prior to beginning the procedure, [place] Protocol was performed to confirm the patient's [...] end of the procedure. Dr. Marvin Garcia (vice president for philanthropy) and Dr Gaetano Plascencia were present and [...] was obtained. Prior to beginning the procedure, [place] Protocol was performed to confirm the patient's [...] by: Beau Perez M.D. Kenny Flores MD IMG IR PROCEDURES Final Result * [employer]ogenetics Specimen Tracking Bone marrow (09/11/2024 12:35 PM CDT) [facility] Order Received Bone marrow 09/11/2024 12:3 5 PM CDT 09/11/2024 1:55 PM CDT [facility] - 09/20/2024 2:45 PM CDT Please read the [employer] Epic requisition for specimen collection requirements. Kenny Flores MD LAB BODY FLUIDS AND STOOLS JIMMY TAVERA Final Result [facility] Department [place] [address] * Flow Leukemia/Lymphoma Bone marrow (09/11/2024 12:35 PM CDT) Pool Stain Test Completed Leukemia/Lymp nicky Result See separate Surgical Pathology report. [facility] Bone marrow 09/11/2024 12:3 5 PM CDT 09/11/2024 3:01 PM CDT us Kenny Flores MD LAB PATHOLOGY ORDERABLES Final Result [facility] Department [place] [address] * Surgical pathology (09/11/2024 12:35 PM CDT) Tissue (Bone marrow) 09/11/2024 12:35 PM CDT Comment:Left Iliac Bone Amy ow Biopsy Narrative PATHOLOGY [facility] - 09/13/2024 6:30 PM CDT EPIC results best viewed via link to PDF [facility] [place] [address] Note to Patients: This report may contain [...] Gender: F : 1950 (Age: 74) Address: [address] [place] [address] Hospital #: [id number] Taken:09/11/2024 Received:09/11/2024 Reported: 09/13/2024 Patient Type: [facility] Inpatient Service: Neurosurgery Location: [place] [address] Physician(s): Beau Perez M.D. Diagnosis: Bone marrow, [...] The blood clot is serially sectioned with area representative sections submitted in cassette B1. Jar 1. behu/09/11/2024 15:40 PA(s): Maria Medrano MS, PA(ASCP)CM CBC: [...] CD45(dim), CD38, CD138, Lambda Antigens not expressed: Verdigre Flow cytometry identifies a clonal, kappa-restricted B-cell population comprising 5% of total cellular events consistent with patient's history of B-cell lymphoma. Antigens expressed are: CD19, CD20, Verdigre Antigens not expressed are: CD5, CD10, CD34, CD38 (dim), CD200, Lambda CD3+ T-lymphocytes show no walker T cell antigen aberrancies and have a CD4 to CD8 ratio within normal limits. Natural killer cells are not increased. CD34+ blasts are not increased. A Pool-Giemsa stained cytospin from the flow cytometry specimen was examined for internal quality assurance clerk purposes. Correlation with morphology (if submitted), clinical, laboratory, and genetic data is recommended for final diagnosis. Flow cytometry was performed using antibodies to the following cellular antigens: CD45, CD19, CD20, Verdigre, Lambda, CD38, CD138, CD56. Total antigens analyzed: 8 Flow cytometry was performed using antibodies to the following cellular antigens: CD45, CD34, CD19, CD20, Verdigre, Lambda, CD10, CD5, CD200, CD38, CD2, CD3, [...] following cellular antigens: CD45, CD34, CD19, CD20, Verdigre, Lambda, CD10, CD5, CD200, CD38, CD22, CD123. [...] Surgical Pathology and Flow Cytometry Departments at [facility] as part of an ongoing quality engineering manager program and in compliance with federally mandated [...] Surgical Pathology and Flow Cytometry Departments of [facility]. It has not been cleared or approved by the U. S. Food and Drug Administration. IMAGES AND SCANNED DOCUMENTS, IF INCLUDED, ONLY VIEWABLE IN PDF VERSION OF REPORT Gail Ahuja MD LAB PATHOLOGY ORDER ANSHUL Final Result PATHOLOGY [facility] 3rd Floor [place], [place] [phone] * ClonoSeq (09/11/2024 11:50 AM CDT) ClonoSeq See attached scanned report for results. Bone marrow 09/11/2024 11:5 0 AM CDT 09/11/2024 2:58 PM CDT Narrative [facility] - 10/01/2024 10:31 AM CDT ClonoSeq still needs to be placed in adaptive portal. This is NOT an interfaced test. us Kenny Flores MD LAB PATHOLOGY ORDERABLES Final Result [facility] Department [place] [address] * Cytogenetics Bone marrow (09/11/2024 11:50 AM CDT) Bone marrow (Bone Marrow Biopsy) 09/11/2024 11:50 AM CDT 09/11/2024 11:50 AM CDT Narrative [facility] - 09/13/2024 5:25 PM CDT EPIC results best viewed via link to PDF [facility] Department of Pathol [address] [place] [id number] Patient Information Name: ES WOLFF Gender: F : 1950 (Age: 74) Tissue: Bone Marrow w/ FISH Visit Information Hospital #: [id number] Facility: [facility] Service: [facility] Location: [place] [address] Patient Type: [facility] Inpatient Specimen Information: Culture #: [id number] Date Collected: 09/11/2024 Date Accessioned: 09/11/2024 Date Ordered: 09/11/2024 Physician(s): Kenny Flores M.D. Processing: CD138+ sorted plasma cells Indication: Multiple Myeloma and immunoproliferative neoplasms Specimen Quality: Adequate: FISH: MM panel Low cell count: Insufficient for chromosome analysis CLINICAL REPORT FLUORESCENCE IN-SITU HYBRIDIZATION [FISH] Karyotype: nuc elham (IIMU2p6,IGHx3)[129/200],(FOMK2b4,IGHx3)(CCND1 con IGH)x2[164/200],(Y30E391,LAMP1)x1[178/200], (IGHx3,MAFx2)[148/200],(CDKN2C,CKS1B)x2[200],(TP53)x2[200] Diagnosis: ABNORMAL FISH FINDINGS: ATYPICAL CCND1::IGH REARRANGEMENT (EXTRA CCND1 SIGNAL) - 82% REARRANGEMENT/TRISOMY OF IGH (14q) - 69.25% MONOSOMY 13 ([id number]/LAMP1) - 89% NO EVIDENCE OF GAIN/AMPLIFICATION OF CKS1B (1q) NO EVIDENCE OF DELETION/MONOSOMY OF CDKN2C (1p) OR TP53 (17p) NO EVIDENCE OF IGH::FGFR3 OR IGH::MAF REARRANGEMENT CHROMOSOME ANALYSIS: INSUFFICIENT CELL COUNT FOR CHROMOSOME STUDIES INTERPRETATION: FISH analysis was performed with a panel of [employer] probes for MM and is interpreted as ABNORMAL for the CCND1::IGH and P86M261/LAMP1 probes. 1) FISH evaluation for an IGH::FGFR3 rearrangement was performed on nuclei with the LSI IGH::FGFR3 Dual Color, Dual Fusion Translocation Probe ([employer] for FGFR3 at 4p16 and IGH [...] probe in the Clinical Genomics Laboratory at [facility]. 2) FISH evaluation for an IGH::CCND1 [...] probe in the Clinical Genomics Laboratory at [facility]. 3) FISH evaluation for a 13q deletion was performed on nuclei with the LSI F90P182 Probe ([employer] at 13q14.3 and LAMP1 at 13q34 and is interpreted as ABNORMAL. One T69C000 hybridization signal and one LAMP1 hybridization signal were observed in 178/200 nuclei, which exceeds the normal range (up to 2.3%) established for this probe in the Clinical Genomics Laboratory at [facility]. 4) FISH evaluation for an IGH::MAF [...] probe in the Clinical Genomics Laboratory at [facility]. 5) FISH evaluation for a CDKN2C deletion and 1q gain/amplification was performed on nuclei with the CKS1B/CDKN2C (P18) Amplification/Deletion Probe ([employer] for CDKN2C (P18) at 1p32.3 and CKS1B at 1q21 and is interpreted as NORMAL. Two CDKN2C hybridization signals and two CKS1B hybridization signals were observed in 198/200 nuclei, which is within the normal range (up to 1.5% and 1%, respectively) established for this probe in the Clinical Genomics Laboratory at [facility]. A normal CDKN2C/CKS1B FISH finding can [...] probe in the Clinical Genomics Laboratory at [facility]. Up to 2.7% of cells in [...] was performed using the entire specimen per [facility] Clinical Genomics Laboratory protocol. Priority is assigned to the multiple myeloma FISH analysis. Therefore, karyotype analysis cannot be performed. This test was developed and its performance characteristics determined by [facility]. It has not been cleared or approved by the FDA. The laboratory is regulated under CLIA as qualified to perform high-complexity testing. This test is used for clinical purposes. It should not be regarded as investigational or for research. Chromosome analysis and Fluorescence In Situ Hybridization (FISH) analysis are performed using the [employer] Imaging System. Report Electronically Reviewed and Signed Out By Zonia Gracia, PhD, FACMGDate Reported: 09/13/2024ssistant Professor, Division of Genomic & Molecular Pathology us Kenny Flores MD LAB GENETIC TESTING Final Resul t [facility] [address] [place] [address] * eGFR (09/10/2024 9:39 PM CDT) eGFR [...] ORDERABLES Final Resu lt Performing Organization Address [facility] Co de Phone Number [facility] [place] [address] * (ABNORMAL) CBC without differential (09/10/2024 9:39 PM CDT) Pathologist [facility] WBC 6.56 3.80 - 9.90 K/cumm Hgb 7.9(L) 11.9 - 15.5 g/dL [facility] Hct 25.8(L) 35.6 - 45.5 % [facility] Plt 360 150 - 400 K/cumm [facility] MPV 10.0 9.1 - 12.3 fL [facility] RBC 2.94(L) 3.90 - 5.20 M/cumm [facility] MCV 87.8 81.3 - 96.4 fL [facility] MCH 26.9(L) 27.1 - 33.3 pg [facility] MCHC 30.6(L) 32.3 - 35.7 g/dL [facility] RDW CV 17.3(H) 11.1 - 14.9 % [facility] RDW SD 54.4(H) 35.7 - 48.1 fL [facility] NRBC abs 0.00 0.00 - 0.01 K/cumm [facility] Blood 09/10/2024 9:39 PM CDT 09/10/2024 9:50 PM CDT Kenny Flores MD LAB BLOOD ORDERABLES Final Resu lt Performing Organization Address City/[facility]/ZIP Co de Phone Number [facility] Department [place] [address] * (ABNORMAL) Basic metabolic panel (09/10/2024 9:39 PM CDT) Pathologist [facility] Sodium 141 135 - 145 mmol/L Potassium, pl 3.5 3.3 - 4.9 mmol/L [facility] Chloride 104 97 - 110 mmol/L [facility] CO2 33(H) 22 - 32 mmol/L [facility] Anion gap 4 2 - 15 mmol/L [facility] BUN 6 6 - 25 mg/dL [facility] Creatinine 0.45(L) 0.60 - 1.10 mg/dL [facility] Glucose 138 70 - 199 mg/dL [facility] Comment: Interpretive Data Fasting glucose >/= 126 [...] 2022. Calcium 9.3 8.5 - 10.3 mg/dL [facility] Blood 09/10/2024 9:39 PM CDT 09/10/2024 9:50 PM CDT us Kenny Flores MD LAB BLOOD ORDERABLES Final Resu lt [facility] Department [place] [address] * Creatine kinase (CK), total (09/10/2024 1:50 PM CDT) CK 71 30 - 200 Units/L Blood 09/10/2024 1:50 PM CDT 09/10/2024 2:03 PM CDT us Kylee Noel NP LAB BLOOD ORDERABLES Final Result Performing Organization Address City/[facility]/ZIP Co de Phone Number [facility] Department [place] [address] * PET/CT FDG Skull to Thigh (09/10/2024 [...] FDG-PET/CT IMAGING DATE OF STUDY: 09/10/2024 SCANNER: [facility] [employer] (NV1). This is a high-resolution scanner, which [...] obtained. The study was interpreted on the Cylex workstation. The mean liver SUV (reported for quality assurance clerk purposes) is 3.4. The total scanned area [...] FDG-PET/CT IMAGING DATE OF STUDY: 09/10/2024 SCANNER: [facility] [employer] (NV1). This is a high-resolution scanner, which [...] obtained. The study was interpreted on the Cylex workstation. The mean liver SUV (reported for quality assurance clerk purposes) is 3.4. The total scanned area [...] Beth Eason MD, Ph.D Kenny Flores MD IM PET PROCEDURES Final Result * eGFR (09/09/2024 10:22 PM CDT) eGFR >90 >=60 mL/min/1. 73 [...] MD LAB BLOOD ORDERABLES Final Resu lt [facility] Department [place] [address] * Differential, auto (09/09/2024 10:22 PM CDT) Neutrophil abs 4.34 1.50 - 6.50 K/cumm Imm gran abs 0.02 0.00 - 0.10 K/cumm [facility] Lymphocyte abs 2.41 0.80 - 3.30 K/cumm [facility] Monocyte abs 0.66 0.20 - 0.80 K/cumm [facility] Eosinophil abs 0.29 0.00 - 0.50 K/cumm [facility] Basophil abs 0.05 0.00 - 0.10 K/cumm [facility] Neutrophil pct 55.9 % [facility] Comment: Interpretive Data Percent cell count reference ranges are not reported, since discordance with absolute values may lead to misinterpretation of CBC data. Current Interpretive Data was last revised on 2017. Imm gran pct 0.3 % [facility] Comment: Interpretive Data Percent cell count reference ranges are not reported, since discordance with absolute values may lead to misinterpretation of CBC data. Current Interpretive Data was last revised on 2017. Lymphocyte pct 31.0 % [facility] Comment: Interpretive Data Percent cell count reference ranges are not reported, since discordance with absolute values may lead to misinterpretation of CBC data. Current Interpretive Data was last revised on 2017. Monocyte pct 8.5 % [facility] Comment: Interpretive Data Percent cell count reference ranges are not reported, since discordance with absolute values may lead to misinterpretation of CBC data. Current Interpretive Data was last revised on 2017. Eosinophil pct 3.7 % [facility] Comment: Interpretive Data Percent cell count reference ranges are not reported, since discordance with absolute values may lead to misinterpretation of CBC data. Current Interpretive Data was last revised on 2017. Basophil pct 0.6 % [facility] Comment: Interpretive Data Percent cell count reference ranges are not reported, since discordance with absolute values may lead to misinterpretation of CBC data. Current Interpretive Data was last revised on 2017. Blood 09/09/2024 10:2 2 PM CDT 09/09/2024 10:41 PM CDT us Kenny Flores MD LAB BLOOD ORDERABLES Final Resu lt [facility] Department [place] [address] * (ABNORMAL) CBC without differential (09/09/2024 10:22 PM CDT) WBC 7.44 3.80 - 9.90 K/cumm Hgb 7.6(L) 11.9 - 15.5 g/dL [facility] Hct 24.7(L) 35.6 - 45.5 % [facility] Plt 356 150 - 400 K/cumm [facility] MPV 10.2 9.1 - 12.3 fL [facility] RBC 2.79(L) 3.90 - 5.20 M/cumm [facility] MCV 88.5 81.3 - 96.4 fL [facility] MCH 27.2 27.1 - 33.3 pg [facility] MCHC 30.8(L) 32.3 - 35.7 g/dL [facility] RDW CV 17.2(H) 11.1 - 14.9 % [facility] RDW SD 54.7(H) 35.7 - 48.1 fL [facility] NRBC abs 0.00 0.00 - 0.01 K/cumm [facility] Blood 09/09/2024 10:2 2 PM CDT 09/09/2024 10:36 PM CDT us Kenny Flores MD LAB BLOOD ORDERABLES Final Resu lt [facility] Department [place] [address] * (ABNORMAL) Basic metabolic panel (09/09/2024 10:22 PM CDT) Pathologist [facility] Sodium 138 135 - 145 mmol/L Potassium, pl 3.6 3.3 - 4.9 mmol/L [facility] Chloride 102 97 - 110 mmol/L [facility] CO2 32 22 - 32 mmol/L [facility] Anion gap 4 2 - 15 mmol/L [facility] BUN 9 6 - 25 mg/dL [facility] Creatinine 0.51(L) 0.60 - 1.10 mg/dL [facility] Glucose 110 70 - 199 mg/dL [facility] Comment: Interpretive Data Fasting glucose >/= 126 [...] 2022. Calcium 9.3 8.5 - 10.3 mg/dL [facility] Blood 09/09/2024 10:2 2 PM CDT 09/09/2024 10:37 PM CDT Kenny Flores MD LAB BLOOD ORDERABLES Final Resu lt Performing Organization Address City/[facility]/ZIP Co de Phone Number [facility] [place] [address] * Volume and period, urine, 24 hour (09/09/2024 5:12 PM CDT) Volume, ur 1,900 mL Period, Urine Collection 1,440 min [facility] Urine 09/09/2024 5:12 PM CDT 09/09/2024 7:30 PM CDT Kenny Flores MD LAB URINE ORDERABLES Final Resu lt Performing Organization Address [facility] Co de Phone Number [facility] [place] [address] * (ABNORMAL) Protein electrophoresis, urine, 24 hour (09/09/2024 5:11 PM CDT) Protein, ur, quant 8.1 mg/dL Comment:No reference range e stablished. Albumin, Ur No Protein Visible % [facility] Comment:No reference range e stablished. Alpha-1 globulin, Ur No Protein Visible % [facility] Comment:No reference range e stablished. Alpha-2 globulin, Ur No Protein Visible % [facility] Comment:No reference range e stablished. Beta globulin, Ur No Protein Visible % [facility] Comment:No reference range e stablished. Gamma globulin, Ur No Protein Visible % [facility] Comment:No reference range e stablished. UPEP interp Please see comment [facility] Comment: No apparent monoclonal peak No protein visible See immunofixation for further information Urine concentrated Reviewed and signed by Marcell Campos MD 09/10/2024 Protein, 24 hr, ur 154(H) 1 - 150 mg/24H [facility] Urine 09/09/2024 5:11 PM CDT 09/09/2024 5:12 PM CDT Kenny Flores MD LAB URINE ORDERABLES Final Resu lt Performing Organization Address City/[facility]/ZIP Co de Phone Number [facility] Department [place] [address] * Immunofixation, urine with interpretation (09/09/2024 5:11 PM CDT) Immunofixation, Ur Please see comment Comment: NO PARAPROTEIN DETECTED Reviewed and signed by Marcell Campos MD 09/10/2024 Urine 09/09/2024 5:11 PM CDT 09/09/2024 7:30 PM CDT Kenny Flores MD LAB URINE ORDERABLES Final Resu lt Performing Organization Address City/[facility] Co de Phone Number [facility] Department [place] [address] * eGFR (09/08/2024 10:18 PM CDT) eGFR [...] ORDERABLES Final Resu lt Performing Organization Address City/[facility]/ZIP Co de Phone Number [facility] [place] [address] * (ABNORMAL) CBC without differential (09/08/2024 10:18 PM CDT) WBC 7.67 3.80 - 9.90 K/cumm Hgb 7.5(L) 11.9 - 15.5 g/dL [facility] Hct 24.7(L) 35.6 - 45.5 % [facility] Plt 345 150 - 400 K/cumm [facility] MPV 10.2 9.1 - 12.3 fL [facility] RBC 2.83(L) 3.90 - 5.20 M/cumm [facility] MCV 87.3 81.3 - 96.4 fL [facility] MCH 26.5(L) 27.1 - 33.3 pg [facility] MCHC 30.4(L) 32.3 - 35.7 g/dL [facility] RDW CV 17.3(H) 11.1 - 14.9 % [facility] RDW SD 53.7(H) 35.7 - 48.1 fL [facility] NRBC abs 0.00 0.00 - 0.01 K/cumm [facility] Blood 09/08/2024 10:1 8 PM CDT 09/08/2024 10:30 PM CDT Kenny Flores MD LAB BLOOD ORDERABLES Final Resu lt [facility] [place] [address] * Phosphorus (09/08/2024 10:18 PM CDT) [facility] Phosphorus, pl 3.0 2.3 - 4.5 mg/dL Blood 09/08/2024 10:1 8 PM CDT 09/08/2024 10:30 PM CDT Kenny Flores MD LAB BLOOD ORDERABLES Final Resu lt Performing Organization Address City/[facility]/ZIP Co de Phone Number [facility] Department [place] [address] * Magnesium (09/08/2024 10:18 PM CDT) [facility] Magnesium 1.7 1.4 - 2.5 mg/dL Blood 09/08/2024 10:1 8 PM CDT 09/08/2024 10:30 PM CDT Kenny Flores MD LAB BLOOD ORDERABLES Final Resu lt Performing Organization Address [facility] de Phone Number [facility] [place] [address] * (ABNORMAL) Comprehensive metabolic panel (09/08/2024 10:18 PM CDT) [facility] Sodium 141 135 - 145 mmol/L Potassium, pl 3.5 3.3 - 4.9 mmol/L [facility] Chloride 106 97 - 110 mmol/L [facility] CO2 32 22 - 32 mmol/L [facility] Anion gap 3 2 - 15 mmol/L [facility] BUN 7 6 - 25 mg/dL [facility] Creatinine 0.36(L) 0.60 - 1.10 mg/dL [facility] Glucose 104 70 - 199 mg/dL [facility] Comment: Interpretive Data Fasting glucose >/= 126 [...] Calcium 9.5 8.5 - 10.3 mg/dL [facility] Bilirubin, total 0.2 0.1 - 1.2 mg/dL [facility] Protein, pl 7.4 6.5 - 8.5 g/dL [facility] Albumin 3.2(L) 3.5 - 5.0 g/dL [facility] Alk phos 79 40 - 130 Units/L [facility] ALT 5(L) 7 - 45 Units/L [facility] AST 20 10 - 45 Units/L [facility] Blood 09/08/2024 10:1 8 PM CDT 09/08/2024 10:30 PM CDT us Kenny Flores MD LAB BLOOD ORDERABLES Final Resu lt [facility] Department [place] [address] * eGFR (09/08/2024 2:55 AM CDT) eGFR [...] ORDERABLES Final Resu lt Performing Organization Address [facility] Co de Phone Number [facility] Department [place] [address] * (ABNORMAL) Immunoglobulin free light chains (09/08/2024 2:55 AM CDT) Verdigre/Lambda ratio [facility] 0.10(L) 0.26 - 1.65 Comment: Interpretive Data The Binding Site FreeLite assay procedure was used. Results from different manufacturers or methods may not be comparable. Serial testing should be performed using the same methods and instrumentation. Current Interpretive Data was last revised on 2023. Verdigre free light chain [facility] 1.53 0.33 - 1.94 mg/dL [facility] Comment: Interpretive Data The Binding Site [employer] assay procedure was used. Results from different manufacturers or methods may not be comparable. Serial testing should be performed using the same methods and instrumentation. Current Interpretive Data was last revised on 2023. Lambda free light chain BJ 15.19(H) 0.57 - 2.63 mg/dL [facility] Comment: Interpretive Data The Binding Site [employer] assay procedure was used. Results from different manufacturers or methods may not be comparable. Serial testing should be performed using the same methods and instrumentation. Current Interpretive Data was last revised on 2023. Blood 09/08/2024 2:55 AM CDT 09/08/2024 3:03 AM CDT Result [facility] Kenny Flores MD LAB BLOOD ORDERABLES Final Resu lt [facility] Department [place] [address] * Uric acid (09/08/2024 2:55 AM CDT) Uric acid 4.8 2.5 - 7.0 mg/dL Blood 09/08/2024 2:55 AM CDT 09/08/2024 3:03 AM CDT Kenny Flores MD LAB BLOOD ORDERABLES Final Resu lt Performing Organization Address City/[facility]/ZIP Co de Phone Number [facility] Department [place] [address] * Lactate dehydrogenase (LD) (09/08/2024 2:55 AM CDT) Pathologist [facility] Lactate dehydrogenase (LDH) 184 100 - 250 Units/L Blood 09/08/2024 2:55 AM CDT 09/08/2024 3:03 AM CDT Result [facility] Kenny Flores MD LAB BLOOD ORDERABLES Final Resu lt Performing Organization Address [facility] Co de Phone Number [facility] [place] [address] * (ABNORMAL) Beta 2 microglobulin, serum (09/08/2024 2:55 AM CDT) Pathologist [facility] Beta 2 Microglobulin, Serum 2.60(H) 1.00 - 2.50 mg/L Comment: Interpretive Data The [employer] Beta-2 microglobulin assay procedure was used. Results from different manufacturers or methods may not be comparable. Serial testing should be performed using the same method. Blood 09/08/2024 2:55 AM CDT 09/08/2024 3:03 AM CDT Kenny Flores MD LAB BLOOD ORDERABLES Final Resu lt Performing Organization Address [facility] Co de Phone Number [facility] Department [place] [address] * Basic metabolic panel (09/08/2024 2:55 AM CDT) Sodium 142 135 - 145 mmol/L Potassium, pl 3.7 3.3 - 4.9 mmol/L [facility] Chloride 106 97 - 110 mmol/L [facility] CO2 29 22 - 32 mmol/L [facility] Anion gap 7 2 - 15 mmol/L [facility] BUN 13 6 - 25 mg/dL [facility] Creatinine 0.60 0.60 - 1.10 mg/dL [facility] Glucose 112 70 - 199 mg/dL [facility] Comment: Interpretive Data Fasting glucose >/= 126 [...] 2022. Calcium 9.3 8.5 - 10.3 mg/dL [facility] Blood 09/08/2024 2:55 AM CDT 09/08/2024 3:03 AM CDT us Kenny Flores MD LAB BLOOD ORDERABLES Final Resu lt [facility] Department [place] [address] * (ABNORMAL) Urinalysis reflex to microscopic (09/07/2024 3:29 PM CDT) Pathologist [facility] Color, ur Yellow Yellow Clarity, ur Cloudy(A) Clear [facility] Specific gravity, ur 1.024 1.003 - 1.030 [facility] pH, urine 6.5 [facility] Comment: Interpretive Data U rine pH is affected by diet, medications, systemic acid-base disturbances, and renal tubular function. pH may affect urinary stone formation. For example, urine pH below 6.0 may help reduce the tendency for calcium phosphate stones and pH greater than 6.0 may reduce the tendency for uric acid stone formation. Source: [facility] Current Interpretive Data was last revised on 2017 Protein, ur ql 1+(A) Negative [facility] Glucose, ur ql Negative Negative [facility] Ketones, ur Negative Negative [facility] Bilirubin, ur Negative Negative [facility] Blood, ur Negative Negative [facility] Urobilinogen, ur <2.0 <2.0 mg/dL [facility] Nitrite, ur Negative Negative [facility] Leukocyte esterase, ur Negative Negative [facility] UA reflex comment Reflex to microscopic UA will be performed. [facility] Urine 09/07/2024 3:29 PM CDT 09/07/2024 3:35 PM CDT Kenny Flores MD LAB URINE ORDERABLES Final Resu lt Performing Organization Address [facility] Co de Phone Number [facility] Department [place] [address] * (ABNORMAL) Urinalysis, microscopic only (09/07/2024 3:29 PM CDT) WBC, ur 0-5 0 - 5 /HPF RBC, ur 0-2 0 - 2 /HPF [facility] Epithelial cells, squamous, ur 1-5 0 - 5 /HPF [facility] Bacteria, ur 2+(A) [facility] Amorphous crystals, ur 4+(A) [facility] Urine 09/07/2024 3:29 PM CDT 09/07/2024 3:35 PM CDT Kenny Flores MD LAB URINE ORDERABLES Final Resu lt Performing Organization Address [facility] Co de Phone Number [facility] [place] [address] * Immunotyping, serum with interpretation (09/07/2024 1:38 PM CDT) [facility] Immunosubtraction Please see comment Comment: IGG LAMBDA PARAPROTEIN Reviewed and signed by Marcell Campos MD 09/10/2024 Blood 09/07/2024 1:38 PM CDT 09/07/2024 1:59 PM CDT Kenny Flores MD LAB BLOOD ORDERABLES Final Resu lt Performing Organization Address [facility] Co de Phone Number [facility] Department [place] [address] * (ABNORMAL) Immunoglobulin profile (09/07/2024 1:38 PM CDT) [facility] Immunoglobulin G 2,690(H) 700 - 1,600 mg/dL Immunoglobulin A <50(L) 70 - 400 mg/dL [facility] Immunoglobulin M 27(L) 40 - 230 mg/dL [facility] Blood 09/07/2024 1:38 PM CDT 09/07/2024 1:58 PM CDT Result [facility] Kenny Flores MD LAB BLOOD ORDERABLES Final Resu lt Performing Organization Address [facility] Co de Phone Number [facility] Department [place] [address] * (ABNORMAL) Immunoglobulin free light chains (09/07/2024 1:38 PM CDT) [facility] Verdigre/Lambda ratio [facility] 0.10(L) 0.26 - 1.65 Comment: Interpretive Data The Binding Site FreeLite assay procedure was used. Results from different manufacturers or methods may not be comparable. Serial testing should be performed using the same methods and instrumentation. Current Interpretive Data was last revised on 2023. Verdigre free light chain [facility] 1.30 0.33 - 1.94 mg/dL [facility] Comment: Interpretive Data The Binding Site FreeLite assay procedure was used. Results from different manufacturers or methods may not be comparable. Serial testing should be performed using the same methods and instrumentation. Current Interpretive Data was last revised on 2023. Lambda free light chain [facility] 12.66(H) 0.57 - 2.63 mg/dL [facility] Comment: Interpretive Data The Binding Site FreeLite assay procedure was used. Results from different manufacturers or methods may not be comparable. Serial testing should be performed using the same methods and instrumentation. Current Interpretive Data was last revised on 2023. Blood 09/07/2024 1:38 PM CDT 09/07/2024 1:59 PM CDT Kenny Flores MD LAB BLOOD ORDERABLES Final Resu lt Performing Organization Address [facility] [place] [address] * (ABNORMAL) Iron profile w/ IBC (09/07/2024 1:38 PM CDT) Iron 98 35 - 145 mcg/dL TIBC 240(L) 250 - 400 mcg/dL [facility] Transferrin saturation 41 20 - 50 % [facility] Blood 09/07/2024 1:38 PM CDT 09/07/2024 1:59 PM CDT Kenny Flores MD LAB BLOOD ORDERABLES Final Resu Performing Organization Address [facility] Co de Phone Number [facility] [place] [address] * Copper, serum (09/07/2024 1:38 PM CDT) Copper 117 77 - 206 mcg/dL [facility] Comment: ADDITIONAL INFORMATION This test was developed and its performance characteristics determined by [facility] in a manner consistent with CLIA requirements. This test has not been cleared or approved by the U.S. Food and Drug Administration. Test Performed by: [place] [address] [employer]antile Reporter: Nathalie Thurston Ph.D.; CLIA# [id number] Blood 09/07/2024 1:38 PM CDT 09/07/2024 2:50 PM CDT Kenny Flores MD LAB BLOOD ORDERABLES Final Resu lt Performing Organization Address [facility] Co de Phone Number [facility] [place] [address] [facility] * (ABNORMAL) Zinc (09/07/2024 1:38 PM CDT) [facility] Zinc 56(L) 60 - 106 mcg/dL [facility] Comment: ADDITIONAL INFORMATION This test was developed and its performance characteristics determined by [facility] in a manner consistent with CLIA requirements. This test has not been cleared or approved by the U.S. Food and Drug Administration. Test Performed by: [place] [address] [employer]ile Reporter: Nathalie Thurston Ph.D.; CLIA# [id number] Blood 09/07/2024 1:38 PM CDT 09/07/2024 2:50 PM CDT Kenny Flores MD LAB BLOOD ORDERABLES Final Resu lt Performing Organization Address [facility] Co de Phone Number [facility] [place] [address] [facility] * (ABNORMAL) Reticulocyte Count (09/07/2024 1:38 PM CDT) [facility] Retics, absolute 62 20 - 87 K/cumm Retics 2.1 0.4 - 2.9 % [facility] Reticulocyte Hgb 27.1(L) 30.5 - 38.0 pg [facility] Blood 09/07/2024 1:38 PM CDT 09/07/2024 1:59 PM CDT Kenny Flores MD LAB BLOOD ORDERABLES Final Resu lt Performing Organization Address City/[facility] Co de Phone Number [facility] Department [place] [address] * (ABNORMAL) Protein electrophoresis with reflex, serum with interpretation (09/07/2024 1:38 PM CDT) Pathologist [facility] Protein, sr 7.0 6.2 - 8.2 g/dL Albumin 2.9(L) 3.2 - 5.0 g/dL [facility] Alpha-1 globulin 0.4 0.2 - 0.4 g/dL [facility] Alpha-2 globulin 0.9 0.5 - 1.0 g/dL [facility] Beta-1 globulin 0.4 0.3 - 0.6 g/dL [facility] Beta-2 globulin 0.3 0.2 - 0.6 g/dL [facility] Gamma globulin 2.1(H) 0.5 - 1.7 g/dL [facility] Rstr Pk Gamma 1.8(H) 0.0 - 0.0 g/dL [facility] SPEP interp Please see comment [facility] Comment: Abnormal restricted peak in Gamma region *See immunotyping for further information Reviewed and signed by Marcell Campos MD 09/10/2024 Blood 09/07/2024 1:38 PM CDT 09/07/2024 1:59 PM CDT Kenny Flores MD LAB BLOOD ORDERABLES Final Resu lt Performing Organization Address [facility]/ZIP Co de Phone Number [facility] Department [place] [address] * Lactate dehydrogenase (LD) (09/07/2024 1:38 PM CDT) [facility] Lactate dehydrogenase (LDH) 194 100 - 250 Units/L Blood 09/07/2024 1:38 PM CDT 09/07/2024 1:59 PM CDT Kenny Flores MD LAB BLOOD ORDERABLES Final Resu lt Performing Organization Address [facility] Co de Phone Number [facility] [place] [address] * Folate (09/07/2024 1:38 PM CDT) Pathologist [facility] Folic acid 10.3 >=5.0 ng/mL Blood 09/07/2024 1:38 PM CDT 09/07/2024 1:59 PM CDT Result [facility] Kenny Flores MD LAB BLOOD ORDERABLES Final Resu lt Performing Organization Address [facility] de Phone Number [facility] Department [place] [address] * (ABNORMAL) Ferritin (09/07/2024 1:38 PM CDT) [facility] Ferritin 172(H) 13 - 150 ng/mL Blood 09/07/2024 1:38 PM CDT 09/07/2024 1:59 PM CDT Result [facility] us Kenny Flores MD LAB BLOOD ORDERABLES Final Resu lt Performing Organization Address [facility] Co de Phone Number [facility] [place] [address] * Vitamin B12 (09/07/2024 1:38 PM CDT) Pathologist [facility] Vitamin B12 617 230 - 1,250 pg/mL Blood 09/07/2024 1:38 PM CDT 09/07/2024 1:59 PM CDT Kenny Flores MD LAB BLOOD ORDERABLES Final [facility]u [facility] [place] [address] * Creatine kinase (CK), total (09/07/2024 1:38 PM CDT) CK 98 30 - 200 Units/L Blood 09/07/2024 1:38 PM CDT 09/07/2024 1:59 PM CDT us Kylee Noel NP LAB BLOOD ORDERABLES Final Result Performing Organization Address [facility] Co de Phone Number [facility] [place] [address] * eGFR (09/06/2024 10:04 PM CDT) Pathologist [facility] eGFR >90 >=60 mL/min/1. 73 m2 Comment: [...] PM CDT 09/06/2024 10:23 PM CDT us eKnny Flores MD LAB BLOOD ORDERABLES Final Resu lt Performing Organization Address [facility] Co de Phone Number [facility] Department [place] [address] * (ABNORMAL) CBC without differential (09/06/2024 10:04 PM CDT) [facility] WBC 7.20 3.80 - 9.90 K/cumm Hgb 8.3(L) 11.9 - 15.5 g/dL [facility] Hct 27.0(L) 35.6 - 45.5 % [facility] Plt 344 150 - 400 K/cumm [facility] MPV 10.4 9.1 - 12.3 fL [facility] RBC 3.09(L) 3.90 - 5.20 M/cumm [facility] MCV 87.4 81.3 - 96.4 fL [facility] MCH 26.9(L) 27.1 - 33.3 pg [facility] MCHC 30.7(L) 32.3 - 35.7 g/dL [facility] RDW CV 17.2(H) 11.1 - 14.9 % [facility] RDW SD 52.3(H) 35.7 - 48.1 fL [facility] NRBC abs 0.00 0.00 - 0.01 K/cumm [facility] Blood 09/06/2024 10:0 4 PM CDT 09/06/2024 10:23 PM CDT Kenny Flores MD LAB BLOOD ORDERABLES Final Resu lt Performing Organization Address [facility] Co de Phone Number [facility] Department [place] [address] * (ABNORMAL) Hepatic function panel (09/06/2024 10:04 PM CDT) [facility] Bilirubin, total <0.2 0.1 - 1.2 mg/dL Comment:Reviewed Bilirubin, direct <0.2 0.1 - 0.3 mg/dL [facility] Protein, pl 7.6 6.5 - 8.5 g/dL [facility] Albumin 3.2(L) 3.5 - 5.0 g/dL [facility] Alk phos 85 40 - 130 Units/L [facility] ALT 6(L) 7 - 45 Units/L [facility] Comment:Reviewed AST 23 10 - 45 Units/L [facility] Blood 09/06/2024 10:0 4 PM CDT 09/06/2024 10:23 PM CDT us Kenny Flores MD LAB BLOOD ORDERABLES Final Resu lt [facility] Department [place] [address] * (ABNORMAL) Basic metabolic panel (09/06/2024 10:04 PM CDT) Sodium 143 135 - 145 mmol/L Potassium, pl 3.7 3.3 - 4.9 mmol/L [facility] Chloride 105 97 - 110 mmol/L [facility] CO2 29 22 - 32 mmol/L [facility] Anion gap 9 2 - 15 mmol/L [facility] BUN 10 6 - 25 mg/dL [facility] Creatinine 0.53(L) 0.60 - 1.10 mg/dL [facility] Glucose 100 70 - 199 mg/dL [facility] Comment: Interpretive Data Fasting glucose >/= 126 [...] 2022. Calcium 9.3 8.5 - 10.3 mg/dL [facility] Blood 09/06/2024 10:0 4 PM CDT 09/06/2024 10:23 PM CDT Kenny Flores MD LAB BLOOD ORDERABLES Final Resu lt Performing Organization Address City/[facility] Co de Phone Number [facility] Department [place] [address] * eGFR (09/06/2024 11:49 AM CDT) eGFR [...] ORDERABLES Final Resu lt Performing Organization Address City/[facility]/ZIP Co de Phone Number [facility] Department [place] [address] * (ABNORMAL) CBC without differential (09/06/2024 11:49 AM CDT) WBC 7.26 3.80 - 9.90 K/cumm Hgb 9.0(L) 11.9 - 15.5 g/dL [facility] Hct 29.0(L) 35.6 - 45.5 % [facility] Plt 371 150 - 400 K/cumm [facility] MPV 10.4 9.1 - 12.3 fL [facility] RBC 3.33(L) 3.90 - 5.20 M/cumm [facility] MCV 87.1 81.3 - 96.4 fL [facility] MCH 27.0(L) 27.1 - 33.3 pg [facility] MCHC 31.0(L) 32.3 - 35.7 g/dL [facility] RDW CV 17.1(H) 11.1 - 14.9 % [facility] RDW SD 52.5(H) 35.7 - 48.1 fL [facility] NRBC abs 0.00 0.00 - 0.01 K/cumm [facility] Blood 09/06/2024 11:4 9 AM CDT 09/06/2024 12:34 PM CDT us Kenny Flores MD LAB BLOOD ORDERABLES Final Resu lt [facility] Department [place] [address] * (ABNORMAL) Basic metabolic panel (09/06/2024 11:49 AM CDT) Sodium 145 135 - 145 mmol/L Potassium, pl 3.6 3.3 - 4.9 mmol/L [facility] Chloride 107 97 - 110 mmol/L [facility] CO2 29 22 - 32 mmol/L [facility] Anion gap 9 2 - 15 mmol/L [facility] BUN 6 6 - 25 mg/dL [facility] Creatinine 0.45(L) 0.60 - 1.10 mg/dL [facility] Glucose 99 70 - 199 mg/dL [facility] Comment: Interpretive Data Fasting glucose >/= 126 [...] 2022. Calcium 9.3 8.5 - 10.3 mg/dL [facility] Blood 09/06/2024 11:4 9 AM CDT 09/06/2024 12:34 PM CDT us Kenny Flores MD LAB BLOOD ORDERABLES Final Resu lt [facility] Department [place] [address] * IR Central Line Placement > 5 [...] spine fusion hardware with infection requiring senior care antibiotics. ATTENDING PRESENCE: Beau Garza M.D., the attending interventional radiologist was present from the beginning to the end of the procedure. SEDATION: The patient did not require conscious sedation for the procedure. TECHNIQUE: The risks, benefits and alternatives were discussed and informed consent was obtained. Prior to beginning the procedure, [place] Protocol was performed to confirm the patient's [...] assessed. After dilating the tract, a 5 Greenlandic double lumen non-tunneled central venous catheter (Vishal) [...] spine fusion hardware with infection requiring senior care antibiotics. ATTENDING PRESENCE: Beau Garza M.D., the attending interventional radiologist was present from the beginning to the end of the procedure. SEDATION: The patient did not require conscious sedation for the procedure. TECHNIQUE: The risks, benefits and alternatives were discussed and informed consent was obtained. Prior to beginning the procedure, [place] Protocol was performed to confirm the patient's [...] assessed. After dilating the tract, a 5 Greenlandic double lumen non-tunneled central venous catheter (Vishal) [...] signed by: Beau Garza M.D. Marii Bell PRODUCTION QUALITY MANAGER IMG IR PROCEDURES Final Result * XR [...] signed by: Nancy Jessica M.D. Marii Bell PRODUCTION QUALITY MANAGER IMG XR PROCEDURES Final Result * IR [...] was obtained. Prior to beginning the procedure, Exeter Protocol was used to confirm the patient's [...] was obtained. Prior to beginning the procedure, [place] Protocol was used to confirm the patient's [...] After dilating the tract, a dual lumen vsihal trimmed to the appropriate intravascular length was [...] by: Bertram Dubose M.D. us Adalid Cowan NP IMG IR PROCEDURES Final Resu lt * [...] LAB BLOOD ORDERABLES Final Resu lt [facility] Department [place] [address] * (ABNORMAL) CBC without differential (09/04/2024 11:01 PM CDT) WBC 8.44 3.80 - 9.90 K/cumm Hgb 8.0(L) 11.9 - 15.5 g/dL [facility] Hct 26.0(L) 35.6 - 45.5 % [facility] Plt 323 150 - 400 K/cumm [facility] MPV 11.0 9.1 - 12.3 fL [facility] RBC 3.00(L) 3.90 - 5.20 M/cumm [facility] MCV 86.7 81.3 - 96.4 fL [facility] MCH 26.7(L) 27.1 - 33.3 pg [facility] MCHC 30.8(L) 32.3 - 35.7 g/dL [facility] RDW CV 16.3(H) 11.1 - 14.9 % [facility] RDW SD 51.1(H) 35.7 - 48.1 fL [facility] NRBC abs 0.00 0.00 - 0.01 K/cumm [facility] Blood 09/04/2024 11:0 1 PM CDT 09/05/2024 1:13 AM CDT us Kenny Flores MD LAB BLOOD ORDERABLES Final Resu lt Performing Organization Address City/[facility]/ZIP Co de Phone Number [facility] Department [place] [address] * (ABNORMAL) Creatine kinase (CK), total (09/04/2024 11:01 PM CDT) Pathologist [facility] CK 209(H) 30 - 200 Units/L Blood 09/04/2024 11:0 1 PM CDT 09/05/2024 1:10 AM CDT us Klyee Noel NP LAB BLOOD ORDERABLES Final Result Performing Organization Address City/[facility]/ZIP Co de Phone Number [facility] Department [place] [address] * (ABNORMAL) Basic metabolic panel (09/04/2024 11:01 PM CDT) [facility] Sodium 139 135 - 145 mmol/L Potassium, pl 3.5 3.3 - 4.9 mmol/L [facility] Chloride 106 97 - 110 mmol/L [facility] CO2 27 22 - 32 mmol/L [facility] Anion gap 6 2 - 15 mmol/L [facility] BUN 6 6 - 25 mg/dL [facility] Creatinine 0.37(L) 0.60 - 1.10 mg/dL [facility] Glucose 137 70 - 199 mg/dL [facility] Comment: Interpretive Data Fasting glucose >/= 126 [...] 2022. Calcium 9.4 8.5 - 10.3 mg/dL [facility] Blood 09/04/2024 11:0 1 PM CDT 09/05/2024 1:10 AM CDT us Kenny Flores MD LAB BLOOD ORDERABLES Final Resu lt [facility] Department [place] [address] * eGFR (09/03/2024 9:27 PM CDT) [facility] eGFR >90 >=60 mL/min/1. 73 m2 [...] MD LAB BLOOD ORDERABLES Final Resu lt [facility] Department [place] [address] * Differential, auto (09/03/2024 9:27 PM CDT) Pathologist [facility] Neutrophil abs 3.94 1.50 - 6.50 K/cumm Imm gran abs 0.03 0.00 - 0.10 K/cumm [facility] Lymphocyte abs 2.14 0.80 - 3.30 K/cumm [facility] Monocyte abs 0.55 0.20 - 0.80 K/cumm [facility] Eosinophil abs 0.22 0.00 - 0.50 K/cumm [facility] Basophil abs 0.03 0.00 - 0.10 K/cumm [facility] Neutrophil pct 57.0 % [facility] Comment: Interpretive Data Percent cell count reference ranges are not reported, since discordance with absolute values may lead to misinterpretation of CBC data. Current Interpretive Data was last revised on 2017. Imm gran pct 0.4 % [facility] Comment: Interpretive Data Percent cell count reference ranges are not reported, since discordance with absolute values may lead to misinterpretation of CBC data. Current Interpretive Data was last revised on 2017. Lymphocyte pct 31.0 % [facility] Comment: Interpretive Data Percent cell count reference ranges are not reported, since discordance with absolute values may lead to misinterpretation of CBC data. Current Interpretive Data was last revised on 2017. Monocyte pct 8.0 % [facility] Comment: Interpretive Data Percent cell count reference ranges are not reported, since discordance with absolute values may lead to misinterpretation of CBC data. Current Interpretive Data was last revised on 2017. Eosinophil pct 3.2 % [facility] Comment: Interpretive Data Percent cell count reference ranges are not reported, since discordance with absolute values may lead to misinterpretation of CBC data. Current Interpretive Data was last revised on 2017. Basophil pct 0.4 % [facility] Comment: Interpretive Data Percent cell count reference ranges are not reported, since discordance with absolute values may lead to misinterpretation of CBC data. Current Interpretive Data was last revised on 2017. Blood 09/03/2024 9:27 PM CDT 09/03/2024 9:58 PM CDT us Kenny Flores MD LAB BLOOD ORDERABLES Final Resu lt [facility] Department [place] [address] * (ABNORMAL) CBC without differential (09/03/2024 9:27 PM CDT) WBC 6.90 3.80 - 9.90 K/cumm Hgb 7.1(L) 11.9 - 15.5 g/dL [facility] Hct 22.4(L) 35.6 - 45.5 % [facility] Plt 259 150 - 400 K/cumm [facility] MPV 10.6 9.1 - 12.3 fL [facility] RBC 2.63(L) 3.90 - 5.20 M/cumm [facility] MCV 85.2 81.3 - 96.4 fL [facility] MCH 27.0(L) 27.1 - 33.3 pg [facility] MCHC 31.7(L) 32.3 - 35.7 g/dL [facility] RDW CV 16.0(H) 11.1 - 14.9 % [facility] RDW SD 49.7(H) 35.7 - 48.1 fL [facility] NRBC abs 0.00 0.00 - 0.01 K/cumm [facility] Blood 09/03/2024 9:27 PM CDT 09/03/2024 9:55 PM CDT us Kenny Flores MD LAB BLOOD ORDERABLES Final Resu lt [facility] Department [place] [address] * (ABNORMAL) Basic metabolic panel (09/03/2024 9:27 PM CDT) Sodium 141 135 - 145 mmol/L Potassium, pl 2.9(L) 3.3 - 4.9 mmol/L [facility] Chloride 108 97 - 110 mmol/L [facility] CO2 26 22 - 32 mmol/L [facility] Anion gap 7 2 - 15 mmol/L [facility] BUN 6 6 - 25 mg/dL [facility] Creatinine 0.56(L) 0.60 - 1.10 mg/dL [facility] Glucose 123 70 - 199 mg/dL [facility] Comment: Interpretive Data Fasting glucose >/= 126 [...] 2022. Calcium 8.2(L) 8.5 - 10.3 mg/dL [facility] Blood 09/03/2024 9:27 PM CDT 09/03/2024 9:55 PM CDT us Kenny Flores MD LAB BLOOD ORDERABLES Final Resu lt [facility] Department [place] [address] * Blood culture Blood Arm, left (09/03/2024 12:02 PM CDT) Report Final Report: No growth Blood (Arm, left) 09/03/2024 12:02 PM CDT 09/03/2024 12:21 PM CDT Narrative [facility] - 09/07/2024 4:00 PM CDT Collection->Peripheral 1. [...] performance characteristics have been verified by the [facility]. For questions about this culture, contact the Microbiology Laboratory at [phone]. Interpretive data was last revised on 24. us Casimiro Gutierrez NP LAB MICROBIOLOGY - GENE RAL ORDERABLES Final Result Performing Organization Address City/[facility]/ZIP Co de Phone Number [facility] Department [place] [address] * Blood culture Blood (09/02/2024 4:05 AM CDT) Report Final Report: No growth Blood 09/02/2024 4:05 AM CDT 09/02/2024 6:45 AM CDT Darby HORVATH - 09/06/2024 7:00 AM CDT Collection->Peripheral 1. [...] performance characteristics have been verified by the [facility]. For questions about this culture, contact the Microbiology Laboratory at [phone]. Interpretive data was last revised on 24. Kenny Flores MD LAB MICROBIOLOGY - [facility]AL [facility] Final Result [facility] Department [place] [address] * (ABNORMAL) Blood culture Blood (09/02/2024 4:05 [...] to and read back by: Simone Graham [phone] on 09/02/2024 23:13:53 by: Idalia PottsMLS [facility] Report Final Report: Staphylococcus epidermidis Single blood culture positive for this microorganism. Isolate is a possible contaminant. If a similar isolate is recovered from a second blood culture collected within 3 days of this culture, both will be evaluated and, if determined to be the same species, antimicrobial susceptibility testing will be performed. (.) [facility] Organism STAPHYLOCOCCUS EPIDERMIDIS [facility] Blood 09/02/2024 4:05 AM CDT 09/02/2024 6:45 AM CDT Narrative [facility] - 09/07/2024 12:44 PM CDT Collection->Peripheral 1. [...] performance characteristics have been verified by the [facility]. For questions about this culture, contact the Microbiology Laboratory at [phone]. Interpretive data was last revised on 24. Kenny Flores MD LAB MICROBIOLOGY - GENERAL ORDCarole TAVERA Final Result Performing Organization Address City/[facility] Co de Phone Number [facility] Department [place] [address] * eGFR (09/02/2024 3:09 AM CDT) Pathologist [facility] eGFR >90 >=60 mL/min/1. 73 m2 Comment: [...] ORDERABLES Final Resu lt Performing Organization Address City/[facility]/ZIP Co de Phone Number [facility] [place] [address] * (ABNORMAL) CBC without differential (09/02/2024 3:09 AM CDT) [facility] WBC 10.01(H) 3.80 - 9.90 K/cumm Hgb 7.7(L) 11.9 - 15.5 g/dL [facility] Hct 24.5(L) 35.6 - 45.5 % [facility] Plt 246 150 - 400 K/cumm [facility] MPV 10.5 9.1 - 12.3 fL [facility] RBC 2.86(L) 3.90 - 5.20 M/cumm [facility] MCV 85.7 81.3 - 96.4 fL [facility] MCH 26.9(L) 27.1 - 33.3 pg [facility] MCHC 31.4(L) 32.3 - 35.7 g/dL [facility] RDW CV 15.8(H) 11.1 - 14.9 % [facility] RDW SD 49.2(H) 35.7 - 48.1 fL [facility] NRBC abs 0.00 0.00 - 0.01 K/cumm [facility] Blood 09/02/2024 3:09 AM CDT 09/02/2024 3:22 AM CDT Kenny Flores MD LAB BLOOD ORDERABLES Final Resu lt [facility] Department [place] [address] * Phosphorus (09/02/2024 3:09 AM CDT) Phosphorus, pl 2.3 2.3 - 4.5 mg/dL Blood 09/02/2024 3:09 AM CDT 09/02/2024 3:22 AM CDT Kenny Flores MD LAB BLOOD ORDERABLES Final Resu lt [facility] Department [place] [address] * Magnesium (09/02/2024 3:09 AM CDT) Magnesium 1.4 1.4 - 2.5 mg/dL Blood 09/02/2024 3:09 AM CDT 09/02/2024 3:22 AM CDT Kenny Flores MD LAB BLOOD ORDERABLES Final Resu lt Performing Organization Address City/[facility]/ZIP Co de Phone Number [facility] [place] [address] * Vancomycin level trough Please draw 30 minutes prior to vancomycin infusion. (09/02/2024 3:09 AM CDT) [facility] Vancomycin trough 11.6 10.0 - 20.0 mcg/mL Blood 09/02/2024 3:09 AM CDT 09/02/2024 3:22 AM CDT Narrative [facility] - 09/02/2024 3:52 AM CDT Please draw 30 minutes prior to vancomycin infusion. Vin Cohen MD LAB BLOOD ORDERABLES Final Resul t Performing Organization Address [facility] Co de Phone Number [facility] [place] [address] * (ABNORMAL) Comprehensive metabolic panel (09/02/2024 3:09 AM CDT) [facility] Sodium 137 135 - 145 mmol/L Potassium, pl 3.7 3.3 - 4.9 mmol/L [facility] Chloride 102 97 - 110 mmol/L [facility] CO2 27 22 - 32 mmol/L [facility] Anion gap 8 2 - 15 mmol/L [facility] BUN 6 6 - 25 mg/dL [facility] Creatinine 0.49(L) 0.60 - 1.10 mg/dL [facility] Glucose 101 70 - 199 mg/dL [facility] Comment: Interpretive Data Fasting glucose >/= 126 [...] Calcium 8.8 8.5 - 10.3 mg/dL [facility] Bilirubin, total 0.2 0.1 - 1.2 mg/dL [facility] Protein, pl 7.4 6.5 - 8.5 g/dL [facility] Albumin 2.9(L) 3.5 - 5.0 g/dL [facility] Alk phos 73 40 - 130 Units/L [facility] ALT <5(L) 7 - 45 Units/L [facility] Comment:Repeated and Verifie d AST 22 10 - 45 Units/L [facility] Blood 09/02/2024 3:09 AM CDT 09/02/2024 3:22 AM CDT us Kenny Flores MD LAB BLOOD ORDERABLES Final Resu lt [facility] Department [place] [address] * eGFR (08/31/2024 7:10 PM CDT) eGFR [...] CDT 08/31/2024 7:25 PM CDT Alejandro Daugherty PRODUCTION QUALITY MANAGER LAB BLOOD ORDERABLES Final Result Performing Organization Address [facility] Co de Phone Number [facility]ILIS [facility] [place] [address] * (ABNORMAL) aPTT (08/31/2024 7:10 PM CDT) aPTT 17(L) 28 - 38 sec Comment: No clot detected in sample - [id number] - 08/31/24, 7:38 PM Interpretive Data Heparin therapeutic range: 66.0 - 100.0 seconds. Range based on correlation with therapeutic heparin activity range of 0.3 - 0.7 Units/mL. Current interpretive data was last revised on 2023. Blood 08/31/2024 7:10 PM CDT 08/31/2024 7:22 PM CDT Alejandro Daugherty NP LAB BLOOD ORDERABLES Final Result Performing Organization Address [facility] [place] [address] * (ABNORMAL) Erythrocyte sedimentation rate (08/31/2024 7:10 PM CDT) Pathologist [facility] Erythrocyte sedimentation rate 62(H) 1 - 30 mm/hr Blood 08/31/2024 7:10 PM CDT 08/31/2024 7:25 PM CDT Alejandro Daugherty NP LAB BLOOD ORDERABLES Final Result Performing Organization Address City/State/[facility] [place] [address] * Protime-INR (08/31/2024 7:10 PM CDT) Pathologist [facility] PT 12.0 9.7 - 13.0 sec Comment:No clot detected in sample - [id number] - 08/31/24, 7:38 PM INR 1.11 0.90 - 1.20 [facility] Comment: No clot detected in sample - [id number] - 08/31/24, 7:38 PM Interpretive data Oral anticoagulant therapeutic ranges: Venous thromboembolism prophylaxis or treatment: 2.0-3.0 CARDIOLOGY Standard range: 2.0-3.0 High-intensity range: 2.5-3.5 Refer to indication-specific guidelines for appropriate target ranges for prosthetic heart valve replacement. Current interpretive data was last revised on 2019. Blood 08/31/2024 7:10 PM CDT 08/31/2024 7:22 PM CDT us Alejandro Daugherty NP LAB BLOOD ORDERABLES Final Result [facility] Department [place] [address] * (ABNORMAL) CBC without differential (08/31/2024 7:10 PM CDT) WBC 10.63(H) 3.80 - 9.90 K/cumm Hgb 9.5(L) 11.9 - 15.5 g/dL [facility] Hct 30.8(L) 35.6 - 45.5 % [facility] Plt 311 150 - 400 K/cumm [facility] MPV 10.9 9.1 - 12.3 fL [facility] RBC 3.57(L) 3.90 - 5.20 M/cumm [facility] MCV 86.3 81.3 - 96.4 fL [facility] MCH 26.6(L) 27.1 - 33.3 pg [facility] MCHC 30.8(L) 32.3 - 35.7 g/dL [facility] RDW CV 16.3(H) 11.1 - 14.9 % [facility] RDW SD 50.9(H) 35.7 - 48.1 fL [facility] NRBC abs 0.00 0.00 - 0.01 K/cumm [facility] Blood 08/31/2024 7:10 PM CDT 08/31/2024 7:25 PM CDT Alejandro Daugherty PRODUCTION QUALITY MANAGER LAB BLOOD ORDERABLES Final Result Performing Organization Address [facility] de Phone Number [facility] [place] [address] * CRP (acute phase) (08/31/2024 7:10 PM CDT) CRP 4.5 <=10.0 mg/L Blood 08/31/2024 7:10 PM CDT 08/31/2024 7:25 PM CDT Result [facility] Alejandro Daugherty PRODUCTION QUALITY MANAGER LAB BLOOD ORDERABLES Final Result Performing Organization Address [facility] de Phone Number [facility] Department [place] [address] * Phosphorus (08/31/2024 7:10 PM CDT) Phosphorus, pl 3.6 2.3 - 4.5 mg/dL Blood 08/31/2024 7:10 PM CDT 08/31/2024 7:25 PM CDT Result [facility] Alejandro Daugherty PRODUCTION QUALITY MANAGER LAB BLOOD ORDERABLES Final Result Performing Organization Address [facility] [place] [address] * Magnesium (08/31/2024 7:10 PM CDT) Magnesium 1.5 1.4 - 2.5 mg/dL Blood 08/31/2024 7:10 PM CDT 08/31/2024 7:25 PM CDT Alejandro Daugherty PRODUCTION QUALITY MANAGER LAB BLOOD ORDERABLES Final Result [facility] Department [place] [address] * (ABNORMAL) Lipid panel (08/31/2024 7:10 PM [...] on 2018. Triglycerides 104 <=149 mg/dL [facility] Comment: Interpretive Data Ages < or = [...] revised on 2018. HDL 37(L) >=40 mg/dL [facility] Comment: Interpretive Data Ages < or = [...] on 2018. LDL, calculated 60 <=129 mg/dL [facility] Comment: Interpretive Data Ages < or = [...] revised on 2024. Non-HDL Cholesterol 79 mg/dL [facility] Comment: Interpretive Data Ages < or = [...] last revised on 2018. Chol/HDL ratio 3 [facility] Blood 08/31/2024 7:10 PM CDT 08/31/2024 7:25 PM CDT us Kenny Flores MD LAB BLOOD ORDERABLES Final Resu lt [facility] Department [place] [address] * (ABNORMAL) Comprehensive metabolic panel (08/31/2024 7:10 PM CDT) Sodium 137 135 - 145 mmol/L Potassium, pl 5.2(H) 3.3 - 4.9 mmol/L [facility] Comment:Hemolyzed; Potassium value may be falsely elevated by as much as 1.1-1.6 mmol/L. Suggest redraw and reanalysis. Chloride 104 97 - 110 mmol/L [facility] CO2 24 22 - 32 mmol/L [facility] Anion gap 9 2 - 15 mmol/L [facility] BUN 9 6 - 25 mg/dL [facility] Creatinine 0.46(L) 0.60 - 1.10 mg/dL [facility] Glucose 138 70 - 199 mg/dL [facility] Comment: Interpretive Data Fasting glucose >/= 126 [...] 2022. Calcium 8.9 8.5 - 10.3 mg/dL [facility] Bilirubin, total 0.3 0.1 - 1.2 mg/dL [facility] Protein, pl 7.7 6.5 - 8.5 g/dL [facility] Albumin 3.0(L) 3.5 - 5.0 g/dL [facility] Alk phos 78 40 - 130 Units/L [facility] Comment:Hemolyzed; result ma y be falsely decreased ALT 5(L) 7 - 45 Units/L [facility] AST 33 10 - 45 Units/L [facility] Comment:Hemolyzed; result ma y be falsely elevated Blood 08/31/2024 7:10 PM CDT 08/31/2024 7:25 PM CDT Alejandro Daugherty NP LAB BLOOD ORDERABLES Final Result [facility] Department [place] [address] * (ABNORMAL) Tissue aerobic and anaerobic culture and gram stain Tissue Cervical (08/31/2024 4:59 PM CDT) Direct Specimen Exam Stain: No polymorphonuclear leukocytes seen. No organisms seen. Report Final Report: Rare Staphylococcus aureus Methicillin susceptible (MSSA) by penicillin binding protein 2a (PBP2a) testing. (.) [facility] Organism STAPHYLOCOCCUS AUREUS [facility] Tissue (Cervical) 08/31/2024 4:59 PM CDT 08/31/2024 6:59 PM CDT Narrative [facility] - 09/04/2024 2:42 PM CDT Cervical wound same site Specimen received on an ESwab. Specimen collected in the operating room. Testing performed by [facility] ([phone]) Specimens submitted from normally sterile body sites [...] INTERPRET ATION Susceptible Staphylococcus aureus Doxycycline (HASMUKH) INTERPRETATI ON Susceptible Staphylococcus aureus Linezolid (HASMUKH) INTERPRETATIO N Susceptible Staphylococcus aureus Trimethoprim with Sulfamethoxazole (HASMUKH) INTERPRETATION Susceptible Staphylococcus aureus Clindamycin (HASMUKH) INTERPRETATIO N Susceptible Staphylococcus aureus Erythromycin (HASMUKH) INTERPRETATIO N Susceptible Staphylococcus aureus Vancomycin (HASMUKH) INTERPRETATIO N Susceptible Staphylococcus aureus Oxacillin (HASMUKH) INTERPRETATIO N Susceptible Staphylococcus aureus Cefazolin (HASMUKH) INTERPRETATIO N Susceptible Staphylococcus aureus Ceftriaxone (HASMUKH) INTERPRETATIO N Susceptible us Kenny Flores MD LAB MICROBIOLOGY - GENERAL JIMMY TAVERA Final Result [facility] [place] [address] * Mycology (fungal) culture and stain Tissue Cervical (08/31/2024 4:59 PM CDT) Direct Specimen Exam Stain: No Fungal elements seen. Report Final Report: No growth of fungus [facility] Tissue (Cervical) 08/31/2024 4:59 PM CDT 08/31/2024 6:59 PM CDT Narrative [facility] - 09/28/2024 9:15 AM CDT Cervical wound same site Specimen received on an ESwab. Specimen collected in the operating room. Testing performed by [facility] ([phone]). Kenny Flores MD LAB MICROBIOLOGY - GENERAL [facility] Final Result Performing Organization Address [facility] Co de Phone Number [place] [address] * Mycology (fungal) culture and stain Wound Cervical (08/31/2024 4:02 PM CDT) Direct Specimen Exam Stain: No Fungal elements seen. Report Final Report: No growth of fungus [facility] Wound (Cervical) 08/31/2024 4:02 PM CDT 08/31/2024 6:54 PM CDT Narrative [facility] - 09/28/2024 9:15 AM CDT Posterior spine wound Specimen received on an ESwab. Specimen collected in the operating room. Testing performed by [facility] ([phone]). Kenny Flores MD LAB MICROBIOLOGY - GENERAL ORDE RABLES Final Result Performing Organization Address City/[facility] Co de Phone Number [facility] [place] [place] [address] * (ABNORMAL) Aerobic and anaerobic culture and gram stain Wound Cervical (08/31/2024 4:02 PM CDT) Direct Specimen Exam Stain: Few polymorphonuclear leukocytes seen. No organisms seen. Report Final Report: Rare Staphylococcus epidermidis Rare Staphylococcus epidermidis #2 (.) [facility] Organism STAPHYLOCOCCUS EPIDERMIDIS [facility] Organism STAPHYLOCOCCUS EPIDERMIDIS [facility] Wound (Cervical) 08/31/2024 4:02 PM CDT 08/31/2024 6:51 PM CDT Narrative [facility] - 09/08/2024 2:43 PM CDT Posterior spine wound Specimen received on an ESwab. Specimen collected in the operating room. Testing performed by [facility] ([phone]) Specimens submitted from normally sterile body sites [...] Resistant Staphylococcus epidermidis Ceftriaxone (HASMUKH) INTERPRETATION Resistant us Kenny Flores MD LAB MICROBIOLOGY - GENERAL JIMMY TAVERA Final Result [facility] Department [place] [address] * LA AN PROCEDURE PLACEHOLDER (08/31/2024 3:33 PM CDT) Ranjan Sow CRNA - 08/31/2024 3:33 PM CDT Ranjan Kearns CRNA 08/31/2024 3:34 PM Peripheral IV Catheter Patient location: OR Staff: Placed by: BRANDEN: Ranjan Kearns CRNA Preprocedure prep: Prep solution: chlorhexadine PPE: gloves and provider hat/mask PIV line: Laterality: right Site: forearm Catheter size: 20 g Technique: direct visualization Procedure details: good blood return and occlusive dressing applied Number of attempts: 1 Assessment: Events: patient tolerated procedure well with no complications Idalia Mike MD PhD ANESTHESIA ORDERABLES Final Result * LA AN PROCEDURE PLACEHOLDER (08/31/2024 3:33 PM CDT) Ranjan Sow CRNA - 08/31/2024 3:33 PM CDT Ranjan Kearns CRNA 08/31/2024 3:33 PM Peripheral IV Catheter Patient location: OR Staff: Placed by: BRANDEN: Ranjan Kearns CRNA Preprocedure prep: Prep solution: [...] Reason No Signature On Blood Bank Specimen [facility] Mislabel resolution Testing canceled [facility] REED Blood 08/31/2024 3:31 PM CDT 08/31/2024 3:50 PM CDT Kenny Flores MD LAB BLOOD ORDERABLES Final Resu lt [facility]IS REED[facility] Department [place] [address] * LA AN ELECTIVE ENDOTRACHEAL AIRWAY, LA AN PROCEDURE PLACEHOLDER (08/31/2024 3:11 PM CDT) Ranjan Sow CRNA - 08/31/2024 3:11 PM CDT Ranjan Kearns CRNA 08/31/2024 3:12 PM Airway Patient location: OR Urgency: elective Indications for airway management: anesthesia Difficult airway: no Staff: Placed by: POLITICAL REPORTER: Ranjan Kearns CRNA Emergent airway documentation: Risks [...] prone view tape Number of attempts: 1 us Idalia Mike MD PhD ANESTHESIA ORDERABLES Final Result * (ABNORMAL) POC Blood Gas and Chemistries, Venous - (08/31/2024 3:03 PM CDT) pH, Cristofer POC 7.40 7.32 - 7.43 pCO2, cristofer POC 52(H) 40 - 50 mmHg [facility] pO2, cristofer POC <20(C) mmHg [facility] Na, POC 140 135 - 145 mmol/L [facility] K POC 4.2 3.3 - 4.9 mmol/L [facility] Comment: Interpretive Data Not all point of care methods assess for hemolysis. Confirm with instrument and retest K+ if not consistent with clinical signs and symptoms. Current Interpretive Data was last revised on 2023. Cl, POC 105 97 - 110 mmol/L [facility] Ionized Ca, POC 5.18(H) 4.50 - 5.10 mg/dL [facility] Glucose, POC 100 70 - 199 mg/dL [facility] Lactate POC 1.6 0.7 - 2.0 mmol/L [facility] O2 Sat, Cristofer POC (Kathrine) 20 % [facility] Base excess, POC 6.1 mmol/L [facility] Hct, POC 36.0(L) 36.3 - 45.3 % [facility] Total Hb, POC 12.1 11.9 - 15.5 g/dL [facility] Blood 08/31/2024 3:03 PM CDT 08/31/2024 3:03 PM CDT us Kenny Flores MD LAB POCT ORDERABLES - DEVICE Fi nal Result [facility] Department [place] [address] * eGFR (08/31/2024 3:00 PM CDT) eGFR [...] 3:00 PM CDT 08/31/2024 3:30 PM CDT us Alejandro Daugherty NP LAB BLOOD ORDERABLES Final Result Performing Organization Address City/[facility]/ZIP Co de Phone Number [facility] Department [place] [address] * (ABNORMAL) CBC without differential (08/31/2024 3:00 PM CDT) Pathologist [facility] WBC 9.75 3.80 - 9.90 K/cumm Hgb 11.5(L) 11.9 - 15.5 g/dL [facility] Hct 37.3 35.6 - 45.5 % [facility] Plt 310 150 - 400 K/cumm [facility] MPV 10.6 9.1 - 12.3 fL [facility] RBC 4.36 3.90 - 5.20 M/cumm [facility] MCV 85.6 81.3 - 96.4 fL [facility] MCH 26.4(L) 27.1 - 33.3 pg [facility] MCHC 30.8(L) 32.3 - 35.7 g/dL [facility] RDW CV 15.9(H) 11.1 - 14.9 % [facility] RDW SD 49.7(H) 35.7 - 48.1 fL [facility] NRBC abs 0.00 0.00 - 0.01 K/cumm [facility] Blood 08/31/2024 3:00 PM CDT 08/31/2024 3:23 PM CDT us Kenny Flores MD LAB BLOOD ORDERABLES Final Resu lt [facility] [place] [address] * Phosphorus (08/31/2024 3:00 PM CDT) Pathologist [facility] Phosphorus, pl 3.7 2.3 - 4.5 mg/dL Blood 08/31/2024 3:00 PM CDT 08/31/2024 3:23 PM CDT Kenny Flores MD LAB BLOOD ORDERABLES Final Resu lt Performing Organization Address City/[facility]/ZIP Co de Phone Number [facility] [place] [address] * Magnesium (08/31/2024 3:00 PM CDT) Pathologist [facility] Magnesium 1.7 1.4 - 2.5 mg/dL Blood 08/31/2024 3:00 PM CDT 08/31/2024 3:23 PM CDT Kenny Flores MD LAB BLOOD ORDERABLES Final Resu lt Performing Organization Address [facility] de Phone Number [facility] Department [place] [address] * (ABNORMAL) Comprehensive metabolic panel (08/31/2024 3:00 PM CDT) [facility] Sodium 139 135 - 145 mmol/L Potassium, pl 4.1 3.3 - 4.9 mmol/L [facility] Chloride 101 97 - 110 mmol/L [facility] CO2 30 22 - 32 mmol/L [facility] Anion gap 8 2 - 15 mmol/L [facility] BUN 9 6 - 25 mg/dL [facility] Creatinine 0.52(L) 0.60 - 1.10 mg/dL [facility] Glucose 92 70 - 199 mg/dL [facility] Comment: Interpretive Data Fasting glucose >/= 126 [...] Calcium 10.4(H) 8.5 - 10.3 mg/dL [facility] Bilirubin, total 0.2 0.1 - 1.2 mg/dL [facility] Protein, pl 9.5(H) 6.5 - 8.5 g/dL [facility] Albumin 4.2 3.5 - 5.0 g/dL [facility] Alk phos 105 40 - 130 Units/L [facility] ALT 5(L) 7 - 45 Units/L [facility] AST 20 10 - 45 Units/L [facility] Blood 08/31/2024 3:00 PM CDT 08/31/2024 3:23 PM CDT us Kenny Flores MD LAB BLOOD ORDERABLES Final Resu lt [facility] Department [place] [address] * XR chest 1 view (Portable) (08/31/2024 [...] Electronically signed by: Yosef Richmond M.D. Alejandro Sigrid Willow CHILDS IMG XR PROCEDURES Fi nal [...] greatest and severe at L2-L3. Procedure Note Katie Jamie Clint, DO - 08/31/2024 EXAMINATION: XR SCOLIOSIS 6 [...] Est Average Gluc POC 128 mg/dL AMARILIS REED Comment: The ADA recommends reporting an estimated Average Glucose (eAG) with all Hemoglobin A1c results using the equation derived from a study of 507 normal and diabetic adults. Minority populations were underrepresented and children were not included. (Diabetes Care 31:1871-6109, 2008). The eAG is not equivalent to a fasting glucose. Blood 11/01/2023 4:36 PM CDT 11/01/2023 4:36 PM CDT us Kenny Flores MD POINT OF CARE TEST ORDERABLES F inal Result [facility] Department [place] [address] * DEXA Axial Skeleton Bone Density Multi Site (09/07/2023 9:16 AM CDT) Anatomical Region Laterality Modality Body N/A Radiographic Kika ging Narrative 09/08/2023 9:57 AM CDT Patient Name: Es Wolff Date of : 1950 Date of scan: 09/07/2023 Bone mineral density was performed on a [employer] Discovery Densitometer. Based on machine cross-calibration and [...] by the International Society of Clinical Densitometry. [id number] Remy [facility] DXA PROCEDURES Final Result * Hepatitis panel, acute (07/10/2019 2:18 PM JUVENILE PROBATION OFFICER) Hep A IgM Nonreactive Nonreactive [facility] Comment: Interpretive Data If test is reported as GRAYZONE, new sample should be drawn in two weeks for testing. Current interpretive data was last revised on 2016. Hep B core IgM Nonreactive Nonreactive [facility] Comment: Interpretive Data If test is reported as GRAYZONE, new sample should be drawn for testing. Current interpretive data was last revised on 2016. Hep C Ab Nonreactive Nonreactive [facility] Comment: Interpretive Data Positive results should be confirmed by a molecular method. If positive, a second separately collected sample should be submitted for Hepatitis C Virus (HCV) RNA Detection and Quantitation by Real-Time Reverse Environmental Services Assistant-PCR (RT-PCR). Current interpretive data was last revised on 2016. HepBsAg Nonreactive Nonreactive [facility] Blood specimen (specimen) 07/10/2019 2:18 PM JUVENILE PROBATION OFFICER 07/10/2019 5:19 PM JUVENILE PROBATION OFFICER us Yassine Platt MD LAB MICROBIOLOGY - GENER AL ORDERABLES Final Result [facility] Department [place] [address] from Last 3 Months or Most Recently Relevant to Health Maintenance Insurance [facility] [id number] MEDICARE ADVANTAGE [facility] Address: [address] [address] [place] [address] [employer] MEDICARE ADVANTAGE [facility] MEDIC[facility] Address: [address] [address] [place] [address] [facility] Advance Directives For more information, please contact: [phone] Documents on File Type Date Recorded Patient Hog Operator Expl anation ADVANCE DIRECTIVE 11/16/2023 10:49 PM POWER OF PHOTOGRAPHER'S MODEL-MEDICAL ADVANCE DIRECTIVE 11/07/2023 11:02 AM LEA R OF PHOTOGRAPHER'S MODEL-MEDICAL ADVANCE DIRECTIVE 11/04/2023 2:20 PM Power of Tank Pumper-Medical Advance Directives and Living Will 11/04/2023 8:45 [...] Name Relationship Healthcare Agent Relationship Communication [facility] Health Care Agent [id number] (Mobile) tri Wolff [facility] Health Care Agent Care Teams Wireless Development Manager Relationship Specialty Start Date End Date Amanuel Buitrago MD [address], [place] [id number] PCP - General Family Medicine 08/31/24 João Stewart MD [address] [address] Neurosurgery 02/28/23 Elsa Higgins MD [address] [place] [address] Referring Physician Internal Medicine 09/13/24 Stuart Donahue MD [address] [place] [address] Medical Oncologist/Hematologis t Hematology and Oncology 09/13/24
--- OUTSIDE RECORDS SUMMARY | 2024-10-10 09:52 | XMS_ITS | Encounter Summary ---
Author Organization [facility] Address [address] [place] [address] Care Team Providers Care Supervisor Fertilizer Processing Name Role Phone Unavailable Primary Care Provider Unavailabl e Reason for Visit * Reason Comments Follow-up Encounter Details Date Type Department Care Team (Latest Contact Info) Description 10/09/2024 1:30 PM CDT Office Visit [facility] - Infectious Disease [address] [place] [address], [facility] [place] [address] Rocael Flores MD [facility] [place] [id number] Hardware complicating wound infection, subsequent encounter (Primary Dx); Orthopedic hardware present; Dehiscence of surgical wound, subsequent encounter; Cervical myelopathy (HCC); MGUS (monoclonal gammopathy of unknown significance); Low grade B-cell lymphoma (HCC); Parkinson's disease without dyskinesia or fluctuating manifestations (HCC); Type 2 diabetes mellitus without complication, without long-term current use of insulin (HCC); Small bowel perforation (HCC); Routine health maintenance Social History Tobacco Use Types Packs/Day Years Used Date Smoking Tobacco: Never Assessed Comments Unknown Sex and Gender Information Value Date Recorded Sex Assigned at Not on file Legal Sex Female 3:10 PM PRECISION AGRICULTURE SPECIALIST Gender Identity Female 04/04/2023 3:10 PM PRECISION AGRICULTURE SPECIALIST Sexual Orientation Not on file documented as of this encounter Last Filed Vital Signs Vital Sign Reading [...] Mass Index 19.58 10/09/2024 1:29 PM CDT documented in this encounter Progress Notes * Rocael Flores MD - 10/09/2024 1:30 PM CDT [facility] Infectious Diseases Outpatient Progress Note Patient Name: Es Wolff 1950 Primary Care Physician: No primary care provider on file. Reason for Infectious Disease Follow Up Hospital follow up from [facility] for cervical spine and skull base hardware associated infection History of Present Illness HPI: Pt is a 74 year old female with multiple medical comorbidities including cervical myelopathy (s/p C3-T2 posterolateral fusion about 20 years ago), which required extension in October 2023 to skull base to T2 and C1-C2 decompression (due to C1-C2 instability), hx of prior prior L3-5 PSF, MGUS, low-grade B-cell lymphoma, Parkinson's disease, and type II diabetes who presents to Transplant/Immunocompromised/Onco ID Clinic for hospital follow up from [facility] for cervical spine and skull base hardware associated infection. Pt is following up at [facility] as [facility] As noted above, pt underwent C3-T2 posterolateral fusion due to cervical myelopathy about 20 years ago, and was extended in October 2023 to skull base-T2 due to C1-2 instability. Her recovery was complicated by delayed wound healing, and then 2 subsequent draining sinuses that developed. Pt had an I&D and closure on 09/01/[address] [facility] with sinus tracts extending to plate at skull base; no hardware removed. Pt was started empirically on Vanc/Cefepime on 09/01/2024. OR cultures grew MSSA and MRSE. Blood cultures grew MRSE, which was of unclear significance (no clinical change or symptoms to suggest true bacteremia per [facility] ID). Plan from [facility] ID was to treat with 6 weeks of IV Daptomycin (end date of therapy: 10/12/2024), followed by PO suppressive therapy, likely with PO Doxycycline. Review of Systems Review of Systems Constitutional: Negative. HENT: Negative. Eyes: Negative. Respiratory: Negative. Cardiovascular: Negative. Gastrointestinal: Negative. Genitourinary: Negative. Musculoskeletal: Negative. Skin: Negative. Neurological: Negative. Endo/Heme/Allergies: Negative. Psychiatric/Behavioral: Negative. Medical History Past Medical History[1] Surgical History Past Surgical History[2] Social History Social History Socioeconomic History Marital status: Not on file Spouse name: Not on file Number of children: Not on file Years of education: Not on file Highest education level: Not on file Occupational History Not on file Tobacco Use Smoking status: Not on file Smokeless tobacco: Not on file Substance and Sexual Activity Alcohol use: Not on file Drug use: Not on file Sexual activity: Not on file Other Topics Concern Not on file Social History Narrative Not on file Social Drivers of Health Financial Resource Strain: Low Risk (09/03/2024) Received from [facility] Overall Financial Resource Strain (CARDIA) Difficulty of Paying Living Expenses: Not hard at all Food Insecurity: No Food Insecurity (09/03/2024) Received from [facility] Hunger Vital Sign Worried About Running Out of Food in the Last Year: Never true Ran Out of Food in the Last Year: Never true Transportation Needs: No Transportation Needs (09/03/2024) Received from [facility] PRAPARE - Transportation Lack of Transportation (Medical): No Lack of Transportation (Non-Medical): No Stress: Not on file Housing Stability: Low Risk (09/03/2024) Received from [facility] Housing Stability Vital Sign Unable to Pay for Housing in the Last Year: No Number of Times Moved in the Last Year: 0 Homeless in the Last Year: No Immunizations Immunization History Administered Date(s) Administered Covid Moderna primary monovalent 12+ yr 0.5mL 07/15/2020, 08/20/2020 Covid Pfizer primary monovalent 12+ yr 0.3mL Purple cap 03/02/2022 Family History Family History[3] Allergies Allergies[4] Home Medications Prior to Admission medications Not on File Objective Vitals BP 133/80 (BP Location: Left arm, Patient Position: Sitting, BP Cuff Size: Adult) Pulse 73 Temp97.7 ??F (36.5 ??C) (Temporal) Resp 18 Ht 1.702 m (5' 7) Wt 56.7 kg (125 lb) SpO2 98% Physical Exam Physical Exam Constitutional: Comments: Chronically ill-appearing older female. HENT: Head: Normocephalic and atraumatic. Mouth/Throat: Mouth: Mucous membranes are moist. Pharynx: Oropharynx is clear. Eyes: Extraocular Movements: Extraocular movements intact. Conjunctiva/sclera: Conjunctivae normal. Pupils: Pupils are equal, round, and reactive to light. Neck: Comments: Surgical site in cervical spine appears clean and dry; no leakage noted. Cardiovascular: Rate and Rhythm: Normal rate and regular rhythm. Pulmonary: Effort: Pulmonary effort is normal. Breath sounds: Normal breath sounds. Abdominal: General: Abdomen is flat. Palpations: Abdomen is soft. Musculoskeletal: General: Normal range of motion. Cervical back: Normal range of motion and neck supple. Skin: General: Skin is warm and dry. Neurological: General: No focal deficit present. Mental Status: She is alert and oriented to person, place, and time. Mental status is at baseline. Psychiatric: Mood and Affect: Mood normal. Behavior: Behavior normal. Thought Content: Thought content normal. Judgment: Judgment normal. Lab Review CBC: No results for input(s): WBC, RBC, HGB, HCT, MCV, MCHC, PLTCOUNT, NEUTPCT, LYMPHPCT, MONOCYTPCT, EOSINPCT, BASOPHILPCT, GRANSIMMPCT, NEUTABS, LYMPHABS, MONOCYTABS, EOSINABS, BASOABS, IMMGRANSABS in the last 09888 hours. BMP: No results for input(s): SODIUM, NA, POTASSIUM, CHLORIDE, CO2, BUN, CREATININE, GLUCOSE, [id number], CALCIUM, GFR, EGFR, EGFRAFR in the last 13168 hours. LFTs: No results for input(s): ALKPHOS, ALT, AST, BILITOTAL, ALBUMIN, AMYLASE, LIPASE in the last 73644 hours. Microbiology, Imaging and other diagnostic tests MICROBIOLOGY: -OR cultures (08/31/2024): MSSA and MRSE IMAGING & PROCEDURES: Pertinent images independently reviewed; report in chart PET-CT Skull to Mid Thigh (09/10/2024): FINDINGS: Postsurgical changes of occiput-T3 posterior spinal [...] without tracer uptake. Instrumented posterior L3-L5 fusion. Assessment and Recommendations Assessment: Pt is a 74 year old female with multiple medical comorbidities including cervical myelopathy (s/p C3-T2 posterolateral fusion about 20 years ago), which required extension in October 2023 to skull base to T2 and C1-C2 decompression (due to C1-C2 instability), hx of prior prior L3-5 PSF, MGUS, low-grade B-cell lymphoma, Parkinson's disease, and type II diabetes who presents to Transplant/Immunocompromised/Onco ID Clinic for hospital follow up from [facility] for cervical spine and skull base hardware associated infection. Pt is following up at [facility] as it appears as though [facility] As noted above, pt underwent C3-T2 posterolateral fusion due to cervical myelopathy about 20 years ago, and was extended in October 2023 to skull base-T2 due to C1-2 instability. Her recovery was complicated by delayed wound healing, and then 2 subsequent draining sinuses that developed. Pt had an I&D and closure on 09/01/[address] [facility] with sinus tracts extending to plate at skull base; no hardware removed. Pt was started empirically on Vanc/Cefepime on 09/01/2024. OR cultures grew MSSA and MRSE. Blood cultures grew MRSE, which was of unclear significance (no clinical change or symptoms to suggest true bacteremia per [facility] ID). Plan from [facility] ID was to treat with 6 weeks of IV Daptomycin (end date of therapy: 10/12/2024), followed by PO suppressive therapy, likely with PO Doxycycline. Today, pt states that she is doing relatively well overall. Per ID at [facility], plan was to finish IV Daptomycin therapy on 10/12/2024, but appears that Dapto was stopped about 1 week ago. Cervical spine surgical site appears clean and dry without any drainage noted. Discussed with pt plan for continued suppressive antibiotic therapy; we discussed exact duration of suppressive therapy is TBD, but will plan on at least 6 to 12 months, though more likely indefinite suppressive therapy at this point. 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 --Discussed with pt possible side effects of long-term Doxycycline use. --Pt to return to clinic in 3 months. --Pt states she will follow up at [facility] for her MGUS/low-grade B cell lymphoma. Return to clinic in 3 months I have spent 60 minutes in total in the care of this patient including review of inpatient and/or prior outpatient documentation, review of actual radiology images and interpretations, patient history/exam, counseling, and coordination of care. I spent about 30 minutes reviewing this patient's outside hospital records. This visit has been a part of the consistent, comprehensive, and ongoing/longitudinal medical care for this patient's complex/chronic infectious disease-related issue(s) listed above. I have also discussed my recommendations with the patient's primary outpatient team. Rocael Flores MD Transplant/Immunocompromised/Onco Infectious Disease Motor BossSupervisor [employer] [facility] [employer] Beeper Number: [phone] [1] Past Medical History: Diagnosis Date Cervical myelopathy (HCC) 10/09/2024 Dehiscence of surgical wound, subsequent encounter 10/09/2024 Hardware complicating wound infection 10/09/2024 Low grade B-cell lymphoma (HCC) 10/09/2024 MGUS (monoclonal gammopathy of unknown significance) 10/09/2024 Orthopedic hardware present 10/09/2024 Parkinson's disease without dyskinesia or fluctuating manifestations (HCC) 10/09/2024 Small bowel perforation (HCC) 10/09/2024 Type 2 diabetes mellitus without complication, without long-term current use of insulin (HCC) 10/09/2024 [2] No past surgical history on file. [3] No family history on file. [4] No Known Allergies documented in this encounter Plan of Treatment Upcoming Encounters Date Type Department Care Team (Late st Contact Info) Description 01/15/2025 1:00 PM CDT Office Visit [facility] - Infectious Disease [address] [place] [address], [facility] [place] [address] Rocael Flores MD [address] [place] [phone] documented as of this encounter Visit Diagnoses Diagnosis Hardware complicating wound infection, subsequent encounter- Primary Orthopedic hardware present Dehiscence of surgical wound, subsequent encounter Cervical myelopathy (HCC) Cervical spondylosis with myelopathy MGUS (monoclonal gammopathy of unknown significance) Monoclonal paraproteinemia Low grade B-cell lymphoma (HCC) Other malignant lymphomas, unspecified site, extranodal and solid organ sites Parkinson's disease without dyskinesia or fluctuating manifestations (HCC) Type 2 diabetes mellitus without complication, without long-term current use of insulin (HCC) Small bowel perforation (HCC) Perforation of intestine Routine health maintenance Routine general medical examination at a health care facility documented in this encounter
--- OUTSIDE RECORDS SUMMARY | 2024-10-10 09:52 | XMS_ITS | Data Portability ---
Author Organization [facility], [facility] Address [address] [facility] [address] [place] [address] Assessment Encounter Date Assessment Date Assessment LastModified by Organization Details LastModified Time 11/10/2018 11/10/2018 A 68-year-old fe male comes to see us for followup after investigation in the form of CT scans and the MRI of her cervical spine. She has her arthrodesis done almost 10 to 12 years back. She has been having a lot of neck pain and pain in the arms right now and also weakness in the hands and is dropping things. We were able to go ahead and do a modified [employer] score which is 13 right now. 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 She had instrumented fusion from C3 down to T2. Her C2-C3 area shows severe stenosis which stands out even both on CT scan and the MRI. There is kind of a kyphosis coming up at that location. There are also a little bit myelomalacic changes at that location and also history of stenosis. She does have some kind of sleep apnea. She says she does not have sleep apnea, but has disturbed sleep. She does have predominant complaints of pain, but otherwise, she says that I am very functional, and she said that she has good strength. I was able to go ahead and check her out. She has 5/5 strength on both sides. She has some signs of hyperreflexia in both upper and lower extremities. The plantars are downgoing. She does have Kirt sign positive onto the right side. On the left side, it is inconsistent. Putting everything together, she does have signs of myelopathy, and she is not having much of a fall, but she is starting to have some gait changes at this present time. I think she will be a candidate for surgery considering her signs of myelopathy at this present time, but they is also a lot of risk, and she presently is living by herself and is really getting it difficult to take care of herself. She is struggling as a social front at this present time and does not want to undergo any kind of surgery at this present time. She wants to put it away as much as possible. Does not have any bladder or bowel involvement at this present time, and she is really kind of into tears right now. It is kind of hard time for her making it a difficult decision at this present time. I think she will probably require extension of the instrumentation up to her C2 and possibly a C2 laminotomy at that location to give her some relief from the stenosis at C2-C3 area. I think that is the minimum that possibly needs to be done for her myelopathy. Also, she is also trying to get EMG nerve conduction study and also trying to get into a neurologist to understand any other reasons for her ongoing problems or any stroke causing the present problem, so she will follow up with a neurologist with EMG nerve conduction studies and come back and follow up with us. She decided and agreed to follow up with [employer] Score. We will track her progress. If it shows more than 2 to 3 point increase, then possibly, we will consider her surgery at that point of time because there is no other option other than that. She is also doing some structured physical therapy at this present time that she wants to continue. We will see her back, I think, maybe, with her EMG nerve conduction study, and we will possibly plan to keep a track of her progress over time. Any further questions or concerns, should call me back. This document is electronically signed by: Humza Wilde MD on 11/13/2018 at 11:10:23 AM ([facility]) Verification: [id number] . Not available 11/20/2018 11:42:47 12/06/2018 12/06/2018 SUBJECTIVE: The patient was here today following up with the EMG nerve conduction studies and also followup after she had given a due thought to understand this pathology and if she had any questions. I was again able to go ahead and review her MRIs, which show evidence of stenosis, predominantly at C2-C3, kind of adjacent segment disease. Her instrumentation at the neck also has backed out a little bit at the upper end, kind of having a little proximal junctional kyphosis in that location. The screws are back from the C3 lateral masses as well in the upper end of the cervical area. I think I was able to go ahead and explain her the possible need for surgery in that location to go ahead and reattach the instrumentation, also go ahead and do a decompression at the adjacent segment as well. She has had 1 fall in the interim in between. She is still doing pretty okay and strong the way she has been. The only thing is that she, at this point in time, does not think the surgery is going to be a great option for her considering her Parkinson's. She kind of wants to understand how that is going to affect her recovery. She is getting increasingly concerned about the Parkinson's also. She has predominantly right-sided weakness as well. I think the symptoms are mostly in the hands and in the elbow area onto the right side as compared to the left side. She has numbness of the entire hand onto the right side and mostly, the symptoms are affecting the ulnar aspect of the hand onto the left side, not much over the palm. Her Tinel sign is positive onto the right side for the carpal tunnel. Her carpal tunnel test is positive. Phalen test is positive from the right side. She also has, on filament testing, a nice tactile sensory response to size 4.31, but no response to size 3.61 predominantly on the ulnar side of the right hand suggestive of a severe involvement of possible cubital tunnel syndrome onto the right hand as compared to left hand. I think we are going to start her on some conservative management for her carpal tunnel bilaterally. I am going to explain also we would like to have some splints for the cubital tunnel. I have asked her not to kind of fold her hands when she is sleeping around, see how does that go with her, but that is the kind of a little easy surgery that we can go ahead and do if need be for giving her some kind of pain relief. Also, we would like to go ahead and ask her to continue some physical therapy for that, also flossing exercises for ulnar nerve that may help sometimes long-term, but I think symptomatically, she is not much affected from even though there is electrodiagnostically suggestive of severe cubital tunnel syndrome, she is not very much symptomatically affected by that. I made her understand the natural history of disease and at what point of time we probably need to intervene faster. I made her understand and be cognizant about even if seeing single point problems in her hand or any weakness or any new gait pattern. If that appears, need to immediately contact us. She is also thinking about going ahead and having a second opinion. I would really encourage that, and I would really like to see the notes from the provider that she goes to, she does not remember the name at this point of time. We will put everything together, try to help her out the best we can. Any further questions or concerns, should definitely call us back. This document is electronically signed by: Humza Wilde MD on 12/12/2018 at 3:20:52 PM ([facility]) Verification: [id number] . Not available 12/13/2018 09:36:21 01/17/2019 01/17/2019 A 68-year-old fe male comes to see us as a followup. Again, she has extensive myelopathy involving from C1-C2 area and has carpal tunnel and cubital tunnel syndrome as well as parkinsonism as well. She has previous instrumentation failed at the upper end of the instrumentation at the proximal junction of kyphosis. She is here to understand further course of action. She had a lot of questions. I think to do a better justice to her extensive requirement for instrumentation possibly we would do occiput. I will recommend her to go to a [facility] where they can do more justice is to her. I think we can subsequently take care of the carpal tunnel and cubital tunnel when she comes back getting operated from that area. Also, she will need a comprehensive evaluation from her neurologist to determine how much component of the problem that she has is coming from myelopathy and how much is the parkinsonism related. Strength is 5/5, but she does have Kirt positive and brisk reflexes in both knee and ankles. I will make a referral to Dr. Anup Platt in [place]. Probably, we will be able to do more justice to her in the university setting than here. We will see how she does with that. We will subsequently be more than happy to follow her up. I will also go ahead and make a referral to his place. She asked me a lot of questions about duration of surgery. I said I will not be able to be in a position to talk about surgery. I think let the surgeons decide upon the surgery and talk to her about it, but I will be able to help her in fetching a referral to that location. This document is electronically signed by: Humza Wilde MD on 01/22/2019 at 2:17:29 PM ([facility]) Verification: [id number] . Not available 01/22/2019 16:37:37 Plan of Treatment Reminders Order Date Submit Date Provider Last Modified By Organization Details Last Modified Time Details Appointments None record ed. Lab None record ed. Referral None record ed. Procedures None record ed. Surgeries None record ed. Imaging None record ed. Medication Orders None record ed. Patient TargetsNo targets recorded. Patient Instructions Encounter Date Encounter Id Patient Instructions Last Modified By Organization Details Last Modified Time 09/20/2018 [id number] cervical spondylosis: care instructions Not available 09/20/2018 21:57:31 neck arthritis: exercises Not available 09/20/2018 21:57:31 cervical myelopathy: care instructions Not available 09/20/2018 21:57:31 11/10/2018 [id number] cervical spinal stenosis: care instructions Not available 11/20/2018 11:42:50 low back arthritis: exercises Not available 11/20/2018 11:42:49 Reason for Referral None Reported. Results Created Date Observation Date Name Description Value Unit Range Abnormal Flag Note LastModifiedBy Organization Detail LastModifiedTime 11/07/1911/06/2018 XR, cervi margie spine , 2 or 3 view No observ ation record ed. [email or web address] [facility] (Imaging) [address] [place], [address], 01/11/2019 14:32:47 11/15/19 19 11/06/2018 XR, cervi margie spine , 2 or 3 view No observ [facility]ion [facility] ed[facility] [address] [place], [address], 11/14/2018 14:37:07 11/15/19 19 11/06/2018 XR, cervi margie spine , 2 or 3 view No observ ation [facility] ed[facility] [address] [place], [address], 11/14/2018 15:16:22 12/15/19 19 11/15/2018 nerve condu ction study No observ ation record ed. [facility] Not Available 2018 06:04:53 Result Notes None recorded. Problems Name Problem SNOMED Code Status Onset Date Resolution Date Notes Provider Name and Address Organization Details Recorded Time Cervical radiculopathy 48461685 Active 2018 Humza garza MD [address], [address], [facility] 9 21:57:18 Cervical spondylosis 156926646 Active 2018 Humza garza MD [address], [address], [facility] 9 21:57:19 Cervical myelopathy 247883677 Active 2018 Humza garza MD [address], [address], [facility] 21:57:20 Cervical post-laminecto my syndrome 433862556 Active 2018 Humza garza MD [address] [facility] [address], [address], [facility] 21:57:30 Cervical spondylosis with myelopathy Active 2018 Alexx Burrows LPN [facility] 13:25:11 Problem Notes None recorded. Procedures Surgical History Date Name Laterality Status Provider Name and Address Organization Details Recorded Time delivery completed Crystal Gardner LPN [facility] 09/20/2018 12:24:32 Back Surgeries completed Crystal carrington LPN [facility] 09/20/2018 12:24:43 Imaging Results None recorded. Procedure Notes None recorded. Medical Equipment None Reported. Allergies No known drug allergies Medications Name Sig Start Date Stop Date Status Note LastModified by Organization Details LastModified Time methocarbamo l 500 mg tablet active Not Available Not Available Not Available ranitidine 300 mg tablet active Not Available Not Available Not Available carbidopa ER 50 mg-levodopa 200 mg tablet,exten ded release active Not Available Not Available Not Available simvastatin 10 mg tablet active Not Available Not Available Not Available simvastatin 20 mg tablet active Not Available Not Available Not Available lansoprazole 30 mg capsule,anusha yed release active Not Available Not Available Not Available gabapentin 300 mg capsule active Not Available Not Available Not Available mupirocin 2 % topical ointment active Not Available Not Available Not Available carbidopa 25 mg-levodopa 100 mg tablet active Not Available Not Available Not Available fluticasone propionate 50 mcg/actuatio n nasal spray,suspen tara active Not Available Not Available Not Available duloxetine 30 mg capsule,anusha yed release active Not Available Not Available Not Available Linzess 145 mcg capsule active Not Available Not Available Not Available Inbrija 42 mg capsule with inhalation device active Not Available Not Available Not Available Fluzone High-Dose 2019-20 (PF) 180 mcg/0.5 mL intramuscula r syringe PHARMACIST ADMINISTERE D IMMUNIZATIO N ADMINISTERE D AT TIME OF DISPENSING active Not Available Not Available N ot Available Vitals Date Recorded Oxygen saturation Oxygen saturation in Arterial blood by Pulse oximetry Heart rate Body weight Body mass index (BMI) Body height Systolic blood pressure Diastolic blood pressure Provider Name and Address Organization Details Last Updated DateTime 9 98 % 98 % 84 /min 56082.2 3 g 19.9 kg/m2 170.18 cm 134 mm[Hg] 82 mm[Hg] Crystal Gardner LPN [facility] 9 12:21:55 Date Recorded Body height Oxygen saturation Oxygen saturation in Arterial blood by Pulse oximetry Heart rate Body mass index (BMI) Body weight Systolic blood pressure Diastolic blood pressure Provider Name and Address Organization Details Last Updated DateTime 9 170.18 cm 98 % 98 % 67 /min 19.6 kg/m2 65439.0 5 g 138 mm[Hg] 82 mm[Hg] Crystal Gardner LPN [facility] 9 11:09:43 Date Recorded Body height Body mass index (BMI) Body weight Heart rate Oxygen saturation Oxygen saturation in Arterial blood by Pulse oximetry Systolic blood pressure Diastolic blood pressure Provider Name and Address Organization Details Last Updated DateTime 9 170.18 cm 20.2 kg/m2 51128.4 2 g 71 /min 98 % 98 % 110 mm[Hg] 60 mm[Hg] Alexx Burrows LPN [facility] 9 10:43:01 Date Recorded Body height Body mass index (BMI) Body weight Oxygen saturation Oxygen saturation in Arterial blood by Pulse oximetry Heart rate Systolic blood pressure Diastolic blood pressure Provider Name and Address Organization Details Last Updated DateTime 9 170.18 cm 20.2 kg/m2 49239.4 2 g 90 % 90 % 78 /min 132 mm[Hg] 60 mm[Hg] Crystal Gardner LPN [facility] 9 10:16:28 Social History Question Answer Notes LastModified by Organizat ion Details LastModified Time Tobacco Smoking Status [facility] 12:24:14 What Was The Date Of Your Most Recent Tobacco Screening? 11/10/2018 Information n ot available 12/08/2018 Sex: Unknown Functional Status None recorded. Mental Status None recorded. Family History Relationship Description Onset Age of this Age Resolved Age Notes LastModified by Organization Details LastModified Time Unspecified Relation Arthritis Not available 2018 16:49:01 Unspecified Relation Family history of malignant neoplasm [email or web address] Not available 2018 16:49:07 Unspecified Relation Osteoporosis [email or web address] Not available 01/2019 16:49:17 Medical History Condition Response CANCER: SPECIFY Y Gynecological HistoryNo gynecological history recorded. Obstetrics History GPAL:G 0 P 0 0 0 0 Past Encounters Encounter ID Performer Location Encounter Start Date Encounter Closed Date Diagnosis/Indication Diagnosis SNOMED-CT Code Diagnosis ICD10 Code Diagnosis Note [id number] Melinda Dupont MD [facility] [address] [place] [address] 11/26/2016 11:59:06 11/26/2016 13:34:23 [id number] Melinda Dupont MD [facility] [address] [place] [address] 12/01/2016 11:08:32 12/01/2016 12:26:13 [id number] Melinda Dupont MD [facility] [address] [place] [address] 01/03/2017 15:51:03 01/04/2017 09:02:57 [id number] [facility] [address] [place] [address] 01/21/2017 15:34:20 01/21/2017 16:27:25 [id number] Melinda [facility]otn [facility] [address] [place] [address] 04/15/2017 10:12:34 04/15/2017 11:40:49 [id number] Cheri Noe MD [facility] [address] [place] [address] 06/10/2017 15:02:01 06/10/2017 17:10:42 [id number] MD MALORIE Oshea [facility] [address] [place] [address] 07/01/2017 10:48:38 07/01/2017 11:42:35 [id number] Bob Swann MD [facility] [address] [facility] [place] [address] 07/15/2017 09:52:14 07/15/2017 12:08:35 [id number] MD MALORIE Oshea [employer] [facility] [address] [place] [address] 09/28/2017 10:15:11 09/28/2017 11:11:26 [id number] Zonia Reyes MD [facility] [address] [place] [address] 12/28/2017 09:56:38 12/28/2017 11:02:51 [id number] Zonia Reyes MD [facility] [address] [place] [address] 01/25/2018 10:19:24 01/25/2018 11:26:12 [id number] Zonia Reyes MD [facility] [address] [place] [address] 03/13/2018 14:55:33 03/13/2018 15:30:00 [id number] Monica Beckham MD [facility] [address] [place] [address] 05/19/2018 10:58:19 05/19/2018 11:44:00 [id number] Monica Beckham MD [facility] [place] [facility] [address] [place] [address] 07/05/2018 11:21:56 07/05/2018 13:41:00 [id number] Susan Becerra MD [facility] [address] [facility] [address] 07/10/2018 10:34:56 07/10/2018 12:34:07 [id number] Bob Swann MD [facility] [address] [place] [address],[address] [place] [address] 08/28/2018 10:00:29 08/28/2018 12:12:06 [id number] Humza Wilde MD [facility] [address] [facility], [address] [place] [address] 09/20/2018 11:48:33 09/20/2018 13:08:37 Cervical myelopathy 402749055 G95.9 Cervical spondylosis 387 936597 M47.812 Cervical radiculopathy 40285810 M54.12 Cervical post-laminectomy syndrome 397825813 M96.1 [id number] Humza Wilde MD [facility] [address] [place] [address], [facility] [address] [place] [address] 11/10/2018 10:15:47 11/10/2018 12:16:08 Post-laminectomy syndrome 17592948 M96.1 Spondylosi s without myelopathy 46364599 M47.9 Spinal raad nosis in cervical region 18797717 M48.02 [id number] Humza Wilde MD [facility] [address] [place] [address] 12/06/2018 10:36:06 12/06/2018 11:05:28 [id number] Humza Wilde MD [facility] [address] [place] [address] 01/17/2019 09:29:15 01/17/2019 10:48:54 [id number] Kathy Jeong MD [facility] [address] [place] [address] 07/23/2019 11:55:39 07/23/2019 13:03:09 Health Concerns Section Related Observation LastModified by Organization Detai ls LastModified Time None Recorded Concern Status LastModified by Organization Details LastModified Time None Recorded Advance Directives Directive None Recorded Payers Insurance Date Sequence Insurance Name Policy Number Policy Stanford Covered Member ID Stanford Member ID Guarantor Name 12/15/2018 2 [facility] (MEDICARE SUPPLEMENT) [id number] Tripp Wolff [id number] Tripp Wolff 08/14/2019 1 [facility] (MEDICARE REPLACEMENT/A DVANTAGE - PPO) [id number] Tripp Wolff [id number] Tripp Wolff 12/15/2018 2 [facility] Tripp Wolff [id number] Tripp Wolff 12/15/2018 1 [facility] [id number] Tripp Wolff [id number] Tripp Wolff 12/15/2018 1 [place] Tripp Wolff [id number] Tripp Wolff 12/15/2018 3 [place] [facility] Es Wolff [id number] Tripp New Notes Date Note Type Note Provider Name and Address Organization Details Recorded Time 09/20/2018 text/html Chani Anthony margie SpineReported bypatient.Reason for VisitPain radiates Yes, if Yes, Where:; Percentage of neck pain: 40%; Percentage of Right arm pain: 30%; Percentage of Left arm pain: 30%; Neck pain level 5/10; Arm pain level 1/10; Neck: Pain right now: Yes The worse it gets: No The best it gets: ; Arm: Pain right now: Yes The worse it gets: The best it gets: ; Shoulder: Pain right now: Yes The worse it gets: No The best it gets: ;burning sensation: in the right wrist or back of the hand;numbness (hypesthesia): in bilateral wrists or back of hands;numbness (hypesthesia): in bilateral thumbs;numbness (hypesthesia): Paindull/aching;num bness;tingling/ pins & needles; When is your pain at its worst? How often does the pain occur? ; Bending neck Backward: Worse Bending neck Forward: Worse; Changes in weather: Worse; Moving: Worse; Coughing/sneezing: Worse; Driving: ; Looking upward: Worse; Looking downward: Worse; Sitting: Same; Standing: Same; Sleeping: Same; Hand over the head: Same Associated SymptomsNeck: Bilateral; Shoulder: Bilateral; Thumb: Bilateral; Index finger: Bilateral; Middle finger: Bilateral; Ring finger: Bilateral; Pinky finger: Bilateral; Hand and Palm: Bilateral Physicians or specialists consulted for current painAcupuncturist; Psychologist/Psychi atrist; Chiropractor; Physical Therapist Not Available [facility] 09/21/2018 18:09:53 OBGyn Episode No OBEpisode recorded.
--- OUTSIDE RECORDS SUMMARY | 2024-10-10 09:52 | XMS_ITS | Clinical Summary ---
Author Organization [employer] [facility] Address [address] [facility] 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 Name Role Phone Unavailable Primary Care Provider [...] on file Legal Sex Female 1:50 PM GREASE MAN Gender Identity Not on file Sexual Orientation Not on file Last Filed Vital Signs Vital Sign Reading Time Taken Comments Blood Pressure 120/68 05/06/2015 3:33 PM GREASE MAN Pulse 80 05/06/2015 3:33 PM GREASE MAN Temperature - - Respiratory Rate - - Oxygen Saturation 97% 05/06/2015 3:33 PM GREASE MAN Inhaled Oxygen Concentration - - Weight 63 kg (139 lb) 05/06/2015 3:33 PM GREASE MAN Height 170.2 cm (5' 7) 05/06/2015 3:33 PM GREASE MAN Body Mass Index 21.77 05/06/2015 3:33 PM GREASE MAN Plan of Treatment Health Maintenance Due Date Last Done Comments DTAP/TDAP/TD VACCINES (1 - Tdap) 1968 FIT-DNA Q 3 years 1994 FIT/FOBT Q 1 year 1994 Flex Sig/CT Colonography Q 5 years 1994 PNEUMOCOCCAL VACCINE 50+ YEA RS (1 of 1 - PCV) 1999 ZOSTER VACCINE (1 of 2) 1999 OSTEOPOROSIS SCREENING 11/04/2020 11/05/2015, 2013 INFLUENZA VACCINE (#1) 2023 RSV VACCINE (60+ or ) (1 - 1-dose 75+ series) 2024 COLORECTAL SCREENING 08/25/2027 08/24/2017 Colorectal Cancer Screening 08/25/2027 Insurance MEDICARE PART A AND B [facility] [id number]
[2024-10-10 09:59] LABS: Basophils Absolute Auto 0.06 K/mm3 (0.00-0.10); Basophils Percent Auto 0.8 % (0.0-1.0); Eosinophils Absolute Auto 0.06 K/mm3 (0.02-0.50); Eosinophils Percent Auto 0.8 % (1.0-6.0); Hematocrit 35.1 % (35.0-42.0); Hemoglobin 10.3 g/dL (11.7-13.8); Immature Granulocyte Absolute 0.02 K/mm3 (0.00-0.00); Immature Granulocyte Percent A 0.3 % (0.0-0.0); Lymphocytes Percent Auto 29.6 % (18.0-42.0); Mean Corpuscular HGB Conc 29.3 g/dL (32-36); Mean Corpuscular Volume 92.1 fL (78.0-102.0); Mean Platelet Volume 10.2 fl (9.2-11.8); Monocytes Absolute Auto 0.57 K/mm3 (0.10-0.90); Monocytes Percent Auto 7.7 % (2.0-11.0); Neutrophils Absolute Auto 4.51 K/mm3 (1.70-7.20); Neutrophils Percent Auto 60.8 % (50.0-70.0); Platelet Count Result 319 K/mm3 (150-420); Red Blood Count 3.81 M/mm3 (4.20-5.40); Red Cell Distribution Width 16.2 % (11.6-14.4); White Blood Count 7.4 K/mm3 (4.8-10.8)
[2024-10-10 10:12] LABS: Hemoglobin A1C 5.4 % (<5.7)
[2024-10-10 10:47] LABS: Alanine Aminotransferase 12 U/L (6-35); Albumin Level 4.2 g/dL (3.5-5.1); Alkaline Phosphatase 94 U/L (38-126); Anion Gap 5 mmol/L (4-12); Aspartate Amino Transferase 24 U/L (14-36); Bilirubin,Total 0.3 mg/dL (0.2-1.3); Blood Urea Nitrogen 15 mg/dL (7-17); Calcium 9.6 mg/dL (8.4-10.2); Carbon Dioxide 30 mmol/L (22-30); Chloride 102 mmol/L (98-107); Estimated Glomerular Filt Rate > 60; Glucose 121 mg/dL (65-110); Osmolality Calculated 285 mOsm/kg (285-295); Potassium 4.3 mmol/L (3.4-5.0); Sodium 137 mmol/L (137-145); Total Protein 8.4 g/dL (6.3-8.2)
== END 2024-10-10 09:46 | disposition home or self-care (01) ==
PROVIDERS: PCP Family Medicine; Visit Provider Family Medicine
DX: D50.9 Iron deficiency anemia, unspecified (principal); Z85.72 Personal history of non-Hodgkin lymphomas; M19.90 Unspecified osteoarthritis, unspecified site; E11.9 Type 2 diabetes mellitus without complications
CPT/HCPCS: 36415; 80053; 83036; 84443; 85025

== ENCOUNTER 2025-01-09 07:55 | Outpatient (NON) | payer OTHER, SELFPAY ==
--- OUTSIDE RECORDS SUMMARY | 2015-10-24 07:02 | XMS_ITS | Continuity of Care Document ---
Author Organization [facility] Address [address] [place] [address] Phone Care Team Providers Care Public Health Sanitarian Name Role Phone Cely Shields APRN Unavailable Unavailable Medications Medication Instructions Dosage Effective Dates (start - stop) Status Comments VOLTAREN GEL 1% 1% Apply 4gm to affected area 4 times daily - No Longer Active Total of 4 tubes lidocaine 5 % adhesive patch Apply up to 3 patches on affected area every 12 hours as needed for pain. - No Longer Active Procedures Procedure Date Injection, single, epidural/subarachnoid ; lumbar/sacral Fluoro For Spine Injection Procedures Ju Office/outpatient visit,est, mod 2015 Advance Directives Directive Yes / No Effective Date File Name No Information Encounters Encounter Description Practice Location Reason(s) For Visit Diagnoses Date Provider Providers Copied on Encounter [facility], [address], [id number], [place] tel:[phone] [facility] No Information 0 6 Aden Ta. [address] [facility], [facility], [place], [place], [id number] , [place]. tel: [phone] [facility], [address], [id number], [place] tel:[phone] [facility] No Information 3201 6 Yoana Little. [address] [facility], [place] [address], [place], [place], [id number] , [place]. tel: [phone] [facility], [address], [id number], [place] tel:[phone] [facility] No Information 6 Yoana Little. [address] [facility], [address], [place], [place], [id number] , [place]. tel: [phone] [facility], [address], [id number], [place] tel:[phone] [facility] Spinal stenosis, lumbar region 6 Yoana Sidney. [address] [facility], [place] [address], [place], [place], [id number] , [place]. tel: [phone] [facility], [address], [id number], [place] tel:[phone] [facility] No Information 6 Yoana Little. [address] [facility], [place] [address], [place], [place], [id number] , [place]. tel: [phone] Office/outpa tient visit,est, mod [facility], [address], [id number], [place] tel:[phone] [facility] lumbar spine (chief complaint) Spinal stenosis, lumbar regionSpondylolis thesis of cervical regionLumbago 6 Abeln Cely. [address] [facility], [address], [id number] , [place]. tel:[phone] Family History Family Member Type Diagnosis Age At Onset Problem (finding) Family history of osteo porosis Problem (finding) Family history of strok e Problem (finding) Family history of Menta l illness Problem (finding) Family history of alcoh olism Problem (finding) Family history of Arthr itis Problem (finding) Family history of Cance r, unknown Immunizations Vaccine Date Status Comments Flu (split) (3 yrs or older) administered Source: Other Provider Payers Payer name Insurance type Covered alliance party ID Izzy zaldivar(s) No Information Social History Type Description Quantity Date Captured Comments Alcohol Use Details Unknown Caffeine Use Details Unknown Tobacco Use Status No Information Smoking Status No Information Sex Female Chief Complaint And Reason For Visit No Information Reason For Referral Reason For Referral No Information History Of Present Illness Encounter Date Complaint History Of Prese nt Illness lumbar spine Ms Wolff is a 65 year old female who complains of lumbar spine. She presents with pain and tenderness, swelling, tingling in legs, burning, numbness. The symptoms occur constantly. The symptoms are aggravated by bending, lifting, ascending stairs and sitting. Es states that the symptoms are relieved by massage, ice, stretching and injection, mobility, medication, PT. Functional Status Date Functional Assessmen t No Information Instructions Date Instruction Additional Infor mation No Information Assessments Type Assessment Date No Information Patient Care Teams Name Effective Dates (start - stop) Status Members No Information
--- OUTSIDE RECORDS SUMMARY | 2025-01-09 08:02 | XMS_ITS | Clinical Summary ---
Author Organization [facility] Address [address] [place] [id number] Care Team Providers Care Farmworker Grain Name Role Phone João Stewart MD Unavailable [phone] Amanuel Buitrago MD Primary Care Provide r Self, Elsa Ruiz MD Unavailable [phone] Stuart Donahue MD Unavailable [phone] Allergies Active Allergy Reactions Criticality Noted Date [...] mg by mouth every morning 3 Active metFORMIN (GLUCOPHAGE) 500 mg tabletIndication s:type [...] mouth every 8 (eight) hours 4 Active thiamine (VITAMIN B1) 100 mg tablet Take 1 tablet (100 mg total) by mouth daily 4 Active triamcinolone (KENALOG) 0.1 % cream Apply topically 4 (four) times a day 4 Active polyvinyl alcohol-povidone (REFRESH CLASSIC) 1.4-0.6 % dropperette Administer 1 drop into both eyes 3 (three) times a day 4 Active doxycycline 100 mg tablet 4 Active permethrin (ELIMITE) 5 % cream 4 Active oxyCODONE (ROXICODONE) 5 mg immediate release tabletIndication s:Pain Take 1 tablet (5 mg total) by mouth every 4 (four) hours as needed for pain 42 tablet 5 Active enoxaparin (LOVENOX) 30 mg/0.3 mL syringeIndicatio ns:VTE Prophylaxis Inject 0.3 mL (30 mg total) under the skin daily Until discontinued at the facility provider's disretion 5 Active lidocaine (LIDODERM) 5 %Indications:Eladio n Place 1 patch on the skin daily as needed (pain) for 12 hours Remove & discard patch within 12 hours or as directed by . 5 Active senna (SENOKOT) 8.6 mg tabletIndication s:constipation Take 1 tablet by mouth 2 (two) times a day 5 026 Active doxycycline (MONODOX) 100 mg capsuleIndicatio ns:Bone/Joint Infection Take 1 capsule (100 mg total) by mouth 2 (two) times a day Duration: lifetime medication 5 Active white petrolatum-metal miner al oil (REFRESH PM) ointment Apply 1 Application to both eyes nightly as needed (dry eyes) 5 Active Active Problems Problem Noted Date Diagnosed Date Ovarian cyst 09/12/2024 Assessment & Plan (09/12/2024 4:35 PM CDT): --diagnosed on pelvic ultrasound --discussed with CHEMISTS, not a consult --message left for PCP [...] insurance is not contracted with [facility] ID. Spine Surgery is arranging outside ID follow up. Recommendations: - Discontinue daptomycin and start doxycycline 100mg PO BID (done) - Of note, patient's insurance is not contracted with ID clinic. Spine ADMISSIONS COUNSELOR team aware and setting up outside ID follow up. - ID is formally signed off but will continue to monitor patient peripherally while inpatient. Please see updated sign off note from 09/13/24 for complete recommendations. Discussed plan with Spine Surgery ADMISSIONS COUNSELOR Team Assessment & Plan (09/04/2024 1:57 PM [...] is currently unclear if patient will need bed bug exterminator IV antibiotic therapy or not, would currently [...] is not contracted with ID clinic. Spine ADMISSIONS COUNSELOR team aware and setting up outside ID [...] (08/10/2023): Added automatically from request for surgery [id number] Sacroiliitis, not elsewhere classified 1 Age-related osteoporosis wit hout current pathological fracture 06/28/2019 Spinal stenosis in cervical region 06/11/2019 Overview (06/11/2019): Added automatically from request for surgery [id number] Cervical stenosis of spine 04/27/2019 Asymmetric SNHL (sensorineural hearing loss) 01/2019 Overview (08/10/2023): Last Assessment & Plan: MRI IACs unremarkable hearing aid medical clearance for right ear given She will go to [place] for insurance assistance Will obtain updated audiological [...] Encounters Date Type Department Care Team Description 11/08/2024 Results Follow-Up [facility] Medicine Neurosurgery [address] [place] [address] [address] [place] [phone] Hedy Geronimo, steel post installer pathology 11/05/2024 Documentation [facility] Bone Marrow Transplant [address] [facility] [address] [place] [id number] Sharon Zhou, REFRIGERATOR MOVER 10/24/2024 12:00 PM CDT Office Visit [facility] Medicine Neurosurgery [address] [facility] Office Building [address] [place] [address] Kenny Flores MD Cervical stenosis of spine 10/24/2024 11:35 AM CDT - 10/24/2024 11:59 PM CDT Hospital Encounter [facility] Radiology [address] [facility] [address] [place] [address] Cervical stenosis of spine Discharge Disposition: Discharge to home or self care 10/15/2024 Orders Only [facility] Medicine Neurosurgery [address] [facility] Medical Office Building [address] [place] [address] Kenny Flores MD Cervical stenosis of spine (Primary Dx) from Last 3 Months Immunizations Immunization Administration [...] 2000 Anxiety Depression Type 2 diabetes mellitus Gastric reflux Family History Medical History Relation [...] drink = 0.6 oz pur e alcohol) [facility] Utilities Answer Date Recorded In the past 12 months has th e electric, gas, oil, or water company threatened to shut off services in your home? No 09/03/2024 Social Connection and Isolation Panel Answer Date Recorded In a typical week, how many times do you talk on the phone with family, friends, or neighbors? Three times a week 09/04/19 How often do you get togethe r with friends or relatives? Three times a week 09/03/2024 How often do you attend chur ch or jehovah's witness services? 1 to 4 times per year 09/03/2024 Do you belong to any clubs o r organizations such as mormonism groups, unions, fraternal or athletic groups, or [...] any time in the past 12 m [facility], were you homeless or living in a assisted (including now)? No 09/03/2024 Personal Safety Answer Date Recorded Have you ever been in or are you currently in a harmful physical or emotional relationship or is someone making you feel afraid or unsafe? Denies 09/15/2024 Comments Unknown Sex and Gender Information Value Date Recorded Sex Assigned at Not on file Legal Sex Female 8:24 AM SINGLE END SEWER Gender Identity Not on file Sexual Orientation [...] CDT Inhaled Oxygen Concentration - - Weight 57.2 kg (126 lb) 10/24/2024 12:17 PM CDT Height 200.7 cm (6' 7) 10/24/2024 12:17 PM CDT Body Mass Index 14.19 10/24/2024 12:17 PM CDT Plan of Treatment Health Maintenance Due Date Last Done Comments Albumin Creatinine Ratio, Urine 1950 Colon Cancer Screening-Colonoscopy 1950 Depression Screening 1950 Dilated Eye Exam 1950 Foot Exam 1950 Hepatitis B Screening 1967 Well Visit 65+ 2014 Covid-19 Vaccine (2023-2 5 season) 2024 03/02/2022, 08/20/2020, 07/15/2020 Hemoglobin A1C 05/02/2024 11/01/2023 Influenza Vaccine (#1) 2025 , 02/14/2020, 03/05/2019, Additional history exists Lipid Panel [...] history exists Medical Devices Implanted Type Area Photographer'S Model Device Identifier Shelf Expiration Date Model / Serial / Lot Bonny Spine Allograft Gel Graft 5cc Bone Demineralized Bone Matrix [id number] - [id number] Implanted:Qty: 1 on 11/04/2023 by Kenny Flores MD at [facility] N/A: Spine Cervical Bonny Spine [id number] 03/30/2026 [id number] / / [id number] Nuvasive Inc Screw Spine Reline C Lock Open Non-Sterile Latex Free [id number] - [id number] Implanted:Qty: 11 on 11/04/2023 by Kenny Flores MD at [facility] N/A: Spine Cervical Nuvasive Inc [id number] / / Nuvasive Inc Navneet Spinal Posterior Cervical Prebent Reline 3.5x250/100mm Titanium [id number] - [id number] Implanted:Qty: 2 on 11/04/2023 by Kenny Flores MD at [facility] N/A: Spine Cervical Nuvasive Inc [id number] / / Nuvasive Inc Plate Spine Posterior Cervical Occipital Adjustable Small Reline [id number] - [id number] Implanted:Qty: 1 on 11/04/2023 by Kenny Flores MD at [facility] N/A: Spine Cervical Nuvasive Inc [id number] / / Nuvasive Inc Connector Spinal Posterior Cervical Rotating Top Side Reline 3.5-4/3.5-4mm [id number] - [id number] Implanted:Qty: 4 on 11/04/2023 by Kenny Flores MD at [facility] N/A: Spine Cervical Nuvasive Inc [id number] / / Bonny Spine Graft Bone Filler Gel Bio Dbm 10cc [id number] - [id number] Implanted:Qty: 1 on 11/04/2023 by Kenny Flores MD at [facility] N/A: Spine Cervical [place] Spine [id number] 04/13/2026 [id number] / / [id number] New Age Medical Graft Bone Magnetos 10cc 1-2mm Granules In Moldable Putty [id number]-[id number] - [id number] Implanted:Qty: 1 on 11/04/2023 by Kenny Flores MD at [facility] N/A: Spine Cervical New Age Medical [id number] 10/15/2027 [id number] / / [id number] Medtronic Inc Infuse 20ga 2x1in Vial Absorbable Syringe Needle Medium Graft 5.6 [id number] - [id number] Implanted:Qty: 1 on 11/04/2023 by Kenny Flores MD at [facility] N/A: Spine Cervical Medtronic Inc [id number] / / Allosource Crushed Chip Frozen Graft 30ml Bone Cancellous [id number] - [id number] Implanted:Qty: 1 on 11/04/2023 by Kenny Flores MD at [facility] N/A: Spine Cervical Allosource 11/07/2027 [id number] / / [id number] Allosource Canpac Allograft Frozen Nonpurge Graft 10cc Bone Cancellous [id number] - [id number] Implanted:Qty: 1 on 11/04/2023 by Kenny Flores MD at [facility] N/A: Spine Cervical Allosource 09/13/2028 [id number] / / [id number] Nuvasive Inc Reline C Screw 4.5x10mm Occipital [id number] - [id number] Implanted:Qty: 2 on 11/04/2023 by Kenny Flores MD at [facility] N/A: Spine Cervical Nuvasive Inc [id number] / / Nuvasive Inc Reline C Screw 4.5x12mm Occipital [id number] - [id number] Implanted:Qty: 2 on 11/04/2023 by Kenny Flores MD at [facility] N/A: Spine Cervical Nuvasive Inc [id number] / / Nuvasive Inc Reline C Screw 4.0x24mm Reduction Fa [id number] - [id number] Implanted:Qty: 1 on 11/04/2023 by Kenny Flores MD at 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 Unchanged occiput-T2 and L3-L5 posterior decompression and instrumented fusion with mild thoracolumbar scoliosis and truncal imbalance. Dictated by: Esequiel Hook M.D. The radiology attending physician has personally reviewed this study, and had reviewed and/or edited this written report and agrees with it. Electronically signed by: Daryn Garcia M.D. Narrative 10/24/2024 2:54 PM CDT EXAMINATION: XR SCOLIOSIS AP AND LATERAL HISTORY: Cervical stenosis status post fusion FINDINGS: Supine radiographs of the spine. Comparison with PET CT 09/02/2024 and radiographs 08/31/2024. The exam markedly limited by patient positioning and technique. Unchanged cervical spinal fusion extending from the occiput to the level of T2 on the right in T1 on the left. Posterior spinal fusion and decompression from L3 to L5 is unchanged. Hardware is intact. There is mild long segment dextroscoliosis of the entire spine with apex at T9. There is positive sagittal imbalance seated position. No significant coronal imbalance well-seated. No significant listhesis. Vertebral body heights are preserved. There is multilevel degenerative disc disease throughout the unfused levels of the spine most prominent and severe at the junctional level L2-L3. Atherosclerotic aortic calcifications. Surgical clips overlie the left axilla. Streaky atelectasis within the lung bases. Chronic healed bilateral rib fractures. Ostomy is present. Procedure Note Daryn Garcia MD - 10/24/2024 EXAMINATION: XR SCOLIOSIS AP AND LATERAL HISTORY: Cervical stenosis status post fusion FINDINGS: Supine radiographs of the spine. Comparison with PET CT 09/02/2024 and radiographs 08/31/2024. The exam markedly limited by patient positioning and technique. Unchanged cervical spinal fusion extending from the occiput to the level of T2 on the right in T1 on the left. Posterior spinal fusion and decompression from L3 to L5 is unchanged. Hardware is intact. There is mild long segment dextroscoliosis of the entire spine with apex at T9. There is positive sagittal imbalance seated position. No significant coronal imbalance well-seated. No significant listhesis. Vertebral body heights are preserved. There is multilevel degenerative disc disease throughout the unfused levels of the spine most prominent and severe at the junctional level L2-L3. Atherosclerotic aortic calcifications. Surgical clips overlie the left axilla. Streaky atelectasis within the lung bases. Chronic healed bilateral rib fractures. Ostomy is present. IMPRESSION: 1. Unchanged occiput-T2 and L3-L5 posterior decompression and instrumented fusion with mild thoracolumbar scoliosis and truncal imbalance. Dictated by: Esequiel Hook M.D. The radiology attending physician has personally reviewed this study, and had reviewed and/or edited this written report and agrees with it. Electronically signed by: Daryn Garcia M.D. us Kenny Flores MD IMG XR PROCEDURES Final Result * eGFR (09/15/2024 9:05 PM [...] LAB BLOOD ORDERABLES Final Resu lt [facility] Department [place] [address] * (ABNORMAL) Lipid panel (08/31/2024 7:10 PM [...] revised on 2018. Triglycerides 104 <=149 mg/dL [facility] Comment: Interpretive Data Ages < or [...] revised on 2018. HDL 37(L) >=40 mg/dL [facility] Comment: Interpretive Data Ages < or [...] on 2018. LDL, calculated 60 <=129 mg/dL [facility] Comment: Interpretive Data Ages < or [...] 3. Cem Rice et al. OLIVA Cardiol. 2019September 13;5(5):540-548. doi: 10.1001/jamacardio.2020.0013 Current Interpretive Data was last revised on 2024. Non-HDL Cholesterol 79 mg/dL [facility] Comment: Interpretive Data Ages < or [...] last revised on 2018. Chol/HDL ratio 3 [facility] Blood 08/31/2024 7:10 PM CDT 08/31/2024 7:25 PM CDT us Kenny Flores MD LAB BLOOD ORDERABLES Final Resu lt [facility] Department [place] [address] * (ABNORMAL) POCT hemoglobin A1c (11/01/2023 4:36 PM CDT) Hgb A1C, POC 6.1(H) 4.0 - 5.6 % Est Average Gluc POC 128 mg/dL [facility] Comment: The ADA recommends reporting an estimated Average Glucose (eAG) with all Hemoglobin A1c results using the equation derived from a study of 507 normal and diabetic adults. Minority populations were underrepresented and children were not included. (Diabetes Care 31:1819-1260, 2008). The eAG is not equivalent to a fasting glucose. Blood 11/01/2023 4:36 PM CDT 11/01/2023 4:36 PM CDT us Kenny Flores MD POINT OF CARE TEST ORDERABLES F inal Result [facility] Department [place] [address] * DEXA Axial Skeleton Bone Density Multi Site (09/07/2023 9:16 AM CDT) Anatomical Region Laterality Modality Body N/A Radiographic Kika ging Narrative 09/08/2023 9:57 AM CDT Patient Name: Es Wolff Date of : 1950 Date of scan: 09/07/2023 Bone mineral density was performed on a HoloM2M Solution Discovery Densitometer. Based on machine cross-calibration and [...] by the International Society of Clinical Densitometry. [id number] Remy [facility] [place] DXA PROCEDURES Final Result * Hepatitis panel, acute (07/10/2019 2:18 PM SINGLE END SEWER) Hep A IgM Nonreactive Nonreactive [facility] Comment: Interpretive Data If test is reported as GRAYZONE, new sample should be drawn in two weeks for testing. Current interpretive data was last revised on 2016. Hep B core IgM Nonreactive Nonreactive [facility] Comment: Interpretive Data If test is reported as GRAYZONE, new sample should be drawn for testing. Current interpretive data was last revised on 2016. Hep C Ab Nonreactive Nonreactive [facility] Comment: Interpretive Data Positive results should be confirmed by a molecular method. If positive, a second separately collected sample should be submitted for Hepatitis C Virus (HCV) RNA Detection and Quantitation by Real-Time Reverse Central Office Operator Supervisor-PCR (RT-PCR). Current interpretive data was last revised on 2016. HepBsAg Nonreactive Nonreactive [facility] Blood specimen (specimen) 07/10/2019 2:18 PM SINGLE END SEWER 07/10/2019 5:19 PM SINGLE END SEWER us Yassine Platt MD LAB MICROBIOLOGY - GENER AL ORDERABLES Final Result [facility] Department [place] [address] from Last 3 Months or Most Recently Relevant to Health Maintenance Insurance [facility] MEDICARE ADVANTAGE [facility] MEDICARE ADVANTAGE [facility] [place] Advance Directives For more information, please contact: [phone] Documents on File Type Date Recorded Patient Industrial Maintenance Technician Expl anation ADVANCE DIRECTIVE 11/16/2023 10:49 PM POWER OF TOLL LINEMAN-MEDICAL ADVANCE DIRECTIVE 11/07/2023 11:02 AM LEA R OF TOLL LINEMAN-MEDICAL ADVANCE DIRECTIVE 11/04/2023 2:20 PM Power of Hearing Screener-Medical Advance Directives and Living Will 11/04/2023 8:45 [...] Relationship Healthcare Agent Relationship Communication Gio Wolff [facility] Health Care Agent tri Wolff [facility] Health Care Agent Care Teams Farmworker Grain Relationship Specialty Start Date End Date Amanuel Buitrago MD [address] [place], [place] [id number] PCP - General Family Medicine 08/31/24 João Stewart MD [address] [address] Neurosurgery 02/28/23 Elsa Higgins MD [address] [place] [address] Referring Physician Internal Medicine 09/13/24 Stuart Donahue MD [address] [facility] [address] DIV [place] [address] Medical Oncologist/Hematologis t Hematology and Oncology 09/13/24
--- OUTSIDE RECORDS SUMMARY | 2025-01-09 08:02 | XMS_ITS ---
Author Organization [facility] Address [address] [place] [address] Care Team Providers Care Freight Representative Name Role Phone João Stewart MD Unavailable [phone] Amanuel Buitrago MD Primary Care Provide r Elsa Higgins MD Unavailable [phone] Stuart Donahue MD Unavailable Active Problems Problem Noted Date Diagnosed Date Ovarian cyst 09/12/2024 Assessment & Plan (09/12/2024 4:35 PM CDT): --diagnosed on pelvic ultrasound --discussed with TILE PICKER, not a consult --message left for PCP [...] plan. Patient's insurance is not contracted with [facility] ID. Spine Surgery is arranging outside ID follow up. Recommendations: - Discontinue daptomycin and start doxycycline 100mg PO BID (done) - Of note, patient's insurance is not contracted with ID clinic. Spine PROJ MGR team aware and setting up outside ID follow up. - ID is formally signed off but will continue to monitor patient peripherally while inpatient. Please see updated sign off note from 09/13/24 for complete recommendations. Discussed plan with Spine Surgery PROJ MGR Team Assessment & Plan (09/04/2024 1:57 PM [...] is currently unclear if patient will need penitentiary IV antibiotic therapy or not, would currently [...] note, patient's insurance is not contracted with [facility]. Spine PROJ MGR team aware and setting up outside ID [...] note, patient's insurance is not contracted with [facility]. Assessment & Plan (09/17/2024 1:22 PM [...] (08/10/2023): Added automatically from request for surgery [id number] Sacroiliitis, not elsewhere classified 1 Age-related osteoporosis wit hout current pathological fracture 06/28/2019 Spinal stenosis in cervical region 06/11/2019 Overview (06/11/2019): Added automatically from request for surgery [id number] Cervical stenosis of spine 04/27/2019 Asymmetric SNHL (sensorineural hearing loss) 01/2019 Overview (08/10/2023): Last Assessment & Plan: MRI IACs unremarkable hearing aid medical clearance for right ear given She will go to [place] for insurance assistance Will obtain updated audiological [...]
--- OUTSIDE RECORDS SUMMARY | 2025-01-09 08:03 | XMS_ITS | Clinical Summary ---
Author Organization [employer] [facility] Address [address] [facility] [place] [address] Phone Care Team Providers Care Soldering Machine Operator Name Role Phone Unavailable Primary Care Provider [...] on file Legal Sex Female 1:50 PM DIRECTOR DIGITAL ANALYTICS Gender Identity Not on file Sexual Orientation Not on file Last Filed Vital Signs Vital Sign Reading Time Taken Comments Blood Pressure 120/68 05/06/2015 3:33 PM DIRECTOR DIGITAL ANALYTICS Pulse 80 05/06/2015 3:33 PM DIRECTOR DIGITAL ANALYTICS Temperature - - Respiratory Rate - - Oxygen Saturation 97% 05/06/2015 3:33 PM DIRECTOR DIGITAL ANALYTICS Inhaled Oxygen Concentration - - Weight 63 kg (139 lb) 05/06/2015 3:33 PM DIRECTOR DIGITAL ANALYTICS Height 170.2 cm (5' 7) 05/06/2015 3:33 PM DIRECTOR DIGITAL ANALYTICS Body Mass Index 21.77 05/06/2015 3:33 PM DIRECTOR DIGITAL ANALYTICS Plan of Treatment Health Maintenance Due Date Last Done Comments DTAP/TDAP/TD VACCINES (1 - Tdap) 1968 FIT-DNA Q 3 years 1994 FIT/FOBT Q 1 year 1994 Flex Sig/CT Colonography Q 5 years 1994 PNEUMOCOCCAL VACCINE 50+ YEA RS (1 of 1 - PCV) 1999 ZOSTER VACCINE (1 of 2) 1999 OSTEOPOROSIS SCREENING 11/04/2020 11/05/2015, 2013 RSV VACCINE (60+ or ) (1 - 1-dose 75+ series) 2024 INFLUENZA VACCINE (#1) 2024 COLORECTAL SCREENING 08/25/2027 08/24/2017 Colorectal Cancer Screening 08/25/2027 Insurance MEDICARE PART A AND B [facility] [id number]
--- OUTSIDE RECORDS SUMMARY | 2025-01-09 08:03 | XMS_ITS | Clinical Summary ---
Author Organization [facility] Address [address] [place] [address] Care Team Providers Care Freelance Patternmaker Name Role Phone Unavailable Primary Care Provider Unavailabl e Source Comments [facility],non-owned Affiliates and Associated Physician Practices is amultiple site organization consisting of ambulatory clinics and hospital sitesin [place], [place], [place] and [place]. This disclosure is being madepursuant to the Care Everywhere program and may not contain all information available regarding this patient. Last updated 18.[employer] Allergies No known active allergies Medications [...] Visit [facility] - Infectious Disease [facility] [facility], [place] [address] Rocael Flores MD Hardware complicating wound infection, subsequent encounter (Primary Dx); Orthopedic hardware present; Dehiscence of surgical wound, subsequent encounter; Cervical myelopathy (HCC); MGUS (monoclonal gammopathy of unknown significance); Low grade B-cell lymphoma (HCC); Parkinson's disease without dyskinesia or fluctuating manifestations (HCC); Type 2 diabetes mellitus without complication, without long-term current use of insulin (HCC); Small bowel perforation (HCC); Routine health maintenance from Last 3 Months Social History Tobacco Use Types Packs/Day Years Used Date Smoking Tobacco: Never Assessed Comments Unknown Sex and Gender Information Value Date Recorded Sex Assigned at Not on file Legal Sex Female 3:10 PM LOCAL GOVERNMENT LEGISLATOR Gender Identity Female 04/04/2023 3:10 PM LOCAL GOVERNMENT LEGISLATOR Sexual Orientation Not on file Last Filed [...] Description 01/15/2025 1:00 PM CDT Office Visit [facility] - Infectious Disease [address] [place] [address], [place] [address] Rocael Flores MD [address] [place] [phone] Health Maintenance Due Date Last Done Comments [...] yrs (1 - 1-dose 75+ series) 2024 DEPRESSION SCREENING 05/16/2024 DIABETES - URINE PROTEIN SCREENING 05/16/2024 DIABETES-SERUM CREATININE 08/25/20242023, 08/26/2023, 04/21/2023, Additional history exists DIABETES RETINOPATHY SCREENING 10/09/2024 DIABETES-FOOT EXAM WITH MONOFILAMENT 10/09/2024 DIABETES-HGB A1C 10/09/2024 11/01/2023, , 12/12/2021 INFLUENZA VACCINE (#1) 2025 , 02/14/2020, 03/05/2019, Additional history exists BONE DENSITY [...]
[2025-01-09 09:20] LABS: Hematocrit 37.5 % (35.0-42.0); Hemoglobin 10.9 g/dL (11.7-13.8); Mean Corpuscular HGB Conc 29.1 g/dL (32-36); Mean Corpuscular Hemoglobin 26.6 pg (27.0-31.0); Mean Corpuscular Volume 91.5 fL (78.0-102.0); Platelet Count Result 231 K/mm3 (150-420); Red Blood Count 4.10 M/mm3 (4.20-5.40); White Blood Count 7.0 K/mm3 (4.8-10.8)
[2025-01-09 09:36] LABS: Hemoglobin A1C 6.6 % (<5.7)
[2025-01-09 11:17] LABS: Alanine Aminotransferase 25 U/L (6-35); Albumin Level 3.9 g/dL (3.5-5.1); Alkaline Phosphatase 92 U/L (38-126); Anion Gap 11 mmol/L (4-12); Aspartate Amino Transferase 47 U/L (14-36); Bilirubin,Total 0.3 mg/dL (0.2-1.3); Blood Urea Nitrogen 15 mg/dL (7-17); Calcium 9.7 mg/dL (8.4-10.2); Carbon Dioxide 29 mmol/L (22-30); Chloride 102 mmol/L (98-107); Cholesterol 120 mg/dL (0-200); Estimated Glomerular Filt Rate > 60; Glucose 99 mg/dL (65-110); HDL Direct 46 mg/dL; Osmolality Calculated 294 mOsm/kg (285-295); Potassium 4.4 mmol/L (3.4-5.0); Sodium 142 mmol/L (137-145); Total Protein 8.3 g/dL (6.3-8.2); Triglycerides 94 mg/dL (<150)
[2025-01-09 11:47] LABS: Thyroid Stimulating Hormone 0.992 uIU/mL (0.465-4.680)
[2025-01-09 12:23] LABS: Vitamin B12 515.0 pg/mL (239-931)
== END 2025-01-09 07:56 | disposition home or self-care (01) ==
LOC: CHSLAB 07:58
PROVIDERS: PCP Family Medicine
DX: G72.89 Other specified myopathies (principal); E44.0 Moderate protein-calorie malnutrition; G20.A1 Parkinson's disease without dyskinesia, without mention of fluctuations; M79.7 Fibromyalgia; N18.6 End stage renal disease; E78.5 Hyperlipidemia, unspecified; I50.9 Heart failure, unspecified; E11.9 Type 2 diabetes mellitus without complications
CPT/HCPCS: 36415; 80053; 80061; 82607; 82746; 83036; 84436; 84443; 85027